=== PATIENT | female | born 1940 | race Caucasian/White ===

== ENCOUNTER 2018-04-29 12:51 | Inpatient (IN) | payer MEDICARE ==
[~2018-04-29] VITALS: Ht 162.6 cm; Wt 61.8 kg
[~2018-04-29 12:51] MED LIST: AMBIEN PAK10 MG PO; AMLODIPINE 5 MG; LEVEMIR 10100 UNIT/1; LEVOTHYROXINE PO; LIOTHYRONINE PO; OMEPRAZOLE20 MG PO; Z LAMISIL PO; Z.0.AMARYL4 MG PO; Z.0.GLUCOPHAGE1000 M PO; Z.0.NOVOLOG100 UNIT/; Z.0.TENORMIN25 MG PO; Z.0.ZESTRIL20 MG PO
--- OUTSIDE RECORDS SUMMARY | 2018-04-29 12:56 | XMS REPORT ---
Author Author [facility] Address Unknown Phone Unavailable Care Team Providers Care Tool Filer Name Role Phone NURIA COLE Unavailable Unavailable Problems This patient has no known problems. Allergies, Adverse Reactions, Alerts This patient has no known allergies or adverse reactions. Medications This patient has no known medications. Results Test Description Test Time Test Comments Text Results Atomic Results Result Comments POCT-GLUCOSE METER 2017-09-20 10:43:00 POC-GLUCOSE METER (LINDA) (test [id number]) 109 mg/dL 70-[address] [facility] [address] [facility] [address]
--- OUTSIDE RECORDS SUMMARY | 2018-04-29 12:56 | XMS REPORT | Clinical Summary ---
Author Author [facility] Address Unknown Phone Unavailable Care Team Providers Care Video Arcade Manager Name Role Phone Junior Pope MD PCP Allergies Comments Active Allergy Reactions Severity Noted Date nausea Codeine Other (See 11/15/2015 Comments) Severe nausea Levofloxacin Other (See 11/15/2015 Comments) Lisinopril Hives 11/15/2015 Vaginal itching Vaginal itching Penicillins Other (See 02/11/2016 Comments) Severe nausea Pentazocine Lactate Other (See 11/15/2015 Comments) Medications End Date Status Medication Sig Dispensed Refills Start Date Active atenolol (TENORMIN) 25 MG Take 25 mg by 0 tablet mouth daily. Active omeprazole (PriLOSEC) 20 Take 20 mg by 0 MG capsule mouth daily. Active metFORMIN (GLUCOPHAGE) Take 1,000 mg 0 1000 MG tablet by mouth 2 (two) times a day with meals. Active glimepiride (AMARYL) 4 MG Take 4 mg by 0 tablet mouth daily before breakfast. Active celecoxib (CeleBREX) 200 Take 200 mg 0 MG capsule by mouth 2 (two) times a day. Active terbinafine HCl (LamiSIL) Take 250 mg 0 250 mg tablet by mouth daily. Active zolpidem (AMBIEN) 10 mg Take 10 mg by 0 tablet mouth nightly as needed for sleep. Active cholecalciferol, vitamin Take 5,000 0 D3, (VITAMIN D3) 5,000 Units by unit capsule mouth daily. Active vitamin E 1000 UNIT Take 1,000 0 capsule Units by mouth daily. Active thyroid, pork, (ARMOUR Take 120 mg 0 THYROID) 120 mg tablet by mouth daily. Active amLODIPine (NORVASC) 10 Take 10 mg by 0 mg tablet mouth daily. Active ezetimibe (ZETIA) 10 mg Take 10 mg by 0 tablet mouth daily. Active insulin lispro (HumaLOG) Inject under 0 100 unit/mL injection the skin as needed for high blood sugar. Active methotrexate 2.5 MG Take 2.5 mg 0 tablet by mouth once a week. Last dose was Sunday 12.7.18 Active predniSONE (DELTASONE) 5 Take 5 mg by 0 mg tablet mouth daily. Every other day Active ascorbic acid, vitamin C, Take 2,000 mg 0 (VITAMIN C) 500 MG tablet by mouth daily. Active multivitamin (THERAGRAN) Take 1 tablet 0 tablet by mouth daily. Active calcium carbonate oyster Take 1 tablet 0 shell (OS-CARLY) 500 mg by mouth calcium (1,250 mg) tablet daily. Active promethazine (PHENERGAN) Take 25 mg by 0 25 MG tablet mouth every 6 (six) hours as needed for nausea or vomiting. 03/15/2018 traMADol (ULTRAM) 50 mg Take 1 tablet 30 tablet 0 tablet (50 mg total) 9 by mouth every 6 (six) hours as needed for moderate pain or severe pain for up to 14 days. 03/08/2018 doxycycline (VIBRAMYCIN) Take 2 28 capsule 0 50 MG capsule capsules (100 9 mg total) by mouth 2 (two) times a day for 7 days. 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 Office Visit Orthopedic Surgery Yvan Bryant MD 03/19/2018 Abstract Orthopedic Surgery Elsie Gresham MD Amputation of right ring finger (Primary Dx) 03/12/2018 Office Visit Orthopedic Surgery Lis Anaya Left hip pain (Primary Dx) 03/11/2018 Orders Only Orthopedic Surgery Leanne Salinas MD 03/01/2018 Anesthesia Orthopedic Surgery Event Elsie Gresham MD RIGHT RING FINGER I AND D COMPLETION AMPUTATION 03/01/2018 Surgery Orthopedic Surgery Elsie Gresham MD Complete traumatic metacarpophalangeal amputation of finger 03/01/2018 Hospital Orthopedic Surgery Encounter Elsie Gresham MD Amputation of right ring finger (Primary Dx) 02/28/2018 Office Visit Orthopedic Surgery Yvan Bryant MD L periprosthetic hip fx s/p ORIF, RevTHA 02/05/18 (Primary Dx) 02/20/2018 Office Visit Orthopedic Surgery Radha Galvez MA 02/12/2018 Documentation Orthopedic Surgery Yvan Bryant MD REVISION TOTAL HIP ARTHROPLASTY VS OPEN REDUCTION INTERNAL FIXATION AND ALL OTHER INDICATED PROCEDURES 02/05/2018 Surgery Orthopedic Surgery Paola Zafar, KINGA 02/05/2018 Anesthesia Orthopedic Surgery Event Mamadou Walters MD Closed fracture of left hip, initial encounter (HCC) (Primary Dx) 02/04/2018 Hospital Orthopedic Surgery - Encounter 02/08/2018 N/A 02/04/2018 Intake Access after 04/28/2017 Family History Medical History Relation Name Comments Heart disease Father Cancer Mother Relation Name Status Comments Father Mother Social History Date Tobacco Use Types Packs/Day Years Used Never Smoker Smokeless Tobacco: Never Used Alcohol Use Drinks/Week oz/Week Comments Yes 1 Glasses of 0.6 wine Sex Assigned at Date Recorded Not on file Industry Job Start Date Occupation Not on file Not on file Not on file Travel End Travel History Travel Start No recent travel history available. Last Filed Vital Signs Time Taken Vital Sign Reading 03/01/2018 1:59 PM [employer] Blood Pressure 123/59 03/01/2018 1:59 PM [employer] Pulse 89 03/01/2018 1:59 PM [employer] Temperature 36.8 C (98.2 F) 03/01/2018 1:59 PM [employer] Respiratory Rate 14 03/01/2018 1:59 PM [employer] Oxygen Saturation 100% - Inhaled Oxygen - Concentration 03/22/2018 9:11 AM [employer] Weight 65.8 kg (145 lb) 03/22/2018 9:11 AM [employer] Height 162.6 cm (5' 4") 03/22/2018 9:11 AM [employer] SU[employer]OR Body Mass Index 24.89 Plan of Treatment Care Team Description Date Type Specialty Yvan Bryant MD [address] [address] [phone] 05/22/2018 Office Visit Orthopedic Surgery Health Maintenance Due Date Last Done Comments SHINGLES VACCINES (#1) 09/26/1989 65+ PNEUMOCOCCAL VACCINE 09/26/2004 (1 of 2 - PCV13) PNEUMOCOCCAL 09/26/2004 POLYSACCHARIDE VACCINE AGE 65 AND OVER INFLUENZA VACCINE 09/26/2017 Implants Device Identifier Shelf Expiration Date Model / Serial / Lot Implanted Type Area Manufactur er 10/04/2027 [id number] / / [id number] 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 8 Cbl Sm 185mm Accord - Hip Joint Left: Hip GUTIERREZ AND [id number] Implants NEPHEW Implanted: Qty: 1 on 02/05/2018 by ORTHOPEDIC Yvan Bryant MD S 08/16/2027 [id number] / / [id number] Cable Co-Cr 2mm Accord - [id number] Hip Joint Left: Hip GUTIERREZ AND Implanted: Qty: 1 on 02/05/2018 by Implants Yvan Gallego MD ORTHOPEDIC S 08/16/2027 [id number] / / [id number] Cable Co-Cr 2mm Accord - [id number] Hip Joint Left: Hip GUTIERREZ AND Implanted: Qty: 1 on 02/05/2018 by Yvan Torres MD ORTHOPEDIC S 09/16/2027 [id number] / / [id number] Cable Co-Cr 2mm Accord - [id number] Hip Joint Left: Hip GUTIERREZ AND Implanted: Qty: 1 on 02/05/2018 by Yvan Torres MD ORTHOPEDIC S 09/16/2027 [id number] / / [id number] Cable Co-Cr 2mm Accord - [id number] Hip Joint Left: Hip GUTIERREZ AND Implanted: Qty: 1 on 02/05/2018 by Yvan Torres MD ORTHOPEDIC S 11/24/2027 [id number] / / [id number] Head Fml 02/08 Tprd 36mm -3mm Hip Joint Left: Hip GUTIERREZ AND Oxinium - [id number] Implants NEPHEW Implanted: 02/05/2018 (Quantity not ORTHOPEDIC on file) S 10/07/2026 [id number] / / [id number] Redapt Slvls Stem 240mm 17so - IPM Left: Hip GUTIERREZ & [id number] IMPLANT NEPHEW Implanted: Qty: 1 on 02/05/2018 by DEVICES ORTHOPAEDYvan Bryant MD 05/24/2027 [id number] / / [id number] Cable W/ Clmp Co-Cr 2mm Accord - Orthopedic Left: Hip GUTIERREZ AND [id number] Trauma NEPHEW Implanted: Qty: 1 on 02/05/2018 by Implants Yvan Riley MD S 07/06/2027 [id number] / / [id number] Cable W/ Clmp Co-Cr 2mm Accord - Orthopedic Left: Hip GUTIERREZ AND [id number] Trauma NEPHEW Implanted: Qty: 1 on 02/05/2018 by Implants Yvan Riley MD S 11/20/2027 [id number] / / [id number] Cable W/ Clmp Co-Cr 2mm Accord - Orthopedic Left: Hip GUTIERREZ AND [id number] Trauma NEPHEW Implanted: Qty: 1 on 02/05/2018 by Implants Yvan Riley MD S 09/26/2020 [id number] / / [id number] Tourni-Cot Large Tourniquet MAR-MED Implanted: Qty: 1 on 03/01/2018 by Elsie Oneal MD Procedures Comments Procedure Name Priority Date/Time Associated Diagnosis XR HIP 2-3 VIEWS LEFT Routine 03/22/2018 Left hip pain 9:36 AM [employer]PER[employer]OR SURGICAL PATHOLOGY Routine 03/01/2018 REQUEST 12:26 PM [employer] SUPERVISOR POC GLUCOSE Routine 03/01/2018 12:21 PM [employer] SUPERVISOR SC AN ELECTIVE Routine 03/01/2018 SUPRAGLOTTIC AIRWAY 11:47 AM [employer] SUPERVISOR Procedure Note - Jr Jacinto CRNA - 03/01/2018 11:47 AM [employer] SUPERVISOR ANESTHESIA INTUBATION Performed by: Jr Jacinto CRNA Authorized by: Leanne Salinas MD Location: OR Urgency: Elective Difficult Airway: No Preoxygena edgar with 100% O2: Yes C-spine Precaution s Maintained Throughout : No Mask Ventilatio n: Not attempted Final Airway Type: Supraglott ic airway Final LMA: I-Gel LMA Size: 3 Number of Attempts at Approach: 2 Smooth placement of iGel LMA sz 3, was not able to get good VT. More induction meds given and then achieved adequate VT. Dentition unchanged. XR CHEST 1 VW PORTABLE Routine 03/01/2018 10:57 AM [employer]ARD SUPERVISOR POC GLUCOSE Routine 03/01/2018 10:56 AM [employer]ARD SUPERVISOR AMPUTATION, DIGIT, HAND 03/01/2018 Complete traumatic 10:40 AM [employer] SUPERVISOR metacarpophalangeal amputation of finger Special Needs SUPINE MINI C-ARM XR FINGER 2+ VW RIGHT Routine 02/28/2018 Pain in finger of right 3:43 PM [employer] SUPERVISOR hand POC GLUCOSE Routine 02/08/2018 8:17 AM [employer]ARD SUPERVISOR POC GLUCOSE Routine 02/07/2018 9:18 PM [employer]ARD SUPERVISOR POC GLUCOSE Routine 02/07/2018 5:19 PM [employer] SUPERVISOR POC GLUCOSE Routine 02/07/2018 12:42 PM [employer] SUPERVISOR POC GLUCOSE Routine 02/07/2018 7:54 AM [employer] SUPER[employer]OR ESTIMATED GFR Routine 02/07/2018 4:00 AM [employer] SUPER[employer]OR BASIC METABOLIC PANEL Routine 02/07/2018 4:00 AM [employer] SUPERVISOR HEMOGLOBIN & HEMATOCRIT Routine 02/07/2018 3:32 AM [employer] SUPERVISOR POC GLUCOSE Routine 02/06/2018 9:35 PM [employer] SUPERVISOR POC GLUCOSE Routine 02/06/2018 4:42 PM [employer] SUPERVISOR POC GLUCOSE Routine 02/06/2018 12:38 PM [employer] SUPERVISOR POC GLUCOSE Routine 02/06/2018 8:13 AM [employer] SUPERVISOR HEMOGLOBIN & HEMATOCRIT Routine 02/06/2018 5:40 AM [employer] SUPERVISOR ESTIMATED GFR Routine 02/06/2018 4:00 AM [employer] SUPERVISOR BASIC METABOLIC PANEL Routine 02/06/2018 4:00 AM [employer] SUPERVISOR POC GLUCOSE Routine 02/05/2018 10:09 PM [employer] SUPERVISOR POC GLUCOSE Routine 02/05/2018 6:03 PM [employer] SUPERVISOR POC GLUCOSE Routine 02/05/2018 4:02 PM [employer] SUPERVISOR POC GLUCOSE Routine 02/05/2018 1:04 PM [employer] SUPER[employer]OR XR PELVIS 1 OR 2 VW Routine 02/05/2018 12:14 PM [employer] SUPER[employer]OR SURGICAL PATHOLOGY Routine 02/05/2018 REQUEST 12:10 PM [employer] SUPER[employer]OR TRANSFUSE RED BLOOD CELLS Routine 02/05/2018 12:03 PM [employer] SUPER[employer]OR XR PELVIS 1 OR 2 VW Routine 02/05/2018 11:20 AM [employer]ARD SUPERVISOR REVISION, ARTHROPLASTY, 02/05/2018 LEFT HIP PERIPROSTHEC HIP 11:00 AM [employer] SUPERVISOR FRACTURE Special Needs TERRI, BIOMET, GUTIERREZ AND NEPHEW SC AN ELECTIVE Routine 02/05/2018 ENDOTRACHEAL AIRWAY 10:37 AM [employer] SUPERVISOR Procedure Note - Tim Weems CRNA - 02/05/2018 10:37 AM [employer] SUPERVISOR ANESTHESIA INTUBATION Date/Time: 02/05/2018 10:07 AM Performed by: Tim Weems CRNA Authorized by: Yvan Mckinney MD Location: OR Urgency: Elective Difficult Airway: No Resident/C RNA/AA: Tim Weems CRNA Preoxygena edgar with 100% O2: Yes C-spine Precaution s Maintained Throughout : No Mask Ventilatio n: Easy mask Final Airway Type: Endotrache al airway Final Endotrache al Airway: ETT Cuffed: Yes Technique Used: Direct laryngosco py Devices/Me thods Used in Placement: Intubatin g stylet Insertion Site: Oral Blade Type: Iyer Laryngosco pe Blade/Vide olaryngosc ope Blade Size: 2 ETT Size (mm): 7.0 Cuff at minimum occlusion pressure: Yes Measured from: Lips ETT to Lips (cm): 21 Placement Verified by: CO2 detection, direct visualizat ion and equal breath sounds Laryngosco pic view: Grade IIa - partial view of glottis Rapid Sequence Induction (RSI): No Modified RSI: No Number of Attempts at Approach: 1 POC GLUCOSE Routine 02/05/2018 7:41 AM [employer]ARD SUPERVISOR POC GLUCOSE Routine 02/05/2018 6:53 AM [employer] SUPER[employer]OR POC GLUCOSE Routine 02/04/2018 10:31 [address] [address] [address] [address] HEAD EXTERNAL STUDY Routine 02/04/2018 6:03 PM [employer] SUPERVISOR POC GLUCOSE Routine 02/04/2018 4:26 PM [employer]OLD YARD SUPERVISOR ECG 12-LEAD STAT 02/04/2018 3:54 PM [employer] SUPERVISOR PREPARE RBC Timed 02/04/2018 3:15 PM [employer] SUPER[employer]OR PREPARE RBC Timed 02/04/2018 3:15 PM [employer] SUPERVISOR TYPE AND SCREEN Timed 02/04/2018 3:15 PM [employer] SUPER[employer]OR ESTIMATED GFR Routine 02/04/2018 1:30 PM [employer] SUPERVISOR HC COMPLETE BLD COUNT STAT 02/04/2018 W/AUTO DIFF 1:30 PM [employer] SUPERVISOR COMPREHENSIVE METABOLIC Routine 02/04/2018 PANEL 1:30 PM [employer] SUPERVISOR URINE CULTURE Routine 02/04/2018 1:20 PM [employer] SUPERVISOR URINALYSIS SCREEN AND Routine 02/04/2018 MICROSCOPY, WITH REFLEX 1:02 PM [employer]ARD SUPERVISOR TO CULTURE PROTHROMBIN TIME WITH INR Routine 02/04/2018 1:02 PM [employer] SUPERVISOR XR LOWER EXTREMITY Routine 02/04/2018 EXTERNAL STUDY 7:10 AM [employer] SUPERVISOR XR UPPER EXTREMITY Routine 02/04/2018 EXTERNAL STUDY 6:23 AM [employer] SUPERVISOR XR LOWER EXTREMITY Routine 02/04/2018 EXTERNAL STUDY 6:19 AM [employer] SUPERVISOR XR CHEST EXTERNAL STUDY Routine 02/04/2018 6:18 AM [employer] [address] SPINE EXTERNAL STUDY Routine 02/04/2018 6:01 AM [employer] [address] HEAD EXTERNAL STUDY Routine 02/04/2018 6:01 AM [employer]ARD SUPERVISOR after 04/28/2017 Results * XR Hip 2-3 View Left (03/22/2018 9:36 AM M[employer] YARD SUPERVISOR) Narrative Performed At [facility] X-rays demonstrate well-positioned revision arthroplasty with supplemental fixation for Gibsonia B periprosthetic fracture. Performing Organization Address City/[facility] Phone Number [facility] [address] [place] [address] * Surgical pathology request (03/01/2018 12:26 PM MOLD YARD SUPERVISOR) Only the most recent of 2 results within the time period is included. [facility] DEPARTMENT OF PATHOLOGY AND GENOMIC MEDICINE Surgical pathology report See link below for PDF Lab [facility] DEPARTMENT OF Report PATHOLOGY AND GENOMIC MEDICINE Result status This is Final Report for [facility] DEPARTMENT OF [id number] PATHOLOGY AND GENOMIC MEDICINE Performing Organization Address [facility] [place] [place] Phone Number [facility] DEPARTMENT OF [address] [place] [address] PATHOLOGY AND GENOMIC MEDICINE * POC glucose (03/01/2018 12:21 PM [employer]ARD SUPERVISOR) Only the most recent of 19 results within the time period is included. POC glucose 124 (H) 65 - 99 mg/dL [facility] Comment: [facility] Notified RN Meter ID: [id number] Hardscape Foreman: Meseret Do Performing Organization Address [facility] Phone Number [facility] DEPARTMENT OF [address] [place] [address] PATHOLOGY AND GENOMIC MEDICINE [facility] [address] [place] [address] HOSPITAL * XR Chest 1 Vw Portable (03/01/2018 10:57 AM [employer] SUPERVISOR) Narrative Performed At EXAMINATION:XR CHEST 1 VW PORTABLE [facility] CLINICAL HISTORY:cough COMPARISON:February 04, 2018 IMPRESSION: Heart and mediastinum are normal.Pulmonary vessels are in the normal range.The lung ricks are clear. Multiple small surgical clips are noted along the axillary portion of the right breast. [facility]-[id number] Procedure Note Interface, Radiology Results Incoming - 03/01/2018 11:01 AM [employer]ARD SUPERVISOR EXAMINATION: XR CHEST 1 VW PORTABLE CLINICAL HISTORY: cough COMPARISON: February 04, 2018 IMPRESSION: Heart and mediastinum are normal. Pulmonary vessels are in the normal range. The lung ricks are clear. Multiple small surgical clips are noted along the axillary portion of the right breast. [facility]-[id number] Performing Organization Address [facility] Phone Number [facility] [address] [place] [address] * XR Finger 2+ Vw Right (02/28/2018 3:43 PM M[employer]ARD SUPERVISOR) Narrative Performed At [facility] 3 view of right ring finger shows distal phalanx tuft is amputated with likely exposed bone and possible osteomyelitis at the tip of the amputation, severe arthritic changes of the PIPJ. Performing Organization Address [facility] Phone Number [facility] [address] [place] [address] * Estimated GFR (02/07/2018 4:00 AM [employer]ARD SUPERVISOR) Only the most recent of 3 results within the time period is included. Estimated GFR 66 mL/min/1.73 m2 [facility] Comment: HOSPITAL CatergoryUnitsInte rpretation G1 >=90 Normal or high G2 60-89Mildly decreased [id number] Mildly to moderately decreased [id number] Moderately to severely decreased G4 15-29Severely decreased G5 <15Kidney failure The eGFR was calculated using the Chronic Kidney Disease Epidemiology Collaboration (CKD-EPI) equation. Interpretation is based on recommendations of the National Kidney Foundation-Kidney Disease Outcomes Quality Initiative (NKF-KDOQI) published in 2014. Specimen Plasma specimen Performing Organization Address City/[facility]/Zipcode Phone Number [facility] DEPARTMENT OF [address] [place] [address] PATHOLOGY AND GENOMIC MEDICINE [address] * Basic metabolic panel (02/07/2018 4:00 AM [employer]ARD SUPERVISOR) Only the most recent of 2 results within the time period is included. Sodium 138 135 - 148 mEq/L [facility] Potassium 4.3 3.5 - 5.0 mEq/L [facility] Chloride 100 98 - 112 mEq/L [facility] CO2 23 (L) 24 - 31 mEq/L [facility] Anion gap 15@ANIO 7 - 15 mEq/L [facility] BUN 15 8 - 23 mg/dL [facility] Creatinine 0.84 0.50 - 0.90 mg/dL [facility] Glucose 203 (H) 65 - 99 mg/dL [facility] Calcium 9.3 8.8 - 10.2 mg/dL [facility] Specimen Plasma specimen Performing Organization Address City/State/Zipcode Phone Number [place] [address] PATHOLOGY AND GENOMIC MEDICINE [address] * Hemoglobin & hematocrit (02/07/2018 3:32 AM M[employer] YARD SUPERVISOR) Only the most recent of 2 results within the time period is included. HGB 9.3 (L) 12.0 - 16.0 g/dL [facility] HCT 27.7 (L) 37.0 - 47.0 % [facility] Specimen Blood Performing Organization Address City/[facility] Phone Number [facility] [address] PATHOLOGY AND GENOMIC MEDICINE [address] * XR Pelvis 1 Or 2 Vw (02/05/2018 12:14 PM [employer] YARD SUPERVISOR) Only the most recent of 2 results within the time period is included. Narrative Performed At EXAMINATION:XR PELVIS 1 OR 2 VW [facility] CLINICAL HISTORY:Pain COMPARISON:February 05 IMPRESSION: Patient has undergone left hip arthroplasty There is no evidence of fracture No focal lesions are present [id number] Procedure Note Hm Interface, Radiology Results Incoming - 02/05/2018 12:19 PM [employer]ARD SUPERVISOR EXAMINATION: XR PELVIS 1 OR 2 VW CLINICAL HISTORY: Pain COMPARISON: February 05 IMPRESSION: Patient has undergone left hip arthroplasty There is no evidence of fracture No focal lesions are present [id number] Performing Organization Address City/[facility] Phone Number [facility] [address] [place] [address] * Transfuse RBC (02/05/2018 12:03 PM MOLD YARD SUPERVISOR) * CT Head External Study (02/04/2018 6:03 PM M[employer] YARD SUPERVISOR) Only the most recent of 2 results within the time period is included. Narrative Performed At This exam was not acquired at a [facility] facility and has not been [facility] interpreted by a [facility] Provider.The exam was imported into our imaging system for comparisons purposes. Performing Organization Address City/State/Zipcode Phone Number [facility] [address] [place] [address] * ECG 12 lead (02/04/2018 3:54 PM M[employer] YARD SUPERVISOR) Ventricular rate 81 [facility] Atrial rate 81 [facility] SC interval 154 [facility] QRSD interval 74 [facility] QT interval 370 [facility] QTC interval 429 [facility] P axis 1 -29 [facility] QRS axis 1 64 [facility] T wave axis 57 [facility] EKG impression Normal sinus rhythm-Normal [facility] ECG-No previous ECGs available- Narrative Performed At Performing Organization Address [facility] Phone Number [facility] [address] [place] [address] * Prepare RBC, 2 Units (02/04/2018 3:15 PM [employer] SUPERVISOR) Product name Red Blood Cells -1, Leukored [facility] Unit number [id number] [facility] Product code [id number] [facility] Dispense status Returned to BB not transfused [facility] Blood expiration date [facility] Blood type code 6200 [facility] Blood type A POSITIVE [facility] Product name Red Blood Cells -1, Leukored [facility] Unit number [id number] [facility] Product code [id number] [facility] Dispense status Transfused [facility] Blood expiration date [facility] Blood type code 6200 [facility] Blood type A POSITIVE [facility] Performing Organization Address [facility] Phone Number [facility] DEPARTMENT OF [address] [place] [address] PATHOLOGY AND GENOMIC MEDICINE [address] [address] HOSPITAL * Type and screen (02/04/2018 3:15 PM [employer] YARD SUPERVISOR) ABO grouping A [facility] Rh type POS [facility] Antibody screen (gel) NEG [facility] Performing Organization Address City/[facility]/Zipcode Phone Number [facility] [address] [address] PATHOLOGY AND GENOMIC MEDICINE [address] [address] HOSPITAL * CBC with platelet and differential (02/04/2018 1:30 PM [employer] YARD SUPERVISOR) WBC 6.65 4.50 - 11.00 k/uL [facility] RBC 3.45 (L) 4.20 - 5.50 m/uL [facility] HGB 11.1 (L) 12.0 - 16.0 g/dL [facility] HCT 32.7 (L) 37.0 - 47.0 % [facility] MCV 94.8 82.0 - 100.0 fL [facility] MCH 32.2 27.0 - 34.0 pg [facility] MCHC 33.9 31.0 - 37.0 g/dL [facility] RDW - SD 49.5 37.0 - 55.0 fL [facility] MPV 10.3 8.8 - 13.2 fL [facility] Platelet count 182 150 - 400 k/uL [facility] Nucleated RBC 0.00 /100 WBC [facility] Neutrophils 78.6 (H) 39.0 - 69.0 % [facility] Lymphocytes 9.6 (L) 25.0 - 45.0 % [facility] Monocytes 9.9 0.0 - 10.0 % [facility] Eosinophils 0.5 0.0 - 5.0 % [facility] Basophils 0.5 0.0 - 1.0 % [facility] Immature granulocytes 0.9Comment: "Immature 0.0 - 1.0 % [facility] granulocytes" (promyelocytes, HOSPITAL myelocytes, metamyelocytes) Specimen Blood Performing Organization Address City/State/Zipcode Phone Number [facility] DEPARTMENT OF [address] [place] [address] PATHOLOGY AND GENOMIC MEDICINE [address] * Comprehensive metabolic panel (02/04/2018 1:30 PM MOLD YARD SUPERVISOR) Sodium 138 135 - 148 mEq/L [facility] Potassium 4.1 3.5 - 5.0 mEq/L [facility] Chloride 99 98 - 112 mEq/L [facility] CO2 26 24 - 31 mEq/L [facility] Anion gap 13@ANIO 7 - 15 mEq/L [facility] BUN 20 8 - 23 mg/dL [facility] Creatinine 0.93 (H) 0.50 - 0.90 mg/dL [facility] Glucose 151 (H) 65 - 99 mg/dL [facility] Calcium 9.3 8.8 - 10.2 mg/dL [facility] Protein 6.4 6.3 - 8.3 g/dL [facility] Comment: HOSPITAL 4.6-7.0 g/dL 1 week 4.4-7.6 g/dL 7 months-1year 5.1-7.3 g/dL 1-2 years5.6-7 .5 g/dL >3 years6.0-8 .0 g/dL 18-150 6.3-8.3 g/dL Albumin 3.4 (L) 3.5 - 5.0 g/dL [facility] A/G ratio 1.1 0.7 - 3.8 [facility] Alkaline phosphatase 62 35 - 104 U/L [facility] AST 26 10 - 35 U/L [facility] ALT 29 5 - 50 U/L [facility] Total bilirubin 0.6 0.0 - 1.2 mg/dL [facility] Specimen Plasma specimen Performing Organization Address City/[facility] Phone Number [facility] [place] [address] PATHOLOGY AND GENOMIC MEDICINE [address] * Urine culture (02/04/2018 1:20 PM MOLD YARD SUPERVISOR) Urine culture SEE COMMENTComment: [facility] Bacteriuria screen negative. HOSPITAL Performing Organization Address [facility] [place] [place] Phone Number [facility] [place] [address] PATHOLOGY AND GENOMIC MEDICINE [address] * Urinalysis screen and microscopy, with reflex to culture (02/04/2018 1:02 PM MOLD YARD SUPERVISOR) Specimen site Clean catch [facility] Color, UA Straw [facility] Appearance, UA Clear [facility] Specific gravity, UA 1.013 1.001 - 1.035 [facility] pH, UA 6.0 5.0 - 8.5 [facility] Protein, UA 1+ (A) Negative [facility] Glucose, UA 1+ (A) Negative [facility] Ketones, UA Negative Negative [facility] Bilirubin, UA Negative Negative [facility] Blood, UA Negative Negative [facility] Nitrite, UA Negative Negative [facility] Urobilinogen, UA <2.0 <2.0 [facility] Leukocyte esterase, UA Negative Negative [facility] WBC, UA 2 0 - 4 /HPF [facility] RBC, UA 1 0 - 5 /HPF [facility] Bacteria, UA Few None seen [facility] Yeast, UA None seen [facility] Yeast with pseudohyphae, None seen [facility] Specimen Urine Performing Organization Address City/State/Zipcode Phone Number [facility] DEPARTMENT OF [address] [place] [address] PATHOLOGY AND GENOMIC MEDICINE [address] * Prothrombin time with INR (02/04/2018 1:02 PM MOLD YARD SUPERVISOR) Prothrombin time 14.0 11.5 - 14.5 sec [facility] INR 1.1 [facility] Comment: HOSPITAL The International Normalized Ratio (INR) is a therapeutic monitoring tool for patients who are stable on oral anticoagulant therapy. An INR of 2.0-3.0 is suggested for deep vein thrombosis/pulmonary embolism. Specimen Blood Performing Organization Address City/[facility] Phone Number [facility] [place] [address] PATHOLOGY AND GENOMIC MEDICINE [address] * XR Lower Extremity External Study (02/04/2018 7:10 AM MOLD YARD SUPERVISOR) Only the most recent of 2 results within the time period is included. Narrative Performed At This exam was not acquired at a [facility] facility and has not been [facility] interpreted by a [facility] Provider.The exam was imported into our imaging system for comparisons purposes. Performing Organization Address City/State/Zipcode Phone Number [facility] [address] [place] [address] * XR Upper Extremity External Study (02/04/2018 6:23 AM MOLD YARD SUPERVISOR) Narrative Performed At This exam was not acquired at a [facility] facility and has not been [facility] interpreted by a [facility] Provider.The exam was imported into our imaging system for comparisons purposes. Performing Organization Address City/[facility]/Zipcode Phone Number [facility] [address] [place] [address] * XR Chest External Study (02/04/2018 6:18 AM MOLD YARD SUPERVISOR) Narrative Performed At This exam was not acquired at a Protestant facility and has not been [facility] interpreted by a Protestant Provider.The exam was imported into our imaging system for comparisons purposes. Performing Organization Address City/State/Zipcode Phone Number [facility] [address] [place] [address] * CT Spine External Study (02/04/2018 6:01 AM MOLD YARD SUPERVISOR) Narrative Performed At This exam was not acquired at a Protestant facility and has not been [facility] interpreted by a Protestant Provider.The exam was imported into our imaging system for comparisons purposes. Performing Organization Address City/State/Zipcode Phone Number [facility] [address] [place] [address] after 04/28/2017 Insurance Payer Benefit Subscriber ID Type Phone Address Plan / Group [facility] MEDICARE REBOLLEDO xxxxxxxxx HMO ADVANTAGE - [facility] AARP AARP xxxxxxxxx Commercial SUPPLEMENT Surgery Advance Directives Patient has advance care planning documents on file. For more information, dottie weaver contact: Leo Dee [address] [place] [address]
--- OUTSIDE RECORDS SUMMARY | 2018-04-29 12:56 | XMS REPORT | Clinical Summary ---
Author Author PORTIA Escap[employer] MediaCarib[facility] HospitalJob[facility] Organization [facility] Address Unknown Phone Unavailable Care Team Providers Care Photonics Technician Name Role Phone Junior oPpe PCP Allergies Comments Active Allergy Reactions Severity Noted Date nausea Upset stomach Codeine Other (See 11/15/2015 Comments) Severe nausea Upset stomach Levofloxacin Other (See 11/15/2015 Comments) Itching everywhere Lisinopril Itching, 11/15/2015 Hives Vaginal itching Penicillins Other (See 02/11/2016 Comments) Other reaction(s): Other (See Comments) Severe nausea Pentazocine Lactate 11/15/2015 Medications End Date Status Medication Sig Dispensed Refills Start Date Active atenolol (TENORMIN) 25 MG Take 25 mg by 0 tablet mouth 2 (two) times daily. Active omeprazole (PRILOSEC) 20 Take 20 mg by 0 MG capsule mouth as needed. Active ranitidine (ZANTAC) 75 MG Take 75 mg by 0 tablet mouth as needed for Heartburn. Active metFORMIN (GLUCOPHAGE) Take 1,000 mg 0 1000 MG tablet by mouth 2 (two) times daily with breakfast and dinner. Active glimepiride (AMARYL) 4 MG Take 4 mg by 0 tablet mouth 2 (two) times daily. Active amLODIPine (NORVASC) 5 MG Take 5 mg by 0 tablet mouth daily. Active terbinafine HCl (LAMISIL) Take 250 mg 0 250 mg tablet by mouth daily. Active zolpidem (AMBIEN) 5 MG Take 5 mg by 0 tablet mouth every night as needed for Insomnia. Active celecoxib (CELEBREX) 100 Take 100 mg 0 MG capsule by mouth every 12 (twelve) hours as needed for Pain. Active insulin detemir (LEVEMIR) Inject 14 0 100 unit/mL injection Units subcutaneousl y nightly. Active ascorbic acid (VITAMIN C) Take 1,000 mg 0 1000 MG tablet by mouth daily 2,000 - 3,000 daily . Active vitamin E 1000 UNIT Take 1,000 0 capsule Units by mouth daily. Active cholecalciferol, vitamin Take by 0 D3, 2,000 unit Cap mouth. Active multivitamin per tablet Take 1 tablet 0 by mouth daily. Active calcium carbonate Take 1,200 mg 0 (OS-CARLY) 600 mg (1,500 by mouth mg) Tab daily. Active HYDROcodone-acetaminophen Take 1 tablet 0 (VICODIN) 7.5-500 mg per by mouth tablet every 6 (six) hours as needed for Pain. Active acetaminophen (TYLENOL) Take 500 mg 0 500 MG tablet by mouth every 6 (six) hours as needed for Pain. Active naproxen Take 220 mg 0 (ALEVE,ANAPROX,MIDOL) 220 by mouth as MG tablet needed. Active loratadine (CLARITIN) 10 Take 10 mg by 0 mg tablet mouth as needed for Allergies. Active loperamide (IMODIUM A-D) Take 2 mg by 0 2 mg tablet mouth as needed for Diarrhea. Active thyroid, pork, (ARMOUR Take by mouth 0 THYROID) 120 mg Tab daily. Active terbutaline (BRETHINE) 5 Take 5 mg by 0 mg tablet mouth every 6 (six) hours. Active ezetimibe (ZETIA) 10 mg Take 10 mg by 0 tablet mouth daily. Active insulin lispro (HUMALOG) Inject 0 100 unit/mL injection subcutaneousl y 3 (three) times daily before meals. Active methotrexate 2.5 MG Take by mouth 0 tablet once a week. Active folic acid (FOLVITE) 1 MG Take 1 mg by 0 tablet mouth daily. Active predniSONE (DELTASONE) 5 Take 5 mg by 0 MG tablet mouth daily. Active tobramycin-dexamethasone 1 drop every 0 (TOBRADEX) 0.3-0.1 % 4 (four) ophthalmic solution hours while awake. 09/19/2017 Discontinued thyroid, pork, 60 mg Tab Take 30 mg by 0 mouth daily. 09/19/2017 Discontinued insulin aspart (NOVOLOG) Inject 0 100 unit/mL injection subcutaneousl y as needed for High Blood Sugar 5-10 units . 09/19/2017 Discontinued methocarbamol (ROBAXIN) Take 750 mg 0 750 MG tablet by mouth as needed. Active Problems Problem Noted Date Lumbar radiculopathy 02/22/2016 Lumbar stenosis 02/22/2016 Lumbar stenosis with neurogenic claudication 02/22/2016 Encounters Care Team Description Date Type Specialty Renita Calles 09/20/2017 Anesthesia Event Aaron Gary MD Left nasolacrimal duct obstruction (Primary Dx) 09/20/2017 Hospital Encounter Aaron Gary MD PROBING,NASOLACRIMAL DUCT BALLOON DILATION 09/20/2017 Surgery after 04/28/2017 Social History Date Tobacco Use Types Packs/Day Years Used Never Smoker Smokeless Tobacco: Never Used Alcohol Use Drinks/Week oz/Week Comments Yes rarely Sex Assigned at Date Recorded Not on file Industry Job Start Date Occupation Not on file Not on file Not on file Travel End Travel History Travel Start No recent travel history available. Last Filed Vital Signs Time Taken Vital Sign Reading 09/20/2017 11:40 AM CDT Blood Pressure 162/64 09/20/2017 11:40 AM CDT Pulse 68 09/20/2017 11:11 AM CDT Temperature 37.3 C (99.2 F) 09/20/2017 11:40 AM CDT Respiratory Rate 16 09/20/2017 11:40 AM CDT Oxygen Saturation 98% - Inhaled Oxygen - Concentration 09/20/2017 10:37 AM CDT Weight 68 kg (150 lb) 09/20/2017 10:37 AM CDT Height 162.6 cm (5' 4") 09/20/2017 10:37 AM CDT Body Mass Index 25.75 Plan of Treatment Not on file Procedures Comments Procedure Name Priority Date/Time Associated Diagnosis POCT-GLUCOSE METER Routine 09/20/2017 10:35 AM CDT PROBING,NASOLACRIMAL DUCT 09/20/2017 Acute dacryocystitis, BALLOON DILATION 9:17 AM CDT left Nasolacrimal obstruction, left after 04/28/2017 Results * POC-Glucose meter (09/20/2017 10:35 AM CDT) POC-Glucose Meter 109Comment: TESTED AT 70 - 110 mg/dL [facility] [address] [facility] [address] [facility] [address] Specimen Blood Performing Organization Address City/State/Zipcode Phone Number [facility] [address] [place] [address] MEDICAL CENTER after 04/28/2017 Insurance Payer Benefit Subscriber ID Type Phone Address Plan / Group [facility] xxxxxxxxx MEDICARE MGD CARE MEDICARE HMO Advance Directives For more information, please contact: [facility] [address] [place] [address] Date Inactivated Comments Code Status Date Activated 02/23/2016 12:21 PM Full Code 02/22/2016 4:11 PM This code status was determined by: Patient 02/22/2016 4:11 PM Full Code 02/22/2016 5:40 AM This code status was determined by: Patient
[2018-04-29] MEDS ORDERED: SODIUM CHLORIDE 0.9% 1000ML 1,000 ML IV SCH (13:15)
[2018-04-29] MEDS ORDERED: ACETAMINOPHEN INFANTS' 160 MG/5 ML BTL PO ONE (13:15)
[2018-04-29] MEDS ORDERED: ACETAMINOPHEN 325 MG/10 ML UDC ONE (13:17)
--- NOTE | 2018-04-29 13:17 | NUR ---
102.2 TEMP. PATIENT GIVEN TYLENOL 650MG LIQUID
[2018-04-29] MEDS ORDERED: ACETAMINOPHEN 325 MG/10 ML UDC PO ONE (13:30)
--- NOTE | 2018-04-29 13:49 | Diagnostic Imaging Report ---
Examination: Single AP view of the chest. COMPARISON: None. INDICATION: Dehydration DISCUSSION: Lungs are well-inflated. No focal airspace consolidation, pleural effusion, or pneumothorax. Tortuosity of the thoracic aorta. Normal heart size without pulmonary edema. No acute osseous abnormality. Surgical clips along the right chest wall. IMPRESSION: 1. No acute cardiopulmonary abnormalities. Signed by: Dr. Kt Sorto M.D. on 04/29/2018 1:46 PM
[2018-04-29 14:32] LABS: EOSINOPHILS % 2.9 % (0.0-6.0); HEMATOCRIT 25.6 % (34.2-44.1); HEMOGLOBIN 8.8 g/dL (12.0-16.0); LYMPHOCYTES # (AUTO) 0.2 (1.0-3.2); MEAN CORPUSCULAR HEMOGLOBIN 29.3 pg (28-32); MEAN CORPUSCULAR HGB CONC 34.4 g/dL (31-35); MEAN CORPUSCULAR VOLUME 85.3 fL (81-99); MONOCYTES % 2.9 % (4.4-11.3); NEUTROPHILS # (AUTO) 0.1 (2.1-6.9); NEUTROPHILS % 34.2 % (38.7-80.0); PLATELET COUNT 66 x10e3/uL (140-360); RED CELL DISTRIBUTION WIDTH 14.3 % (11.7-14.4)
[2018-04-29 14:36] LABS: INR 1.09; PROTHROMBIN TIME 14.6 seconds (11.9-14.5)
[2018-04-29 14:37] LABS: PARTIAL THROMBOPLASTIN TIME 35.8 seconds (23.8-35.5)
[2018-04-29 14:41] LABS: STREPTOCOCCUS GRP A ANTIGEN NEGATIVE (NEGATIVE)
[2018-04-29 14:46] LABS: ALBUMIN 3.2 g/dL (3.5-5.0); ALBUMIN/GLOBULIN RATIO 0.8 (0.8-2.0); ANION GAP 14.9 mmol/L (8-16); CALCIUM 9.3 mg/dL (8.4-10.2); CREATININE, SERUM 1.41 mg/dL (0.57-1.11); POTASSIUM 3.9 mmol/L (3.5-5.1)
[2018-04-29 14:50] LABS: INFLUENZAE A&B ANTIGEN (RAPID) NEGATIVE (NEGATIVE)
--- NOTE | 2018-04-29 15:05 | NUR ---
RECEIVED PT FROM [facility] VIA W/C. GOWNED AND PLACED ON THE MONITOR
[2018-04-29] MEDS ORDERED: VANCOMYCIN 1GM/NS 250 ML 250 ML IV SCH (15:30)
[2018-04-29] MEDS ORDERED: FILGRASTIM 300 MCG/ML VIAL SC STA (15:35)
--- NOTE | 2018-04-29 15:35 | NUR ---
TYPE AND SCREEN DRAWN AND SENT
[2018-04-29] MEDS: CEFEPIME 2 GM/NS 0.9% 100 ML 100 ML IV SCH (15:45)
[2018-04-29] MEDS: SODIUM CHLORIDE 0.9% 1000ML 1,000 ML IV SCH (15:55)
[2018-04-29] MEDS ORDERED: DEXTROSE 50% SYRINGE 50 ML IV PRN (16:00)
[2018-04-29] MEDS ORDERED: MORPHINE SULFATE INJ 4 MG/ML INJ 1ML IV PRN (16:00)
[2018-04-29] MEDS ORDERED: FILGRASTIM 480 MCG/0.8 ML SYRINGE SQ SCH (16:00)
[2018-04-29] MEDS ORDERED: ONDANSETRON HCL INJ 2MG/ML 2ML 2 MG/ML VIAL IV PRN (16:00)
[2018-04-29] MEDS ORDERED: MORPHINE SULFATE 2 MG/ML SYR 1ML IV PRN (16:00)
[2018-04-29] MEDS ORDERED: ACYCLOVIR SODIUM 750 MG in SODIUM CHLORIDE 0.9% 250ML 250 ML IV SCH (16:30)
--- OUTSIDE RECORDS SUMMARY | 2018-04-29 17:37 | XMS REPORT | Clinical Summary ---
Author Author PORTIA [facility] TherapeuticsBon[facility] HospitalTradeHar[facility] Organization [facility] Address Unknown Phone Unavailable Care Team Providers Care Spark Tester Name Role Phone Junior Pope PCP Allergies Comments Active Allergy Reactions Severity [...] 109Comment: TESTED AT 70 - 110 mg/dL [facility] [address] [facility] [address] [facility] [address] Specimen Blood Performing Organization Address City/State/Zipcode Phone Number [facility] [address] [place] [address] MEDICAL CENTER after 04/28/2017 Insurance Payer Benefit Subscriber ID Type Phone Address Plan / Group [facility] xxxxxxxxx MEDICARE MGD CARE MEDICARE HMO Advance Directives For more information, please contact: [facility] [address] [place] [address] Date Inactivated Comments Code Status Date Activated 02/23/2016 12:21 PM Full Code 02/22/2016 4:11 PM This code status was determined by: Patient 02/22/2016 4:11 PM Full Code 02/22/2016 5:40 AM This code status was determined by: Patient
--- OUTSIDE RECORDS SUMMARY | 2018-04-29 17:37 | XMS REPORT | Clinical Summary ---
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 Office Visit Orthopedic Surgery Yvna Bryant MD Status post revision of total [...] Taken Vital Sign Reading 03/01/2018 1:59 PM IT HELP DESK ASSOCIATE Blood Pressure 123/59 03/01/2018 1:59 PM IT HELP DESK ASSOCIATE Pulse 89 03/01/2018 1:59 PM IT HELP DESK ASSOCIATE Temperature 36.8 C (98.2 F) 03/01/2018 1:59 PM IT HELP DESK ASSOCIATE Respiratory Rate 14 03/01/2018 1:59 PM IT HELP DESK ASSOCIATE Oxygen Saturation 100% - Inhaled Oxygen - Concentration 03/22/2018 9:11 AM IT HELP DESK ASSOCIATE Weight 65.8 kg (145 lb) 03/22/2018 9:11 AM IT HELP DESK ASSOCIATE Height 162.6 cm (5' 4") 03/22/2018 9:11 AM IT HELP DESK ASSOCIATE Body Mass Index 24.89 Plan of Treatment Care Team Description Date Type Specialty Yvan Bryant MD [address] [address] [phone] 05/22/2018 Office Visit Orthopedic Surgery Health Maintenance Due Date Last Done Comments SHINGLES VACCINES (#1) 09/26/1989 65+ PNEUMOCOCCAL VACCINE 09/26/2004 (1 of 2 - PCV13) PNEUMOCOCCAL 09/26/2004 POLYSACCHARIDE VACCINE AGE 65 AND OVER INFLUENZA VACCINE 09/26/2017 Implants Device Identifier Shelf Expiration Date Model / Serial / Lot Implanted Type Area Manufactur er 10/04/2027 [id number] / / [id number] Cobol Mainframe Developer Troch 8 Cbl Sm 185mm Accord - Hip Joint Left: Hip GUTIERREZ AND [id number] Implants NEPHEW Implanted: Qty: 1 on 02/05/2018 by ORTHOPEDIC Yvan Bryant MD S 08/16/2027 [id number] / / [id number] Cable Co-Cr 2mm Accord - [id number] Hip Joint Left: Hip GUTIERREZ AND Implanted: Qty: 1 on 02/05/2018 by Implants Yvan Gallego MD ORTHOPEDIC S 08/16/2027 [id number] / / [id number] Cable Co-Cr 2mm Accord - [id number] Hip Joint Left: Hip GUTIERREZ AND Implanted: Qty: 1 on 02/05/2018 by Yvan Torres MD ORTHOPEDIC S 09/16/2027 [id number] / / [id number] Cable Co-Cr 2mm Accord - [id number] Hip Joint Left: Hip GUTIERREZ AND Implanted: Qty: 1 on 02/05/2018 by Yvan Torres MD ORTHOPEDIC S 09/16/2027 [id number] / / [id number] Cable Co-Cr 2mm Accord - [id number] Hip Joint Left: Hip GUTIERREZ AND Implanted: Qty: 1 on 02/05/2018 by Yvan Torres MD ORTHOPEDIC S 11/24/2027 [id number] / / [id number] Head Fml 02/08 Tprd 36mm -3mm Hip Joint Left: Hip GUTIERREZ AND Oxinium - [id number] Implants NEPHEW Implanted: 02/05/2018 (Quantity not ORTHOPEDIC on file) S 10/07/2026 [id number] / / [id number] Redapt Slvls Stem 240mm 17so - IPM Left: Hip GUTIERREZ & [id number] IMPLANT NEPHEW Implanted: Qty: 1 on 02/05/2018 by DEVICES ORTHOPAEDYvan Bryant MD 05/24/2027 [id number] / / [id number] Cable W/ Clmp Co-Cr 2mm Accord - Orthopedic Left: Hip GUTIERREZ AND [id number] Trauma NEPHEW Implanted: Qty: 1 on 02/05/2018 by Implants Yvan Riley MD S 07/06/2027 [id number] / / [id number] Cable W/ Clmp Co-Cr 2mm Accord - Orthopedic Left: Hip GUTIERREZ AND [id number] Trauma NEPHEW Implanted: Qty: 1 on 02/05/2018 by Implants Yvan Riley MD S 11/20/2027 [id number] / / [id number] Cable W/ Clmp Co-Cr 2mm Accord - Orthopedic Left: Hip GUTIERREZ AND [id number] Trauma NEPHEW Implanted: Qty: 1 on 02/05/2018 by Implants Yvan Riley MD S 09/26/2020 [id number] / / [id number] Tourni-Cot Large Tourniquet MAR-MED Implanted: Qty: 1 on 03/01/2018 by Elsie Oneal MD Procedures Comments Procedure Name Priority Date/Time Associated Diagnosis XR HIP 2-3 VIEWS LEFT Routine 03/22/2018 Left hip pain 9:36 AM IT HELP DESK ASSOCIATE SURGICAL PATHOLOGY Routine 03/01/2018 REQUEST 12:26 PM IT HELP DESK ASSOCIATE POC GLUCOSE Routine 03/01/2018 12:21 PM IT HELP DESK ASSOCIATE CO AN ELECTIVE Routine 03/01/2018 SUPRAGLOTTIC AIRWAY 11:47 AM IT HELP DESK ASSOCIATE Procedure Note - Jr Jacinto CRNA - 03/01/2018 11:47 AM IT HELP DESK ASSOCIATE ANESTHESIA INTUBATION Performed by: Jr Jacinto CRNA [...] 1 VW PORTABLE Routine 03/01/2018 10:57 AM IT HELP DESK ASSOCIATE POC GLUCOSE Routine 03/01/2018 10:56 AM IT HELP DESK ASSOCIATE AMPUTATION, DIGIT, HAND 03/01/2018 Complete traumatic 10:40 AM IT HELP DESK ASSOCIATE metacarpophalangeal amputation of finger Special Needs SUPINE MINI C-ARM XR FINGER 2+ VW RIGHT Routine 02/28/2018 Pain in finger of right 3:43 PM IT HELP DESK ASSOCIATE hand POC GLUCOSE Routine 02/08/2018 8:17 AM IT HELP DESK ASSOCIATE POC GLUCOSE Routine 02/07/2018 9:18 PM IT HELP DESK ASSOCIATE POC GLUCOSE Routine 02/07/2018 5:19 PM IT HELP DESK ASSOCIATE POC GLUCOSE Routine 02/07/2018 12:42 PM IT HELP DESK ASSOCIATE POC GLUCOSE Routine 02/07/2018 7:54 AM IT HELP DESK ASSOCIATE ESTIMATED GFR Routine 02/07/2018 4:00 AM IT HELP DESK ASSOCIATE BASIC METABOLIC PANEL Routine 02/07/2018 4:00 AM IT HELP DESK ASSOCIATE HEMOGLOBIN & HEMATOCRIT Routine 02/07/2018 3:32 AM IT HELP DESK ASSOCIATE POC GLUCOSE Routine 02/06/2018 9:35 PM IT HELP DESK ASSOCIATE POC GLUCOSE Routine 02/06/2018 4:42 PM IT HELP DESK ASSOCIATE POC GLUCOSE Routine 02/06/2018 12:38 PM IT HELP DESK ASSOCIATE POC GLUCOSE Routine 02/06/2018 8:13 AM IT HELP DESK ASSOCIATE HEMOGLOBIN & HEMATOCRIT Routine 02/06/2018 5:40 AM IT HELP DESK ASSOCIATE ESTIMATED GFR Routine 02/06/2018 4:00 AM IT HELP DESK ASSOCIATE BASIC METABOLIC PANEL Routine 02/06/2018 4:00 AM IT HELP DESK ASSOCIATE POC GLUCOSE Routine 02/05/2018 10:09 PM IT HELP DESK ASSOCIATE POC GLUCOSE Routine 02/05/2018 6:03 PM IT HELP DESK ASSOCIATE POC GLUCOSE Routine 02/05/2018 4:02 PM IT HELP DESK ASSOCIATE POC GLUCOSE Routine 02/05/2018 1:04 PM IT HELP DESK ASSOCIATE XR PELVIS 1 OR 2 VW Routine 02/05/2018 12:14 PM IT HELP DESK ASSOCIATE SURGICAL PATHOLOGY Routine 02/05/2018 REQUEST 12:10 PM IT HELP DESK ASSOCIATE TRANSFUSE RED BLOOD CELLS Routine 02/05/2018 12:03 PM IT HELP DESK ASSOCIATE XR PELVIS 1 OR 2 VW Routine 02/05/2018 11:20 AM IT HELP DESK ASSOCIATE REVISION, ARTHROPLASTY, 02/05/2018 LEFT HIP PERIPROSTHEC HIP 11:00 AM IT HELP DESK ASSOCIATE FRACTURE Special Needs TERRI, BIOMET, GUTIERREZ AND NEPHEW CO AN ELECTIVE Routine 02/05/2018 ENDOTRACHEAL AIRWAY 10:37 AM IT HELP DESK ASSOCIATE Procedure Note - Tim Weems CRNA - 02/05/2018 10:37 AM IT HELP DESK ASSOCIATE ANESTHESIA INTUBATION Date/Time: 02/05/2018 10:07 AM Performed [...] 1 POC GLUCOSE Routine 02/05/2018 7:41 AM IT HELP DESK ASSOCIATE POC GLUCOSE Routine 02/05/2018 6:53 AM IT HELP DESK ASSOCIATE POC GLUCOSE Routine 02/04/2018 10:31 PM IT HELP DESK ASSOCIATE CT HEAD EXTERNAL STUDY Routine 02/04/2018 6:03 PM IT HELP DESK ASSOCIATE POC GLUCOSE Routine 02/04/2018 4:26 PM IT HELP DESK ASSOCIATE ECG 12-LEAD STAT 02/04/2018 3:54 PM IT HELP DESK ASSOCIATE PREPARE RBC Timed 02/04/2018 3:15 PM IT HELP DESK ASSOCIATE PREPARE RBC Timed 02/04/2018 3:15 PM IT HELP DESK ASSOCIATE TYPE AND SCREEN Timed 02/04/2018 3:15 PM IT HELP DESK ASSOCIATE ESTIMATED GFR Routine 02/04/2018 1:30 PM IT HELP DESK ASSOCIATE HC COMPLETE BLD COUNT STAT 02/04/2018 W/AUTO DIFF 1:30 PM IT HELP DESK ASSOCIATE COMPREHENSIVE METABOLIC Routine 02/04/2018 PANEL 1:30 PM IT HELP DESK ASSOCIATE URINE CULTURE Routine 02/04/2018 1:20 PM IT HELP DESK ASSOCIATE URINALYSIS SCREEN AND Routine 02/04/2018 MICROSCOPY, WITH REFLEX 1:02 PM IT HELP DESK ASSOCIATE TO CULTURE PROTHROMBIN TIME WITH INR Routine 02/04/2018 1:02 PM IT HELP DESK ASSOCIATE XR LOWER EXTREMITY Routine 02/04/2018 EXTERNAL STUDY 7:10 AM IT HELP DESK ASSOCIATE XR UPPER EXTREMITY Routine 02/04/2018 EXTERNAL STUDY 6:23 AM IT HELP DESK ASSOCIATE XR LOWER EXTREMITY Routine 02/04/2018 EXTERNAL STUDY 6:19 AM IT HELP DESK ASSOCIATE XR CHEST EXTERNAL STUDY Routine 02/04/2018 6:18 AM IT HELP DESK ASSOCIATE CT SPINE EXTERNAL STUDY Routine 02/04/2018 6:01 AM IT HELP DESK ASSOCIATE CT HEAD EXTERNAL STUDY Routine 02/04/2018 6:01 AM IT HELP DESK ASSOCIATE after 04/28/2017 Results * XR Hip 2-3 View Left (03/22/2018 9:36 AM IT HELP DESK ASSOCIATE) Narrative Performed At [facility] X-rays demonstrate well-positioned revision arthroplasty with supplemental fixation for Montgomery B periprosthetic fracture. Performing Organization Address City/[facility] Phone Number [facility] [address] [place] [address] * Surgical pathology request (03/01/2018 12:26 PM IT HELP DESK ASSOCIATE) Only the most recent of 2 results within the time period is included. [facility] DEPARTMENT OF PATHOLOGY AND GENOMIC MEDICINE Surgical pathology report See link below for PDF Lab [facility] DEPARTMENT OF Report PATHOLOGY AND GENOMIC MEDICINE Result status This is Final Report for [facility] DEPARTMENT OF [id number] PATHOLOGY AND GENOMIC MEDICINE Performing Organization Address [facility] Phone Number [facility] DEPARTMENT OF [address] [place] [address] PATHOLOGY AND GENOMIC MEDICINE * POC glucose (03/01/2018 12:21 PM IT HELP DESK ASSOCIATE) Only the most recent of 19 results within the time period is included. POC glucose 124 (H) 65 - 99 mg/dL [facility] Comment: [facility] Notified RN Meter ID: [id number] Hop Sorter: Meseret Do Performing Organization Address [facility] Phone Number [facility] DEPARTMENT OF [address] [place] [address] PATHOLOGY AND GENOMIC MEDICINE [facility] [address] [place] [address] HOSPITAL * XR Chest 1 Vw Portable (03/01/2018 10:57 AM IT HELP DESK ASSOCIATE) Narrative Performed At EXAMINATION:XR CHEST 1 VW PORTABLE [facility] CLINICAL HISTORY:cough COMPARISON:February 04, 2018 IMPRESSION: Heart and mediastinum are normal.Pulmonary vessels are in the normal range.The lung ricks are clear. Multiple small surgical clips are noted along the axillary portion of the right breast. [facility]-[id number] Procedure Note Interface, Radiology Results Incoming - 03/01/2018 11:01 AM IT HELP DESK ASSOCIATE EXAMINATION: XR CHEST 1 VW PORTABLE CLINICAL HISTORY: cough COMPARISON: February 04, 2018 IMPRESSION: Heart and mediastinum are normal. Pulmonary vessels are in the normal range. The lung ricks are clear. Multiple small surgical clips are noted along the axillary portion of the right breast. [facility]-[id number] Performing Organization Address [facility] Phone Number [facility] [address] [place] [address] * XR Finger 2+ Vw Right (02/28/2018 3:43 PM IT HELP DESK ASSOCIATE) Narrative Performed At [facility] 3 view of right ring finger shows distal phalanx tuft is amputated with likely exposed bone and possible osteomyelitis at the tip of the amputation, severe arthritic changes of the PIPJ. Performing Organization Address [facility] Phone Number [facility] [address] [place] [address] * Estimated GFR (02/07/2018 4:00 AM IT HELP DESK ASSOCIATE) Only the most recent of 3 results within the time period is included. Estimated GFR 66 mL/min/1.73 m2 [facility] Comment: HOSPITAL CatergoryUnitsInte rpretation G1 >=90 Normal or high G2 60-89Mildly decreased [id number] Mildly to moderately decreased C4z01-27 Moderately to severely decreased G4 15-29Severely decreased G5 <15Kidney failure The eGFR was calculated using the Chronic Kidney Disease Epidemiology Collaboration (CKD-EPI) equation. Interpretation is based on recommendations of the National Kidney Foundation-Kidney Disease Outcomes Quality Initiative (NKF-KDOQI) published in 2014. Specimen Plasma specimen Performing Organization Address City/[facility]/Zipcode Phone Number [facility] DEPARTMENT OF [address] [place] [address] PATHOLOGY AND GENOMIC MEDICINE [address] * Basic metabolic panel (02/07/2018 4:00 AM IT HELP DESK ASSOCIATE) Only the most recent of 2 results within the time period is included. Sodium 138 135 - 148 mEq/L [facility] Potassium 4.3 3.5 - 5.0 mEq/L [facility] Chloride 100 98 - 112 mEq/L [facility] CO2 23 (L) 24 - 31 mEq/L [facility] Anion gap 15@ANIO 7 - 15 mEq/L [facility] BUN 15 8 - 23 mg/dL [facility] Creatinine 0.84 0.50 - 0.90 mg/dL [facility] Glucose 203 (H) 65 - 99 mg/dL [facility] Calcium 9.3 8.8 - 10.2 mg/dL [facility] Specimen Plasma specimen Performing Organization Address City/State/Zipcode Phone Number [facility] [place] [address] PATHOLOGY AND GENOMIC MEDICINE [address] * Hemoglobin & hematocrit (02/07/2018 3:32 AM IT HELP DESK ASSOCIATE) Only the most recent of 2 results within the time period is included. HGB 9.3 (L) 12.0 - 16.0 g/dL [facility] HCT 27.7 (L) 37.0 - 47.0 % [facility] Specimen Blood Performing Organization Address City/[facility] Phone Number [facility] [place] [address] PATHOLOGY AND GENOMIC MEDICINE [address] * XR Pelvis 1 Or 2 Vw (02/05/2018 12:14 PM IT HELP DESK ASSOCIATE) Only the most recent of 2 results within the time period is included. Narrative Performed At EXAMINATION:XR PELVIS 1 OR 2 VW [facility] CLINICAL HISTORY:Pain COMPARISON:February 05 IMPRESSION: Patient has undergone left hip arthroplasty There is no evidence of fracture No focal lesions are present [id number] Procedure Note Hm Interface, Radiology Results Incoming - 02/05/2018 12:19 PM IT HELP DESK ASSOCIATE EXAMINATION: XR PELVIS 1 OR 2 VW CLINICAL HISTORY: Pain COMPARISON: February 05 IMPRESSION: Patient has undergone left hip arthroplasty There is no evidence of fracture No focal lesions are present [id number] Performing Organization Address City/[facility] Phone Number [facility] [address] [place] [address] * Transfuse RBC (02/05/2018 12:03 PM IT HELP DESK ASSOCIATE) * CT Head External Study (02/04/2018 6:03 PM IT HELP DESK ASSOCIATE) Only the most recent of 2 results within the time period is included. Narrative Performed At This exam was not acquired at a [facility] facility and has not been [facility] interpreted by a [facility] Provider.The exam was imported into our imaging system for comparisons purposes. Performing Organization Address City/State/Zipcode Phone Number [facility] [address] [place] [address] * ECG 12 lead (02/04/2018 3:54 PM IT HELP DESK ASSOCIATE) Ventricular rate 81 [facility] MUSE Atrial rate 81 [facility] MUSE CO interval 154 [facility] MUSE QRSD interval 74 [facility] QT interval 370 [facility] MUSE QTC interval 429 [facility] MUSE P axis 1 -29 [facility] MUSE QRS axis 1 64 [facility] MUSE T wave axis 57 [facility] MUSE EKG impression Normal sinus rhythm-Normal [facility] MUSE ECG-No previous ECGs available- Narrative Performed At Performing Organization Address [facility] Phone Number [facility] [address] [place] [address] * Prepare RBC, 2 Units (02/04/2018 3:15 PM IT HELP DESK ASSOCIATE) Product name Red Blood Cells -1, Leukored [facility] Unit number [id number] [facility] Product code [id number] [facility] Dispense status Returned to BB not transfused [facility] Blood expiration date [facility] Blood type code 6200 [facility] Blood type A POSITIVE [facility] Product name Red Blood Cells -1, Leukored [facility] Unit number [id number] [facility] Product code [id number] [facility] Dispense status Transfused [facility] Blood expiration date [facility] Blood type code 6200 [facility] Blood type A POSITIVE [facility] Performing Organization Address [facility] Phone Number [facility] DEPARTMENT OF [address] [place] [address] PATHOLOGY AND GENOMIC MEDICINE [address] [address] HOSPITAL * Type and screen (02/04/2018 3:15 PM IT HELP DESK ASSOCIATE) ABO grouping A [facility] Rh type POS [facility] Antibody screen (gel) NEG [facility] Performing Organization Address City/[facility]/Zipcode Phone Number [facility] DEPARTMENT [address] [address] PATHOLOGY AND GENOMIC MEDICINE [address] [address] HOSPITAL * CBC with platelet and differential (02/04/2018 1:30 PM IT HELP DESK ASSOCIATE) WBC 6.65 4.50 - 11.00 k/uL [facility] RBC 3.45 (L) 4.20 - 5.50 m/uL [facility] HGB 11.1 (L) 12.0 - 16.0 g/dL [facility] HCT 32.7 (L) 37.0 - 47.0 % [facility] MCV 94.8 82.0 - 100.0 fL [facility] MCH 32.2 27.0 - 34.0 pg [facility] MCHC 33.9 31.0 - 37.0 g/dL [facility] RDW - SD 49.5 37.0 - 55.0 fL [facility] MPV 10.3 8.8 - 13.2 fL [facility] Platelet count 182 150 - 400 k/uL [facility] Nucleated RBC 0.00 /100 WBC [facility] Neutrophils 78.6 (H) 39.0 - 69.0 % [facility] Lymphocytes 9.6 (L) 25.0 - 45.0 % [facility] Monocytes 9.9 0.0 - 10.0 % [facility] Eosinophils 0.5 0.0 - 5.0 % [facility] Basophils 0.5 0.0 - 1.0 % [facility] Immature granulocytes 0.9Comment: "Immature 0.0 - 1.0 % [facility] granulocytes" (promyelocytes, HOSPITAL myelocytes, metamyelocytes) Specimen Blood Performing Organization Address City/State/Zipcode Phone Number [facility] DEPARTMENT OF [address] [place] [address] PATHOLOGY AND GENOMIC MEDICINE [address] * Comprehensive metabolic panel (02/04/2018 1:30 PM IT HELP DESK ASSOCIATE) Sodium 138 135 - 148 mEq/L [facility] Potassium 4.1 3.5 - 5.0 mEq/L [facility] Chloride 99 98 - 112 mEq/L [facility] CO2 26 24 - 31 mEq/L [facility] Anion gap 13@ANIO 7 - 15 mEq/L [facility] BUN 20 8 - 23 mg/dL [facility] Creatinine 0.93 (H) 0.50 - 0.90 mg/dL [facility] Glucose 151 (H) 65 - 99 mg/dL [facility] Calcium 9.3 8.8 - 10.2 mg/dL [facility] Protein 6.4 6.3 - 8.3 g/dL [facility] Comment: HOSPITAL 4.6-7.0 g/dL 1 week 4.4-7.6 g/dL 7 months-1year 5.1-7.3 g/dL 1-2 years5.6-7 .5 g/dL >3 years6.0-8 .0 g/dL 18-150 6.3-8.3 g/dL Albumin 3.4 (L) 3.5 - 5.0 g/dL [facility] A/G ratio 1.1 0.7 - 3.8 [facility] Alkaline phosphatase 62 35 - 104 U/L [facility] AST 26 10 - 35 U/L [facility] ALT 29 5 - 50 U/L [facility] Total bilirubin 0.6 0.0 - 1.2 mg/dL [facility] Specimen Plasma specimen Performing Organization Address City/[facility] Phone Number [facility] [place] [address] PATHOLOGY AND GENOMIC MEDICINE [address] * Urine culture (02/04/2018 1:20 PM IT HELP DESK ASSOCIATE) Urine culture SEE COMMENTComment: [facility] Bacteriuria screen negative. HOSPITAL Performing Organization Address [facility] Phone Number [facility] [place] [address] PATHOLOGY AND GENOMIC MEDICINE [address] * Urinalysis screen and microscopy, with reflex to culture (02/04/2018 1:02 PM IT HELP DESK ASSOCIATE) Specimen site Clean catch [facility] Color, UA Straw [facility] Appearance, UA Clear [facility] Specific gravity, UA 1.013 1.001 - 1.035 [facility] pH, UA 6.0 5.0 - 8.5 [facility] Protein, UA 1+ (A) Negative [facility] Glucose, UA 1+ (A) Negative [facility] Ketones, UA Negative Negative [facility] Bilirubin, UA Negative Negative [facility] Blood, UA Negative Negative [facility] Nitrite, UA Negative Negative [facility] Urobilinogen, UA <2.0 <2.0 [facility] Leukocyte esterase, UA Negative Negative [facility] WBC, UA 2 0 - 4 /HPF [facility] RBC, UA 1 0 - 5 /HPF [facility] Bacteria, UA Few None seen [facility] Yeast, UA None seen [facility] Yeast with pseudohyphae, None seen [facility] Specimen Urine Performing Organization Address City/State/Zipcode Phone Number [facility] DEPARTMENT OF [address] [place] [address] PATHOLOGY AND GENOMIC MEDICINE [address] * Prothrombin time with INR (02/04/2018 1:02 PM IT HELP DESK ASSOCIATE) Prothrombin time 14.0 11.5 - 14.5 sec [facility] INR 1.1 [facility] Comment: HOSPITAL The International Normalized Ratio (INR) is a therapeutic monitoring tool for patients who are stable on oral anticoagulant therapy. An INR of 2.0-3.0 is suggested for deep vein thrombosis/pulmonary embolism. Specimen Blood Performing Organization Address City/[facility] Phone Number [facility] [place] [address] PATHOLOGY AND GENOMIC MEDICINE [address] * XR Lower Extremity External Study (02/04/2018 7:10 AM IT HELP DESK ASSOCIATE) Only the most recent of 2 results within the time period is included. Narrative Performed At This exam was not acquired at a [facility] facility and has not been [facility] interpreted by a [facility] Provider.The exam was imported into our imaging system for comparisons purposes. Performing Organization Address City/State/Zipcode Phone Number [facility] [address] [place] [address] * XR Upper Extremity External Study (02/04/2018 6:23 AM IT HELP DESK ASSOCIATE) Narrative Performed At This exam was not acquired at a [facility] facility and has not been [facility] interpreted by a [facility] Provider.The exam was imported into our imaging system for comparisons purposes. Performing Organization Address City/[facility]/Zipcode Phone Number [facility] [address] [place] [address] * XR Chest External Study (02/04/2018 6:18 AM IT HELP DESK ASSOCIATE) Narrative Performed At This exam was not acquired at a [facility] facility and has not been [facility] interpreted by a [facility] Provider.The exam was imported into our imaging system for comparisons purposes. Performing Organization Address City/State/Zipcode Phone Number [facility] [address] [place] [address] * CT Spine External Study (02/04/2018 6:01 AM IT HELP DESK ASSOCIATE) Narrative Performed At This exam was not acquired at a [facility] facility and has not been [facility] interpreted by a [facility] Provider.The exam was imported into our imaging system for comparisons purposes. Performing Organization Address City/State/Zipcode Phone Number [facility] [address] [place] [address] after 04/28/2017 Insurance Payer Benefit Subscriber ID Type Phone Address Plan / Group [facility] MEDIC[facility] REBOLL[employer] xxxxxxxxx HMO ADVANTAGE - [facility] AARP AARP xxxxxxxxx Commercial SUPPLEMENT Surgery Advance Directives Patient has advance care planning documents on file. For more information, dottie weaver contact: Leo Dee [address] [place] [address]
[2018-04-29] MEDS ORDERED: FILGRASTIM 480 MCG/0.8 ML SYRINGE SQ ONE (18:00)
--- NOTE | 2018-04-29 18:20 | NUR ---
DR. RUIZ TOLD ME TO DISCONTINUE THE ACYCLOVIR. HE SAID PT DOES NOT NEED IT AND TO DISCONTINUE IT
--- NOTE | 2018-04-29 19:18 | NUR ---
pt placed on contact isolation per orders.
[2018-04-29] MEDS: INSULIN LISPRO 100 UNIT/1 ML 3ML VIAL SQ SCH ×3 (19:57→22:26)
[2018-04-29] MEDS ORDERED: AMLODIPINE BESY10 MG PO (20:04)
[2018-04-29] MEDS ORDERED: ARMOUR THYROID120 MG PO (20:04)
[2018-04-29] MEDS ORDERED: ZETIA10 MG PO (20:04)
[2018-04-29] MEDS ORDERED: CELEBREX100 MG PO (20:06)
[2018-04-29] MEDS ORDERED: LEVEMIR100 UNIT/1 SQ (20:06)
[2018-04-29] MEDS ORDERED: CALCIUM600 MG PO (20:13)
[2018-04-29] MEDS ORDERED: DAILY VITE1 EACH PO (20:13)
[2018-04-29] MEDS ORDERED: VITAMIN D31000 UNI1 PO (20:13)
[2018-04-29] MEDS ORDERED: PREDNISONE5 MG PO (20:13)
[2018-04-29] MEDS ORDERED: VITAMIN C1000 M2 PO (20:13)
[2018-04-29] MEDS ORDERED: PROMETHAZINE12.5 M1 PO (20:18)
[2018-04-29] MEDS ORDERED: ALEVE220 M1 PO (20:18)
[2018-04-29] MEDS ORDERED: IMODIUM2 MG PO (20:18)
[2018-04-29] MEDS ORDERED: CLARITIN10 MG PO (20:18)
[2018-04-29 20:53] LABS: LYMPHOCYTES % (MANUAL) 28 % (19-48); METAMYELOCYTES % (MANUAL) 4 % (0-0); MONOCYTES % (MANUAL) 12 % (3.4-9.0); NEUTROPHILS % (MANUAL) 46 % (40-74); PLATELET ESTIMATE MARKEDLY DECREASED; PLATELET MORPHOLOGY COMMENT NORMAL; RBC MORPHOLOGY COMMENT NORMAL
[2018-04-29 21:52] LABS: BILIRUBIN,URINE NEGATIVE (NEGATIVE); CLARITY,URINE HAZY (CLEAR); COLOR,URINE YELLOW (YELLOW); KETONES,URINE NEGATIVE (NEGATIVE); LEUKOCYTE ESTERASE ,URINE TRACE (NEGATIVE); NITRITE,URINE NEGATIVE (NEGATIVE); PROTEIN,URINE DIPSTICK 2+ (NEGATIVE); URINE UROBILINOGEN 0.2 mg/dL (0.2 - 1)
[2018-04-29 21:53] LABS: BACTERIA,URINE FEW /HPF; EPITHELIAL CELLS,URINE FEW /LPF; RBC,URINE 0-5 /HPF (0-5); WBC,URINE (MAN) 0-5 /HPF (0-5)
--- NOTE | 2018-04-29 23:36 | Consultation ---
DATE OF CONSULTATION: 04/29/2018 REASON FOR CONSULTATION: Fever, chills, oral lesion. HISTORY OF PRESENT ILLNESS: This patient who is a 77-year-old white female with history of rheumatoid arthritis, seeing Dr. Ambar Fritz, and diabetes mellitus. The patient for the last week has been getting progressively worse in terms of fever, chills, fatigue, no specific fever until today, but she also is thought to have oral lesions, difficulty for her to swallow, and the patient who has a history of rheumatoid arthritis, is on Cimzia by Dr. Fritz, last dose was a month ago, comes in with fatigue for one week. Not eating or drinking, difficulty swallowing, and now with skin rash in her mouth, oral ulcers. The patient is in the emergency room. I was contacted to see the patient urgently. PAST MEDICAL HISTORY: Rheumatoid arthritis, diabetes mellitus. PAST SURGICAL HISTORY: She denies. ALLERGIES: PENICILLIN AND LEVAQUIN. SOCIAL HISTORY: There is no smoking, drug abuse, or alcohol abuse. FAMILY HISTORY: Noncontributory. REVIEW OF SYSTEMS: CONSTITUTIONAL: Besides the oral lesions, difficulty swallowing, fever, chills today, fatigue she denies any. HEENT: Negative. PULMONARY: Negative. CARDIAC: Negative. : Negative. PHYSICAL EXAMINATION: GENERAL: She is currently alert, oriented, does not seem to be in acute distress. VITAL SIGNS: Temperature 100. HEENT: She is normocephalic, not icteric, but she does have ulcers in her mouth. NECK: Supple. No JVD. No lymphadenopathy. No thyromegaly. CHEST: Clear bilateral. HEART: S1, S2. No S3 or S4. ABDOMEN: Soft. Positive bowel sounds. EXTREMITIES: No edema. SKIN: rash. Laboratory data reviewed. Chart reviewed. Medications reviewed. Discussed with the patient. Discussed with family. Discussed with the ER. IMPRESSION AND PLAN: 1. Mucositis. The patient was immunocompromised. 2. Pancytopenia, probably secondary to medication Cimzia. We will put her on vancomycin and cefepime and vancomycin and acyclovir. We will adjust for kidney function and IV fluids. Admit to the hospital. Contact isolation. Recheck daily CBC with differential, daily chemistry panel. Discussed with the attending. We will follow. MD ANIL Wu/REINA /[id number]
[2018-04-30] VITALS (10 sets, daily range): BP systolic 119–141; BP diastolic 55–93
[2018-04-30] MEDS ORDERED: ACETAMINOPHEN 325 MG/10 ML UDC PO ONE (00:30)
[2018-04-30] MEDS: SODIUM CHLORIDE 0.9% 1000ML 1,000 ML IV SCH ×3 (03:03→15:45)
[2018-04-30] MEDS: CEFEPIME 2 GM/NS 0.9% 100 ML 100 ML IV SCH ×3 (03:45→22:00)
[2018-04-30] MEDS ORDERED: ACETAMINOPHEN 1000 MG/100 ML IV PRN (06:30)
[2018-04-30 06:46] LABS: HEMOGLOBIN 7.3 g/dL (12.0-16.0); LYMPHOCYTES # (AUTO) 0.3 (1.0-3.2); MEAN CORPUSCULAR HEMOGLOBIN 29.2 pg (28-32); MEAN CORPUSCULAR HGB CONC 33.5 g/dL (31-35); MEAN CORPUSCULAR VOLUME 87.2 fL (81-99); NEUTROPHILS # (AUTO) 0.1 (2.1-6.9); RED CELL DISTRIBUTION WIDTH 14.3 % (11.7-14.4)
[2018-04-30] MEDS: FILGRASTIM 480 MCG/0.8 ML SYRINGE SQ SCH (06:47)
[2018-04-30 07:13] LABS: ALBUMIN 2.6 g/dL (3.5-5.0); ALBUMIN/GLOBULIN RATIO 0.8 (0.8-2.0); ANION GAP 12.7 mmol/L (8-16); CALCIUM 8.2 mg/dL (8.4-10.2); CREATININE, SERUM 0.94 mg/dL (0.57-1.11); POTASSIUM 3.7 mmol/L (3.5-5.1)
[2018-04-30 07:23] LABS: HEMATOCRIT 21.8 % (34.2-44.1); PLATELET COUNT 33 x10e3/uL (140-360)
[2018-04-30] MEDS: INSULIN LISPRO 100 UNIT/1 ML 3ML VIAL SQ SCH ×4 (07:30→21:16)
--- NOTE | 2018-04-30 08:06 | NUR ---
pt resting in bed, no c/o pain or s/s distress. will continue to monitor. paged re labs
--- NOTE | 2018-04-30 08:20 | NUR ---
pt refusing to eat dt discomfort of mouth sores, insulin not admin
--- NOTE | 2018-04-30 08:42 | NUR ---
notified of labs, new orders recvd
[2018-04-30] MEDS ORDERED: MAGNESIUM SULFATE 2GM/50ML 50 ML IV ONE ×2 (08:45→09:15)
[2018-04-30] MEDS ORDERED: FILGRASTIM 300 MCG/ML VIAL SC SCH (09:00)
[2018-04-30] MEDS ORDERED: FUROSEMIDE INJ 10 MG/ML 2 ML VIAL IV ONE (09:15)
[2018-04-30] MEDS ORDERED: SODIUM CHLORIDE 0.9% 250ML 250 ML IV ONE (09:15)
[2018-04-30] MEDS: ATENOLOL 50 MG TAB PO SCH (09:45)
[2018-04-30] MEDS: AMLODIPINE BESYLATE 10 MG TAB PO SCH (09:45)
[2018-04-30] MEDS: ACYCLOVIR 200 MG/5 ML SUSP GT SCH ×2 (13:44→22:00)
--- NOTE | 2018-04-30 13:49 | NUR ---
dr coon wanting labs for antiglobular basement membrane antibody and cryoglobulin, per lab has to be hand written and sent out. Addendum: 04/30/18 at 1351 by Paris Funk RN wrong patient chart, disregard
--- NOTE | 2018-04-30 14:17 | NUR ---
Nutrition Intervention Note RD Recommendation(s) for Physician: -Rec ADA/ neutropenic/ pureed diet as medically appropriate -Rec Glucerna (Vanilla or strawberry) TID to promote PO intake -RD obtained food preferences from pt Plan of Care: RD following, monitoring for tolerance and adequacy, ONS Nutrition reason for involvement: Nutrition Risk Trigger MST RD Assessment 04/30 Pt was discussed during AM rounds. Per SANDY Lord, pt had mouth and throat sores from medication. Currently on neutropenic precautions. Mg was repleted. Visited pt in the room. Pt stated I hardly ate anything and had lost ~20lbs since January. Her mouth/throat sores started ~10 days ago. Pt was only able to tolerate some liquids and soft foods. Entered food preferences into [employer]. Pt was also drinking 2-3 bottles of supplements at home. No complains of nausea or vomiting. LBM 04/30. Communicated RD rec to SANDY Lord. Will continue to monitor and follow. Please consult as needed. Principal Problems/Diagnoses: 1. Mucositis. The patient was immunocompromised. 2. Pancytopenia, probably secondary to medication Cimzia. PMH: RA, DM GI: abdomen soft, non-tender, flatus present, LBM 04/30 Skin: no pressure ulcer noted Labs: (04/30) Na 133 L, Glucose 165 280 H, Ca 8.2 L, Mg 0.9 L, Meds: abx, insulin, neupogen, NaCl, Mg sulfate Ht: 65in Wt: 150lb BMI: 25kg/m2 IBW: 125lb Malnutrition Evaluation (04/30) The patient meets criteria for MODERATE protein-calorie malnutrition. Energy intake: <75% of estimated energy requirements for >3 months Weight loss: >7.5% in 3 months (Acute) Fat loss: Mild some clavicle protrusion Muscle loss: Mild slight temporal depression Supporting Evidence: Fluid accumulation: unable to evaluate Functional Status: measurably reduced Nutrition Prescription (Diet Order): ADA diet Estimated Nutritional Needs: Calories: 1625 2275kcal(25-35kcal/kg/d) Weight used: Actual BW Protein: 65 98g (1-1.5g/kg/d) Weight used: Actual BW Diet Adequacy: Not meeting calorie needs, Not meeting protein needs Diet Education Needs Assessment: Diet education indicated, but patient not appropriate for education at this time. Nutrition Care Level: mod Nutrition Diagnosis: Inadequate oral intake related to mouth sores as evidenced by pt only able to tolerate soft foods and liquid. Goal: Patient will meet 75-100% of estimated needs by follow up Progress: N/A Interventions: Texture/carbohydrate-modified diet, Commercial beverage, Recommended Modifications Monitoring/Evaluation: Total energy intake, Total protein intake, Modified diet, Liquid supplement, Weight change Signed: Elysia Nielsen MS, RD, LD
[2018-04-30] MEDS ORDERED: SODIUM CHLORIDE 0.9% 250ML 250 ML ONE ×2 (15:37→23:57)
[2018-04-30] MEDS ORDERED: FUROSEMIDE INJ 10 MG/ML 4 ML VIAL ONE (18:58)
--- NOTE | 2018-04-30 19:17 | NUR ---
pt recvd 1u PRBC, ed night nurse to give 2nd unit. pt stable, tolerated well. family at bedside.
[2018-04-30] MEDS: VANCOMYCIN 1GM/NS 250 ML 250 ML IV SCH (21:15)
[2018-05-01] VITALS (8 sets, daily range): BP systolic 108–136; BP diastolic 63–81
--- NOTE | 2018-05-01 00:10 | NUR ---
Transfusing PRBC's 2of 2 units at this time,no reaction noted patient tolerated well. Will continue to monitor.
--- NOTE | 2018-05-01 02:34 | NUR ---
Assisted patient to used bed side commode multiple times,had small liquid BM one time. Assisted to cleaned and changed diaper. Will continue to monitor.
[2018-05-01] MEDS: SODIUM CHLORIDE 0.9% 1000ML 1,000 ML IV SCH ×2 (04:24→13:50)
--- NOTE | 2018-05-01 05:00 | NUR ---
PT COMPLAINTS PAIN @ [facility] . ORDERED CT SCAN L .HIP. Addendum: 05/10/18 at 0202 by Arabella Castillo RN wrong date.
[2018-05-01 05:43] LABS: EOSINOPHILS % 5.5 % (0.0-6.0); HEMATOCRIT 26.2 % (34.2-44.1); LYMPHOCYTES # (AUTO) 0.4 (1.0-3.2); LYMPHOCYTES % 63.6 % (18.0-39.1); MEAN CORPUSCULAR HEMOGLOBIN 30.1 pg (28-32); MEAN CORPUSCULAR HGB CONC 34.4 g/dL (31-35); MEAN CORPUSCULAR VOLUME 87.6 fL (81-99); MONOCYTES % 5.5 % (4.4-11.3); NEUTROPHILS # (AUTO) 0.1 (2.1-6.9); NEUTROPHILS % 25.4 % (38.7-80.0); RED BLOOD COUNT 2.99 x10e6/uL (3.6-5.1); RED CELL DISTRIBUTION WIDTH 14.2 % (11.7-14.4)
[2018-05-01 05:57] LABS: PLATELET COUNT 21 x10e3/uL (140-360)
[2018-05-01 06:03] LABS: ALANINE AMINOTRANSFERASE 61 IU/L (0-55); ALBUMIN 2.3 g/dL (3.5-5.0); ALBUMIN/GLOBULIN RATIO 0.7 (0.8-2.0); ALKALINE PHOSPHATASE 53 IU/L (40-150); ANION GAP 12.3 mmol/L (8-16); BLOOD UREA NITROGEN 22 mg/dL (7-26); BUN/CREATININE RATIO 26 (6-25); CALCIUM 7.9 mg/dL (8.4-10.2); CARBON DIOXIDE 22 mmol/L (22-29); CHLORIDE 105 mmol/L (98-107); CREATININE, SERUM 0.86 mg/dL (0.57-1.11); EST GLOMERULAR FILTRATION RATE > 60 ML/MIN (60-); GLUCOSE 236 mg/dL (74-118); POTASSIUM 3.3 mmol/L (3.5-5.1); SODIUM 136 mmol/L (136-145)
[2018-05-01] MEDS: ACYCLOVIR 200 MG/5 ML SUSP GT SCH (06:05)
[2018-05-01] MEDS: CEFEPIME 2 GM/NS 0.9% 100 ML 100 ML IV SCH ×3 (06:05→22:40)
--- NOTE | 2018-05-01 06:25 | NUR ---
Notified to Dr. Gates about patient's critical labs.NNO
[2018-05-01] MEDS: FILGRASTIM 480 MCG/0.8 ML SYRINGE SQ SCH (06:31)
--- NOTE | 2018-05-01 06:57 | NUR ---
Report given to oncoming nurse,walking round done.No issued noted.
--- NOTE | 2018-05-01 07:05 | NUR ---
bedside rounding done. pt resting quietly, no sign of any distress.
[2018-05-01 08:01] LABS: EOSINOPHILS % (MANUAL) 3 % (0-7); LYMPHOCYTES % (MANUAL) 70 % (19-48); MONOCYTES % (MANUAL) 4 % (3.4-9.0); NEUTROPHILS % (MANUAL) 23 % (40-74)
[2018-05-01 08:02] LABS: PLATELET ESTIMATE MARKEDLY DECREASED; PLATELET MORPHOLOGY COMMENT NORMAL; RBC MORPHOLOGY COMMENT NORMAL
[2018-05-01] MEDS: INSULIN LISPRO 100 UNIT/1 ML 3ML VIAL SQ SCH ×4 (08:02→21:30)
[2018-05-01] MEDS: AMLODIPINE BESYLATE 10 MG TAB PO SCH (08:16)
[2018-05-01] MEDS: ACETAMINOPHEN 1000 MG/100 ML IV PRN ×2 (08:16→16:41)
[2018-05-01] MEDS: ATENOLOL 50 MG TAB PO SCH (08:17)
--- NOTE | 2018-05-01 08:40 | NUR ---
Dr. Mcneil to see pt. Addendum: 05/01/18 at 1026 by Migdalia Bernal RN wrong pt
--- NOTE | 2018-05-01 09:30 | NUR ---
Dr. Cory caban rounds. Temp 100.3 down. Pt reposition self off buttocks. Addendum: 05/01/18 at 1027 by Migdalia Bernal RN on wrong pt
--- NOTE | 2018-05-01 09:30 | NUR ---
pt encouraged to reposition herself to prevent breakdown temp down to 100.3; covers removed
--- NOTE | 2018-05-01 10:24 | NUR ---
Kayleigh here to see pt. Addendum: 05/01/18 at 1041 by Migdalia Bernal RN wrong mauro
--- NOTE | 2018-05-01 10:40 | NUR ---
Kayleigh to see pt.
--- NOTE | 2018-05-01 11:25 | NUR ---
Dr. Rico to see pt.
--- NOTE | 2018-05-01 12:00 | NUR ---
temp 98.8. pt eating lunch. pt states she doesn't have much of an appetite
--- NOTE | 2018-05-01 14:00 | NUR ---
Pt antibiotics started. Pt up to BSC with assist. Sm bm and urinated.
--- NOTE | 2018-05-01 14:00 | NUR ---
Adela care given. Calazime applied.
--- NOTE | 2018-05-01 14:20 | NUR ---
EDUCATED ABOUT IMM, SIGNED, FILED IN CHART, WITH COPY LEFT WITH FAMILY AT BEDSIDE.
--- NOTE | 2018-05-01 16:42 | NUR ---
Received patient from patrick Negron, pleasant and in bed, no resp distress, continues on neutropenic precautions and will monitor
--- NOTE | 2018-05-01 16:47 | NUR ---
Patient with low grade fever and has had low grade fevers yesterday and blood cultures were done and remain negative, APAP IV administered at this time.
--- NOTE | 2018-05-01 17:45 | NUR ---
Reported K+ level of 3.3 to attending and orders for 20 Meqs KCL, orders in place
[2018-05-01] MEDS: POTASSIUM CHLORIDE 20 MEQ TAB CR PO NR ×2 (18:12→19:06)
--- NOTE | 2018-05-01 18:39 | NUR ---
Patient ready to move and report given, patient's daughter in the room and they are having some time in the room and want to transfer later at this point, patient stable, VSS, denies any pains, will monitor.
--- NOTE | 2018-05-01 19:04 | NUR ---
Patient unable to swallow KCL pill, orders in place for IV replacement
--- NOTE | 2018-05-01 19:10 | NUR ---
PT ARRIVED TO THE UNIT FROM ROOM #199 IN A WHEEL CHAIR.IV #20 TO LAC.IV NS RUNNING @125ML/HR.ORIENTED TO THE UNIT.BED LOCKED AND IN LOWEST POSITION.PHONE AND CALL LIGHT WITHIN REACH.INSTRUCTED TO CALL FOR ASSISTANCE NEEDED.ON REVERSE ISOLATION.
[2018-05-01] MEDS ORDERED: POTASSIUM CHLORIDE 20MEQ/100ML 100 ML IV ONE (19:15)
--- NOTE | 2018-05-01 19:38 | NUR ---
Patient transferred by wheelchair with stable condition and patient's daughter went with the patient.
[2018-05-01] MEDS: VANCOMYCIN 1GM/NS 250 ML 250 ML IV SCH (21:00)
[2018-05-01] MEDS: ZOLPIDEM TARTRATE 10 MG TAB PO PRN (21:47)
--- NOTE | 2018-05-01 22:10 | NUR ---
ASSISTED PT TO USE BED SIDE COMMODE.NEW IV STARTED @ [facility].PATENT.
[2018-05-02] VITALS (7 sets, daily range): BP systolic 96–167; BP diastolic 55–81
[2018-05-02] MEDS: SODIUM CHLORIDE 0.9% 1000ML 1,000 ML IV SCH ×3 (00:24→20:47)
[2018-05-02] MEDS: ACETAMINOPHEN 1000 MG/100 ML IV PRN ×2 (03:05→23:00)
[2018-05-02] MEDS ORDERED: MAGNESIUM SULFATE 2GM/50ML 50 ML IV ONE (04:45)
--- NOTE | 2018-05-02 05:00 | NUR ---
PT COMPLAINTS PAIN @ [facility] . ORDERED CT SCAN L .HIP.
[2018-05-02] MEDS: CEFEPIME 2 GM/NS 0.9% 100 ML 100 ML IV SCH ×3 (05:28→22:45)
[2018-05-02 05:57] LABS: EOSINOPHILS # (AUTO) 0.1 (0.0-0.4); EOSINOPHILS % 8.9 % (0.0-6.0); HEMATOCRIT 28.2 % (34.2-44.1); HEMOGLOBIN 9.6 g/dL (12.0-16.0); LYMPHOCYTES # (AUTO) 0.3 (1.0-3.2); LYMPHOCYTES % 44.6 % (18.0-39.1); MEAN CORPUSCULAR HEMOGLOBIN 29.4 pg (28-32); MEAN CORPUSCULAR VOLUME 86.5 fL (81-99); MONOCYTES # (AUTO) 0.1 (0.2-0.8); MONOCYTES % 23.2 % (4.4-11.3); NEUTROPHILS # (AUTO) 0.1 (2.1-6.9); NEUTROPHILS % 23.3 % (38.7-80.0); RED BLOOD COUNT 3.26 x10e6/uL (3.6-5.1); RED CELL DISTRIBUTION WIDTH 14.3 % (11.7-14.4)
[2018-05-02 06:06] LABS: PLATELET COUNT 10 x10e3/uL (140-360)
--- NOTE | 2018-05-02 06:10 | NUR ---
LAB CRITICAL VALUE INFORMED TO THE OFFICE OF .
--- NOTE | 2018-05-02 06:13 | NUR ---
DR MIX ORDERED CT SCAN HIP.NEEDS TO INFORM RESULT TO .
[2018-05-02 06:14] LABS: BLOOD UREA NITROGEN 15 mg/dL (7-26); BUN/CREATININE RATIO 20 (6-25); CALCIUM 8.1 mg/dL (8.4-10.2); CARBON DIOXIDE 20 mmol/L (22-29); CHLORIDE 102 mmol/L (98-107); CREATININE, SERUM 0.75 mg/dL (0.57-1.11); EST GLOMERULAR FILTRATION RATE > 60 ML/MIN (60-); GLUCOSE 177 mg/dL (74-118); SODIUM 133 mmol/L (136-145)
--- NOTE | 2018-05-02 06:50 | NUR ---
Report given to the oncoming rn.walking rounds done.stable condition.
--- NOTE | 2018-05-02 07:11 | NUR ---
pt asleep resp even and unlabored at this time no distress noted, pt easily aroused, and able to make needs known, call light in reach.
[2018-05-02] MEDS: INSULIN LISPRO 100 UNIT/1 ML 3ML VIAL SQ SCH ×4 (07:30→22:30)
[2018-05-02] MEDS: FILGRASTIM 480 MCG/0.8 ML SYRINGE SQ SCH (07:38)
[2018-05-02 08:31] LABS: NEUTROPHILS % (MANUAL) 14 % (40-74)
[2018-05-02 08:33] LABS: EOSINOPHILS % (MANUAL) 4 % (0-7); LYMPHOCYTES % (MANUAL) 56 % (19-48); MONOCYTES % (MANUAL) 25 % (3.4-9.0); PROMYELOCYTES % (MANUAL) 1 % (0-0)
[2018-05-02 08:34] LABS: PLATELET ESTIMATE MARKEDLY DECREASED; PLATELET MORPHOLOGY COMMENT NORMAL
[2018-05-02] MEDS: ATENOLOL 50 MG TAB PO SCH (09:26)
[2018-05-02] MEDS: AMLODIPINE BESYLATE 10 MG TAB PO SCH (09:26)
[2018-05-02] MEDS: FOLIC ACID 1 MG TAB PO SCH (09:26)
--- NOTE | 2018-05-02 09:45 | NUR ---
here to see pt. jumbo platelets ordered stat and k+.
[2018-05-02] MEDS ORDERED: POTASSIUM CHLORIDE 20MEQ/100ML 100 ML IV ONE (10:00)
--- NOTE | 2018-05-02 10:00 | NUR ---
k+ started, iv pt tolerating well. no c/o pain. gini light in reach.
[2018-05-02] MEDS ORDERED: SODIUM CHLORIDE 0.9% 1000ML 2,000 ML ONE (10:24)
--- NOTE | 2018-05-02 10:30 | NUR ---
pt off unit for CT.
[2018-05-02] MEDS ORDERED: CHOLESTYRAMINE 4 GM PACKET PO PRN (11:00)
--- NOTE | 2018-05-02 11:30 | NUR ---
pt returned to unit resp even and unlabored, call light in reach
[2018-05-02] MEDS ORDERED: SODIUM CHLORIDE 0.9% 250ML 250 ML ONE (12:06)
--- NOTE | 2018-05-02 12:25 | NUR ---
platelets started, pt tolerated well. call light in reach.
--- NOTE | 2018-05-02 12:36 | NUR ---
CASE MANAGEMENT INITIAL ASSESSMENT International Trade Manager to bedside to discuss plan of care with patient/family. CM/SW role and care transitions discussed. Anticipated discharge plan discussed along with duration of care. CM discussed patients right to make decisions in care. CM work hours given. Patient lives: PATIENT LIVES IN [address] [facility] IN [place], [place] WITH KEVIN Admit/Transfer: ED Hospital/ER visits since last admit: >30 DAYS POA/Emergency contact: KEVIN CHO [phone] Current/Previous Home Health: NOT AT THIS TIME PCP/Follow-up Care: DR. JOHNNA MIX Current/Previous DME: DELICIA SALAS NOT A READMIT Medications (referring to index hospitalization or the first time you were in the hospital) a. Were changes made in your medications when you were in the hospital on [date of index hospitalization]? Yes No Note: If no or not sure, please skip to question d b. Did you understand the changes? Yes No Explain: c. Were you able to obtain your new medications right away? Yes Non/a SNF only Explain: d. Were you able to take your medications like the doctor wanted you to? Yes No Explain: e. Did the hospital give you an accurate, easy to understand list of medications when you left? Yes No n/a SNF only Explain: Scale of 1-10 how comfortable does patient feel with disease management in outpatient setting: Other Services: NONE AT THIS TIME Employment Status: EMPLOYED Areas of Concerns: WOUND CARE Referral Needs: HOME HEALTH WITH SN EVAL AND WOUND CARE OR OUTPATIENT WOUND CARE SERVICES Education Needs: WOUND CARE IMM/MONTES given and signed (if applicable): IMM Goal for discharge: DISCHARGE HOME WITH HOME HEALTH (WOUND CARE SERVICES) CM left business card at the bedside with contact information. Name and number was also written on the patients whiteboard. Patient verbalized understanding of discussion. CM will follow-up with ongoing discharge and transition of care needs.
[2018-05-02] MEDS ORDERED: ACETAMINOPHEN 1000 MG/100 ML IV STA (13:42)
[2018-05-02] MEDS ORDERED: IOPAMIDOL 370 MG/ML 200 ML INFUS..BTL INJ ONE (13:58)
[2018-05-02] MEDS ORDERED: SODIUM CHLORIDE 0.9% 50ML 50 ML ONE (13:58)
--- NOTE | 2018-05-02 14:06 | NUR ---
WOUND CARE CONSULTATION - INITIAL EVALUATION Patient admitted to ER from Home for oral lesions for approx 1 wk. DX: Mucositis, Fever, Pancytopenia. Wound Care Consulted to evaluate Sacral redness. LABS: WBC0.56 HGB9.6 HCT28.2 ALB2.3 PATIENT VISIT: Zack Score 17 Conservative PUP Active Alternating Pressure Air Mattress in place. Patient in bed a time of visit AAOX4 Bilateral Gluteal Areas present with blanchable redness. Bilateral Heels intact. No redness. No Swelling. Denies discomfort at sacral/ gluteal areas. IMPRESSION; No Pressure Ulcers Identified. RECOMMENDATION:( Preventive Care) 1. Continue Alternating Air Mattress 2. Turn and Reposition every 2 hours 3. Bilateral heel protectors while in bed/ Offload Heels with pillows while in bed 4. Earle But paste to Bilateral gluteal areas q12H and PRN Soiling 5. Shear Friction Precautions 6. Moderate PUP Thank you for consulting with Wound Care. Addendum: 05/02/18 at 1419 by Wilfredo Mayorga RN Amended: Links added. Addendum: 05/02/18 at 1420 by Wilfredo Mayorga RN EARLE BUTT PASTE NOT ON FORMULARY - USE VENELEX A SUBSTITUTE q12H and PRN Soiling for Sacral and Gluteal Areas.
--- NOTE | 2018-05-02 14:18 | NUR ---
CM SPOKE TO HARMEET MURO REGARDING PATIENT EQUIPMENT AND SERVICES PRIOR TO ADMISSION. PATIENT INFORMED HER THAT SHE WAS ON SERVICE WITH [facility] PRIOR TO ADMISSION. CM CALLED [facility]. LIAISON STATES PATIENT WAS ON SERVICE UP UNTIL 05/01 WHEN THE SERVICE TERM ENDED. SO IF PATIENT IS NEEDING HOME HEALTH SERVICES SHE WOULD NEED A NEW ORDER FOR PT EVAL AND TREAT AND SN EVAL FOR WOUND CARE. PATIENT ALSO HAS WHEELCHAIR AND 3 IN 1 COMMODE AT HOME.
--- NOTE | 2018-05-02 14:20 | NUR ---
family here to see pt, pt has no distress noted, call light in reach.
--- NOTE | 2018-05-02 15:39 | Diagnostic Imaging Report ---
CT scan of the LEFT HIP, WITH intravenous contrast. TECHNIQUE: Standard departmental protocols were used. Post-contrast images were obtained after the intravenous injection of 100 cc of Isovue-370. Sagittal and coronal reformatted images were obtained. Dose modulation, iterative reconstruction, and/or weight based adjustment of the mA/kV was utilized to reduce the radiation dose to as low as reasonably achievable. DLP = 287.47 mGy-cm HISTORY: Fever, pain, questionable mass on left hip bursa, hip replacement 6 weeks ago COMPARISON: None. FINDINGS: Beam hardening artifact markedly limits the regional evaluation. Bones: Incompletely healed oblique fracture including the lesser trochanter. Joints: Status post total left hip arthroplasty, a longstem femoral component with lateral side plate and cerclage wires. The distal portion of the femoral component is not included. The femoral head component is dislocated superiorly, laterally, and posteriorly from the acetabular component. Soft tissues: Regional soft tissue swelling. Diffuse scattered atherosclerotic vascular calcifications. IMPRESSION: 1. Dislocated left total hip arthroplasty. 2. Incompletely healed proximal femoral fracture. 3. Limited evaluation of the regional soft tissue secondary to the beam hardening metallic artifact. Discussed with the patient's nurse Lashae Schmidt via phone on May 02, 2018 at 1534. The provider verbalizes an understanding and states she will communicate the information to Dr. Pope. Signed by: Yuri Wright.Karol., M.M.M. on 05/02/2018 3:35 PM
--- NOTE | 2018-05-02 16:30 | NUR ---
Dr. Orta Return consult, call.
--- NOTE | 2018-05-02 17:10 | NUR ---
results of ct scan,called to Dr. Pope. Dr. Pope consulted Dr Orta.
--- NOTE | 2018-05-02 18:40 | NUR ---
Dr. Orta called for pt to NPO midnight, and consent for procedure 05/03/18
[2018-05-02] MEDS ORDERED: CHLORHEXIDINE GLUCONATE 4% 120 ML BTL TOP ONE (19:00)
--- NOTE | 2018-05-02 19:15 | NUR ---
Report given to oncoming nurse, for continued care.
[2018-05-02] MEDS: BALSAM PERU/CASTOR OIL 60 GM OINT...G. TP SCH ×2 (19:42→21:00)
[2018-05-02] MEDS: VANCOMYCIN 1GM/NS 250 ML 250 ML IV SCH (20:47)
--- NOTE | 2018-05-02 22:23 | NUR ---
The patient's daughter has been very concern due to the patient having mild fever. It was 100F earlier today when vitals where taken. I explained to the daughter that a mild fever is expected with the patient's diagnosis of pancytopenia, that there were no orders to treat it at this moment, to give me some time to take care of it. I went in the patient's room again, and took oral temperature and it was 100.4F at 2215. I asked the patient and daughter to give me 15 minutes to get an order from the doctor. I called Dr. Pope at 2219 and he returned the call at 2226 and he order Tylenol Iv q6hrs to treat the mild temperature.
[2018-05-02] MEDS: ZOLPIDEM TARTRATE 10 MG TAB PO PRN (23:15)
--- NOTE | 2018-05-02 23:20 | NUR ---
The patient requested for the Ambien. When brought up to the room, the medication was given to patient in front of her daughter. I told her it was 10mg Ambien/Zolpidem but she only took half of it "I don't want all of it" I told the patient the dosage ordered by the doctor was 10mg but she said "I only need half". I wasted the other 5mg of the medication with another RN (Shira).
[2018-05-03] VITALS (9 sets, daily range): BP systolic 137–184; BP diastolic 63–85
[2018-05-03] MEDS: SODIUM CHLORIDE 0.9% 1000ML 1,000 ML IV SCH ×4 (00:37→21:48)
[2018-05-03] MEDS ORDERED: LORAZEPAM INJ 2 MG/ML VIAL IV PRN (05:45)
[2018-05-03] MEDS: CEFEPIME 2 GM/NS 0.9% 100 ML 100 ML IV SCH ×3 (06:02→22:00)
[2018-05-03] MEDS: FILGRASTIM 480 MCG/0.8 ML SYRINGE SQ SCH (06:23)
[2018-05-03] MEDS: ACETAMINOPHEN 1000 MG/100 ML IV PRN (06:56)
--- NOTE | 2018-05-03 07:15 | NUR ---
Bedside rounds complete. Patient is confused and is trying to get out of bed, she is sitting on the side of the bed and complains of left hip pain. She is unaware of attempts to redirect. Place the PCT at her bedside to prevent fall.
[2018-05-03] MEDS: INSULIN LISPRO 100 UNIT/1 ML 3ML VIAL SQ SCH ×4 (07:30→21:59)
[2018-05-03] MEDS: BALSAM PERU/CASTOR OIL 60 GM OINT...G. TP SCH ×2 (09:00→20:00)
[2018-05-03] MEDS: ATENOLOL 50 MG TAB PO SCH (09:00)
[2018-05-03] MEDS: AMLODIPINE BESYLATE 10 MG TAB PO SCH (09:00)
[2018-05-03] MEDS: FOLIC ACID 1 MG TAB PO SCH (09:00)
[2018-05-03 09:05] LABS: BASOPHILS % 1.5 % (0.0-1.0); EOSINOPHILS % 1.1 % (0.0-6.0); HEMATOCRIT 30.8 % (34.2-44.1); HEMOGLOBIN 10.4 g/dL (12.0-16.0); LYMPHOCYTES # (AUTO) 0.4 (1.0-3.2); LYMPHOCYTES % 15.6 % (18.0-39.1); MEAN CORPUSCULAR HEMOGLOBIN 29.5 pg (28-32); MEAN CORPUSCULAR HGB CONC 33.8 g/dL (31-35); MEAN CORPUSCULAR VOLUME 87.3 fL (81-99); MONOCYTES % 36.1 % (4.4-11.3); NEUTROPHILS # (AUTO) 0.4 (2.1-6.9); NEUTROPHILS % 13.7 % (38.7-80.0); RED BLOOD COUNT 3.53 x10e6/uL (3.6-5.1); RED CELL DISTRIBUTION WIDTH 14.6 % (11.7-14.4)
[2018-05-03 09:10] LABS: PLATELET COUNT 41 x10e3/uL (140-360)
--- NOTE | 2018-05-03 09:28 | NUR ---
Informed Dr. Orta of oncology wanting surgery to be cancelled at this time d/t critical labwork
--- NOTE | 2018-05-03 10:00 | NUR ---
Dr. steward informed that he attempted to call Dr. Ornelas regarding him needing to take her to surgery. No call back.
--- NOTE | 2018-05-03 11:12 | NUR ---
Patient left for the OR to repair the left hip dislocation. The IVF was disconnected, the surgical dental assistant was given a report and the son and daughter were at the bedside. The patient still showed signs of confusion although not as dramatic as this AM. Dr. Orta is at the patients bedside as well, giving an update to the son. The son is a Repair Table Operator and has some knowledge of the anatomy, so is full of questions about the procedure and the labs.
[2018-05-03 11:15] LABS: BAND NEUTROPHILS % (MANUAL) 11 %; EOSINOPHILS % (MANUAL) 3 % (0-7); LYMPHOCYTES % (MANUAL) 40 % (19-48); METAMYELOCYTES % (MANUAL) 13 % (0-0); MONOCYTES % (MANUAL) 15 % (3.4-9.0); NEUTROPHILS % (MANUAL) 7 % (40-74)
[2018-05-03 11:16] LABS: PLATELET ESTIMATE MARKEDLY DECREASED; PLATELET MORPHOLOGY COMMENT FEW LARGE
[2018-05-03] MEDS ORDERED: ONDANSETRON HCL INJ 2MG/ML 2ML 2 MG/ML VIAL IV PRN (12:00)
[2018-05-03] MEDS ORDERED: ACETAMINOPHEN 650 MG SUPP PR PRN (12:00)
[2018-05-03] MEDS ORDERED: PROMETHAZINE HCL (IM) 25 MG/ML VIAL INJ PRN (12:00)
[2018-05-03] MEDS: VANCOMYCIN 1GM/NS 250 ML 250 ML IV SCH (12:27)
--- NOTE | 2018-05-03 12:30 | NUR ---
Patient has returned from the PACU with abductor pillow as a splint. Patient is asleep and is able to be awakened easily. The patient is not aware of surroundings while under the influence of anesthesia. The son and daughter are not at her bedside now but have been here for most of the morning. Patient copyist is at the bedside since 1000 am.
--- NOTE | 2018-05-03 14:00 | NUR ---
The patients family is at the bedside now and have relayed their disappointment in the staff because they have been sitting in the waiting area since the surgery began with no awareness of the patients whereabouts. The son and daughter have asked to speak to the public service administrator, will notify Cassy Ruth. The patient has a potassium of 3.[address] Dr. Fofana was notified. Replacement ordered.
[2018-05-03] MEDS ORDERED: PROPOFOL IV EMULSION 10 MG/ML 20 ML VIAL ONE (14:14)
[2018-05-03] MEDS ORDERED: LIDOCAINE HCL 2% LOCAL INJ 5 ML SDV VIAL INJ ONE (14:14)
--- NOTE | 2018-05-03 14:35 | NUR ---
EDUCATED ABOUT IMM, SIGNED, FILED IN CHART, WITH COPY LEFT WITH FAMILY AT BEDSIDE.
--- NOTE | 2018-05-03 15:30 | NUR ---
Patient complained of pain in the IV placed at noon. The IV was infiltrated. Removed PIV and restarted in the Left forearm, dorsal side #20G and IVF continues to infuse.
--- NOTE | 2018-05-03 15:53 | NUR ---
CM SPOKE TO PATIENT AT BEDSIDE REGARDING BRACE NEEDED AFTER SURGERY. PATIENT CHOSE [facility] TO PROVIDE BRACE. CHOICE LETTER SIGNED AND PLACED IN CHART. CLINICAL SENT TO [facility]. PENDING DELIVERY AT BEDSIDE. [facility] (P) [phone] (F) [phone] BEDSIDE NURSE TIA NOTIFIED.
--- NOTE | 2018-05-03 16:55 | NUR ---
Infusing Potassium via PIV at a rate of 50cc/hr. The family is at the bedside, Aguila Ruth spoke with family. Family and patient instructed what to watch for with potassium infusing. Both verbalized understanding.
--- NOTE | 2018-05-03 18:21 | NUR ---
Nutrition Intervention Note RD Recommendation(s) for Physician: - Rec advancing to ADA/ neutropenic/ pureed diet as medically appropriate - Continue Glucerna (Vanilla or strawberry) TID to promote PO intake - 3-days calorie count started from 05/04 05/06 - If pt unable to tolerate PO, rec EN for terminal computer operator nutrition - Please consult for TF rec Plan of Care: RD following, monitoring for tolerance and adequacy, ONS Nutrition reason for involvement: Follow up RD Assessment 05/03 Pt was discussed during AM rounds. Pt underwent L hip reduction today. WBC has increased. Visited pt in the room. Pt was sleepy after the surgery. Per sitter, pt complained of burning in her throat while drinking water and apple juice this AM. No complains of nausea or vomiting today. Pt drank ~50% of Glucerna ordered. Son requested for daily weight check. RD placed calorie count on the door to start from 05/04-05/06; notified SANDY Akers. Will re-assess calorie intake on 05/07. If pt continues to have poor intake due to mouth/throat sore, RD rec to start EN for half-way nutrition. Will continue to monitor and follow. Please consult as needed. 04/30 Pt was discussed during AM rounds. Per SANDY Lord, pt had mouth and throat sores from medication. Currently on neutropenic precautions. Mg was repleted. Visited pt in the room. Pt stated I hardly ate anything and had lost ~20lbs since January. Her mouth/throat sores started ~10 days ago. Pt was only able to tolerate some liquids and soft foods. Entered food preferences into [employer]. Pt was also drinking 2-3 bottles of supplements at home. No complains of nausea or vomiting. LBM 04/30. Communicated RD rec to SANDY Lord. Will continue to monitor and follow. Please consult as needed. Principal Problems/Diagnoses: 1. Mucositis. The patient was immunocompromised. 2. Pancytopenia, probably secondary to medication Cimzia. PMH: RA, DM GI: abdomen soft, non-tender, flatus present, LBM 05/02 Skin: no pressure ulcer noted Labs: (05/02) Na 133 L, K 3.0 L, Glucose 130 190 H, Ca 8.1 L (04/30) Na 133 L, Glucose 165 280 H, Ca 8.2 L, Mg 0.9 L, Meds: abx, insulin, neupogen, NaCl, folic acid Ht: 65in Wt: 136lb; 141lb BMI: 24.2kg/m2 IBW: 125lb Malnutrition Evaluation (04/30) The patient meets criteria for MODERATE protein-calorie malnutrition. Energy intake: <75% of estimated energy requirements for >3 months Weight loss: >7.5% in 3 months (Acute) Fat loss: Mild some clavicle protrusion Muscle loss: Mild slight temporal depression Supporting Evidence: Fluid accumulation: unable to evaluate Functional Status: measurably reduced Nutrition Prescription (Diet Order): NPO Estimated Nutritional Needs: Calories: 1625 2275kcal (25-35kcal/kg/d) Weight used: Actual BW Protein: 65 98g (1-1.5g/kg/d) Weight used: Actual BW Diet Adequacy: Not meeting calorie needs, Not meeting protein needs Diet Education Needs Assessment: Diet education indicated, but patient not appropriate for education at this time. Nutrition Care Level: mod Nutrition Diagnosis: Inadequate oral intake related to mouth sores as evidenced by pt only able to tolerate soft foods and liquid. Goal: Patient will meet 75-100% of estimated needs by follow up Progress: N/A Interventions: Texture/carbohydrate-modified diet, Commercial beverage, Recommended Modifications Monitoring/Evaluation: Total energy intake, Total protein intake, Modified diet, Liquid supplement, Weight change Signed: Elysia Nielsen, MS, RD, LD
--- NOTE | 2018-05-03 19:00 | NUR ---
Report given to oncoming nurse at the patients bedside.
--- NOTE | 2018-05-03 19:26 | Consultation ---
DATE OF CONSULTATION: 05/03/2018 CHIEF COMPLAINT: Left hip dislocation. HISTORY OF PRESENT ILLNESS: The patient is a medically frail 77-year-old lady, who was admitted to the hospital for number of medical concerns including pancytopenia and mucositis. The details are not entirely certain, but she noted a funny sensation in her left hip in the past 48 hours. Her past history is significant for a left hip open reduction and internal fixation for periprosthetic fracture back in January of 2018. This was performed down at [facility]. She had a left hip replacement placed about 2 to 3 years ago. She spent about 3 weeks in a rehab facility after the surgery in January. She was making progress and had gotten back to driving. She was seen by her patient resource specialist and noted to have quite severe leukocytosis and was admitted to the hospital. She was started on antibiotics. Apparently, she was being assisted to get up to go to the shower the other night. She noticed some strange sensation in her left hip. A CT scan done yesterday showed a dislocated left hip replacement. Orthopedic consultation was requested. PAST MEDICAL HISTORY: Please see admission H and P for all details. PHYSICAL EXAMINATION: The patient is somnolent. She is supine in bed. Her left hip is shortened and internally rotated. She has a well-healed incision over the lateral thigh. There is no erythema. There is no swelling. Any attempts at passive range of motion elicits signs of discomfort such as grimacing. IMAGING AND LABORATORY STUDIES: CT scan shows a dislocated left hip replacement with a cerclage plate over the lateral aspect. There is no sign of fracture fixation failure. The socket appears to be well fixed. IMPRESSION: Dislocated left total hip arthroplasty. The findings were discussed primarily with the patient's 2 grown children. We plan on attempt at closed reduction. Her white blood count is severely depressed. There is no intention or plan to perform any type of open procedure if a closed reduction is not successful. They state they understand and wishes to proceed with the closed reduction. Thank you for the consultation. Kt Orta MD DR/REINA /[id number]
--- NOTE | 2018-05-03 19:26 | Operative Report ---
DATE OF PROCEDURE: 05/03/2018 SURGEON: Kt Orta MD PREOPERATIVE DIAGNOSIS: Dislocated left total hip arthroplasty. POSTOPERATIVE DIAGNOSIS: Dislocated left total hip arthroplasty. PROCEDURE: Closed reduction of left total hip arthroplasty. INDICATIONS: The patient is a medically frail 77-year-old lady, who is approaching 3 months status post a left hip open reduction and internal fixation and revision of hip arthroplasty secondary to a periprosthetic fracture. She now has a dislocated hip replacement. The exact timing of the dislocation is unknown. We have discussed the findings and options with the patient and her family. We plan on a closed reduction. The risks and benefits were explained. They state they understand and wish to proceed. DESCRIPTION OF PROCEDURE: The patient was brought to the operating room and given a MAC anesthetic. A C-arm image intensifier was used to assist in performing a closed reduction. This was easily performed. The hip was then put through motion. At 60 degrees of flexion and 20 degrees of internal rotation, the hip re-dislocated. With any flexion and adduction, the hip would also dislocate. The hip was returned to the socket. Intraoperative C-arm images were used to confirm reduced positioning of the hip. She was placed into an abduction pillow. We will obtain a hip abduction brace when she gets back to the floor. There was no blood loss and all counts were correct. Kt Orta MD DR/REINA /[id number]
[2018-05-03] MEDS: ZOLPIDEM TARTRATE 10 MG TAB PO PRN (23:05)
--- NOTE | 2018-05-03 23:05 | NUR ---
PT RESTING IN BED WITH NO S/S OF DISTRESS.RESPIRATIONS EVEN/NON LABORED.PT ALERT,AWAKE AND ORIENTED X 3.PT REQUESTED HALF OF ORDERED DOSE(10 MG) OF AMBIEN.5 MG OF AMBIEN GIVEN.FAMILY MEMBER AT BEDSIDE.BED POSITIONED IN THE LOWEST/LOCKED.BED ALARM ON.CALL LIGHT WITHIN EASY REACH.
--- NOTE | 2018-05-03 23:07 | NUR ---
WASTED THE OTHER HALF OF AMBIEN WITH PRISCILLA DELGADO
[2018-05-04] VITALS (7 sets, daily range): BP systolic 136–157; BP diastolic 63–85
[2018-05-04] MEDS: VANCOMYCIN 1GM/NS 250 ML 250 ML IV SCH (00:26)
[2018-05-04] MEDS: SODIUM CHLORIDE 0.9% 1000ML 1,000 ML IV SCH ×4 (04:23→22:37)
--- NOTE | 2018-05-04 06:05 | NUR ---
DR WALDRON IN UNIT ROUNDING ON PT AT THIS TIME,N/O RECEIVED FOR LABS CBC,BMP.
[2018-05-04] MEDS: CEFEPIME 2 GM/NS 0.9% 100 ML 100 ML IV SCH (06:09)
--- NOTE | 2018-05-04 06:26 | NUR ---
MEDICATION NEUPOGEN UNAVAILABLE TO ADMINISTER AT THIS TIME.MEDICATION NOT IN PT'S BLUE BIN OR IN THE PYXIS.
[2018-05-04 07:03] LABS: BASOPHILS % 0.2 % (0.0-1.0); EOSINOPHILS # (AUTO) 0.1 (0.0-0.4); EOSINOPHILS % 0.6 % (0.0-6.0); HEMATOCRIT 30.2 % (34.2-44.1); HEMOGLOBIN 10.3 g/dL (12.0-16.0); LYMPHOCYTES # (AUTO) 0.7 (1.0-3.2); LYMPHOCYTES % 5.1 % (18.0-39.1); MEAN CORPUSCULAR HEMOGLOBIN 29.3 pg (28-32); MEAN CORPUSCULAR HGB CONC 34.1 g/dL (31-35); MONOCYTES # (AUTO) 2.5 (0.2-0.8); MONOCYTES % 17.6 % (4.4-11.3); NEUTROPHILS # (AUTO) 7.7 (2.1-6.9); NEUTROPHILS % 54.9 % (38.7-80.0); PLATELET COUNT 83 x10e3/uL (140-360); RED BLOOD COUNT 3.51 x10e6/uL (3.6-5.1); RED CELL DISTRIBUTION WIDTH 14.8 % (11.7-14.4)
--- NOTE | 2018-05-04 07:04 | NUR ---
REPORT GIVEN TO ONCOMING NURSE,WALKING ROUNDS MADE.PT RESTING IN BED WITH NO S/S OF DISTRESS.
[2018-05-04 07:29] LABS: ANION GAP 12.2 mmol/L (8-16); BLOOD UREA NITROGEN 13 mg/dL (7-26); BUN/CREATININE RATIO 17 (6-25); CALCIUM 7.7 mg/dL (8.4-10.2); CARBON DIOXIDE 21 mmol/L (22-29); CHLORIDE 108 mmol/L (98-107); CREATININE, SERUM 0.78 mg/dL (0.57-1.11); EST GLOMERULAR FILTRATION RATE > 60 ML/MIN (60-); GLUCOSE 121 mg/dL (74-118); POTASSIUM 3.2 mmol/L (3.5-5.1); SODIUM 138 mmol/L (136-145)
[2018-05-04] MEDS: FOLIC ACID 1 MG TAB PO SCH (08:20)
[2018-05-04] MEDS: ATENOLOL 50 MG TAB PO SCH (08:21)
[2018-05-04] MEDS: AMLODIPINE BESYLATE 10 MG TAB PO SCH (08:21)
[2018-05-04] MEDS: INSULIN LISPRO 100 UNIT/1 ML 3ML VIAL SQ SCH ×4 (08:25→20:56)
[2018-05-04] MEDS: FILGRASTIM 480 MCG/0.8 ML SYRINGE SQ SCH (09:44)
[2018-05-04] MEDS: BALSAM PERU/CASTOR OIL 60 GM OINT...G. TP SCH ×2 (09:44→20:34)
--- NOTE | 2018-05-04 10:44 | Progress Note ---
DATE: 05/04/2018 SUBJECTIVE: A 77-year-old female comes in with hip dislocation status post closed reduction by Dr. Orta. The patient also was found to be neutropenic. Currently, the patient is in neutropenic isolation. No complaints once we get out of bed. Otherwise, no chest pain or shortness of breath. No nausea, vomiting, or diarrhea. No fever. MEDICATIONS: The patient is on cefepime q.8 h. She is on 100 mL of sodium chloride, Ambien at nighttime, insulin protocol for diabetes mellitus, atenolol 25 mg daily, and amlodipine 10 mg daily. She is also on Neupogen, was given one dose. Lorazepam 1 mg q.6 h. for anxiety, docusate 100 mg, promethazine as needed, Questran, morphine sulfate 2 mg q.6 h. Vancomycin was discontinued. OBJECTIVE: VITAL SIGNS: Temperature is 99.7, it is T-max; pulse of 93; respirations 17; blood pressure 140/63; pulse oximetry 93%. HEENT: Normocephalic, atraumatic. CVS: S1, S2, regular rate and rhythm. ABDOMEN: Nontender, nondistended. EXTREMITIES: Lower extremity in soft cast. LABORATORY DATA: The patient's laboratory values today are pending. Yesterday's white count was 2.69, platelet count 41, hemoglobin of 10.4, and hematocrit of 30.8. Chemistries, glucose has been trending in the 150s to 170s. Toxicology, vancomycin trough done on 05/02/2018 was 9.7, which has been discontinued since then. Urine, negative. Microbiology, throat culture, usual respiratory catalina present. The patient's blood culture has no growth in the last 72 hours. ASSESSMENT AND PLAN: 1. Dislocated left hip arthroplasty. The patient had closed reduction done in the OR, currently asymptomatic. Continue with current orthopedic treatment. 2. Mucositis. The patient is immunocompromised. 3. Pancytopenia secondary to medication, Cimzia. The patient was on vancomycin, currently on cefepime. Plan is to keep her in contact isolation. Continue monitoring her platelets and white and red blood cells. The patient has a slight fever, we will continue watching her. 4. Diabetes mellitus. We will continue monitoring her blood sugars, glucose. Sliding scale. 5. Hypertension. Continue with atenolol and amlodipine. 6. Anxiety. Continue with lorazepam and zolpidem for sleep. Further recommendation and clinical course, CBC and CMP will be done today. We will continue monitoring the patient along with the consultants. MD MALLIKA Brizuela/REINA /[id number]
[2018-05-04 15:10] LABS: BAND NEUTROPHILS % (MANUAL) 31 %; BLAST CELLS % MANUAL 3; LYMPHOCYTES % (MANUAL) 10 % (19-48); METAMYELOCYTES % (MANUAL) 18 % (0-0); MONOCYTES % (MANUAL) 15 % (3.4-9.0); MYELOCYTES % (MANUAL) 1 % (0-0); NEUTROPHILS % (MANUAL) 18 % (40-74); PROMYELOCYTES % (MANUAL) 3 % (0-0)
[2018-05-04 15:11] LABS: PLATELET MORPHOLOGY COMMENT NORMAL
[2018-05-04 15:12] LABS: PLATELET ESTIMATE MODERATELY DECREASED; RBC MORPHOLOGY COMMENT ABNORMAL
[2018-05-04 15:13] LABS: POIKILOCYTOSIS MODERATE
[2018-05-04 15:14] LABS: ANISOCYTOSIS MODERATE; BURR CELLS SLIGHT
--- NOTE | 2018-05-04 17:22 | NUR ---
Patient c/o pain in her IV site to the left forearm. Stopped fluids and noted swelling. Will attempt to start a new IV
[2018-05-04] MEDS: ACETAMINOPHEN 325 MG TAB PO PRN (22:31)
[2018-05-05] VITALS (8 sets, daily range): BP systolic 132–157; BP diastolic 61–82
[2018-05-05] MEDS: SODIUM CHLORIDE 0.9% 1000ML 1,000 ML IV SCH ×3 (03:20→23:44)
[2018-05-05 06:52] LABS: BASOPHILS % 0.1 % (0.0-1.0); EOSINOPHILS # (AUTO) 0.1 (0.0-0.4); EOSINOPHILS % 0.2 % (0.0-6.0); HEMATOCRIT 29.3 % (34.2-44.1); LYMPHOCYTES # (AUTO) 1.5 (1.0-3.2); LYMPHOCYTES % 4.1 % (18.0-39.1); MEAN CORPUSCULAR HEMOGLOBIN 29.2 pg (28-32); MEAN CORPUSCULAR HGB CONC 34.1 g/dL (31-35); MEAN CORPUSCULAR VOLUME 85.4 fL (81-99); MONOCYTES # (AUTO) 4.4 (0.2-0.8); MONOCYTES % 11.9 % (4.4-11.3); NEUTROPHILS # (AUTO) 22.7 (2.1-6.9); NEUTROPHILS % 61.4 % (38.7-80.0); PLATELET COUNT 106 x10e3/uL (140-360); RED BLOOD COUNT 3.43 x10e6/uL (3.6-5.1); RED CELL DISTRIBUTION WIDTH 15.3 % (11.7-14.4)
--- NOTE | 2018-05-05 07:02 | NUR ---
REPORT GIVEN TO ONCOMING NURSE,WALKING ROUNDS MADE.PT RESTING IN BED WITH NO S/S OF DISTRESS.
--- NOTE | 2018-05-05 07:10 | NUR ---
PT RESTING IN BED AA0X3. PT IS IN NO S.S OF DISTRESS. PT CONTINUES ON IV FLUIDS WITH NS AT 100 TO THE LEFT FA 20. SITE IS CLEAN AND DRY. PT CONTINUES ON ADBUCTION PILLOW AND HEEL PROTECTORS. PT IS ON RA. WILL CONTINUE TO CARE FOR PT AT THIS TIME, SIDE RAILSX2, BED WHEELS LOCKED, CALL LIGHT IS WITHIN EASY REACH, INSTRUCTED TO CALL FOR ASSISTANCE IF NEEDED
--- NOTE | 2018-05-05 07:17 | NUR ---
SPOKE TO MD MIX REGARDING LAB WORK THIS MORNING. ORDERS TO REPLACE MAG GIVEN.
[2018-05-05] MEDS ORDERED: MAGNESIUM SULFATE 2GM/50ML 50 ML IV ONE (07:30)
[2018-05-05] MEDS: FOLIC ACID 1 MG TAB PO SCH (08:12)
[2018-05-05] MEDS: INSULIN LISPRO 100 UNIT/1 ML 3ML VIAL SQ SCH ×4 (08:12→20:42)
[2018-05-05] MEDS: AMLODIPINE BESYLATE 10 MG TAB PO SCH (08:12)
[2018-05-05] MEDS: LORATADINE 10 MG TAB PO SCH (08:12)
[2018-05-05] MEDS: ATENOLOL 50 MG TAB PO SCH (08:12)
[2018-05-05] MEDS: BALSAM PERU/CASTOR OIL 60 GM OINT...G. TP SCH ×2 (10:46→20:24)
--- NOTE | 2018-05-05 14:05 | NUR ---
Visit made by the Spiritual Care Department Pastoral Visitor, Kenny Snyder. PV provided pastoral presence, communion, prayer, hospitality, and supportive listening. Pastoral Visitor informed pt/family of the scope of [employer] and availability. NARENDRA LEOS Steel Die [employer]inter Spiritual Care Department O: [phone] Pager: [phone] ([phone] number calling from)
[2018-05-05] MEDS ORDERED: MAALOX/LIDOCAINE/BENADRYL/NYST 30 ML BTL PO PRN (15:00)
--- NOTE | 2018-05-05 15:18 | NUR ---
Attempted to call dr. martin for consult and no answer. Informed nurse to pass on that they need to call sunday
[2018-05-05] MEDS: ACETAMINOPHEN 325 MG TAB PO PRN (22:45)
[2018-05-06] VITALS (7 sets, daily range): BP systolic 132–162; BP diastolic 61–73
[2018-05-06] MEDS: DIPHENHYDRAMINE HCL 25 MG CAP PO PRN ×2 (05:33→23:32)
[2018-05-06] MEDS: DOCUSATE SODIUM 100 MG CAP PO PRN ×2 (06:10→21:00)
--- NOTE | 2018-05-06 06:15 | NUR ---
ATTEMPTED TO CALL DR HERNANDEZ TO NOTIFY ABOUT THE CONSULT.NO ANSWER AND NO OPTION TO LEAVE MESSAGE.
[2018-05-06 06:46] LABS: BASOPHILS # (AUTO) 0.1 (0.0-0.1); BASOPHILS % 0.1 % (0.0-1.0); EOSINOPHILS # (AUTO) 0.1 (0.0-0.4); EOSINOPHILS % 0.2 % (0.0-6.0); HEMATOCRIT 26.8 % (34.2-44.1); HEMOGLOBIN 9.3 g/dL (12.0-16.0); LYMPHOCYTES # (AUTO) 1.8 (1.0-3.2); LYMPHOCYTES % 4.7 % (18.0-39.1); MEAN CORPUSCULAR HEMOGLOBIN 29.5 pg (28-32); MEAN CORPUSCULAR HGB CONC 34.7 g/dL (31-35); MEAN CORPUSCULAR VOLUME 85.1 fL (81-99); MONOCYTES # (AUTO) 2.9 (0.2-0.8); MONOCYTES % 7.7 % (4.4-11.3); NEUTROPHILS # (AUTO) 21.1 (2.1-6.9); PLATELET COUNT 117 x10e3/uL (140-360); RED BLOOD COUNT 3.15 x10e6/uL (3.6-5.1); RED CELL DISTRIBUTION WIDTH 15.2 % (11.7-14.4)
--- NOTE | 2018-05-06 07:25 | NUR ---
REPORT GIVEN TO ONCOMING NURSE,WALKING ROUNDS DONE.PT RESTING IN BED WITH NO S/S OF DISTRESS.
[2018-05-06 07:36] LABS: ALANINE AMINOTRANSFERASE 41 IU/L (0-55); ALBUMIN 2.3 g/dL (3.5-5.0); ALBUMIN/GLOBULIN RATIO 0.8 (0.8-2.0); ALKALINE PHOSPHATASE 145 IU/L (40-150); ANION GAP 12.8 mmol/L (8-16); BLOOD UREA NITROGEN 12 mg/dL (7-26); BUN/CREATININE RATIO 17 (6-25); CALCIUM 7.8 mg/dL (8.4-10.2); CARBON DIOXIDE 25 mmol/L (22-29); CHLORIDE 105 mmol/L (98-107); CREATININE, SERUM 0.69 mg/dL (0.57-1.11); EST GLOMERULAR FILTRATION RATE > 60 ML/MIN (60-); GLUCOSE 168 mg/dL (74-118); SODIUM 140 mmol/L (136-145)
[2018-05-06 07:42] LABS: POTASSIUM 2.8 mmol/L (3.5-5.1)
[2018-05-06] MEDS: INSULIN LISPRO 100 UNIT/1 ML 3ML VIAL SQ SCH ×4 (08:30→20:58)
[2018-05-06] MEDS: BALSAM PERU/CASTOR OIL 60 GM OINT...G. TP SCH ×2 (09:00→20:55)
[2018-05-06] MEDS ORDERED: POTASSIUM CHLORIDE 10MEQ EA PO ONE (09:00)
--- NOTE | 2018-05-06 09:15 | NUR ---
EDUCATED ABOUT IMM, SIGNED, FILED IN CHART, WITH COPY LEFT WITH FAMILY AT BEDSIDE.
[2018-05-06] MEDS: LORATADINE 10 MG TAB PO SCH (09:30)
[2018-05-06] MEDS: FOLIC ACID 1 MG TAB PO SCH (09:30)
[2018-05-06] MEDS: ATENOLOL 50 MG TAB PO SCH (09:30)
[2018-05-06] MEDS: AMLODIPINE BESYLATE 10 MG TAB PO SCH (09:30)
[2018-05-06] MEDS ORDERED: POTASSIUM CHLORIDE 20 MEQ TAB CR PO ONE (09:45)
[2018-05-06] MEDS: SODIUM CHLORIDE 0.9% 1000ML 1,000 ML IV SCH (09:48)
--- NOTE | 2018-05-06 10:57 | NUR ---
CM SPOKE TO PATIENT AT BEDSIDE REGARDING INPATIENT REHAB TRANSFER ORDERS. PATIENT STATES SHE SPOKE TO DR. MIX PRIOR AND SHE IS WILLING TO GO. PATIENT GIVEN CHOICES OF REHAB HOSPITALS. PATIENT CHOSE [facility]. PATIENT SIGNED CHOICE LETTER. CHOICE LETTER PLACED IN FRONT OF CHART. CLINICAL SENT TO [facility]. DR. HERNANDEZ CONSULTED AND PENDING ASSESSMENT OF PATIENT. [facility] Address: [address] [place] [id number]
[2018-05-06] MEDS ORDERED: SODIUM CHLORIDE 0.9% IV SCH (11:00)
[2018-05-06] MEDS ORDERED: MAGNESIUM SULFATE IV SCH (11:00)
--- NOTE | 2018-05-06 13:07 | NUR ---
CM SPOKE TO ALESHA WITH [facility] REGARDING [facility]. THEY ARE CURRENTLY REVIEWING CLINICAL AND CREATING A PURCHASE FORM. ONCE THE PURCHASE FORM IS CODED AND COMPLETE, THEY WILL SEND TO MY [facility] EMAIL AND CM WILL FOLLOW THE DIRECTIONS ON FORM. CM TO FOLLOW UP WITH ALESHA IF FORM IS NOT SENT TO [facility].
--- NOTE | 2018-05-06 14:15 | NUR ---
FERCHO ROCHE WITH MD ALEMAN INTO SEE PT, DISCUSSED POC, DISCUSSED WITH PT IT'S OKAY TO GET OOB WITH POSTERIOR PRECAUTIONS FOLLOWED AND SAFETY, PT VERBALIZED UNDERSTANDING
--- NOTE | 2018-05-06 16:05 | NUR ---
HARMEET SPOKE TO MATERIALS MANAGEMENT REGARDING [facility] BRACE. CM SENT MATERIALS MANAGEMENT THE ORDER, FACE SHEET AND CODE SHEET FOR THE BRACE. PENDING MATERIAL MANAGEMENT TO COORDINATE WITH METAL CASTER AND HAVE BRACE SENT TO PATIENT AT THE BEDSIDE. MATERIALS MANAGEMENT (P) [phone] (F) [phone] PENDING BRACE FOR PT TO WORK WITH PATIENT. PATIENT CURRENTLY PENDING PLACEMENT INPATIENT AT [facility] Addendum: 05/06/18 at 1620 by Shandra Graham CM BEDSIDE MJ DELGADO TO FOLLOW UP WITH MATERIALS MANAGEMENT AND PT FOR [facility].
[2018-05-06] MEDS ORDERED: PROMETHAZINE 12.5MG/ NACL 0.9% 50 ML IV PRN (17:00)
--- NOTE | 2018-05-06 17:45 | NUR ---
AFTER MULTIPLE CALLS, EMAIL MARKETING ASSISTANT SPOKE WITH DR HERNANDEZ, MADE AWARE OF CONSULT
--- NOTE | 2018-05-06 17:59 | NUR ---
PER PCT, PT REFUSING TO BE TURNED, STATES "CAN TURN SELF", PT ALLOWS TO BE TURNED "WHEN CHANGING DIAPER", PT TOLERATING PO AT THIS TIME, OFFERED MAGIC MOUTHWASH, PT STILL EATING DINNER, CALL LIGHT WITHIN REACH
[2018-05-07] VITALS (7 sets, daily range): BP systolic 140–156; BP diastolic 61–71
[2018-05-07] MEDS ORDERED: BISACODYL 5 MG TAB EC PO SCH (05:15)
[2018-05-07 05:40] LABS: BASOPHILS # (AUTO) 0.1 (0.0-0.1); BASOPHILS % 0.2 % (0.0-1.0); EOSINOPHILS # (AUTO) 0.1 (0.0-0.4); EOSINOPHILS % 0.2 % (0.0-6.0); HEMATOCRIT 29.7 % (34.2-44.1); LYMPHOCYTES # (AUTO) 2.1 (1.0-3.2); LYMPHOCYTES % 6.8 % (18.0-39.1); MEAN CORPUSCULAR HEMOGLOBIN 28.7 pg (28-32); MEAN CORPUSCULAR HGB CONC 33.7 g/dL (31-35); MEAN CORPUSCULAR VOLUME 85.1 fL (81-99); MONOCYTES # (AUTO) 3.5 (0.2-0.8); MONOCYTES % 11.2 % (4.4-11.3); NEUTROPHILS # (AUTO) 14.3 (2.1-6.9); NEUTROPHILS % 46.2 % (38.7-80.0); PLATELET COUNT 123 x10e3/uL (140-360); RED BLOOD COUNT 3.49 x10e6/uL (3.6-5.1); RED CELL DISTRIBUTION WIDTH 15.6 % (11.7-14.4)
[2018-05-07 06:10] LABS: BLOOD UREA NITROGEN 11 mg/dL (7-26); BUN/CREATININE RATIO 15 (6-25); CALCIUM 7.5 mg/dL (8.4-10.2); CARBON DIOXIDE 27 mmol/L (22-29); CHLORIDE 102 mmol/L (98-107); CREATININE, SERUM 0.73 mg/dL (0.57-1.11); EST GLOMERULAR FILTRATION RATE > 60 ML/MIN (60-); GLUCOSE 201 mg/dL (74-118); MAGNESIUM 2.1 MG/DL (1.3-2.1); SODIUM 138 mmol/L (136-145)
--- NOTE | 2018-05-07 07:17 | NUR ---
PATIENT IN BED RESTING WITH NO RESPIRATORY DISTRESS. ABDUCTOR PILLOW BETWEEN HER LEGS WITH HEEL PROTECTORS IN PLACE. DIAPER CHECKED AND PATIENT REPOSITIONED. BED IN LOWER POSITION, CALL LIGHT AT REACH.
[2018-05-07] MEDS: INSULIN LISPRO 100 UNIT/1 ML 3ML VIAL SQ SCH ×4 (07:30→21:16)
[2018-05-07] MEDS: LORATADINE 10 MG TAB PO SCH (09:19)
[2018-05-07] MEDS: ATENOLOL 50 MG TAB PO SCH (09:19)
[2018-05-07] MEDS: BALSAM PERU/CASTOR OIL 60 GM OINT...G. TP SCH ×2 (09:19→21:16)
[2018-05-07] MEDS: FOLIC ACID 1 MG TAB PO SCH (09:19)
[2018-05-07] MEDS: AMLODIPINE BESYLATE 10 MG TAB PO SCH (09:19)
--- NOTE | 2018-05-07 10:26 | NUR ---
SPOKE WITH MD REGARDING ABNORMAL LAB RESULT. NEW ORDER RECEIVED.
[2018-05-07] MEDS ORDERED: POTASSIUM CHLORIDE 20 MEQ TAB CR PO ONE (11:00)
--- NOTE | 2018-05-07 11:58 | NUR ---
Patient provided with hip brace, ambulating in room with physical therapy, will continue to monitor.
[2018-05-07] MEDS ORDERED: BISACODYL 5 MG TAB EC PO PRN (12:45)
--- NOTE | 2018-05-07 15:52 | NUR ---
Nutrition Intervention Note RD Recommendation(s) for Physician: - Continue ADA diet as ordered; upgraded diet texture to mechanical soft - Continue Glucerna once a day to promote PO intake - 3-days calorie count started from 05/04 05/06: average of 800-1100kcal/day Plan of Care: RD following, monitoring for tolerance and adequacy, ONS Nutrition reason for involvement: Follow up RD Assessment 05/07- Pt was discussed during AM rounds. WBC has improved. Pt was no longer in neutropenic precaution. Visited pt in the room. Pt reported improvement in her PO intake (50-75% meal intake). Pt denied any burning sensation in her throat. Mouth sores have improved. Pt was able to chew and swallow more comfortably at this time. Pt would like to eat softer foods than pureed foods now. Diet order has been placed. Pt denied any nausea or vomiting. LBM 05/07. Will continue to monitor and follow. 05/03 Pt was discussed during AM rounds. Pt underwent L hip reduction today. WBC has increased. Visited pt in the room. Pt was sleepy after the surgery. Per sitter, pt complained of burning in her throat while drinking water and apple juice this AM. No complains of nausea or vomiting today. Pt drank ~50% of Glucerna ordered. Son requested for daily weight check. RD placed calorie count on the door to start from 05/04-05/06; notified SANDY Akers. Will re-assess calorie intake on 05/07. If pt continues to have poor intake due to mouth/throat sore, RD rec to start EN for senior living nutrition. Will continue to monitor and follow. Please consult as needed. 04/30 Pt was discussed during AM rounds. Per SANDY Lord, pt had mouth and throat sores from medication. Currently on neutropenic precautions. Mg was repleted. Visited pt in the room. Pt stated I hardly ate anything and had lost ~20lbs since January. Her mouth/throat sores started ~10 days ago. Pt was only able to tolerate some liquids and soft foods. Entered food preferences into [employer]. Pt was also drinking 2-3 bottles of supplements at home. No complains of nausea or vomiting. LBM 04/30. Communicated RD rec to SANDY Lord. Will continue to monitor and follow. Please consult as needed. Principal Problems/Diagnoses: 1. Mucositis. The patient was immunocompromised. 2. Pancytopenia, probably secondary to medication Cimzia. PMH: RA, DM GI: abdomen soft, LBM 05/07 Skin: no pressure ulcer noted Labs: (05/07) K 3.0 L, glucose 200 - 290 H, Ca 7.5 L (05/02) Na 133 L, K 3.0 L, Glucose 130 190 H, Ca 8.1 L (04/30) Na 133 L, Glucose 165 280 H, Ca 8.2 L, Mg 0.9 L, Meds: insulin, folic acid Ht: 65in Wt: 136lb; 141lb; 139.44lb BMI: 24.2kg/m2 IBW: 125lb Malnutrition Evaluation (04/30) The patient meets criteria for MODERATE protein-calorie malnutrition. Energy intake: <75% of estimated energy requirements for >3 months Weight loss: >7.5% in 3 months (Acute) Fat loss: Mild some clavicle protrusion Muscle loss: Mild slight temporal depression Supporting Evidence: Fluid accumulation: unable to evaluate Functional Status: measurably reduced Nutrition Prescription (Diet Order): ADA diet Estimated Nutritional Needs: Calories: 1625 2275kcal (25-35kcal/kg/d) Weight used: Actual BW Protein: 65 98g (1-1.5g/kg/d) Weight used: Actual BW Diet Adequacy: Not meeting calorie needs, Not meeting protein needs Diet Education Needs Assessment: Diet education indicated, but patient not appropriate for education at this time. Nutrition Care Level: low Nutrition Diagnosis: Inadequate oral intake related to mouth sores as evidenced by pt only able to tolerate soft foods and liquid. Goal: Patient will meet 75-100% of estimated needs by follow up Progress: Progressing Interventions: Texture/carbohydrate-modified diet, Commercial beverage, Recommended Modifications Monitoring/Evaluation: Total energy intake, Total protein intake, Modified diet, Liquid supplement, Weight change Signed: Elysia Nielsen, MS, RD, LD
--- NOTE | 2018-05-07 16:12 | NUR ---
PATIENT NOTIFIED THAT BEDS WERE FULL, PER LIAISON SOPHIA, AT [facility]. PATIENT STATES SHE WOULD LIKE TO TRY ANOTHER LOCATION IN THE [facility]. PATIENT GIVEN CHOICES. PATIENT CHOSE [facility]. CLINICAL SENT TO [facility] LIAISON NOTIFIED
--- NOTE | 2018-05-07 19:09 | NUR ---
BEDSIDE REPORT GIVEN TO ON COMING NURSE.
--- NOTE | 2018-05-07 20:00 | NUR ---
pt received. pt assessed. no ss of distress noted. no co pain at time. tele in place. left hip brace noted. will cont to follow poc. call lewis within reach.
--- NOTE | 2018-05-07 21:16 | NUR ---
assisted pt up to bedside commode and back to bed. pt urinated clear yellow urine. no distress noted. call lewis within reach.
[2018-05-07] MEDS: DIPHENHYDRAMINE HCL 25 MG CAP PO PRN (22:55)
[2018-05-08] VITALS (8 sets, daily range): BP systolic 125–156; BP diastolic 61–83
--- NOTE | 2018-05-08 | NUR ---
bed bath given. no distress noted. call lewis within reach.
--- NOTE | 2018-05-08 04:28 | NUR ---
dr tomlin rounding at time. no distress noted. call lewis within reach.
[2018-05-08 05:55] LABS: BASOPHILS # (AUTO) 0.1 (0.0-0.1); BASOPHILS % 0.2 % (0.0-1.0); EOSINOPHILS # (AUTO) 0.1 (0.0-0.4); EOSINOPHILS % 0.2 % (0.0-6.0); HEMOGLOBIN 10.4 g/dL (12.0-16.0); LYMPHOCYTES % 6.8 % (18.0-39.1); MEAN CORPUSCULAR HEMOGLOBIN 29.2 pg (28-32); MEAN CORPUSCULAR HGB CONC 33.5 g/dL (31-35); MEAN CORPUSCULAR VOLUME 87.1 fL (81-99); MONOCYTES # (AUTO) 2.9 (0.2-0.8); MONOCYTES % 10.3 % (4.4-11.3); NEUTROPHILS # (AUTO) 13.4 (2.1-6.9); NEUTROPHILS % 46.8 % (38.7-80.0); PLATELET COUNT 131 x10e3/uL (140-360); RED BLOOD COUNT 3.56 x10e6/uL (3.6-5.1); RED CELL DISTRIBUTION WIDTH 15.9 % (11.7-14.4)
[2018-05-08 06:14] LABS: ALBUMIN 2.6 g/dL (3.5-5.0); ALBUMIN/GLOBULIN RATIO 0.8 (0.8-2.0); CALCIUM 7.9 mg/dL (8.4-10.2); CREATININE, SERUM 0.93 mg/dL (0.57-1.11)
--- NOTE | 2018-05-08 07:14 | NUR ---
Received patient and walking rounds complete. Patient resting in bed at this time, no signs of distress. Bed in lowest position, wheels locked, call light in reach.
[2018-05-08] MEDS: FOLIC ACID 1 MG TAB PO SCH (08:34)
[2018-05-08] MEDS: LORATADINE 10 MG TAB PO SCH (08:34)
[2018-05-08] MEDS: AMLODIPINE BESYLATE 10 MG TAB PO SCH (08:34)
[2018-05-08] MEDS: ATENOLOL 50 MG TAB PO SCH (08:35)
--- NOTE | 2018-05-08 08:45 | NUR ---
Patient A/O X3, even respirations on RA. Tele #[id number] SR. Bowel sounds active, no edema. Small skin tear and redness to Right buttock. Left hand 20 gauge SL. Hip spica brace in place on right side. Patient is up with assist. Call light in reach, will continue to monitor.
[2018-05-08] MEDS: INSULIN LISPRO 100 UNIT/1 ML 3ML VIAL SQ SCH ×4 (09:22→21:12)
[2018-05-08 09:37] LABS: BAND NEUTROPHILS % (MANUAL) 5 %; EOSINOPHILS % (MANUAL) 1 % (0-7); LYMPHOCYTES % (MANUAL) 11 % (19-48); METAMYELOCYTES % (MANUAL) 7 % (0-0); MONOCYTES % (MANUAL) 11 % (3.4-9.0); MYELOCYTES % (MANUAL) 9 % (0-0); NEUTROPHILS % (MANUAL) 49 % (40-74)
[2018-05-08 09:38] LABS: PLATELET ESTIMATE SLIGHTLY DECREASED; PLATELET MORPHOLOGY COMMENT FEW LARGE; RBC MORPHOLOGY COMMENT ABNORMAL
[2018-05-08 09:39] LABS: ANISOCYTOSIS SLIGHT; HYPOCHROMASIA SLIGHT
[2018-05-08] MEDS: BALSAM PERU/CASTOR OIL 60 GM OINT...G. TP SCH ×2 (10:10→21:14)
--- NOTE | 2018-05-08 10:41 | NUR ---
IMM GIVEN SIGNED WITH COPY LEFT AT BEDSIDE AND ORIGINAL FILED IN CHART.
--- NOTE | 2018-05-08 11:00 | NUR ---
Applied Venelex ointment to bilateral gluteal folds.
[2018-05-09] VITALS (8 sets, daily range): BP systolic 117–158; BP diastolic 59–72
--- NOTE | 2018-05-09 01:58 | Consultation ---
DATE OF CONSULTATION: 05/08/2018 REASON FOR CONSULTATION: 1. Left hip dislocation with closed reduction. 2. Mucositis. 3. Pancytopenia. 4. Diabetes. 5. Hypertension. HISTORY: The patient is a pleasant, but unfortunate 77-year-old female, who was admitted to the hospital after having a session with therapy. She had a previous hip surgery on February 05, 2018. She was doing relatively well until she dislocated. She underwent closed reduction with Dr. Orta and now has a dislocation splint on the left leg. I am being asked to evaluate for rehab needs. PAST MEDICAL HISTORY: Diabetes as well as mucositis. She came in and was found to have pancytopenia felt to be secondary to Cimzia. She has rheumatoid arthritis and diabetes. PAST SURGICAL HISTORY: Left hip replacement. ALLERGIES: PENICILLIN AND LEVAQUIN. HABITS: Nonsmoker and nondrinker. SOCIAL HISTORY: Lives with her spouse in 1-story home, was ambulatory prior to this. She is just starting to use a walker or a cane. It pretty much sounds like she was ADLs. FAMILY HISTORY: Noncontributory. REVIEW OF SYSTEMS: 11-point review of systems was made, negative except for the above findings. LABORATORY DATA: White cell count 14.01, hemoglobin 10.3, hematocrit 30.2, and platelets of 83. Sodium 138, potassium 4.0, BUN 16, and creatinine 0.93. Chest x-ray, no acute cardiopulmonary abnormalities. PHYSICAL EXAMINATION: GENERAL: The patient is awake, alert, very pleasant, no apparent distress. NECK: No JVD. HEART: Regular. LUNGS: Fair entry. ABDOMEN: Nontender and nondistended. EXTREMITIES: Functional range of motion of arms as well as the right leg, left leg, and abduction in splint. No significant leg length discrepancy at this time. Manual muscle testing 4-/5 strength in the upper extremities bilaterally, in the lower extremities demonstrates 4+/5 strength in the right lower extremity and in the left lower extremity 3+ to 4-/5 strength with hip flexion and extension. Knee flexion and extension, ankle dorsiflexion and plantar flexion 4-/5 strength. IMPRESSION: 1. Status post left hip dislocation with closed reduction. . 2. Leukopenia and pancytopenia. She came in with white cell count, now it is up to 28. 3. Mucositis. 4. Diabetes. 5. Hypertension. 6. History of anxiety. PLAN: patient rehab candidate given her multiple medical problems. We will check with the insurance rehab. We will follow with you. Precautions, left hip dislocation precautions given to the patient. Thank you once again for allowing me to participate in the care of this pleasant, but unfortunate patient. Drew Isaac DO RPL/MODL /[id number]
--- NOTE | 2018-05-09 04:33 | NUR ---
DR MIX IN UNIT ROUNDED ON PT.N/O RECEIVED TO DC TELEMETRY.TELE BOX RETURNED TO RESPONSIBLE DEPARTMENT.
--- NOTE | 2018-05-09 06:56 | NUR ---
REPORT GIVEN TO ONCOMING NURSE.WALKING ROUNDS MADE.PT RESTING IN BED WITH NO S/S OF DISTRESS.
--- NOTE | 2018-05-09 07:07 | NUR ---
Received patient and walking rounds complete. Patient awake resting at this time, no signs of distress. Call light in reach, will continue to monitor.
[2018-05-09] MEDS: LORATADINE 10 MG TAB PO SCH (07:53)
[2018-05-09] MEDS: FOLIC ACID 1 MG TAB PO SCH (07:53)
[2018-05-09] MEDS: AMLODIPINE BESYLATE 10 MG TAB PO SCH (07:54)
[2018-05-09] MEDS: ATENOLOL 50 MG TAB PO SCH (07:54)
[2018-05-09] MEDS: BALSAM PERU/CASTOR OIL 60 GM OINT...G. TP SCH ×2 (07:54→22:18)
[2018-05-09] MEDS: INSULIN LISPRO 100 UNIT/1 ML 3ML VIAL SQ SCH ×4 (08:39→22:18)
--- NOTE | 2018-05-09 10:00 | NUR ---
Patient A/O X3, even respirations on RA. Bowel sounds active, no edema. Hip spica brace on left side. Left hand 20 gauge IV SL. Patient is ambulatory with assistance. Voids in bedside commode. Small skin tear on buttock, Venelex ointment applied, alternate pressure mattress. Call light in reach, will continue to monitor.
--- NOTE | 2018-05-09 10:00 | NUR ---
Pt working with PT at this time.
--- NOTE | 2018-05-09 12:20 | NUR ---
Patient working with PT at this time.
--- NOTE | 2018-05-09 16:43 | NUR ---
WOUND CARE CONSULTATION - FOLLOW UP Patient admitted to ER from Home for oral lesions for approx 1 wk. DX: Mucositis, Fever, Pancytopenia. Wound Care Consulted to evaluate Sacral redness. Today following up for evaluation of documented stage 1 VS stage 2 to Sacral Area. PATIENT VISIT: Zack Score 17 Moderate PUP Active Alternating Pressure Air Mattress in place. Patient in bed a time of visit AAOX4 Right Gluteal Area presents with blanchable redness. Bilateral Heels intact. No redness. No Swelling. Denies discomfort at sacral/ gluteal areas. States she has been turning from left to right and she is well aware she can develop a "bed sore" Verbalizes physical therapy working with her with walking. States to be awaiting transfer to a rehab facility/ next level of care. IMPRESSION: No Pressure Ulcers Identified. Right gluteal Blanchable erythema. ( Improving since last visit) RECOMMENDATION:( Preventive Care) 1. Continue Alternating Air Mattress 2. Turn and Reposition every 2 hours 3. Bilateral heel protectors while in bed/ Offload Heels with pillows while in bed 4. Venelex Ointment to Bilateral gluteal areas q12H and PRN Soiling 5. Shear Friction Precautions 6. Moderate PUP Thank you for consulting with Wound Care. Addendum: 05/09/18 at 1650 by Wilfredo Mayorga RN Amended: Links added.
[2018-05-09] MEDS: MAALOX/LIDOCAINE/BENADRYL/NYST 30 ML BTL PO PRN (16:50)
--- NOTE | 2018-05-09 16:50 | NUR ---
Ambulated with patient in [place]. Steady gait, no signs of distress. Assisted patient back to chair, call light in reach. Will continue to monitor.
--- NOTE | 2018-05-09 19:00 | NUR ---
RECEIVED AAOX3, IN BED WITH FAMILY MEMBER TO SIDE, NO DISTRESS OBSERVED. STABLE CONDITION. BED LOCKED AND IN LOWEST POSITION, CALL LIGHT WITHIN EASY REACH.
[2018-05-09] MEDS: DIPHENHYDRAMINE HCL 25 MG CAP PO PRN (22:18)
[2018-05-10] VITALS (8 sets, daily range): BP systolic 104–126; BP diastolic 55–70
--- NOTE | 2018-05-10 02:58 | Consultation ---
DATE OF CONSULTATION: 04/29/2018 HISTORY OF PRESENT ILLNESS: Deborah Mae is a 77-year-old white female, who was referred to me for evaluation of pancytopenia and history of breast cancer in the past, for which she had bilateral mastectomy close to in 1998 and later reconstruction. SOCIAL HISTORY: Noncontributory. FAMILY HISTORY: Noncontributory. ALLERGIES: REPORTED TO LEVAQUIN, PENTAZOCINE, CODEINE, PENICILLIN. The patient has a history of rheumatoid arthritis and has been treated with methotrexate. REVIEW OF SYSTEMS: HEENT: Normal except at this time, she has severe mucositis, grade 4. CARDIAC: Normal. RESPIRATORY: Normal. GI: Normal. : Normal. MUSCULOSKELETAL: The patient is noted to have rheumatoid arthritis, being treated with methotrexate. PHYSICAL EXAMINATION: GENERAL: A moderately built female, severely anemic, neutropenic, and thrombocytopenic. No palpable adenopathy. HEART: Within normal limits. LUNGS: Clear. ABDOMEN: Obese. RECTAL: Deferred. VAGINAL: deferred. CENTRAL NERVOUS SYSTEM: Essentially normal. EXTREMITIES: Austin neck deformity of both upper extremities. LABORATORY DATA: Sodium of 132, potassium 3.9, chloride 96, CO2 25, BUN 32, creatinine 1.4, glucose 224. WBC of 0.35, hemoglobin of 8.8, hematocrit of 25.6, platelets 68. INR 1.09, bilirubin 1.12, SGOT 28, SGPT 79, alkaline phosphatase 66. IMPRESSION: 1. Neutropenia. 2. Anemia. 3. Thrombocytopenia. 4. Fever. 5. History of breast cancer. 6. Prerenal azotemia. 7. Hypoalbuminemia of 3.2. 8. Hyperglobulinemia of 3.8. 9. Mucositis. 10. Diabetes mellitus. 11. Rheumatoid arthritis. 12. Methotrexate-induced pancytopenia. PLAN: Plan is to have cultures, Neupogen, strict hand washing technique, antibiotics. I will confine myself to Hematology. Dictated by Tello Rico MD Tello Rico MD MAQ/MODL /[id number] cc: Junior Pope MD
[2018-05-10] MEDS: INSULIN LISPRO 100 UNIT/1 ML 3ML VIAL SQ SCH ×4 (08:33→21:37)
[2018-05-10] MEDS: ATENOLOL 50 MG TAB PO SCH (08:56)
[2018-05-10] MEDS: LORATADINE 10 MG TAB PO SCH (08:56)
[2018-05-10] MEDS: AMLODIPINE BESYLATE 10 MG TAB PO SCH (08:56)
[2018-05-10] MEDS: FOLIC ACID 1 MG TAB PO SCH (08:56)
[2018-05-10] MEDS: BALSAM PERU/CASTOR OIL 60 GM OINT...G. TP SCH ×2 (08:56→21:02)
[2018-05-10] MEDS: MAALOX/LIDOCAINE/BENADRYL/NYST 30 ML BTL PO PRN (08:57)
--- NOTE | 2018-05-10 09:01 | NUR ---
SITTING IN BS CHAIR, TOLERATING PO, DENIES PAIN, STATES SORES IN MOUTH "BETTER", LEFT BRACE IN PLACE, PT STATES SHE IS GOING TO [facility] VS [place] OLSONRED ORDERED, WILL CLARIFY WITH
--- NOTE | 2018-05-10 12:42 | NUR ---
EDUCATED ABOUT IMM, SIGNED, FILED IN CHART, WITH COPY LEFT WITH FAMILY AT BEDSIDE.
--- NOTE | 2018-05-10 14:25 | NUR ---
AMBULATED WITHOUT DIFFICULT WITH PHYSICAL THERAPY, DENIES PAIN AT THIS TIME
--- NOTE | 2018-05-10 16:07 | NUR ---
PATIENT INSURANCE STILL PENDING TO APPROVE FOR TRANSFER TO INPATIENT REHAB AT [facility]. JOSE RANGEL ([employer] [employer] RN) NOTIFIED TO CONTACT FLOOR IF MOT IS RECEIVED AFTER 4:30 PM.
--- NOTE | 2018-05-10 19:00 | NUR ---
received patient aaox3, breathing even and unlabored, denies pain, denies any needs. bed locked and in lowest position, call light within easy reach.
[2018-05-10] MEDS: DIPHENHYDRAMINE HCL 25 MG CAP PO PRN (21:37)
[2018-05-11] VITALS (8 sets, daily range): BP systolic 112–148; BP diastolic 58–63
[2018-05-11] MEDS: LORATADINE 10 MG TAB PO SCH (08:47)
[2018-05-11] MEDS: FOLIC ACID 1 MG TAB PO SCH (08:47)
[2018-05-11] MEDS: AMLODIPINE BESYLATE 10 MG TAB PO SCH (08:47)
[2018-05-11] MEDS: INSULIN LISPRO 100 UNIT/1 ML 3ML VIAL SQ SCH ×4 (08:48→22:08)
[2018-05-11] MEDS: ATENOLOL 50 MG TAB PO SCH (08:48)
[2018-05-11] MEDS: BALSAM PERU/CASTOR OIL 60 GM OINT...G. TP SCH ×2 (08:48→22:08)
--- NOTE | 2018-05-11 08:59 | Progress Note ---
DATE: 05/11/2018 Progress Note SUBJECTIVE: This patient came in for pancytopenia and mucositis. Currently, the patient is afebrile, feeling well. Awaiting transfer to rehabilitation with Dr. Isaac. No chest pain. No shortness of breath. No nausea, vomiting, or diarrhea. Pancytopenia is resolving. Mucositis is resolving. OBJECTIVE: GENERAL: The patient is alert and oriented x3, in no complaints. VITAL SIGNS: Temperature is 98.2, pulse is 68, blood pressure is 129/61, and pulse oximetry 96% on room air. HEENT: Normocephalic and atraumatic. CVS: S1 and S2 normal. NECK: Supple. No JVD. ABDOMEN: Soft, nontender, and nondistended. EXTREMITIES: No clubbing, no cyanosis, and no edema. LABORATORY VALUES: From 13th, white count is 28,000, hemoglobin of 10.4, hematocrit of 31.1, and platelet count of 131. The patient's coags are essentially normal. Chemistries, blood sugars are running in the 205-264 range. ASSESSMENT: 1. Pancytopenia. 2. Mucositis. 3. History of closed left hip reduction. 4. Debility. PLAN: The patient has been approved for rehabilitation. As soon as the bed is available, the patient will be transferred. The patient is being monitored off antibiotics. Medicines as per medical reconciliation sheet. No antibiotics are on board at this time. Needs aggressive physical therapy. We will continue to monitor the patient along with Dr. Isaac in the rehabilitation unit. MD MALLIKA Brizuela/MODL /[id number]
--- NOTE | 2018-05-11 11:13 | NUR ---
PT AMBULATING IN HALLWAY WITH PT.
--- NOTE | 2018-05-11 14:02 | NUR ---
Spoke with Wolfgang BOYLE several times regarding transfer to rehab facility. Notified him the CM notes state that [facility] is full and the pt had to make another choice. Notified AOS that according to CM notes, the pt/family chose [facility]. Notified AOS, according to CM notes yesterday at 16:00, the insurance auth is still pending. Wolfgang BOYLE stated daughter told him Dr. Drew Isaac stated they do have room at [facility]. Notified Wolfgang BOYLE that insurance will not be giving auth over the weekend, and the CM on Sunday will need to follow up on this transfer with facilities and family/pt. [facility] intake is not open on weekends as well. Copy of choice letter signed 05/06/18 was given to Wolfgang BOYLE,
--- NOTE | 2018-05-11 15:13 | NUR ---
PT REQUESTING CONTINUATION OF HOME MEDICATIONS. PAGED DR. WALDRON AT THIS TIME FOR ORDERS. AWAITING CALL BACK.
--- NOTE | 2018-05-11 15:41 | NUR ---
RECEIVED CALL BACK FROM DR. WALDRON NEW ORDERS RECEIVED. Addendum: 05/11/18 at 1541 by Adriana Crowder RN NEW ORDERS FOR HOME MED CONTINUATION.
[2018-05-11] MEDS ORDERED: LOPERAMIDE HCL 2 MG CAP PO PRN (15:45)
[2018-05-11] MEDS ORDERED: CELECOXIB 100 MG CAP PO PRN (15:45)
--- NOTE | 2018-05-11 15:57 | NUR ---
NOTIFIED PT HOME MEDICATION LIST PROVIDED BY DAUGHTER WAS GONE THROUGH WITH DR. WALDRON AND HE CHOSE TO CONTINUE ALL MEDS BUT HOLD METFORMIN AND PREDNISONE. NOTIFIED PT MEDS WILL BE ADMINISTERED SCHEDULED PER PHARMACY. PT VERBALIZED UNDERSTANDING.
[2018-05-11] MEDS: CHOLECALCIFEROL 1,000 UNIT TAB PO SCH (16:54)
[2018-05-11] MEDS: CALCIUM CARBONATE 600 MG PO SCH (16:54)
[2018-05-11] MEDS: ASCORBIC ACID 500 MG TAB PO SCH (16:54)
[2018-05-11] MEDS ORDERED: THYROID 60 MG TAB PO ONE (17:30)
--- NOTE | 2018-05-11 19:00 | NUR ---
received patient aaox3 in bed, in stable condition. lep hip spice brace on. patient denies pain, denies needs. bed locked and in lowest position, call light within easy reach. will continue to monitor the patient closely.
[2018-05-11] MEDS: INSULIN GLARGINE 100 UNITS/ML VIAL SQ SCH (22:07)
[2018-05-11] MEDS: DIPHENHYDRAMINE HCL 25 MG CAP PO PRN (22:08)
[2018-05-12] VITALS (7 sets, daily range): BP systolic 111–131; BP diastolic 55–68
[2018-05-12 05:36] LABS: BASOPHILS # (AUTO) 0.2 (0.0-0.1); BASOPHILS % 1.2 % (0.0-1.0); EOSINOPHILS % 0.2 % (0.0-6.0); HEMATOCRIT 30.9 % (34.2-44.1); HEMOGLOBIN 9.9 g/dL (12.0-16.0); LYMPHOCYTES # (AUTO) 1.3 (1.0-3.2); LYMPHOCYTES % 10.8 % (18.0-39.1); MEAN CORPUSCULAR HEMOGLOBIN 28.4 pg (28-32); MEAN CORPUSCULAR VOLUME 88.8 fL (81-99); MONOCYTES # (AUTO) 1.8 (0.2-0.8); MONOCYTES % 14.6 % (4.4-11.3); NEUTROPHILS # (AUTO) 7.6 (2.1-6.9); NEUTROPHILS % 61.3 % (38.7-80.0); PLATELET COUNT 298 x10e3/uL (140-360); RED BLOOD COUNT 3.48 x10e6/uL (3.6-5.1); RED CELL DISTRIBUTION WIDTH 17.9 % (11.7-14.4)
[2018-05-12 05:51] LABS: ANION GAP 13.4 mmol/L (8-16); CALCIUM 8.6 mg/dL (8.4-10.2); CREATININE, SERUM 1.08 mg/dL (0.57-1.11); POTASSIUM 4.4 mmol/L (3.5-5.1)
[2018-05-12] MEDS: THYROID 60 MG TAB PO SCH (05:57)
[2018-05-12 07:15] LABS: BAND NEUTROPHILS % (MANUAL) 2 %; LYMPHOCYTES % (MANUAL) 18 % (19-48); METAMYELOCYTES % (MANUAL) 2 % (0-0); MONOCYTES % (MANUAL) 12 % (3.4-9.0); MYELOCYTES % (MANUAL) 1 % (0-0); NEUTROPHILS % (MANUAL) 65 % (40-74); NUCLEATED RED BLOOD CELLS 1; PLATELET ESTIMATE ADEQUATE; PLATELET MORPHOLOGY COMMENT NORMAL; RBC MORPHOLOGY COMMENT NORMAL
--- NOTE | 2018-05-12 07:59 | Progress Note ---
DATE: 05/12/2018 Progress Note SUBJECTIVE: The patient is in here for mucositis and also pancytopenia, which have resolved. The patient did get Neupogen. Her white count is elevated. Otherwise, the patient is doing good. No chest pain and no shortness of breath. Walked yesterday and is waiting for rehab facilities to open up. MEDICATIONS: Include acetaminophen, amlodipine, atenolol, Celebrex, docusate as needed, Zetia, folic acid, insulin glargine, loperamide, loratadine, pantoprazole, thyroid medication, and terbinafine, which has been discontinued. OBJECTIVE: VITAL SIGNS: Temperature is 96.5, pulse of 69, respirations of 18, and blood pressure is 115/55. HEENT: Normocephalic and atraumatic. Pupils are reactive to light and accommodation. CVS: S1 and S2 normal. Regular rate and rhythm. ABDOMEN: Nontender and nondistended. EXTREMITIES: No clubbing, no cyanosis, and no edema. LABORATORY VALUES: Today's white count is down, 12.41, reactive secondary to Epogen. Neutrophil count is normalized. Hemoglobin is 9.9 and hematocrit of 30.9. Chemistries are pending. Microbiology, all cultures were negative. ASSESSMENT: 1. Pancytopenia. 2. Mucositis. 3. History of closed left hip reduction. 4. Debility. PLAN AND DISPOSITION: Waiting for approval for rehabilitation. The patient can be transferred and is doing well and in no distress at this time. All medicines for diabetes, for hypertension, and for hyperlipidemia to be continued. Further recommendation and clinical course. MD MALLIKA Brizuela/JEANL /[id number]
[2018-05-12] MEDS: PANTOPRAZOLE SOD 40 MG TABEC PO SCH (08:24)
[2018-05-12] MEDS: ATENOLOL 50 MG TAB PO SCH (08:25)
[2018-05-12] MEDS: MULTIVITAMINS/MINERALS TAB PO SCH (08:25)
[2018-05-12] MEDS: EZETIMIBE 10 MG TAB PO SCH (08:25)
[2018-05-12] MEDS: CALCIUM CARBONATE 600 MG PO SCH ×2 (08:25→16:46)
[2018-05-12] MEDS: TERBINAFINE 250 MG TAB PO SCH (08:25)
[2018-05-12] MEDS: FOLIC ACID 1 MG TAB PO SCH (08:25)
[2018-05-12] MEDS: ASCORBIC ACID 500 MG TAB PO SCH ×2 (08:25→16:46)
[2018-05-12] MEDS: LORATADINE 10 MG TAB PO SCH (08:25)
[2018-05-12] MEDS: AMLODIPINE BESYLATE 10 MG TAB PO SCH (08:25)
[2018-05-12] MEDS: INSULIN LISPRO 100 UNIT/1 ML 3ML VIAL SQ SCH ×4 (08:25→21:00)
[2018-05-12] MEDS: CHOLECALCIFEROL 1,000 UNIT TAB PO SCH ×2 (08:25→16:46)
[2018-05-12] MEDS: INSULIN GLARGINE 100 UNITS/ML VIAL SQ SCH ×2 (08:25→21:00)
[2018-05-12] MEDS: BALSAM PERU/CASTOR OIL 60 GM OINT...G. TP SCH ×2 (08:26→21:00)
--- NOTE | 2018-05-12 14:00 | NUR ---
Visit made by the Spiritual Care Department Pastoral Visitor, Larissa Mcneill. PV provided pastoral presence, prayer, communion, hospitality, and supportive listening. Pastoral Visitor informed pt/family of the scope of Extrac[employer]oreal Technician Services and availability. NARENDRA LEOS Manager Investigations Spiritual Care Department O: [phone] Pager: [phone] ([phone] number calling from)
--- NOTE | 2018-05-12 19:40 | NUR ---
Received change of shift report from AM nurse. Rounds completed. Patient in bed in supine position with no c/o at this time.
[2018-05-12] MEDS: DIPHENHYDRAMINE HCL 25 MG CAP PO PRN (22:19)
--- NOTE | 2018-05-13 | NUR ---
Patient AAOx3. Denies any pain at this time. Up to bathroom with 1 person asst. Bace to left hip in proper place.Patient ambulated with use of walker. B.S 237 with insulin given as ordered by MD. Patient c/o lips itching, given benadryl as ordered. Patient received a bed bath with linen change. IV to left hand dry, intact and patent.
[2018-05-13 01:43] VITALS: BP 114/57
[2018-05-13 04:34] VITALS: BP 121/59
[2018-05-13] MEDS: THYROID 60 MG TAB PO SCH (05:02)
--- NOTE | 2018-05-13 05:06 | NUR ---
Patient up to bathroom with walker. No c/o at this time.Continue monitor.
[2018-05-13 07:58] VITALS: BP 133/63
[2018-05-13] MEDS: INSULIN LISPRO 100 UNIT/1 ML 3ML VIAL SQ SCH ×2 (08:10→14:35)
[2018-05-13] MEDS: CHOLECALCIFEROL 1,000 UNIT TAB PO SCH (08:19)
[2018-05-13] MEDS: PANTOPRAZOLE SOD 40 MG TABEC PO SCH (08:19)
[2018-05-13] MEDS: CALCIUM CARBONATE 600 MG PO SCH (08:19)
[2018-05-13] MEDS: EZETIMIBE 10 MG TAB PO SCH (08:20)
[2018-05-13] MEDS: ASCORBIC ACID 500 MG TAB PO SCH (08:20)
[2018-05-13] MEDS: TERBINAFINE 250 MG TAB PO SCH (08:20)
[2018-05-13] MEDS: FOLIC ACID 1 MG TAB PO SCH (08:20)
[2018-05-13] MEDS: MULTIVITAMINS/MINERALS TAB PO SCH (08:20)
[2018-05-13] MEDS: ATENOLOL 50 MG TAB PO SCH (08:21)
[2018-05-13] MEDS: LORATADINE 10 MG TAB PO SCH (08:36)
[2018-05-13] MEDS: AMLODIPINE BESYLATE 10 MG TAB PO SCH (08:37)
[2018-05-13] MEDS: INSULIN GLARGINE 100 UNITS/ML VIAL SQ SCH (08:55)
[2018-05-13] MEDS: BALSAM PERU/CASTOR OIL 60 GM OINT...G. TP SCH (08:56)
--- NOTE | 2018-05-13 09:18 | NUR ---
CM SPOKE TO [facility] FINESSE EUCEDA REGARDING PATIENT AUTH FOR TRANSFER. PATIENT DENIED TO INPATIENT REHAB AND INSURANCE RECOMMENDING ASSISTED FACILITY PLACEMENT. THERE IS A PEER TO PEER AVAILABLE. PEER TO PEER [phone] MIX NOTIFIED AND REQUESTS FOR CM TO SPEAK TO DR. HERNANDEZ REGARDING PEER TO PEER. CM SPOKE TO PATIENT AT BEDSIDE; PATIENT AWARE AND REQUESTS HOME HEALTH AND WALKER FOR DISCHARGE. DR. HERNANDEZ OFFICE CALLED. BOILER HOUSE INSPECTOR PAGED REGARDING NEW DISCHARGE PLAN. PENDING RETURN CALL FOR ORDERS.
--- NOTE | 2018-05-13 10:48 | NUR ---
EDUCATED ABOUT IMM, SIGNED, FILED IN CHART, WITH COPY LEFT WITH FAMILY AT BEDSIDE.
--- NOTE | 2018-05-13 12:36 | NUR ---
HARMEET SPOKE TO PATIENT AND PATIENT DAUGHTER FELICITY REGARDING PATIENT PLAN OF CARE AND DISCHARGE PLANNING. HARMEET NOTIFIED PATIENT THAT DR. HERNANDEZ HAS NOT GOTTEN BACK TO ME REGARDING PEER TO PEER. PATIENT AND PATIENT DAUGHTER REFUSES PEER TO PEER AND REQUESTS HOME HEALTH SEVICES AND ROLLING WALKER. PATIENT AND PATIENT DAUGHTER INFORMED OF THE HOME HEALTH OPTIONS BOTH IN AND OUT OF NETWORK. PATIENT STATES SHE WAS ON SERVICE WITH [facility] BUT WANTED TO TRY DAUGHTER'S HOME HEALTH AGENCY SINCE SHE WILL BE WITH DAUGHTER IN [place] [place]. DR. MIX CALLED FOR ORDERS. ORDERS RECEIVED FOR PATIENT TO GO HOME ([employer] WITH DAUGHTER) WITH HOME HEALTH SERVICES PT/OT AND SN EVAL WITH ROLLING WALKER. CHOICE SIGNED FOR [facility]. CLINICAL SENT TO [place]. [facility] CONFIRMED THEY RECEIVED CLINICAL. PENDING APPROVAL PRIOR TO DISCHARGE. [place] [facility] (P) [phone] (F) [phone] ROLLING WALKER DELIVERED TO BEDSIDE; PROVIDED BY [employer]. [facility] FILLED OUT AND STAPLED TO FACESHEET AND ORDER. PENDING MD TO SIGN AND PLACE BACK IN PACU AREA. Addendum: 05/13/18 at 1242 by Shandra Graham CM PATIENT DAUGHTER- FELICITY SUYAPA [phone]
--- NOTE | 2018-05-13 14:18 | NUR ---
CM SPOKE TO [facility] TO VERIFY APPROVAL. PATIENT IS OFFICIALLY APPROVED AND WILL BEGIN SERVICES ON MONDAY 05/15 PER PATIENT DAUGHTER (RUTH) REQUEST AND WILL BEGIN SERVICES AT [facility] IN [place], [place]: [address] [place] [address] H- [phone] C- [phone] INFORMATION VERIFIED BY LAURA WITH [facility].
--- NOTE | 2018-05-13 15:00 | NUR ---
Patient discharged home with home health verbalized understanding of d/c instructions, given walker, escorted patient in wheel chair accompanied by daughter to front of hospital.
--- NOTE | 2018-05-15 03:25 | Discharge Summary ---
DISCHARGE DIAGNOSES: 1. Pancytopenia. 2. Leukocytosis. 3. Sepsis. 4. Diabetes. HISTORY OF PRESENT ILLNESS AND HOSPITAL COURSE: The patient is a lady admitted with severe oral mucositis and dehydration where she was found to have severe pancytopenia secondary to most likely herRA medications which caused the neutropenic fever. Cultures were negative and she responded very well to the neupogen which resolved the pancytopenia and the mucositis resolved. While in the hospital, she did have left hip dislocation which was recently replace [address] steward was able to do a closed reduction and provide a splint for her to wear. She was having a lot of weakness so a rehab consult was obtained but due to her insurance she was denied. I had a long discussion with the patient about going to a SNF due to her weakness and did not want her to go home but she denied and wanted to go home. So, per her wishes since she is competent, she was discharged home with home health and will follow up with me in about 1-2 weeks as well as her orthopedist. MD LUPE Modi/REINA /[id number] MTDYuri
== END 2018-05-13 15:15 | disposition home health service (06) | DRG 871 ==
LOC: ER 12:51 → ERHOLD 17:34 → IMCU 04-30 02:03 → MED/SURG 05-01 19:11
PROVIDERS: ADMIT Internal Medicine; ATTEND Internal Medicine
PROC: 30233N1 Transfusion of Nonautologous Red Blood Cells into Peripheral Vein, Percutaneous Approach (ICD-10-PCS; 2018-04-30)
PROC: 30233L1 Transfusion of Nonautologous Fresh Plasma into Peripheral Vein, Percutaneous Approach (ICD-10-PCS; principal; 2018-05-02)
PROC: 0SWSXJZ Revision of Synthetic Substitute in Left Hip Joint, Femoral Surface, External Approach (ICD-10-PCS; 2018-05-03)
DX: A41.9 Sepsis, unspecified organism (principal); D61.810 Antineoplastic chemotherapy induced pancytopenia; T84.021A Dislocation of internal left hip prosthesis, initial encounter; N17.9 Acute kidney failure, unspecified; K12.31 Oral mucositis (ulcerative) due to antineoplastic therapy; T45.1X5A Adverse effect of antineoplastic and immunosuppressive drugs, initial encounter; R50.81 Fever presenting with conditions classified elsewhere; M06.9 Rheumatoid arthritis, unspecified; E78.5 Hyperlipidemia, unspecified; F41.9 Anxiety disorder, unspecified; R53.81 Other malaise; E03.9 Hypothyroidism, unspecified; E11.22 Type 2 diabetes mellitus with diabetic chronic kidney disease; N18.9 Chronic kidney disease, unspecified; I12.9 Hypertensive chronic kidney disease with stage 1 through stage 4 chronic kidney disease, or unspecified chronic kidney disease; K21.9 Gastro-esophageal reflux disease without esophagitis; E88.09 Other disorders of plasma-protein metabolism, not elsewhere classified; Y83.1 Surgical operation with implant of artificial internal device as the cause of abnormal reaction of the patient, or of later complication, without mention of misadventure at the time of the procedure; Z85.3 Personal history of malignant neoplasm of breast; Z79.4 Long term (current) use of insulin; Z88.1 Allergy status to other antibiotic agents; Z88.5 Allergy status to narcotic agent; Z88.0 Allergy status to penicillin; Z88.8 Allergy status to other drugs, medicaments and biological substances
CPT/HCPCS: 36415; 71045; 76000; 80048; 80053; 80202; 81001; 82150; 82948; 83518; 83605; 83690; 83735; 85025; 85610; 85730; 86850; 86900; 86920; 87040; 87070; 87400; 87493; 93005; 96361; 96365; 96372; 97139; 99285; J1442; J1815; J1940; J2001; J2060; J3370; J3475; J3480; J7030; J7040; J7050; J7799; P9016; P9034; Q9967

== ENCOUNTER 2019-07-20 10:12 | Emergency (ER) | payer MEDICARE ==
[~2019-07-20] VITALS: Ht 162.6 cm; Wt 61.7 kg
[~2019-07-20 10:12] MED LIST changes: +ALEVE220 M1 PO; +AMLODIPINE BESY10 MG PO; +ARMOUR THYROID120 MG PO; +CALCIUM600 MG PO; +CELEBREX100 MG PO; +CLARITIN10 MG PO; +DAILY VITE1 EACH PO; +IMODIUM2 MG PO; +LEVEMIR100 UNIT/1 SQ; +PREDNISONE5 MG PO; +PROMETHAZINE12.5 M1 PO; +VITAMIN C1000 M2 PO; +VITAMIN D31000 UNI1 PO; +ZETIA10 MG PO
--- OUTSIDE RECORDS SUMMARY | 2019-07-20 10:16 | XMS REPORT | Clinical Summary ---
Author Author [employer] [facility] Organization [facility] Address Unknown Phone Unavailable Care Team Providers Care Immigration Patrol Inspector Name Role Phone NikoJunior PCP Allergies Comments Active Allergy Reactions Severity [...] 4 (four) ophthalmic solution hours while awake. Active Problems Problem Noted Date Lumbar radiculopathy 02/22/2016 Lumbar stenosis 02/22/2016 Lumbar stenosis with neurogenic claudication 016 Social History Date Tobacco Use Types Packs/Day Years Used Never Smoker Smokeless Tobacco: Never Used Alcohol Use Drinks/Week oz/Week Comments Yes rarely Sex Assigned at Date Recorded Not on file Industry Job Start Date Occupation Not on file Not on file Not on file Travel End Travel History Travel Start No recent travel history available. Last Filed Vital Signs Not on file Plan of Treatment Not on file Results Not on fileafter 07/19/2018 Insurance Payer Benefit Subscriber ID Type Phone Address Plan / Group [facility] xxxxxxxxx MEDICARE MGD CARE MEDICARE HMO [id number] Advance Directives For more information, please contact: [facility] [address] [place] [address] Date Inactivated Comments Code Status Date Activated 02/23/2016 12:21 PM Full Code 02/22/2016 4:11 PM This code status was determined by: Patient 02/22/2016 4:11 PM Full Code 02/22/2016 5:40 AM This code status was determined by: Patient
--- OUTSIDE RECORDS SUMMARY | 2019-07-20 10:16 | XMS REPORT ---
Author Author [facility] t Organization [facility] t Address [address] [place] [address] Phone Unavailable Care Team Providers Care [employer] Clerk Name Role Phone JOHNNA MIX MD PCP Adonay Fritz Attphys HUNG CHAPA Attphys Unavailable Brodie Bryant MD Attphys Lis Anaya Attphys Unavailable Liza Reid DO Attphys [phone] JOHNNA MIX Attphys Unavailable Toni Acevedo Attphys NURIA COLE Attphys Unavailable JOHNNA MIX Admphys Unavailable NURIA COLE Admphyeva Unavailable Payers Payer Name Policy Type Policy Number Effective Date Expiration Date S ource [employer] MEDICARE[employer]HC [employer] MEDICARE [id number] xxxxxxxxx 2018 00:00:00 Leo Dee [facility] [id number] 2018 00:00:00 PORTIA C[facility]denas [facility] Problems Condition Name Condition Details Condition Category Status Onset Date Resolution Date Last Treatment Date Treating Clinician Comments Source XRAY XRAY Active 07/03/2019 [facility] Diagnosis Active 2019-07-03 10:21:00 2019-07-03 10:22:00 [facility] M25.562/M25.561 M25. 562/M25.561 Active 03/21/2019 [facility] Diagnosis Active 2019-03-21 00:00:00 2019-03-21 11:33:00 [facility] Carotid artery disease Carotid artery disease Disease Active 2018-12-31 00:00:00 Leo giordano Essential hypertension Essential hypertension Disease Active 2018-11-19 00:00:00 Leo giordano PAD (peripheral artery disease) PAD (peripheral artery disease) Dis ease Active 2018-11-19 00:00:00 Leo Dee Bilateral carotid bruits Bilateral carotid bruits Disease Acti ve 2018-11-19 00:00:00 Leo giordano Aortic valve disorder Aortic valve disorder Disease Active 201 11-05-23 00:00:00 Leo chacon 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 642 M79.641 M25.562 Active 02/26/2017 [facility] Diagnosis Active 2017-02-26 00:00:00 2017-03-26 13:28:00 [facility] Fever Fever Problem Active PORTIA Tilley [facility] Mucositis Mucositis Problem Active [facility] Pancytopenia Pancytopenia Problem Active [facility] Pain in right hand Pain in right hand 07/02/2017 [facility] Problem 2017-07-02 16:45:51 [facility] Pain in left knee Pain in left knee 07/02/2017 [facility] Problem 2017-07-02 16:45:51 [facility] Primary osteoarthritis, left hand Primary osteoarthritis, left hand 07/02/2017 [facility] Problem 2017-07-02 16:45:51 [facility] Crushing injury of right ring finger, initial encounte r Crushing injury of right ring finger, initial encounter 08/24/2018 [facility] Problem 2018-08-24 11:25:58 [facility] Unspecified open wound of right ring fin mich with damage to nail, initial encounter Unspecified open wound of right ring finger with damage to nail, initial encounter 08/24/2018 [facility] Problem 2018-08-24 11:25:58 [facility] 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 08/24/2018 [facility] Problem 2018-08-24 11:25:58 [facility] Fall on same level from slipping, trippi ng and stumbling without subsequent striking against object, initial encounter Fall on same level from slipping, tripping and stumbling without subsequent striking against object, initial encounter 08/24/2018 [facility] Problem 2018-08-24 11:25:58 [facility] Caught, crushed, jammed, or pinched between moving obj ects, initial encounter Caught, crushed, jammed, or pinched between moving objects, initial encounter 08/24/2018 [facility] Problem 2018-08-24 11:25:58 [facility] Essential (primary) hypertension Essential (primary) hypertension 08/24/2018 [facility] Problem 2018-08-24 11:25:58 [facility] Personal history of malignant neoplasm of breast Personal history of malignant neoplasm of breast 08/24/2018 [facility] Problem 2018-08-24 11:25:58 [facility] Periprosthetic fracture around internal prosthetic left hip joint, initial encounter Periprosthetic f racture around internal prosthetic left hip joint, initial encounter 02/12/2018 08/24/2018 [facility] Problem 2018-02-12 04:35:54 2018-08-24 11:25:58 2018-08-24 11:25:58 [facility] Pain in left hand Pain in left hand 03/29/2017 07/02/2017 [facility] Problem 2017-03-29 04:24:47 2017-07-02 16:45:51 2 16:45:51 [facility] Allergies, Adverse Reactions, Alerts Allergy Name Allergy Type Status Severity Reaction(s) Onset Date Inacti ve Date Treating Clinician Comments Source Methotrexate Propensity to adverse reactions to drug Active Anaphylaxis 2018-11-08 00:00:00 Bailey Chitra odist Lisinopril Allergy to Substance Active Mild 2018-04-30 00:00:00 [facility] Penicillins Propensity to adverse reactions to drug Active Other (See Comments) 2016-02-11 00:00:00 Vaginal itchingVagina l itching [place] [facility] Codeine Propensity to adverse reactions to drug Active Other (See Comments) 2015-11-15 00:00:00 nausea Bailey Chitra menendez Levofloxacin Propensity to adverse reactions to drug Active Other (See Comments) 2015-11-15 00:00:00 Severe nausea [place] [facility] Lisinopril Propensity to adverse reactions to drug Active Hives 2015-11-15 00:00:00 Leo Bernsteinis t Pentazocine Lactate Propensity to adverse reactions to drug Active Other (See Comments) 2015-11-15 00:00:00 Severe nausea [facility] Pentazocine Allergy to Substance Active Mild N/V 2010-01-12 00:00:00 [facility] Levofloxacin Allergy to Substance Active Mild N/V 2010-01-12 00:00:0 0 [facility] Penicillin Allergy to Substance Active Mild RASH 2009-03-11 00:00:00 [facility] codeine codeine Active [facility] penicillin penicillin Active Me [facility] Family History Family Member Diagnosis Comments Start Date Stop Date Source Natural father Heart attack Leo Dee Natural father Heart disease Leo Dee Natural mother Cancer [facility] Social History Social Habit Start Date Stop Date Quantity Comments Source Sex Assigned At Celestina dontae Dee Exposure to SARS-CoV-2 (event) Not sure Leo Dee Alcohol intake 2019-02-12 00:00:00 2019-02-12 00:00:00 Ex-drinker (fi nding) Leo Dee Smoking Status Start Date Stop Date Source Never smoker Leo Valverde t Medications Ordered Medication Name Filled Medication Name Start Date Stop Da te Current Medication? Ordering Clinician Indication Dosage Frequency Signature (SIG) Comments Components Source atenolol (TENORMIN) 25 MG tablet 2018-12-31 14:26:04 2018-12 00:00:00 No 25mg QD Take 25 mg by mouth daily. Leo Dee omeprazole (PriLOSEC) 20 MG capsule 2018-12-31 13:55:48 Yes 20mg QD Take 20 mg by mouth daily. Leo Dee metFORMIN (GLUCOPHAGE) 1000 MG tablet 2018-12-31 13:55:48 Yes 1000mg Q.5D Take 1,000 mg by mouth 2 (two) times a day with meals. Leo Dee celecoxib (CeleBREX) 200 MG capsule 2018-12-31 13:55:48 Yes 200mg Q.5D Take 200 mg by mouth 2 (two) times a day. Leo Dee terbinafine HCl (LamiSIL) 250 mg tablet 2018-12-31 13:55:48 Yes 250mg QD Take 250 mg by mouth daily. Robin Dee cholecalciferol, vitamin D3, (VITAMIN D3) 5,000 unit capsule 2018-12-31 13:55:48 Yes 5000U QD Take 5,000 Units by mouth reyes ly. Leo Dee vitamin E 1000 UNIT capsule 2018-12-31 13:55:48 Yes 1000U QD Take 1,000 Units by mouth daily. Leo Dee thyroid, pork, (ARMOUR THYROID) 120 mg tablet 2018-12-31 13:55:4 8 Yes 120mg QD Take 120 mg by mouth daily. Leo Dee ezetimibe (ZETIA) 10 mg tablet 2018-12-31 13:55:48 Yes 10mg QD Take 10 mg by mouth daily. Leo Dee insulin lispro (HumaLOG) 100 unit/mL injection 2018-12-31 13:55: 48 Yes Inject under the skin as needed for high blood sugar. Leo Dee predniSONE (DELTASONE) 5 mg tablet 2018-12-31 13:55:48 Yes 5mg QD Take 5 mg by mouth daily. Every other day Madonna Dee ascorbic acid, vitamin C, (VITAMIN C) 500 MG tablet 2018-02 13:55:48 Yes 2000mg QD Take 2,000 mg by mouth daily. Leo Dee multivitamin (THERAGRAN) tablet 2018-12-31 13:55:48 Yes 1{tbl} QD Take 1 tablet by mouth daily. Leo Dee calcium carbonate oyster shell (OS-CARLY) 500 mg calcium (1,25 0 mg) tablet 2018-12-31 13:55:48 Yes 1{tbl} QD Take 1 tablet by m outh daily. Leo Dee naproxen sodium (ALEVE) 220 MG tablet 2018-12-31 13:55:48 Y es 220mg Take 220 mg by mouth. Leo Dee loratadine (CLARITIN) 10 mg tablet 2018-12-31 13:55:48 Yes 10mg Take 10 mg by mouth. Leo Dee loperamide (IMODIUM A-D) 2 mg tablet 2018-12-31 13:55:48 Ye s 2mg Take 2 mg by mouth. Leo Dee rosuvastatin (CRESTOR) 10 MG tablet 2018-12-31 00:00:0 0 2019-12-31 23:59:00 No 10mg QD Take 1 tablet (10 mg total) by mouth reyes ly. Leo Dee atenolol (TENORMIN) 50 MG tablet 2018-12-31 00:00:00 2019-12 23:59:00 No 50mg QD Take 1 tablet (50 mg total) by mouth daily. Leo Dee atenolol (TENORMIN) 50 MG tablet 2018-12-31 00:00:00 2018-12 00:00:00 No 50mg QD Take 1 tablet (50 mg total) by mouth daily. Leo Dee rosuvastatin (CRESTOR) 10 MG tablet 2018-12-31 00:00:0 0 2018-12-31 00:00:00 No 10mg QD Take 1 tablet (10 mg total) by mouth reyes ly. Leo Dee ascorbic acid, vitamin C, (VITAMIN C) 1000 MG tablet 2018-11-19 15:10:05 2018-11-19 00:00:00 No 1000mg Take 1,000 mg by alida th. Leo Dee promethazine (PHENERGAN) 25 MG tablet 2018-11-19 15:08 :01 2018-11-19 00:00:00 No 25mg Q6H Take 25 mg by m outh every 6 (six) hours as needed for nausea or vomiting. Leo Dee glimepiride (AMARYL) 4 MG tablet 2018-11-19 15:07:40 2018-10 00:00:00 No 4mg QD Take 4 mg by mouth daily before breakfast. Leo Dee zolpidem (AMBIEN) 10 mg tablet 2018-11-19 15:07:14 2018-11-19 00 :00:00 No 10mg QD Take 10 mg by mouth nightly as needed for sleep. Leo Dee methotrexate 2.5 MG tablet 2018-11-19 15:07:14 2018-11-19 00:00: 00 No 2.5mg Q7D Take 2.5 mg by mouth once a week. Last dose was Sunday 12.7.18 Leo Dee amLODIPine (NORVASC) 10 mg tablet 2018-11-19 15:07:10 2018 00:00:00 No 10mg QD Take 10 mg by mouth daily. Leo Dee hydrALAZINE (APRESOLINE) 10 MG tablet 2018-11-08 00:00 :00 2018-12-08 23:59:00 No 10mg QD Take 1 tablet (10 mg total) by mouth nig htly for 30 days. Leo Dee clonIDINE HCl (CATAPRES) 0.2 MG tablet 2018-10-27 3 00:00:00 2018-11-19 00:00:00 No .1mg Q24H Take 0.5 table ts (0.1 mg total) by mouth daily as needed for high blood pressure for up to 20 days. H andre Dee cephalexin (KEFLEX) 500 MG capsule 2018-11-08 00:00:00 201 11-05-19 23:59:00 No 500mg Q.5D Take 1 capsule ( 500 mg total) by mouth 2 (two) times a day for 7 days. Leo Dee Clindamycin 2018-02-04 15:39:00 No 600 mg, 50 mL, Route: IVPB, Drug form: INJ, ONCE, Dosing Weight 77.273, kg, Priority: STAT, Start date: 02/04/18 9:39:00 [employer], Stop date: 02/04/18 9:39:00 [employer], ABX Indication: Surgical Prophylaxis [place] Morphine 2018-02-04 13:49:00 No 4 mg, Route: IVP, ONCE, Dosing Weight 77.273, kg, Priority: STAT, Start date: 02/04/18 7:49:00 [employer], Stop date: 02/04/18 7:49:00 [employer] Ivan Ondansetron 2018-02-04 11:14:00 No 4 mg, Route: IVP, Drug form: INJ, ONCE, Dosing Weight 77.273, kg, Priority: STAT, Start date: 02/04/18 5:14:00 [employer], Stop date: 02/04/18 5:14:00 [employer] Ivan Morphine 2018-02-04 11:14:00 No 2 mg, Route: IVP, ONCE, Dosing Weight 77.273, kg, Priority: STAT, Start date: 02/04/18 5:14:00 [employer], Stop date: 02/04/18 5:14:00 [employer] [facility] Amlodipine Besylate 10 Mg Tablet Amlodipine Besylate 10 Mg Tablet Yes 10 Daily [facility] Ascorbic Acid (Vitamin C) 1,000 Mg Tablet.er Ascorbic Acid (Vitamin C) 1,000 Mg Tablet.er Yes 2000 Twice A Day [facility] Atenolol (Tenormin) 25 Mg Tablet Atenolol (Tenormin) 25 Mg Tablet Yes 25 Daily [facility] Calcium Carbonate (Calcium) 600 Mg Tablet Calcium Carb carmen (Calcium) 600 Mg Tablet Yes 1200 Twice A Day [facility] Celecoxib (Celebrex*) 100 Mg Capsule Celecoxib (Celebrex*) 100 Mg C apsule Yes 100 Daily as needed for Pain [facility] Cholecalciferol (Vitamin D3) (Vitamin D3) [facility] Chole[facility]iferol (Vitamin D3) (Vitamin D3) 1,000 Unit Tablet Yes 5000 Twice A Day [facility] Ezetimibe (Zetia) 10 Mg Tablet Ezetimibe (Zetia) 10 Mg Tablet Yes 10 Daily [facility] Insulin Detemir (Levemir) 100 Unit/1 Ml Vial Insulin D etemir (Levemir) 100 Unit/1 Ml Vial Yes 9 Daily [facility] Loperamide Hcl (Imodium*) 2 Mg Cap Loperamide Hcl (Imodium*) 2 Mg Cap Yes 2 As Needed [facility] Loratadine (Claritin) 10 Mg Tablet Loratadine (Claritin) 10 Mg Tablet Yes 10 As Needed [facility] Metformin Hcl (Glucophage) 1,000 Mg Tablet Metformin H cl (Glucophage) 1,000 Mg Tablet Yes 1000 Twice A Day [facility] Multivitamin (Daily Francisca) 1 Each Tablet Multivitamin (Daily Francisca) 1 Each Tablet Yes 1 Daily [facility] Naproxen Sodium (Aleve) 220 Mg Capsule Naproxen Sodium (Aleve) 2 20 Mg Capsule Yes 1 As Needed [facility] Omeprazole 20 Mg Capsule. Omeprazole 20 Mg Capsule. Yes 20 Daily [facility] Prednisone 5 Mg Tablet Prednisone 5 Mg Tablet Yes 5 .every Other Day [facility] Promethazine Hcl 12.5 Mg Tablet Promethazine Hcl 12.5 Mg Tablet Yes 12.5 Twice A Day as needed for Nausea [facility] Terbinafine Hcl (Lamisil) 250 Mg Tablet Terbinafine Hcl ([place] isil) 250 Mg Tablet Yes 250 Daily [facility] Thyroid,Pork ([place] Thyroid) 120 Mg Tablet Thyroid,Po rk ([place] Thyroid) 120 Mg Tablet Yes 120 Daily [facility] Amlodipine 5 Mg , Amlodipine 5 Mg , 2018-04-29 00:00:00 No [facility] Glimepiride (Amaryl) 4 Mg Tablet, 4 Mg Oral Glimepirid e (Amaryl) 4 Mg Tablet, 4 Mg Oral 2018-04-29 00:00:00 No 4 [facility] Insulin Aspart (Novolog) 100 Unit/1 Ml Cartridge, Insu ai Aspart (Novolog) 100 Unit/1 Ml Cartridge, 2018-04-29 00:00:00 No [facility] Insulin Detemir (Levemir 10ML Vial) 100 Unit/1 Ml Vial , Insulin Detemir (Levemir 10ML Vial) 100 Unit/1 Ml Vial, 2018-04-29 00:00:00 No As Needed [facility] Levothyroxine Sodium (Unithroid) 200 Mcg Tablet, 200 M cg Oral Levothyroxine Sodium (Unithroid) 200 Mcg Tablet, 200 Mcg Oral 2018-04-29 00:00:00 N o 200 Daily [facility] Liothyronine Sodium (Cytomel) 25 Mcg Tablet, 25 Mcg Or al Liothyronine Sodium (Cytomel) 25 Mcg Tablet, 25 Mcg Oral 2018-04-29 00:00:00 No 25 [facility] Zolpidem Tartrate (Ambien Angel) 10 Mg Tablet, 10 Mg Ora l Zolpidem Tartrate (Ambien Angel) 10 Mg Tablet, 10 Mg Oral 2018-04-29 00:00:00 No 10 Qhs [facility] Vital Signs Vital Name Observation Time Observation Value Comments Source Body height 2019-02-12 14:16:00 162.6 cm Leo Dee Body weight 2019-02-12 14:16:00 62.596 kg Leo Dee BMI 2019-02-12 14:16:00 23.69 kg/m2 Leo Dee Systolic blood pressure 2018-12-31 13:53:00 180 mm[Hg] Leo Dee Diastolic blood pressure 2018-12-31 13:53:00 76 mm[Hg] Leo Dee Heart rate 2018-12-31 13:53:00 70 /min Leo Dee Respiratory rate 2018-11-08 13:30:00 16 /min Robin Dee Oxygen saturation in Arterial blood by Pulse oximetry 11-08 13:30:00 97 /min Leo Dee Body temperature 2018-11-08 10:06:46 36.67 Mayra Robin Bernsteinist Systolic (mm Hg) 2018-02-04 16:01:00 [facility] Diastolic (mm Hg) 2018-02-04 16:01:00 [facility] Respitory Rate 2018-02-04 16:01:00 MH Lauren theast Systolic (mm Hg) 2018-02-04 13:38:00 [facility] [place] Diastolic (mm Hg) 2018-02-04 13:38:00 [facility] Respitory Rate 2018-02-04 13:38:00 MH Lauren theast Respitory Rate 2018-02-04 12:43:00 Lauren theast Systolic (mm Hg) 2018-02-04 12:43:00 [place] Diastolic (mm Hg) 2018-02-04 12:43:00 [facility] Heart Rate 2018-02-04 10:33:00 [facility] Weight 2018-02-04 10:33:00 [facility] Temperature Oral (F) 2018-02-04 10:33:00 98.1 F [facility] Height 2018-02-04 10:33:00 162.56 cm [facility] BMI Calculated 2018-02-04 10:33:00 Lauren theast Procedures Procedure Date / Time Performed Performing Clinician Sourc e US CAROTID DUPLEX BILATERAL 2019-07-01 12:15:00 Hung Chapa XR HIP 2-3 VIEWS LEFT 2019-02-12 14:25:32 Yvan Bryant US CAROTID DUPLEX BILATERAL 2018-12-24 14:51:29 Hung Chapa CV STRESS TEST NUCLEAR CARDIO 2018-12-11 14:28:20 Hung Chapa NM MYOCARDIAL PERFUSION REST STRESS 1 DAY 2018-12-11 14:28:20 Sh Hung meza TTE COMPLETE, WO CONTRAST, W DOPPLER ([id number]) 2018-12-09 13:3 5:39 Hung Chapa ECG ED PRELIMINARY INTERPRETATION 2018-11-08 11:58:58 Adonay Reid HC COMPLETE BLD COUNT W/AUTO DIFF 2018-11-08 10:53:00 Adonay Reid COMPREHENSIVE METABOLIC PANEL 2018-11-08 10:53:00 Katie Reid CREATINE KINASE, TOTAL (CPK) 2018-11-08 10:53:00 Roberth Reid TROPONIN, I-STAT 2018-11-08 10:53:00 Gaetano Reid ESTIMATED GFR 2018-11-08 10:53:00 Gaetano Reid [place] [facility] URINALYSIS 2018-11-08 10:37:00 Gaetano Reidist Internal fixation of left hip 2018-05-03 00:00:00 RAFAEL ALEMAN [facility] CT extremity lower w contrast 2018-05-02 00:00:00 JOHNNA MIX [facility] Plan of Care Planned Activity Planned Date Details Comments Source Future Scheduled Test 2019 00:00:00 INFLUENZA VACCINE [code = INFLUENZA VACCINE] [facility] Future Scheduled Test 2004-09-26 00:00:00 65+ PNEUMOCOCCAL V ACCINE (1 of 2 - PCV13) [code = 65+ PNEUMOCOCCAL VACCINE (1 of 2 - PCV13)] [facility] Future Scheduled Test 1989-09-26 00:00:00 SHINGLES VACCINES (#1) [code = SHINGLES VACCINES (#1)] [facility] Encounters Start Date/Time End Date/Time [facility] ID Source 2019-07-03 15:21:00 2019-07-04 04:59:[address] [facility] [id number] [facility] 2019-07-03 10:21:00 2019-07-03 23:59:00 Outpatient Kenia Fritz [facility] [id number] 2019-07-03 10:21:00 2019-07-03 10:21:00 Outpatient [facility] SE [id number] [facility] 2019-07-01 00:00:00 2019-07-01 00:00:00 Outpatient HUNG CHAPA [facility] [id number] [facility] 2019-03-21 17:33:00 2019-03-22 05:59:[address] [facility] [id number] [facility] 2019-03-21 11:33:00 2019-03-21 23:59:00 Outpatient Kenia Fritz [facility] [id number] 2019-03-21 11:33:00 2019-03-21 11:33:00 Outpatient MHSE [facility]SE [id number] [facility] 2018-04-29 17:34:00 2018-05-13 15:15:00 Discharged Inpatient 1 JOHNNA MIX [facility] [id number] [facility] 2018-02-04 10:32:00 2018-02-04 16:07:[address] [facility] [id number] [facility] 2018-02-04 04:32:00 2018-02-04 10:07:00 Outpatient Eva Acevedo [facility] [id number] 2017-03-26 19:20:00 2017-03-27 05:59:[address] [facility] [id number] [facility] 2017-03-26 13:20:00 2017-03-26 23:59:00 Outpatient Kenia Fritz [facility] [id number] Results Test Description Test Time Test Comments Results Result Comments Source ECG ED Preliminary Interpretation - Not an Order 2018-11-08 11:5 8:58 Gaetano Reid DO 11/08/2018 1:29 PMECG ED Preliminary Interpretation - Not an OrderPerformed by: Gaetano Reid DOAuthorized by: Gaetano Reid DO ECG reviewed by ED Physician in the absence of a inspector advanced composite: yes Interpretation: Interpretation: normal Rate: ECG rate assessment: normal Rhythm: Rhythm: sinus rhythm Ectopy: Ectopy: none QRS: QRS axis: NormalConduction: Conduction: normal ST segments: ST segments: NormalT waves: T waves: normal Leo Dee CBC with platelet and differential 2018-11-08 11:11:01 Test Item WBC (test code = 12387-1) 11.50 4.50- 11.00 k/uL H RBC (test code = 08687-1) 3.94 m/uL 4.2-5.5 L HGB (test code = 718-7) 11.6 g/dL 12-16 L HCT (test code = 4544-3) 36.3 % 37-47 L MCV (test code = 787-2) 92.1 fL 82-100 MCH (test code = 785-6) 29.4 pg 27-34 MCHC (test code = 786-4) 32.0 g/dL 31-37 RDW - SD (test code = 92388-2) 46.4 fL 37-55 MPV (test code = 63553-0) 10.2 fL 8.8-13.2 Platelet count (test code = 97109-6) 247 150- 400 k/uL Neutrophils (test code = 57589-9) 89.8 % 39-69 H Lymphocytes (test code = 23992-2) 4.5 % 25-45 L Monocytes (test code = 19245-8) 4.6 % 0-10 Eosinophils (test code = 25066-3) 0.8 % 0-5 Basophils (test code = 99087-6) 0.3 % 0-1 Lab Interpretation (test code = 16967-7) Abnormal [id number] 11:10:12* Test Item Value Reference Range Interpretation Comments Sodium (test code = 2951-2) 138 128- 145 mEq/L Potassium (test code = 2823-3) 4.4 3.6- 5.1 mEq/L CO2 (test code = 2027-9) 27 18- 33 mEq/L Chloride (test code = 5-0) 100 98- 108 mEq/L Glucose (test code = 2345-7) 167 mg/dL 73-118 H Calcium (test code = 68563-2) 9.5 mg/dL 8-10.3 BUN (test code = 3094-0) 34 mg/dL 7-22 H Creatinine (test code = 2160-0) 1.6 mg/dL 0.5-0.9 H Alkaline phosphatase (test code = 6768-6) 97 U/L 42-141 ALT (test code = 1742-6) 44 U/L 10-47 AST (test code = 1920-8) 39 U/L 11-38 H Total bilirubin (test code = 1974-2) 0.8 mg/dL 0.2-1.6 Albumin (test code = 1751-7) 4.2 g/dL 3.3-5.5 Protein (test code = 2885-2) 7.7 g/dL 6.4-8.1 Anion gap (test code = 74513-2) 11@ANIO 7- 15 mEq/L A/G ratio (test code = 1759-0) 1.2 0.7-3.8 Lab Interpretation (test code = 64933-4) Abnormal [place] [facility], [facility] ([facility])2018-11-08 11:10:12* Test Item Value Reference Range Interpretation Comments Creatine kinase (test code = 2157-6) 126 U/L 30-190 Leo DeeTroponin, [id number] 11:10:12* Test Item Value Reference Range Interpretation Comments Troponin, I-Stat (test code = 2359) 0.01 ng/mL 0-0.08 0.09 - 1.49 ng/ml May indicate increased risk of acute coronary syndrome. >=1.5 ng/ml Consistent with acute myocardial infarction. The diagnostic value of a single normal or non-diagnostic result is questionable. Serial samples at 2-6 hour intervalsare required to rule out acute myocardial injury. [place] [id number] 11:10:12* Test Item Value Reference Range Interpretation Comments Glucose, UA (test code = 74029-8) Negative Negative Bilirubin, UA (test code = 5770-3) Negative Negative Ketones, UA (test code = 2514-8) Negative Negative Specific gravity, UA (test code = 5811-5) 1.010 1.001-1.035 Blood, UA (test code = 5794-3) Trace Negative A pH, UA (test code = 5803-2) 7.0 5.0-8.5 Protein, UA (test code = 34004-2) 2+ Negative A Urobilinogen, UA (test code = 05677-5) <2.0 <2.0 Nitrite, UA (test code = 5802-4) Negative Negative Leukocyte esterase, UA (test code = 5799-2) Small Negative A Color, UA (test code = 5778-6) Yellow Appearance, UA (test code = 5767-9) Clear Lab Interpretation (test code = 88018-0) Abnormal [place] MethodistEstimated ZLS8337-92-55 11:10:12* Test Item Value Reference Range Interpretation Comments Estimated GFR (test code = 5488) 30 mL/min/1.73 m2 A Catergory Units InterpretationG1 >=90 Normal or highG2 60-89 Mildly jjxebkxloY9v 45-59 Mildly to moderately cpgchnzxdM1s 30-44 Moderately to severely decreasedG4 15-29 Severely decreasedG5 <15 Kidney failureThe eGFR was calculated using the Chronic Kidney Disease Epidemiology Collaboration (CKD-EPI) equation. Interpretation is based on recommendations of the National Kidney Foundation-Kidney Disease Outcomes Quality Initiative (NKF-KDOQI) published in 2014. Lab Interpretation (test code = 21499-3) Abnormal [facility]BREAST [facility]TRASOUND PVAMJQHAM2454-07-16 12:41:34- BREAST ULTRASOUND BILATERALULTRASOUND OF BOTH BREASTS AND BOTH AXILLA: 9CLINICAL: Followup to previous exam. Comparison is made to exams dated 018 ultrasound, 07/10/2016 ultrasound, 06/29/2015 ultrasound, and 06/23/2014 ultraso und - [facility]. Real-time ultrasound of both breasts and both axilla and clinical chest exam was performed. No abnormalities were seen sonog raphically in either axilla. Both breasts have been surgically removed. The tay st wall shows no abnormalities. IMPRESSION: BENIGN - FOLLOW-UP RECOMMENDEDThere is no sonographic evidence of malignancy. A follow-up ultrasound in 12 months is recommended. Alpa Mcarthur M.D. dm/:09/02/2018 12:41:34 Entry: - 09/05 07:11:12Imaging Technologist: Shannan LEMUS, [facility] yanira sent: BIRADS 1-2 Normal Ultrasound BI-RADS: 2 BenignBedside Glucose 2018-05-13 14:31:00* Test Item Value Reference Range Interpretation Comments Bedside Glucose (test code = 10625-7) 264 70-120 Meter ID: [id number] University Medical CenterDifferential Total Cells Kdqblmv1439-42-71 07:15:00* Test Item Value Reference Range Interpretation Comments Differential Total Cells Counted (test code = Differen tial Total Cells Counted) 100 [facility] CenterNeutrophils % (Manual)2018-05-12 07:15:00 * Test Item Value Reference Range Interpretation Comments Neutrophils % (Manual) (test code = 59907-3) 65 40-74 [facility] CenterBand Neutrophils %2018-05-12 07:15:00* Test Item Value Reference Range Interpretation Comments Band Neutrophils % (test code = 764-1) 2 [facility] CenterLymphocytes % (Manual)2018-05-12 07:15:00 * Test Item Value Reference Range Interpretation Comments Lymphocytes % (Manual) (test code = 737-7) 18 19-48 [facility] CenterMonocytes % (Manual)2018-05-12 07:15:00* Test Item Value Reference Range Interpretation Comments Monocytes % (Manual) (test code = 744-3) 12 3.4-9.0 [facility] CenterMetamyelocytes %2018-05-12 07:15:00* Test Item Value Reference Range Interpretation Comments Metamyelocytes % (test code = 740-1) 2 0-0 [facility] CenterMyelocytes %2018-05-12 07:15:00* Test Item Value Reference Range Interpretation Comments Myelocytes % (test code = 749-2) 1 0-0 [facility] CenterNucleated Red Blood Igmxr6885-21-54 07:15:00* Test Item Value Reference Range Interpretation Comments Nucleated Red Blood Cells (test code = 59318-8) 1 [facility] CenterPlatelet Snbzkvng6967-88-04 07:15:00* Test Item Value Reference Range Interpretation Comments Platelet Estimate (test code = 81807-6) ADEQUATE [facility] CenterPlatelet Morphology Hkoaxbc1867-47-78 07:15:00* Test Item Value Reference Range Interpretation Comments Platelet Morphology Comment (test code = 98226-8) NORMAL [facility] CenterRed Cell Morphology Ixkwyki6151-15-05 07:15:00* Test Item Value Reference Range Interpretation Comments Red Cell Morphology Comment (test code = 6742-1) NORMAL [facility] Nyzaj1830-23-37 06:04:00* Test Item Value Reference Range Interpretation Comments Sodium Level (test code = 2951-2) 138 136-145 [facility] CenterPotassium Dynsj8707-28-66 06:04:00* Test Item Value Reference Range Interpretation Comments Potassium Level (test code = 2823-3) 4.4 3.5-5.1 [facility] CenterChloride Vgciw1143-92-10 06:04:00* Test Item Value Reference Range Interpretation Comments Chloride Level (test code = 2075-0) 101 98-107 [facility] CenterCarbon Dioxide Ncinx8084-07-97 06:04:00* Test Item Value Reference Range Interpretation Comments Carbon Dioxide Level (test code = 2028-9) 28 22-29 [facility] CenterAnion Tnd7645-95-04 06:04:00* Test Item Value Reference Range Interpretation Comments Anion Gap (test code = 41951-6) 13.4 8-16 [facility] CenterBlood Urea Vnkfgfak6041-75-47 06:04:00* Test Item Value Reference Range Interpretation Comments Blood Urea Nitrogen (test code = 3094-0) 21 7-26 [facility] CenterCreatinine2019-03-17 06:04:00* Test Item Value Reference Range Interpretation Comments Creatinine (test code = 2160-0) 1.08 0.57-1.11 [facility] CenterBUN/Creatinine Enxpk5513-06-06 06:04:00* Test Item Value Reference Range Interpretation Comments BUN/Creatinine Ratio (test code = 3097-3) 19 6-25 [facility] CenterEstimat Glomerular Filtration Rate 2018-05-12 06:04:00* Test Item Value Reference Range Interpretation Comments Estimat Glomerular Filtration Rate (test code = 327649862) 49 >60 Ranges were taken from the National Kidney Disease Education Program and the [facility] Kidney Foundation literature.Reference ranges:60 or greater: Pyxgae24-85 ( for 3 consecutive months): Chronic kidney disease 15 or less: Kidney failureBaylor University Medical CenterGlucose Bsqad2986-17-25 06:04:00* Test Item Value Reference Range Interpretation Comments Glucose Level (test code = EGQ0971) 173 74-118 [facility] CenterCalcium Vmmgs9165-23-28 06:04:00* Test Item Value Reference Range Interpretation Comments Calcium Level (test code = 98341-9) 8.6 8.4-10.2 [facility] CenterWhite Blood Usglt6253-43-86 05:44:00* Test Item Value Reference Range Interpretation Comments White Blood Count (test code = 6690-2) 12.41 4.8-10.8 [facility] CenterRed Blood Onkve7915-09-24 05:44:00* Test Item Value Reference Range Interpretation Comments Red Blood Count (test code = 789-8) 3.48 3.6-5.1 [facility] CenterHemoglobin2019-03-17 05:44:00* Test Item Value Reference Range Interpretation Comments Hemoglobin (test code = 61341-1) 9.9 12.0-16.0 [facility] CenterHematocrit2019-03-17 05:44:00* Test Item Value Reference Range Interpretation Comments Hematocrit (test code = 4544-3) 30.9 34.2-44.1 [facility] CenterMean Corpuscular Tnxigm9405-41-80 05:44:00* Test Item Value Reference Range Interpretation Comments Mean Corpuscular Volume (test code = 787-2) 88.8 81-99 [facility] CenterMean Corpuscular Hkvohzhfkk3602-11-70 05:44:00* Test Item Value Reference Range Interpretation Comments Mean Corpuscular Hemoglobin (test code = 785-6) 28.4 28-32 [facility] CenterMean Corpuscular Hemoglobin Concent 2018-05-12 05:44:00* Test Item Value Reference Range Interpretation Comments Mean Corpuscular Hemoglobin Concent (test code = 786-4) 32.0 31-35 [facility] CenterRed Cell Distribution Hjtyi2725-06-40 05:44:00* Test Item Value Reference Range Interpretation Comments Red Cell Distribution Width (test code = 38357-4) 17.9 11.7 -14.4 [facility] CenterPlatelet Awnoh2118-10-46 05:44:00* Test Item Value Reference Range Interpretation Comments Platelet Count (test code = 777-3) 298 140-360 [facility] CenterNeutrophils (%) (Auto)2018-05-12 05:44:00 * Test Item Value Reference Range Interpretation Comments Neutrophils (%) (Auto) (test code = 01961-9) 61.3 38.7-80.0 [facility] CenterLymphocytes (%) (Auto)2018-05-12 05:44:00 * Test Item Value Reference Range Interpretation Comments Lymphocytes (%) (Auto) (test code = 736-9) 10.8 18.0-39.1 [facility] CenterMonocytes (%) (Auto)2018-05-12 05:44:00* Test Item Value Reference Range Interpretation Comments Monocytes (%) (Auto) (test code = 5905-5) 14.6 4.4-11.3 [facility] CenterEosinophils (%) (Auto)2018-05-12 05:44:00 * Test Item Value Reference Range Interpretation Comments Eosinophils (%) (Auto) (test code = 713-8) 0.2 0.0-6.0 [facility] CenterBasophils (%) (Auto)2018-05-12 05:44:00* Test Item Value Reference Range Interpretation Comments Basophils (%) (Auto) (test code = 706-2) 1.2 0.0-1.0 [facility] CenterIM GRANULOCYTES %2018-05-12 05:44:00* Test Item Value Reference Range Interpretation Comments IM GRANULOCYTES % (test code = IM GRANULOCYTES %) 11.9 0.0- 1.0 [facility] CenterNeutrophils # (Auto)2018-05-12 05:44:00* Test Item Value Reference Range Interpretation Comments Neutrophils # (Auto) (test code = 751-8) 7.6 2.1-6.9 [facility] CenterLymphocytes # (Auto)2018-05-12 05:44:00* Test Item Value Reference Range Interpretation Comments Lymphocytes # (Auto) (test code = 66394-7) 1.3 1.0-3.2 [facility] CenterMonocytes # (Auto)2018-05-12 05:44:00* Test Item Value Reference Range Interpretation Comments Monocytes # (Auto) (test code = 742-7) 1.8 0.2-0.8 [facility] CenterEosinophils # (Auto)2018-05-12 05:44:00* Test Item Value Reference Range Interpretation Comments Eosinophils # (Auto) (test code = 711-2) 0.0 0.0-0.4 [facility] CenterBasophils # (Auto)2018-05-12 05:44:00* Test Item Value Reference Range Interpretation Comments Basophils # (Auto) (test code = 704-7) 0.2 0.0-0.1 [facility] CenterAbsolute Immature Granulocyte (auto 2018-05-12 05:44:00* Test Item Value Reference Range Interpretation Comments Absolute Immature Granulocyte (auto (domonique t code = Absolute Immature Granulocyte (auto) 1.48 0-0.1 [facility] CenterEosinophils % (Manual)2018-05-08 09:39:00 * Test Item Value Reference Range Interpretation Comments Eosinophils % (Manual) (test code = 714-6) 1 0-7 [facility] CenterReactive Bqdiymwyhqd8855-56-83 09:39:00* Test Item Value Reference Range Interpretation Comments Reactive Lymphocytes (test code = 28051-7) 7 [facility] CenterHypochromasia2019-03-13 09:39:00* Test Item Value Reference Range Interpretation Comments Hypochromasia (test code = 728-6) SLIGHT [facility] CenterAnisocytosis2019-03-13 09:39:00* Test Item Value Reference Range Interpretation Comments Anisocytosis (test code = 702-1) SLIGHT [facility] CenterMagnesium Wqibm2824-72-00 07:04:00* Test Item Value Reference Range Interpretation Comments Magnesium Level (test code = 25158-5) 1.6 1.3-2.1 [facility] CenterTotal Hexfsgwfj5588-32-01 06:18:00* Test Item Value Reference Range Interpretation Comments Total Bilirubin (test code = 1975-2) 0.5 0.2-1.2 [facility] CenterAspartate Amino Transf (AST/SGOT) 2018-05-08 06:18:00* Test Item Value Reference Range Interpretation Comments Aspartate Amino Transf (AST/SGOT) (test code = Aspartate Amino Transf (AST/SGOT)) 48 5-34 [facility] CenterAlanine Aminotransferase (ALT/SGPT) 2018-05-08 06:18:00* Test Item Value Reference Range Interpretation Comments Alanine Aminotransferase (ALT/SGPT) (test code = 1742-6) 52 0-55 [facility] CenterTotal Dxpsust5630-71-97 06:18:00* Test Item Value Reference Range Interpretation Comments Total Protein (test code = 2885-2) 5.9 6.5-8.1 [facility] CenterAlbumin2019-03-13 06:18:00* Test Item Value Reference Range Interpretation Comments Albumin (test code = 1751-7) 2.6 3.5-5.0 [facility] CenterGlobulin2019-03-13 06:18:00* Test Item Value Reference Range Interpretation Comments Globulin (test code = 31901-7) 3.3 2.3-3.5 [facility] CenterAlbumin/Globulin Yenma5515-96-71 06:18:00 * Test Item Value Reference Range Interpretation Comments Albumin/Globulin Ratio (test code = 1759-0) 0.8 0.8-2.0 [facility] CenterAlkaline Ftsduqlplmo9664-54-54 06:18:00* Test Item Value Reference Range Interpretation Comments Alkaline Phosphatase (test code = 6768-6) 102 40-150 [facility] CenterClostridium Difficile Toxin A & B 2018-05-07 10:40:00* Test Item Value Reference Range Interpretation Comments Clostridium Difficile Toxin A & B (test code = 364710144) NEGATIVE NEGATIVE Testing on stool aspirate specimens is outside welding instructor claims since specime n type not validated on this assay.[facility] Promyelocytes %2018-05-04 15:16:00* Test Item Value Reference Range Interpretation Comments Promyelocytes % (test code = 18995-6) 3 0-0 [facility] CenterBlast Cells %2018-05-04 15:16:00* Test Item Value Reference Range Interpretation Comments Blast Cells % (test code = 51809-9) 3 [facility] CenterPoikilocytosis2019-03-09 15:16:00* Test Item Value Reference Range Interpretation Comments Poikilocytosis (test code = 779-9) MODERATE [facility] CenterBurr Amfxb9823-51-01 15:16:00* Test Item Value Reference Range Interpretation Comments Sherita Cells (test code = 7790-9) SLIGHT [facility] CenterBlood Ccfsjwh3745-03-51 14:43:00* Test Item Value Reference Range Interpretation Comments Blood Culture (test code = 96199962) NO GROWTH AFTER 5 DAYS, FINAL REPORT [facility] CenterBasophils % (Manual)2018-05-03 11:16:00* Test Item Value Reference Range Interpretation Comments Basophils % (Manual) (test code = 75788-4) 1 0-1.5 [facility] CenterVancomycin Level Dqhpec9876-73-56 20:48:00* Test Item Value Reference Range Interpretation Comments Vancomycin Level Trough (test code = 4092-3) 9.7 5.0-10.0 [facility] CenterCT HIP LEFT K7165-97-90 15:23:00 [facility] [address] [place] [address] Patient Name: ANTONIO CHO MR #: [id number] : 1940 Age/Sex: 77/F Req #: [id number] Adm Physician: JOHNNA MIX MD Ordered by: JOHNNA MIX MD Report #: [id number] Location: MED/SURG Room/Bed: [facility] Procedure: [id number] CT/CT HIP LEFT W Exam Date: 05/02/18 Exam Time: 1100 REPORT STATUS: Signed CT scan of the LEFT HIP, WITH intravenous contrast. TECHNIQUE: Standard departmental p rotocols were used. Post-contrast images were obtained after the intravenous injection of 100 cc of Isovue-370. Sagittal and coronal reformatted images w ere obtained. Dose modulation, iterative reconstruction, and/or weight based adjustment of the mA/kV was utilized to reduce the radiation dose to as low as reasonably achievable. DLP = 287.47 mGy-cm HISTORY: Fever, pain, que stionable mass on left hip bursa, hip replacement 6 weeks ago COMPARISON: None. FINDINGS: Beam hardening artifact markedly limits the regional ev aluation. Bones: Incompletely healed oblique fracture including the les ser trochanter. Joints: Status post total left hip arthroplasty, a l ongstem femoral component with lateral side plate and cerclage wires. The di stal portion of the femoral component is not included. The femoral head compon ent is dislocated superiorly, laterally, and posteriorly from the acetabular c omponent. Soft tissues: Regional soft tissue swelling. Diffuse sca ttered atherosclerotic vascular calcifications. IMPRESSION: 1. Dislo cated left total hip arthroplasty. 2. Incompletely healed proximal femoral fr acture. 3. Limited evaluation of the regional soft tissue secondary to the be am hardening metallic artifact. Discussed with the patient's nurse Lashae de santiago via phone on May 02, 2018 at 1534. The provider verbalizes an understandi ng and states she will communicate the information to Dr. Mix. Signed by: Dr. Arcadio Duran D.O., M.M.M. on 05/02/2018 3:35 PM Dictated By: ARCADIO DURAN DO 9190 Transcribe d By: OWEN on 05/02/18 0870 COPY TO: JOHNNA MIX MD Urine Khkcp9892-80-13 21:53:00* Test Item Value Reference Range Interpretation Comments Urine Color (test code = 5778-6) YELLOW YELLOW [facility] CenterUrine Crqrcvb2381-58-96 21:53:00* Test Item Value Reference Range Interpretation Comments Urine Clarity (test code = 51222-6) HAZY CLEAR [facility] CenterUrine Specific Pcojsit3894-40-23 21:53:00 * Test Item Value Reference Range Interpretation Comments Urine Specific [place] (test code = 5811-5) 1.025 1.010-1.02 5 [facility] CenterUrine qC2890-97-29 21:53:00* Test Item Value Reference Range Interpretation Comments Urine pH (test code = 05972-6) 6 5-7 [facility] CenterUrine Leukocyte Koudbuqy2424-60-11 21:53:00* Test Item Value Reference Range Interpretation Comments Urine Leukocyte Esterase (test code = 5799-2) TRACE NEGATIVE [facility] CenterUrine Hqsbyyi1546-76-72 21:53:00* Test Item Value Reference Range Interpretation Comments Urine Nitrite (test code = 14138-1) NEGATIVE NEGATIVE [facility] Iixqkbh8211-18-91 21:53:00* Test Item Value Reference Range Interpretation Comments Urine Protein (test code = 5804-0) 2+ NEGATIVE [facility] Glucose (UA)2018-04-29 21:53:00* Test Item Value Reference Range Interpretation Comments Urine Glucose (UA) (test code = 2349-9) 1+ NEGATIVE [facility] Zbmrzmb7901-00-62 21:53:00* Test Item Value Reference Range Interpretation Comments Urine Ketones (test code = 88098-2) NEGATIVE NEGATIVE [facility] Iwjgzmhzxhov0190-45-01 21:53:00* Test Item Value Reference Range Interpretation Comments Urine Urobilinogen (test code = 83050-9) 0.2 0.2-1 [facility] CenterUrine Rpjcmkbya5025-34-80 21:53:00* Test Item Value Reference Range Interpretation Comments Urine Bilirubin (test code = 1978-6) NEGATIVE NEGATIVE [facility] CenterUrine Bcumn9692-13-12 21:53:00* Test Item Value Reference Range Interpretation Comments Urine Blood (test code = 94577-2) TRACE NEGATIVE [facility] CenterUrine NWV5242-44-91 21:53:00* Test Item Value Reference Range Interpretation Comments Urine WBC (test code = 5821-4) 0-5 0-5 [facility] CenterUrine VRN0565-00-72 21:53:00* Test Item Value Reference Range Interpretation Comments Urine RBC (test code = 43584-9) 0-5 0-5 [facility] CenterUrine Pqhpnytm5517-52-20 21:53:00* Test Item Value Reference Range Interpretation Comments Urine Bacteria (test code = 99500-2) FEW NONE [facility] CenterUrine Epithelial Kqahy3238-67-10 21:53:00 * Test Item Value Reference Range Interpretation Comments Urine Epithelial Cells (test code = 94106-9) FEW NONE [facility] CenterInfluenza Virus Types A,B Antigen 2018-04-29 14:50:00* Test Item Value Reference Range Interpretation Comments Influenza Virus Types A,B Antigen (test code = 15072-0) NEGATIVE NEGATIVE [facility] CenterAmylase Djutm6713-90-56 14:47:00* Test Item Value Reference Range Interpretation Comments Amylase Level (test code = 1798-8) 208 25-125 [facility] CenterLipase2019-03-04 14:47:00* Test Item Value Reference Range Interpretation Comments Lipase (test code = 3040-3) 5 8-78 [facility] CenterLactic Acid Nojcw7938-75-84 14:42:00* Test Item Value Reference Range Interpretation Comments Lactic Acid Level (test code = Lactic Acid Level) 13.8 4.5- 19.8 [facility] CenterGroup A Streptococcus Jakyzg7814-82-03 14:41:00* Test Item Value Reference Range Interpretation Comments Group A Streptococcus Screen (test code = 81623-6) NEGATIVE NEG ATIVE [facility] CenterProthrombin Kneu8335-52-41 14:37:00* Test Item Value Reference Range Interpretation Comments Prothrombin Time (test code = 5902-2) 14.6 11.9-14.5 [facility] CenterProthromb Time International Ratio 2018-04-29 14:37:00* Test Item Value Reference Range Interpretation Comments Prothromb Time International Ratio (test code = 6301-6) 1.09 Oral Anticoagulant Therapy INR Values:1. Low Intensity Therapy 1.5 - 2.02 . Moderate Intensity Therapy 2.0 - 3.03. High Intensity Therapy(1) 2.5 - 3. 54. High Intensity Therapy(2) 3.0 - 4.05. Panic Value INR > 5.0 [facility] CenterActivated Partial Thromboplast Time 2018-04-29 14:37:00* Test Item Value Reference Range Interpretation Comments Activated Partial Thromboplast Time (test code = 65546-3) 35.8 23.8-35.5 [facility] CenterCHEST SINGLE (PORTABLE)2018-04-29 13:44:00 [facility] [address] [address] Patient Name: ANTONIO CHO MR #: [id number] : 1940 Age/Sex: 77/F Req #: [id number] Adm Physician: Ordered by: ETHEL ABDALLA NP Report #: [id number] Location: ER Room/Bed: Procedure: [id number] DX/CHEST SINGLE (PORTABLE) Exam Date: 04/29/18 Exam Time: 1300 REPORT STATUS: Signed Examination: Single AP view of the chest. COMPARISON: None. INDICATIO N: Dehydration DISCUSSION: Lungs are well-inflated. No focal airs pace consolidation, pleural effusion, or pneumothorax. Tortuosity of the thora cic aorta. Normal heart size without pulmonary edema. No acute osseous ab normality. Surgical clips along the right chest wall. IMPRESSION: 1. No acute cardiopulmonary abnormalities. Signed by: Dr. Rafael Sorto M.D. on 04/29/2018 1:46 PM Dictated By: RAFAEL SORTO MD 1346 Transcribed By: OWEN on 04/29/18 1346 COPY TO: ETHEL ABDALLA NP [facility] HEALTHRWYDE8659-64-52 13:36:002.3[facility] SoutheastURINE AND CRNBZ4704-57-26 13:36:00* Test Item Value Reference Range Interpretation Comments UA pH (test code = UA pH) 7.0 1 5.0-8.0 [facility] SoutheastUR[facility] AND XKOLR1551-86-84 13:36:00Small *ABN*(02/04/18 7:36 AM)[facility] BJMRX9649-72-45 13:36:00Negative *NA*(02/04/18 7:36 AM)[facility] VASYP0957-35-46 13:36:00Negative *NA*(02/04/18 7:36 AM)[facility] NHGSX1340-33-96 13:36:003[facility]UR[facility] AND STOOL 2018-02-04 13:36:00Negative (02/04/18 7:36 AM)[facility] STOOL 2018-02-04 13:36:00Negative (02/04/18 7:36 AM)[facility] STOOL 2018-02-04 13:36:004[facility]UR[facility] AND DKCML3903-67-36 13:36:00Clear (02/04/18 7:36 AM)[facility]UR[facility] AND JNZPW3446-03-48 13:36:00* Test Item Value Reference Range Interpretation Comments UA Spec Grav (test code = UA Spec Grav) 1.011 1 SoutheastCARDIAC OUQQPRF5061-45-21 11:23:0037 [facility]CARDIAC ENZYMES 2018-02-04 11:23:00<0.02 [facility]CARDIAC RLKUDWM9860-75-59 11:23:12092CJ SoutheastCHEM DNRFD8205-62-41 11:23:003.1MH SoutheastCHEM UBMLI8172-63-05 11:23:002.1MH SoutheastCHEM IZJIQ2221-40-29 11:23:002.3MH SoutheastCHEM PANEL 2018-02-04 11:23:008.9 SoutheastCHEM TOJLN1886-61-23 11:23:003.8 [facility] CHEM HUDUJ0602-26-33 11:23:007.3MH SoutheastCHEM YECRT6269-80-49 11:23:0067 SoutheastCHEM EDDSO4667-85-30 11:23:0020 [facility]CHEM EOGLR5351-46-91 11:23:000.5[facility]CHE[facility] YWQJL9324-34-82 11:23:0042 SoutheastCHEM PANEL 2018-02-04 11:23:0026 SoutheastCHEM QIUUJ2034-12-53 11:23:45015AVFair[facility]wn Rehabilitation Hospital CHEM EPXFS9335-33-99 11:23:76497TFFairlawn Rehabilitation HospitalCHEM JOAMP2169-54-50 11:23:003.9 SoutheastCHEM UDCLS5369-35-19 11:23:000.95 SoutheastCHEM XXFXE4516-01-72 11:23:0021 SoutheastCHEM FITTZ1261-38-58 11:23:78979VF SoutheastCHEM PANEL 2018-02-04 11:23:0057 SoutheastCHEM PEJXX7697-10-29 11:23:003.5[facility] CHEM PFAEG0049-78-83 11:23:00* Test Item Value Reference Range Interpretation Comments B/C Ratio (test code = B/C Ratio) 22 1 6-25 [facility] HospitalCHEM VMXWM4924-19-84 11:23:00* Test Item Value Reference Range Interpretation Comments A/G Ratio (test code = A/G Ratio) 1.1 1 0.7-1.6 SoutheastCHEM XKUVO8222-99-02 11:23:0014.9 SospfpmypRKCWBSFSRB2036-82-12 11:23:000.7 JabqplwulYFKKKZZDZI7779-05-92 11:23:000.1MH SoutheastHEMATOLOGY 2018-02-04 11:23:000.5 DbrdlulzkFYPAGVOPWP2255-31-00 11:23:008.2MH [facility] EEYAZJVMOE1380-22-77 11:23:0087.0 MxwygrktcJFDKWBFSQA8519-72-09 11:23:000.6MH PmqzuovsdKJHZOXFXKL9956-74-29 11:23:000.3MH OdciiyqksUOXVXKXWTT8860-19-38 11:23:00Normal (02/04/18 5:23 AM) LssgaphcqZOVVGHZAFU1322-12-90 11:23:00Normal (02/04/18 5:23 AM) MgyjpudhvQFMQOFWQUN9392-31-89 11:23:007.2[facility] CCKLNFVTOT0644-78-52 11:23:004.9 ZqpnkjmstLUAXUKIYOK6901-50-31 11:23:00* Test Item Value Reference Range Interpretation Comments INR (test code = INR) 1.01 1 0.85-1.17 [facility]BsshknvdwBOOAMJREMQ0285-40-23 11:23:00* Test Item Value Reference Range Interpretation Comments PT (test code = PT) 13.1 s 12.0-14.7 [facility] HospitalThnkdwrknSLPGFIKIYH6124-46-05 11:23:009.4[facility] HospitalCclerelehTPCNBWQWYD3780-15-10 11:23:0015.8[facility] HospitalRqmjuryojKCZVTHZVJA1515-76-33 11:23:008.3MAusten Riggs CenterATOLOGY 2018-02-04 11:23:0034.4[facility] HospitalXuwdryorrMTMJKFBQAT7630-51-29 11:23:99740SXFair[facility]wn Rehabilitation Hospital FZAUEDQUIS8162-20-99 11:23:004.05[facility] HospitalZeyomroiwMEYSDHIGNP1961-22-88 11:23:0013.1M[facility] HospitalFwygyaqkdLPZUOSOPEA0717-57-32 11:23:0038.0[facility] HospitalBtyirakaxPXDUTYDZZT7185-28-21 11:23:0093.9[facility] HospitalHujduqwatXPIYTHVVMR8455-73-97 11:23:00* Test Item Value Reference Range Interpretation Comments MCH (test code = MCH) 32.3 pg 27.0-31.0 [facility]CT[facility] [id number] 10:43:00* Test Item Value Reference Range Interpretation Comments POC-GLUCOSE METER (LINDA) (test code = 1538) 109 mg/dL 70-110 TESTED AT [address] [address]
--- OUTSIDE RECORDS SUMMARY | 2019-07-20 10:16 | XMS REPORT | Summary of Care ---
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) - Fall on same level from slipping, tripping and stumbling without subsequent stri castillo against object, initial encounter (Final) - Caught, crushed, jammed, or pinched between moving objects, initial encounter (Final) - Essential (primary) hypertension (Final) - Personal history of malignant neoplasm of breast (Final) - Discharge Disposition: Acute Care Attending Physician: Toni Acevedo MD Vital Signs 1 2 3 Most recent to oldest [Reference Range]: 162.56 cm (02/04/18 4:33 AM) Height 98.1 DegF (02/04/18 4:33 AM) Temperature Oral [96.4-99.1 DegF] 145/74 mmHg *HI* (02/04/18 10:01 AM) 158/69 mmHg *HI* (02/04/18 7:38 AM) 173/62 mmHg *HI* (02/04/18 6:43 AM) Blood Pressure [90-140/60-90 mmHg] 16 BRMIN (02/04/18 10:01 AM) 19 BRMIN (02/04/18 7:38 AM) 16 BRMIN (02/04/18 6:43 AM) Respiratory Rate [14-20 BRMIN] 86 bpm (02/04/18 4:33 AM) Peripheral Pulse Rate [60-100 bpm] 77.273 kg (02/04/18 4:33 AM) Weight 29.24 m2 (02/04/18 4:33 AM) Body Mass Index Problem List No data available for this section Allergies, Adverse Reactions, Alerts Substance Reaction Severity Status codeine Active penicillin Active Medications clindamycin 600 mg, 50 mL, Route: IVPB, Drug form: INJ, ONCE, Dosing Weight 77.273, kg, Prio rity: STAT, Start date: 02/04/18 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, Stop date: 02/04/18 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, A BX Indication: Surgical Prophylaxis Start Date: 02/04/18 Stop Date: 02/04/18 Status: Completed morphine Sulfate 4 mg, Route: IVP, ONCE, Dosing Weight 77.273, kg, Priority: STAT, Start date: 7:49:00 GEAR MACHINE OPERATOR, Stop date: 02/04/18 7:49:00 GEAR MACHINE OPERATOR Start Date: 02/04/18 Stop Date: 02/04/18 Status: Completed morphine Sulfate 2 mg, Route: IVP, ONCE, Dosing Weight 77.273, kg, Priority: STAT, Start date: 5:14:00 GEAR MACHINE OPERATOR, Stop date: 02/04/18 5:14:00 GEAR MACHINE OPERATOR Start Date: 02/04/18 Stop Date: 02/04/18 Status: Completed ondansetron 4 mg, Route: IVP, Drug form: INJ, ONCE, Dosing Weight 77.273, kg, Priority: STAT , Start date: 02/04/18 5:14:00 GEAR MACHINE OPERATOR, Stop date: 02/04/18 5:14:00 GEAR MACHINE OPERATOR Start Date: 02/04/18 Stop Date: 02/04/18 Status: Completed Results Most recent to 1 2 oldest [Reference Range]: Neutrophils # 8.2 K/CMM [1.5-8.1 K/CMM] *HI* (02/04/18 5:23 AM) Lymphocytes # 0.5 K/CMM [1.0-5.5 K/CMM] *LOW* (02/04/18 5:23 AM) Monocytes # [0.0-0.8 0.7 K/CMM K/CMM] (02/04/18 5:23 AM) Basophils # [0.0-0.2 0.1 K/CMM K/CMM] (02/04/1823 AM) BNP [<=100 pg/mL] 37 pg/mL (02/04/18:23 AM) Plt Morph Normal (02/04/1823 AM) eGFR 57 mL/min/1.73m2 1 *NA* (02/04/1823 AM) A/G Ratio [0.7-1.6] 1.1 (02/04/18:23 AM) Albumin Lvl [3.5-5.0 3.8 g/dL g/dL] (02/04/1823 AM) Alk Phos [39-136 67 unit/L unit/L] (02/04/18:23 AM) ALT [0-65 unit/L] 42 unit/L (02/04/1823 AM) AGAP [10.0-20.0 14.9 mEq/L mEq/L] (02/04/18:23 AM) AST [0-37 unit/L] 20 unit/L (02/04/18:23 AM) B/C Ratio [6-25] 22 (02/04/1823 AM) Basophils [0.0-1.0 0.6 % %] (02/04/18:23 AM) BUN [7-22 mg/dL] 21 mg/dL (02/04/1823 AM) Calcium Lvl 8.9 mg/dL [8.5-10.5 mg/dL] (02/04/18:23 AM) Total CK [12-191 144 unit/L unit/L] (02/04/18:23 AM) Chloride Lvl [95-109 105 mEq/L mEq/L] (02/04/18:23 AM) CO2 [24-32 mEq/L] 26 mEq/L (02/04/18:23 AM) Creatinine Lvl 0.95 mg/dL [0.50-1.40 mg/dL] (02/04/18:23 AM) Eosinophils [0.0-4.0 0.3 % %] (02/04/18 5:23 AM) Globulin [2.7-4.2 3.5 g/dL g/dL] (02/04/18:23 AM) Glucose Lvl [70-99 103 mg/dL mg/dL] *HI* (02/04/18:23 AM) Hct [36.0-48.0 %] 38.0 % (02/04/18:23 AM) Hgb [12.0-16.0 g/dL] 13.1 g/dL (02/04/18:23 AM) INR [0.85-1.17] 1.01 (02/04/18:23 AM) Potassium Lvl 3.9 mEq/L [3.5-5.1 mEq/L] (02/04/18:23 AM) Lactic Acid Lvl 2.3 mMol/L 2.3 mMol/L [0.5-2.2 mMol/L] *HI* *HI* (02/04/18 7:36 AM) (02/04/18:23 AM) Lymphocytes 4.9 % [20.0-40.0 %] *LOW* (02/04/18:23 AM) MCH [27.0-31.0 pg] 32.3 pg *HI* (02/04/18:23 AM) MCHC [32.0-36.0 34.4 g/dL g/dL] (02/04/18:23 AM) MCV [80.0-98.0 fL] 93.9 fL (02/04/18:23 AM) Magnesium Lvl 2.1 mg/dL [1.8-2.4 mg/dL] (02/04/18:23 AM) Monocytes [2.0-12.0 7.2 % %] (02/04/18:23 AM) MPV [7.4-10.4 fL] 8.3 fL (02/04/18:23 AM) Sodium Lvl [135-145 142 mEq/L mEq/L] (02/04/18:23 AM) Phosphorus [2.5-4.5 3.1 mg/dL mg/dL] (12/10/18 5:23 AM) Platelet [133-450 188 K/CMM K/CMM] (02/04/18 5:23 AM) Segs [45.0-75.0 %] 87.0 % *HI* (02/04/18 5:23 AM) Total Protein 7.3 g/dL [6.4-8.4 g/dL] (02/04/18 5:23 AM) PT [12.0-14.7 13.1 seconds seconds] (02/04/18 5:23 AM) RBC [4.20-5.40 4.05 M/CMM M/CMM] *LOW* (02/04/18 5:23 AM) RBC Morph Normal (02/04/18 5:23 AM) RDW [11.5-14.5 %] 15.8 % *HI* (02/04/18 5:23 AM) Bili Total [0.2-1.3 0.5 mg/dL mg/dL] (02/04/18 5:23 AM) Troponin-I <0.02 ng/mL [0.00-0.40 ng/mL] (02/04/18 5:23 AM) UA Bacteria [None Occasional /HPF Seen /HPF] *NA* (02/04/18 7:36 AM) UA Bili [Negative] Negative *NA* (02/04/18 7:36 AM) UA Blood [Negative] Small *ABN* (02/04/18 7:36 AM) UA Color Ltyellow *NA* (02/04/18 7:36 AM) UA Glucose [Negative 50 mg/dL mg/dL] *ABN* (02/04/18 7:36 AM) UA Ketones Negative [Negative] *NA* (02/04/18 7:36 AM) UA Leuk Est Negative [Negative] (02/04/18 7:36 AM) UA Nitrite Negative [Negative] (02/04/18 7:36 AM) UA pH [5.0-8.0] 7.0 (02/04/18 7:36 AM) UA Protein [Negative 30 mg/dL mg/dL] *ABN* (02/04/18 7:36 AM) UA RBC [0-2 /HPF] 4 /HPF *HI* (02/04/18 7:36 AM) UA Spec Grav 1.011 [<=1.030] (02/04/18 7:36 AM) UA Sq Epi [Few /LPF] Occasional /LPF (02/04/18 7:36 AM) UA Turbidity [Clear] Clear (02/04/18 7:36 AM) UA Urobilinogen <=1.0 mg/dL [0.1-1.0 mg/dL] *NA* (02/04/18 7:36 AM) UA WBC [0-5 /HPF] 3 /HPF (02/04/18 7:36 AM) WBC [3.7-10.4 K/CMM] 9.4 K/CMM (02/04/18 5:23 AM) 1Result Comment: The eGFR is calculated using the CKD-EPI formula. In most young, healthy individuals the eGFR will be >90 mL/min/1.73m2. The eGFR declines with age. An eGFR of 60-89 may be normal in some populations, particularly the elderly, for whom the CKD-EPI formula has not been extensively validated. Use of the eGFR is not recommended in the following populations: Individuals with unstable creatinine concentrations, including patients and those with serious co-morbid conditions. Patients with extremes in muscle mass or diet. The data above are obtained from the National Kidney Disease Education Program ( NKDEP) which additionally recommends that when the eGFR is used in patients with extremes of body mass index for purposes of drug dosing, the eGFR should be mul tiplied by the estimated BMI. Immunizations No data available for this section Procedures No data available for this section Social History Social History Type Response Smoking Status Never smoker; Exposure to T obacco Smoke None; Cigarette Smoking Last 365 Days No; Reg Smoking Cessation Counseli ng No entered on: 02/04/18 Assessment and Plan No data available for this section
--- OUTSIDE RECORDS SUMMARY | 2019-07-20 10:16 | XMS REPORT | Summary of Care ---
Author Author [facility] Organization [facility] Address Unknown Phone Unavailable Encounter HQ Sarantr_dontae(FIN) [id number] Date(s): 07/03/19 - 07/03/19 [facility] [address] [place] [address]- Discharge Disposition: Home or Self Care Attending Physician: Ambar Fritz MD Vital Signs No data available for this section Problem List No data available for this section Allergies, Adverse Reactions, Alerts Substance Reaction Severity Status codeine Active penicillin Active Medications No data available for this section Results No data available for this section Immunizations No data available for this section Procedures No data available for this section Social History Social History Type Response Smoking Status Never smoker; Exposure to T obacco Smoke None; Cigarette Smoking Last 365 Days No; Reg Smoking Cessation Counseli ng No entered on: 02/04/18 Assessment and Plan No data available for this section
--- OUTSIDE RECORDS SUMMARY | 2019-07-20 10:16 | XMS REPORT | Clinical Summary ---
Author Author [facility] Organization [facility] Address Unknown Phone Unavailable Care Team Providers Care Costumer Assistant Name Role Phone Junior Pope MD PCP Allergies Comments Active Allergy Reactions Severity Noted Date nausea Codeine Other (See 11/15/2015 Comments) Severe nausea Levofloxacin Other (See 11/15/2015 Comments) Lisinopril Hives 11/15/2015 Methotrexate Anaphylaxis High 11/08/2018 Vaginal itching Vaginal itching Penicillins Other (See 02/11/2016 Comments) Severe nausea Pentazocine Lactate Other (See 11/15/2015 Comments) Medications End Date Status Medication Sig Dispensed Refills Start Date Active omeprazole (PriLOSEC) 20 Take 20 mg by 0 MG capsule mouth daily. Active metFORMIN (GLUCOPHAGE) Take 1,000 mg 0 1000 MG tablet by mouth 2 (two) times a day with meals. Active celecoxib (CeleBREX) 200 Take 200 mg 0 MG capsule by mouth 2 (two) times a day. Active terbinafine HCl (LamiSIL) Take 250 mg 0 250 mg tablet by mouth daily. Active cholecalciferol, vitamin Take 5,000 0 D3, (VITAMIN D3) 5,000 Units by unit capsule mouth daily. Active vitamin E 1000 UNIT Take 1,000 0 capsule Units by mouth daily. Active thyroid, pork, (ARMOUR Take 120 mg 0 THYROID) 120 mg tablet by mouth daily. Active ezetimibe (ZETIA) 10 mg Take 10 mg by 0 tablet mouth daily. Active insulin lispro (HumaLOG) Inject under 0 100 unit/mL injection the skin as needed for high blood sugar. Active predniSONE (DELTASONE) 5 Take 5 mg [...] mouth calcium (1,250 mg) tablet daily. Active naproxen sodium (ALEVE) Take 220 mg 0 220 MG tablet by mouth. Active loratadine (CLARITIN) 10 Take 10 mg by 0 mg tablet mouth. Active loperamide (IMODIUM A-D) Take 2 mg by 0 2 mg tablet mouth. 12/31/2019 Active rosuvastatin (CRESTOR) 10 Take 1 tablet 30 tablet 11 MG tablet (10 mg total) 9 by mouth daily. 12/31/2019 Active atenolol (TENORMIN) 50 MG Take 1 tablet 30 tablet 11 tablet (50 mg total) 9 by mouth daily. 12/31/2018 Discontinued (Formulary [facility]) atenolol (TENORMIN) 25 MG Take 25 mg by 0 tablet mouth daily. 11/19/2018 Discontinued glimepiride (AMARYL) 4 MG Take 4 mg by 0 tablet mouth daily before breakfast. 11/19/2018 Discontinued zolpidem (AMBIEN) 10 mg Take 10 mg by 0 tablet mouth nightly as needed for sleep. 11/19/2018 Discontinued amLODIPine (NORVASC) 10 Take 10 mg by 0 mg tablet mouth daily. 11/19/2018 Discontinued methotrexate 2.5 MG Take 2.5 mg 0 tablet by mouth once a week. Last dose was Sunday 12.7.18 11/19/2018 Discontinued promethazine (PHENERGAN) Take 25 mg by 0 25 MG tablet mouth every 6 (six) hours as needed for nausea or vomiting. 11/15/2018 cephalexin (KEFLEX) 500 Take 1 14 capsule 0 MG capsule capsule (500 9 mg total) by mouth 2 (two) times a day for 7 days. 11/19/2018 Discontinued clonIDINE HCl (CATAPRES) Take 0.5 10 tablet 0 0 0.2 MG tablet tablets (0.1 9 mg total) by mouth daily as needed for high blood pressure for up to 20 days. 12/08/2018 hydrALAZINE (APRESOLINE) Take 1 tablet 30 tablet 0 10 MG tablet (10 mg total) 9 by mouth nightly for 30 days. 11/19/2018 Discontinued ascorbic acid, vitamin C, Take 1,000 mg 0 (VITAMIN C) 1000 MG by mouth. tablet 12/31/2018 Discontinued (Reorder) atenolol (TENORMIN) 50 MG Take 1 tablet 90 tablet 3 tablet (50 mg total) 9 by mouth daily. 12/31/2018 Discontinued (Reorder) rosuvastatin (CRESTOR) 10 Take 1 tablet 90 tablet 3 MG tablet (10 mg total) 9 by mouth daily. 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 Hip fracture 02/04/2018 L periprosthetic hip fx s/p ORIF, RevTHA 02/05/18 Overview: Added automatically from request for jarred watson [id number] Encounters Care Team Description Date Type Specialty 07/01/2019 Travel Yvan Bryant MD Pain of left hip joint (Primary Dx); History of revision of total replacement of left hip joint 02/12/2019 Office Visit Orthopedic Surgery Lis Anaya Left hip pain (Primary Dx) 02/11/2019 Orders Only Orthopedic Surgery Hung Long MD Carotid artery disease, unspecified late rality, unspecified type (HCC) (Primary Dx); Carotid bruit, unspecified laterality; Essential hypertension; PAD (peripheral artery disease) ([facility]) 12/31/2018 Office Visit Cardiology Hung Long MD PAD (peripheral artery disease) ([facility]) (P rimary Dx); Essential hypertension; Bilateral carotid bruits; Aortic valve disorder 11/19/2018 Office Visit Cardiology Gaetano Reid DO LEONARDO (acute kidney injury) ([facility]) (Primary Dx); UTI (urinary tract infection), bacterial; Accelerated hypertension 11/08/2018 Emergency Emergency Medicine after 07/19/2018 Family History Medical History Relation Name Comments Heart attack Father Edgardo Johnson 1989 Heart disease Father Edgardo Johnson Cancer Mother Relation Name Status Comments Father Edgardo Johnson Mother Social History Date Tobacco Use Types Packs/Day Years Used Never Smoker 0 0 Smokeless Tobacco: Never Used Drinks/Week oz/Week Comments Alcohol Use 1 Glasses of wine 1.0 Not Currently Sex Assigned at Date Recorded Not on file Industry Job Start Date Occupation Not on file Not on file Not on file Travel End Travel History Travel Start No recent travel history available. Date Recorded COVID-19 Exposure Response 07/01/2019 10:45 AM CDT In the last month, have you been in contact with No / Unsure someone who was confirmed or suspected to have Coronavirus / COVID-19? Last Filed Vital Signs Reading Time Taken Comments Vital Sign 180/76 12/31/2018 1:53 PM REGISTRY RN Blood Pressure 70 12/31/2018 1:53 PM REGISTRY RN Pulse 36.7 C (98 F) 11/08/2018 10:06 AM CDT Temperature 16 11/08/2018 1:30 PM CDT Respiratory Rate 97% 11/08/2018 1:30 PM CDT Oxygen Saturation - - Inhaled Oxygen Concentration 62.6 kg (138 lb) 02/12/2019 2:16 PM REGISTRY RN Weight 162.6 cm (5' 4") 02/12/2019 2:16 PM REGISTRY RN Height 23.69 02/12/2019 2:16 PM REGISTRY RN Body Mass Index Plan of Treatment Care Team Description Date Type Specialty Hung Long MD [address] [address] 08/12/2019 Office Visit Cardiology Health Maintenance Due Date Last Done Comments SHINGLES VACCINES (#1) 09/26/1989 65+ PNEUMOCOCCAL VACCINE 09/26/2004 (1 of 2 - PCV13) INFLUENZA VACCINE 2019 Implants Device Identifier Shelf Expiration Date Model / Serial / L ot Implanted Type Area Manufactur er 10/04/2027 [id number] / / [id number] Filters Assembler Troch 8 Cbl Sm 185mm Accord - Hip Joint Left: Hip GUTIERREZ AND [id number] Implants NEPHEW Implanted: Qty: 1 on 02/05/2018 by ORTHOPEDIC Yvan Bryant MD at [facility] 08/16/2027 [id number] / / [id number] Cable Co-Cr 2mm Accord - [id number] Hip Joint Left: Hip GUTIERREZ AND Implanted: Qty: 1 on 02/05/2018 by Implants Yvan Resendiz MD at [facility] 08/16/2027 [id number] / / [id number] Cable Co-Cr 2mm Accord - [id number] Hip Joint Left: Hip GUTIERREZ AND Implanted: Qty: 1 on 02/05/2018 by Implants Yvan Resendiz MD at [facility] 09/16/2027 [id number] / / [id number] Cable Co-Cr 2mm Accord - [id number] Hip Joint Left: Hip GUTIERREZ AND Implanted: Qty: 1 on 02/05/2018 by Implants Yvan Resendiz MD at [facility] 09/16/2027 [id number] / / [id number] Cable Co-Cr 2mm Accord - [id number] Hip Joint Left: Hip GUTIERREZ AND Implanted: Qty: 1 on 02/05/2018 by Implants Yvan Resendiz MD at [facility] 11/24/2027 [id number] / / [id number] Head Fml 02/08 Tprd 36mm -3mm Hip Joint Left: Hip GUTIERREZ AND Oxinium - [id number] Implants NEPHEW Implanted: 02/05/2018 at [facility] (Quantity not on file) 10/07/2026 [id number] / / [id number] Redapt Slvls Stem 240mm 17so - IPM Left: Hip GUTIERREZ & [id number] IMPLANT NEPHEW Implanted: Qty: 1 on 02/05/2018 by DEVICES Yvan Murphy MD at [facility] 05/24/2027 [id number] / / [id number] Cable W/ Clmp Co-Cr 2mm Accord - Orthopedic Left: Hip GUTIERREZ AND [id number] Trauma NEPHEW Implanted: Qty: 1 on 02/05/2018 by Implants Yvan Og MD at [facility] 07/06/2027 [id number] / / [id number] Cable W/ Clmp Co-Cr 2mm Accord - Orthopedic Left: Hip GUTIERREZ AND [id number] Trauma NEPHEW Implanted: Qty: 1 on 02/05/2018 by Implants ORT Yvan Patricia MD at [facility] 11/20/2027 [id number] / / [id number] Cable W/ Clmp Co-Cr 2mm Accord - Orthopedic Left: Hip GUTIERREZ AND [id number] Trauma NEPHEW Implanted: Qty: 1 on 02/05/2018 by Implants ORT Yvan Patricia MD at [facility] 09/26/2020 [id number] / / [id number] Tourni-Cot Large Tourniquet MAR-MED Implanted: Qty: 1 on 03/01/2018 by Elsie Oneal MD at [facility] Procedures Comments Procedure Name Priority Date/Time Associated Diag nosis US CAROTID DUPLEX Routine 07/01/2019 Carotid esperanza ry disease, BILATERAL 12:15 PM CDT unspecified lateral ity, unspecified type (HCC) Carotid bruit, unspecified laterality XR HIP 2-3 VIEWS LEFT Routine 02/12/2019 Left hip pain 2:25 PM REGISTRY RN US CAROTID DUPLEX Routine 12/24/2018 PAD (periphe ral artery BILATERAL 2:51 PM CDT disease) ([facility]) Bilateral carotid bruits Aortic valve disorder NM MYOCARDIAL PERFUSION Routine 12/11/2018 PAD (p eripheral artery REST STRESS 1 DAY 2:28 PM CDT disease) ([facility]) Bilateral carotid bruits Aortic valve disorder CV STRESS TEST NUCLEAR Routine 12/11/2018 PAD (pe ripheral artery CARDIO 2:28 PM CDT disease) ([facility]) Bilateral carotid bruits Aortic valve disorder TTE COMPLETE, WO Routine 12/09/2018 PAD (peripher al artery CONTRAST, W DOPPLER 1:35 PM CDT disease) ([facility]) ([id number]) Bilateral carotid bruits Aortic valve disorder ECG ED PRELIMINARY Routine 11/08/2018 INTERPRETATION 11:58 AM CDT ESTIMATED GFR STAT 11/08/2018 10:53 AM CDT TROPONIN, I-STAT STAT 11/08/2018 10:53 AM CDT CREATINE KINASE, TOTAL STAT 11/08/2018 (CPK) 10:53 AM CDT COMPREHENSIVE METABOLIC STAT 11/08/2018 PANEL 10:53 AM CDT HC COMPLETE BLD COUNT STAT 11/08/2018 W/AUTO DIFF 10:53 AM CDT URINALYSIS STAT 11/08/2018 10:37 AM CDT after 07/19/2018 Results * Us carotid duplex (07/01/2019 12:15 PM CDT) Only the most recent of 2 results within the time period is included. Specimen Narrative Performed At [facility] Carotid [place] ry Ultrasound Report Pat.Name: DEBORAH MAE at.ID: [id number] .Date: 07/01/2019 Refer.MD: HUNG LONG MD Exam Time: 11:13:00 AM Study Type:Carotid Age: 8 1940,78Y Sex: FEMALE Sonogrphr: Naya Villarreal RVT Pat. Stat.:Outpatient Room: [facility] Vol: SD, CPT - 4: 27767 Echo Event ID:[id number] Order ID: [id number] Reason for Study:Follow up study, Hx of carotid artery disease, Aortic valve disorder, HTN SUMMARY: CAROTID ARTERY SCAN RIGHT: There is scattered plaque in t he common carotid artery. There is hard and calcified plaque noted in the bulb extending into the proximal internal and external carotid artery. Colorflow is minimally disturbed. There is antegrade flow i n the vertebral artery. LEFT: There is scattered plaque in the common carotid artery. There is hard and calcified plaque no edgar in the bulb extending into the proximal internal and external rob tid artery. Colorflow is disturbed with elevated velocities. T here is antegrade flow in the vertebral artery. PRELIMINARY FINDINGS 1. <50% stenosis in the right bulb/in ternal carotid artery 2. 50-69% stenosis in the left bulb/int ernal carotid artery. 3. >50% stenosis in the left external c arotid artery. 4. There is antegrade flow in the verte bral artery, bilaterally PHYSICIAN INTERPRETATION Bilateral carotid duplex examination de monstrated atherosclerotic plaques in the bulbs. Less than 50% stenosis in the bulb and the internal carotid artery, right. 50-69% stenosis in the left proximal in ternal carotid artery. >50% stenosis in the left external rob tid artery. Both vertebral arteries are antegrade. FINDINGS: Carotid Findings: Right Left Verteb.Flw Antegrade Antegrade Subclavian Triphasic Biphasic MEASUREMENTS: DOPPLER Right CCA Dist CCA Dist PSV 58.8 cm/s CCA Dist EDV 9.28 cm/s Right CCA Mid CCA Mid PSV 66.5 cm/s CCA Mid EDV 9.28 cm/s Right CCA Prox CCA Prox PSV 78.9 cm/s CCA Prox EDV 9.28 cm/s Right Bulb Bulb PSV 99 cm/s Bulb EDV 12.4 cm/s Right ECA ECA PSV 120 cm/s ECA EDV 7.39 cm/s Right ICA Dist ICA Dist PSV 71.9 cm/s ICA Dist EDV 17.1 cm/s Right ICA Mid ICA Mid PSV 99.8 cm/s ICA Mid EDV 18.5 cm/s ICA Prox ICA Prox PSV 120 cm/s ICA Prox EDV 17 cm/s Right Vertebral Vertebral PSV 70.2 cm/s Vertebral EDV 10.3 cm/s Left CCA Dist CCA Dist PSV 74.5 cm/s CCA Dist EDV 12.1 cm/s Left CCA Prox CCA Prox PSV 116 cm/s CCA Prox EDV 9.24 cm/s Left ECA ECA PSV 194 cm/s ECA EDV 9.23 cm/s Left ICA Dist ICA Dist PSV 118 cm/s ICA Dist EDV 18.5 cm/s Left ICA Mid ICA Mid PSV 115 cm/s ICA Mid EDV 18.5 cm/s Left ICA Prox ICA Prox PSV 161 cm/s ICA Prox EDV 20.8 cm/s Left Vertebral Vertebral PSV 61.2 cm/s Vertebral EDV 13.1 cm/s Left SCA Prox SCA Prox PSV 140 cm/s SCA Prox EDV 0 cm/s Left CCA Mid CCA Mid PSV 77 cm/s CCA Mid EDV 11 cm/s Left Bulb Bulb PSV 113 cm/s Bulb EDV 16 cm/s Right ECA Prox ECA Prox PSV 120 cm/s ECA Prox EDV 7 cm/s Left ECA Prox ECA Prox PSV 194 cm/s ECA Prox EDV 9 cm/s Right SCA Prox SCA Prox PSV 103 cm/s SCA Prox EDV 0 cm/s ICA/CCA Ratio ICA/CCA PSV 1.8 Left ICA/CCA Ratio ICA/CCA PSV 2.09 Signed 07/02/2019 10:21 PM Hung Long MD Procedure Note Interface, Radiology Results In - 07/02/2019 10:22 PM CDT [facility] Carotid Artery Ultrasound Report Pat.Name: DEBORAH MAE Pat.ID: [id number] .Date: 07/01/2019 Refer.MD: HUNG LONG MD Exam Time: 11:13:00 AM Study Type:Carotid Age: 8 1940,78Y Sex: FEMALE Sonogrphr: Naya Villarreal RVT Pat. Stat.:Outpatient Room: [facility] Vol: SD, CPT - 4: 83876 Echo Event ID:[id number] Order ID: [id number] Reason for Study:Follow up study, Hx of carotid artery disease, Aortic valve disorder, HTN SUMMARY: CAROTID ARTERY SCAN RIGHT: There is scattered plaque in the common carotid artery. There is hard and calcified plaque noted in the bulb extending into the proximal internal and external carotid artery. Colorflow is minimally disturbed. There is antegrade flow in the vertebral artery. LEFT: There is scattered plaque in the common carotid artery. There is hard and calcified plaque noted in the bulb extending into the proximal internal and external carotid artery. Colorflow is disturbed with elevated velocities. There is antegrade flow in the vertebral artery. PRELIMINARY FINDINGS 1. <50% stenosis in the right bulb/inte rnal carotid artery 2. 50-69% stenosis in the left bulb/inte rnal carotid artery. 3. >50% stenosis in the left external ca rotid artery. 4. There is antegrade flow in the verteb ral artery, bilaterally PHYSICIAN INTERPRETATION Bilateral carotid duplex examination demonstrated atherosclerotic plaques in the bulbs. Less than 50% stenosis in the bulb and the internal carotid artery, right. 50-69% stenosis in the left proximal int ernal carotid artery. >50% stenosis in the left external carotid artery. Both vertebral arteries are antegrade. FINDINGS: Carotid Findings: Right Left Verteb.Flw Antegrade Antegrade Subclavian Triphasic Biphasic MEASUREMENTS: DOPPLER Right CCA Dist CCA Dist PSV 58.8 cm/s CCA Dist EDV 9.28 cm/s Right CCA Mid CCA Mid PSV 66.5 cm/s CCA Mid EDV 9.28 cm/s Right CCA Prox CCA Prox PSV 78.9 cm/s CCA Prox EDV 9.28 cm/s Right Bulb Bulb PSV 99 cm/s Bulb EDV 12.4 cm/s Right ECA ECA PSV 120 cm/s ECA EDV 7.39 cm/s Right ICA Dist ICA Dist PSV 71.9 cm/s ICA Dist EDV 17.1 cm/s Right ICA Mid ICA Mid PSV 99.8 cm/s ICA Mid EDV 18.5 cm/s ICA Prox ICA Prox PSV 120 cm/s ICA Prox EDV 17 cm/s Right Vertebral Vertebral PSV 70.2 cm/s Vertebral EDV 10.3 cm/s Left CCA Dist CCA Dist PSV 74.5 cm/s CCA Dist EDV 12.1 cm/s Left CCA Prox CCA Prox PSV 116 cm/s CCA Prox EDV 9.24 cm/s Left ECA ECA PSV 194 cm/s ECA EDV 9.23 cm/s Left ICA Dist ICA Dist PSV 118 cm/s ICA Dist EDV 18.5 cm/s Left ICA Mid ICA Mid PSV 115 cm/s ICA Mid EDV 18.5 cm/s Left ICA Prox ICA Prox PSV 161 cm/s ICA Prox EDV 20.8 cm/s Left Vertebral Vertebral PSV 61.2 cm/s Vertebral EDV 13.1 cm/s Left SCA Prox SCA Prox PSV 140 cm/s SCA Prox EDV 0 cm/s Left CCA Mid CCA Mid PSV 77 cm/s CCA Mid EDV 11 cm/s Left Bulb Bulb PSV 113 cm/s Bulb EDV 16 cm/s Right ECA Prox ECA Prox PSV 120 cm/s ECA Prox EDV 7 cm/s Left ECA Prox ECA Prox PSV 194 cm/s ECA Prox EDV 9 cm/s Right SCA Prox SCA Prox PSV 103 cm/s SCA Prox EDV 0 cm/s ICA/CCA Ratio ICA/CCA PSV 1.8 Left ICA/CCA Ratio ICA/CCA PSV 2.09 Signed 07/02/2019 10:21 PM Hung Long MD Performing Organization Address City/State/Zipcode Ph one Number [facility] [address] [place] [address] * XR Hip 2-3 View Left (02/12/2019 2:25 PM REGISTRY RN) Specimen Narrative Performed At [facility] Hip radiographs demonstrate a complex r evision hip arthroplasty. There is broken cerclage wire proximally. All im plant components are stable. Performing Organization Address [facility] Ph one Number [facility] [address] [place] [address] * Cv stress test (12/11/2018 2:28 PM CDT) Resting HR 59 [facility] Resting BP 148 [facility] Peak MET 1.0 [facility] Achieved Protocol Name LexiScan H MUSE Time in 00:01:00 [facility]USE Exercise Phase Max Systolic BP 148 [facility] Max Diastolic 89 [facility] BP Max Heart Rate 96 [facility] Max Predicted 141 [facility] Heart Rate Target HR (220 - Age)*85% [facility] Formula Test Indication PAD [facility] Arrhy During Ex [facility] ECG Interp [facility] Before EX ECG Interp [facility] During Ex Ex Summary [facility] MUSE Comment Chest Pain none [facility] MUSE Statement Overall HR [facility] MUSE Response to Exercise Overall BP [facility] MUSE Response To Exercise Reason for As per Lexiscan protocol [facility] MUSE Termination Stress Test Waveform interpreted in report [facility] MU SE Impression associated with image study . No interpretation is provided as part of this Stress ECG report.-- Specimen Narrative Performed At This result has an attachment that is n ot available. Performing Organization Address [facility] one Number [facility] MUSE [address] [place] [address] * Nm myocardial perfusion (12/11/2018 2:28 PM CDT) Target HR 141.00 bpm [facility] Specimen Narrative Performed At [facility] Nuclear Cardi ology and Cardiac CT [address] [address] Myocardial Pe rfusion Imaging Report Stress ECG tracings are availab le in MUSE, EPIC and CV Web All ECG interpretations a re included in this report Pat.Name: TAMMIE DEBORAHJONNATHAN Lawson at.ID: [id number] .Date: 12/10/2018 Refer.MD: HUNG LONG MD Exam Time: 7:46:00 AM Study Type:Myocardial Perfusion Imaging Height: 64in Weight: 141.7lb BSA: 1.69 m2 Age: 8 1940,78Y Sex: FEMALE Nuclear Tech:Jarrett GuerreroMARIEL Nuclear Event ID:[id number] Order ID: [id number] Reason for Study:Aortic valve disorders Procedures: Single Day Rest / Stress Race: C Clinical Symptoms:Regadenoson SUMMARY: BASELINE ECG Normal Sinus Rhythm STRESS TEST RESULTS Maximal Predicted HR 141 beats/minute 85% Maximal Predicted HR 120 beats/minute Stress Test Duration 1 minutes 00 sec onds Resting Heart Rate 57 beats/minute Ma ximal Heart Rate 96 beats/minute Resting Blood Pressure 148/89 mmHg Ma ximal Blood Pressure 148/89 mmHg % Maximal Heart Rate Achieved 68% Symptoms During Test Headache, Dyspne a, Dizziness Reason for Stopping Test As per regad enoson protocol Maximal ST-segment shift None Stress-Induced Arrhythmias None Ischemic electrocardiographic changes ( ST-segment depression) did not occur at peak regadenoson stress. _. STRESS TEST INTERPRETATION Normal maxim al regadenoson stress test. _. SCINTIGRAPHIC RESULTS Perfusion Defect Size (% LV) 0 % Total 0 % Ischemia 0 % Scar Left Ventricular Perfusion Results There is normal tracer distribution dur ing stress and rest. Gated SPECT Results The post-stress left ventricular ejecti on fraction is 71 % with normal regional wall motion and left ventricul ar thickening. Left ventricular end-diastolic volume is 70 ml; end-systolic volume is 20 ml. The left ventricle is of normal siz e at stress and at rest. The right ventricle is of normal size with normal wall motion. Conclusion Normal regadenoson Tc-99m tetrofosmin m yocardial perfusion study. The left ventricular ejection fraction is n ormal. Comments Patients with a normal stress myocardia l perfusion study have a low (< 1%) annual risk of cardiac or non fatal myocardial infarction. Study Quality/Artifacts The study quality is good. Comparison to Previous Study None available. FINDINGS: Signed 12/11/2018 11:17 AM Junior Gleason MD Procedure Note Interface, Radiology Results In - 12/11/2018 11:17 AM CDT Nuclear Cardiology and Cardiac CT [address] [place] [address] Myocardial Perfusion Imaging Report Stress ECG tracings are available in [employer], [employer] and [employer] All ECG interpretations are included in this report Pat.Name: DEBORAH MAE Pat.ID: [id number] St.Date: 12/10/2018 Refer.MD: HUNG LONG MD Exam Time: 7:46:00 AM Study Type:Myocardial Perfusion Imaging Height: 64in Weight: 141.7lb BSA: 1.69 m2 Age: 8 1940,78Y Sex: FEMALE Nuclear Tech:Jarrett Yolanda NHBree Nuclear Event ID:[id number] Order ID: [id number] Reason for Study:Aortic valve disorders Procedures: Single Day Rest / Stress Race: C Clinical Symptoms:Regadenoson SUMMARY: BASELINE ECG Normal Sinus Rhythm STRESS TEST RESULTS Maximal Predicted HR 141 beats/minute 85% Maximal Predicted HR 120 beats/minute Stress Test Duration 1 minutes 00 seconds Resting Heart Rate 57 beats/minute Maximal Heart Rate 96 beats/minute Resting Blood Pressure 148/89 mmHg Maximal Blood Pressure 148/89 mmHg % Maximal Heart Rate Achieved 68% Symptoms During Test Headache, Dyspnea, Dizziness Reason for Stopping Test As per regadenoson protocol Maximal ST-segment shift None Stress-Induced Arrhythmias None Ischemic electrocardiographic changes (ST-segment depression) did not occur at peak regadenoson stress. _. STRESS TEST INTERPRETATION Normal maximal regadenoson stress test. _. SCINTIGRAPHIC RESULTS Perfusion Defect Size (% LV) 0 % Total 0 % Ischemia 0 % Scar Left Ventricular Perfusion Results There is normal tracer distribution during stress and rest. Gated SPECT Results The post-stress left ventricular ejection fraction is 71 % with normal regional wall motion and left ventricular thickening. Left ventricular end-diastolic volume is 70 ml; end-systolic volume is 20 ml. The left ventricle is of normal size at stress and at rest. The right ventricle is of normal size with normal wall motion. Conclusion Normal regadenoson Tc-99m tetrofosmin myocardial perfusion study. The left ventricular ejection fraction is normal. Comments Patients with a normal stress myocardial perfusion study have a low (< 1%) annual risk of cardiac or nonf atal myocardial infarction. Study Quality/Artifacts The study quality is good. Comparison to Previous Study None available. FINDINGS: Signed 12/11/2018 11:17 AM Junior Gleason MD Performing Organization Address City/State/Zipcode [facility] Number [facility] [address] [place] [address] * Echocardiogram complete w contrast and 3D if needed (12/09/2018 1:35 PM CDT) Specimen Narrative Performed At [facility] Echo cardiography Report Pat.Name: DEBORAH MAE at.ID: [id number] .Date: 12/09/2018 Refer.MD: HUNG LONG MD Exam Time: 11:11:00 AM Study Type:Routine Echo Height: 64in Weight: 142lb BSA: 1.69 m2 Age: 8 1940,78Y Sex: FEMALE BP: 172/72 HR: 73 bpm Sonogrphr: TIAN Lee FASE Pat. Stat.:Outpatient Room: [facility] Study Status:Final Echo Event ID:[id number] Order ID: [id number] Reason for Study:Aortic valve disorder Procedures: 2D Echo, Colorflow Doppler, Strain Race: C SUMMARY: Findings consistent with HFpEF. Clinica l correlation recommended. FINDINGS: LV: LV size is normal. Concent maggie left ventricular remodeling. LV EF is normal. Overal l wall motion is normal. LV GLS is mildly impaired at -15. 9%. Estimated EF is 65-69% RV: RV size is normal. RV syst olic function is normal. LA: LA volume is moderately en larged. RA: RA size is normal. AO: Aortic root diameter is no rmal. HITESH: No pericardial effusion. AV: Mild thickening and calcif ication of AV leaflets. MV: Focal calcification of harshad ral leaflets. Calcified papillary muscle. PV: No structural PV abnormali ties noted. TV: No structural TV abnormali ties noted. Mild tricuspid regurgitation [place]: Diastolic dysfunction Grade II (Moderate): Impaired relaxation with elevate d LV filling pressures. Other: Estimated PA systolic press ure is 48-53 mmHg, assuming a mean RAP of 5-10 mmHg. MEASUREMENTS: 2D Parasternal [place] Ao Rtd 3 cm Index 1.8 cm/m2 LVPWd 1.1 cm IVSd 1.1 cm LA Ds 3.9 cm LVIDd 3.7 cm Index 2.2 cm/m2 RWT 0.6 LVIDs 2.2 cm LV Mass 135.1 g (87-129) LV%fs 42.1 % LVM Index 80 g/m LA Sng Plane LA Area 23.8 cm (8.8-23 .4) LA Vol 78 ml Index 46.2 ml/m2 LA LngAx 5.8 cm Signed 12/09/2018 04:35 PM Neto Correia M.D. Procedure Note Interface, Radiology Results In - 12/09/2018 4:36 PM CDT [facility] Echocardiography Report Pat.Name: DEBORAH MAE Pat.ID: [id number] St.Date: 12/09/2018 Refer.MD: HUNG LONG MD Exam Time: 11:11:00 AM Study Type:Routine Echo Height: 64in Weight: 142lb BSA: 1.69 m2 Age: 8 1940,78Y Sex: FEMALE BP: 172/72 HR: 73 bpm Sonogrphr: TIAN Lee FASE Pat. Stat.:Outpatient Room: [place] Study Status:Final Echo Event ID:[id number] Order ID: [id number] Reason for Study:Aortic valve disorder Procedures: 2D Echo, Colorflow Doppler, Strain Race: C SUMMARY: Findings consistent with HFpEF. Clinical correlation recommended. FINDINGS: LV: LV size is normal. Concentric left ventricular remodeling. LV EF is normal. Overall wall motion is normal. LV GLS is mildly impaired at -15.9%. Estimated EF is 65-69% RV: RV size is normal. RV systolic function is normal. LA: LA volume is moderately enlarged. RA: RA size is normal. AO: Aortic root diameter is normal. HITESH: No pericardial effusion. AV: Mild thickening and calcification of AV leaflets. MV: Focal calcification of mitral leaflets. Calcified papillary muscle. PV: No structural PV abnormalities noted. TV: No structural TV abnormalities noted. Mild tricuspid regurgitation [place]: Diastolic dysfunction Grade II (Moderate): Impaired relaxation with elevated LV filling pressures. Other: Estimated PA systolic pressure is 48-53 mmHg, assuming a mean RAP of 5-10 mmHg. MEASUREMENTS: 2D Parasternal [place] Ao Rtd 3 cm Index 1.8 cm/m2 LVPWd 1.1 cm IVSd 1.1 cm LA Ds 3.9 cm LVIDd 3.7 cm Index 2.2 cm/m2 RWT 0.6 LVIDs 2.2 cm LV Mass 135.1 g (87-129) LV%fs 42.1 % LVM Index 80 g/m LA Sng Plane LA Area 23.8 cm (8.8-23.4) LA Vol 78 ml Index 46.2 ml/m2 LA LngAx 5.8 cm Signed 12/09/2018 04:35 PM Neto Correia M.D. 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: yes Interpretation: Interpretation: normal Rate: ECG rate assessment: normal Rhythm: Rhythm: sinus rhythm Ectopy: Ectopy: none QRS: QRS axis: Normal Conduction: Conduction: normal ST segments: ST segments: Normal T waves: T waves: normal * Estimated GFR (11/08/2018 10:53 AM CDT) [facility] Estimated GFR 30 (A) mL/min/1.73 m2 [place] Comment: [place] Catergory Units [place] Interpretation EMERGENCY CARE G1 >=90 CENTER Normal or high G2 60-89 Mildly decreased G3a 45-59 Mildly to moderately decreased G3b 30-44 Moderately to severely decreased G4 15-29 Severely decreased G5 <15 Kidney failure The eGFR was calculated using the Chronic Kidney Disease Epidemiology Collaboration (CKD-EPI) equation. Interpretation is based on recommendations of the National Kidney Foundation-Kidney Disease Outcomes Quality Initiative (NKF-KDOQI) published in 2014. Specimen Plasma specimen Performing Organization Address City/[facility] [place] [address] PATHOLOGY AND GENOMIC MEDICINE[address] * Troponin, I-Stat (11/08/2018 10:53 AM CDT) [facility] Troponin, 0.01 0.00 - 0.08 ng/mL [place] I-Stat Comment: [place] 0.09 - 1.49 ng/ml [place] May indicate increased risk EMERGENCY CARE of acute CENTER coronary syndrome. >=1.5 ng/ml Consistent with acute myocardial infarction. The diagnostic value of a single normal or non-diagnostic result is questionable. Serial samples at 2-6 hour intervals are required to rule out acute myocardial injury. Specimen Plasma specimen Performing Organization Address City/[facility] [place] [address] PATHOLOGY AND GENOMIC MEDICINE[address] * CBC with platelet and differential (11/08/2018 10:53 AM CDT) [facility] WBC 11.50 (H) 4.50 - 11.00 k/uL [facility] RBC 3.94 (L) 4.20 - 5.50 m/uL [facility] HGB 11.6 (L) 12.0 - 16.0 g/dL [facility] HCT 36.3 (L) 37.0 - 47.0 % [facility] MCV 92.1 82.0 - 100.0 fL [facility] MCH 29.4 27.0 - 34.0 pg [facility] MCHC 32.0 31.0 - 37.0 g/dL [facility] RDW - SD 46.4 37.0 - 55.0 fL [facility] MPV 10.2 8.8 - 13.2 fL [facility] Platelet count 247 150 - 400 k/uL [facility] Neutrophils 89.8 (H) 39.0 - 69.0 % [facility] Lymphocytes 4.5 (L) 25.0 - 45.0 % [facility] Monocytes 4.6 0.0 - 10.0 % [facility] Eosinophils 0.8 0.0 - 5.0 % [facility] Basophils 0.3 0.0 - 1.0 % [facility] Specimen Blood Performing Organization Address City/[facility] [place] [address] PATHOLOGY AND GENOMIC MEDICINE[address] * Creatine kinase, total (CPK) (11/08/2018 10:53 AM CDT) Pathologist [facility] Creatine kinase 126 30 - 190 U/L [facility] Specimen Plasma specimen Performing Organization Address City/[facility] [place] [address] PATHOLOGY AND GENOMIC MEDICINE, [address] * Comprehensive metabolic panel (11/08/2018 10:53 AM CDT) Sodium 138 128 - 145 mEq/L [facility] Potassium 4.4 3.6 - 5.1 mEq/L [facility] CO2 27 18 - 33 mEq/L [facility] Chloride 100 98 - 108 mEq/L [facility] Glucose 167 (H) 73 - 118 mg/dL [facility] Calcium 9.5 8.0 - 10.3 mg/dL [facility] BUN 34 (H) 7 - 22 mg/dL [facility] Creatinine 1.6 (H) 0.5 - 0.9 mg/dL [facility] Alkaline 97 42 - 141 U/L [place] phosphatase [facility] ALT 44 10 - 47 U/L [facility] AST 39 (H) 11 - 38 U/L [facility] Total bilirubin 0.8 0.2 - 1.6 mg/dL [facility] Albumin 4.2 3.3 - 5.5 g/dL [facility] Protein 7.7 6.4 - 8.1 g/dL [facility] Anion gap 11@ANIO 7 - 15 mEq/L [facility] A/G ratio 1.2 0.7 - 3.8 [facility] Specimen Plasma specimen Performing Organization Address City/State/[facility] Ph one Number DEPARTMENT OF [address] [place] [address] PATHOLOGY AND GENOMIC MEDICINE, [address] * Urinalysis (11/08/2018 10:37 AM CDT) Glucose, UA Negative Negative [facility] Bilirubin, UA Negative Negative [facility] Ketones, UA Negative Negative [facility] Specific 1.010 1.001 - 1.035 [place] gravity, UA [facility] Blood, UA Trace (A) Negative [facility] pH, UA 7.0 5.0 - 8.5 [facility] Protein, UA 2+ (A) Negative [facility] Urobilinogen, <2.0 <2.0 [facility] Nitrite, UA Negative Negative [facility] Leukocyte Small (A) Negative [place] esterase, UA [facility] Color, UA Yellow [facility] Appearance, UA Clear [facility] Specimen Urine Performing Organization Address City/State/Zipcode [place] [address] PATHOLOGY AND GENOMIC MEDICINE, [address] after 07/19/2018 Insurance Type Payer Benefit Subscriber ID Effective Phone Address Plan / Dates Group PPO [facility] xxxxxxxxx [id number] MEDICARE resent PPO Surgery Advance Directives For more information, please contact: [phone] Patient Medical Authorization Specialist Explanation Type Date Recorded Advance Directives, 11/15/2015 10:25 AM Living Will and Medical Power of Executive Coordinator
--- OUTSIDE RECORDS SUMMARY | 2019-07-20 10:16 | XMS REPORT | Summary of Care ---
Author Author [facility] Organization [facility] Address Unknown Phone Unavailable Encounter HQ Geeta_dontae(FIN) [id number] Date(s): 03/26/17 - 03/26/17 [facility] [address] [place] [address]- [phone] Encounter Diagnosis Pain in left hand (Final) - 03/28/17 Pain in right hand (Final) - Pain in left knee (Final) - Primary osteoarthritis, left hand (Final) - Discharge Disposition: Home or Self Care Attending [...] data available for this section Social History No data available for this section Assessment and Plan No data available for this section
--- OUTSIDE RECORDS SUMMARY | 2019-07-20 10:16 | XMS REPORT | Summary of Care ---
Author Author [facility] Organization [facility] Address Unknown Phone Unavailable Encounter HQ Sarantr_dontae(FIN) [id number] Date(s): 03/21/19 - 03/21/19 [facility] [address] [place] [address]- [phone] Discharge Disposition: Home or Self Care Attending [...]
--- OUTSIDE RECORDS SUMMARY | 2019-07-20 10:16 | XMS REPORT | Continuity of Care Document ---
Author Author Danelle Luis Moozey ANTONIO Alston [employer] Address Unknown Phone Unavailable Care Team Providers Care Meeting/Event Planner Name Role Phone [employer] Unavailable Un available Problems Problem Status Onset Date Classification Date Reported Comments Source XRAY Active 07/03/2019 [facility] M25.562/M25.561 Active 03/21/2019 [facility] Periprosthetic fracture around internal prosthetic left hip joint, initial encounter 02/12/2018 08/24/2018 [facility] FALL Active 02/04/2018 [facility] Pain in left hand 03/29/2017 07/02/2017 [facility] M79.642 M79.641 M25.562 Acti ve 02/26/2017 [facility] Pain in right hand 07/02/2017 [facility] Pain in left knee 07/02/2017 [facility] Primary osteoarthritis, left hand 07/02/2017 [facility] Crushing injury of right ring finger, initial encounte r 08/24/2018 [facility] Unspecified open wound of right ring fin [place] with damage to nail, initial encounter 08/24/2018 [facility] Presence of left artificial hip joint 08/24/2018 [facility] Fall on same level from slipping, trippi ng and stumbling without subsequent striking against object, initial encounter 08/24/2018 [facility] Caught, crushed, jammed, or pinched betw een moving objects, initial encounter 08/24/2018 [facility] Essential (primary) hypertension 08/24/2018 [facility] Personal history of malignant neoplasm of breast 08/24/2018 [facility] Medications Medication Details Route Status Patient Instructions Ordering Provider Order Date Source Clindamycin 600 mg, 50 mL, Rou te: IVPB, Drug form: INJ, ONCE, Dosing Weight 77.273, kg, Priority: STAT, Start date: 02/04/18 9:39:00 COMPLIANCE VICE PRESIDENT, Stop date: 02/04/18 9:39:00 COMPLIANCE VICE PRESIDENT, ABX Indication: Surgical Prophylaxis Inactive 02/04/2018 [facility] Morphine 4 mg, Route: IVP, ONC E, Dosing Weight 77.273, kg, Priority: STAT, Start date: 02/04/18 7:49:00 COMPLIANCE VICE PRESIDENT, Stop date: 02/04/18 7:49:00 COMPLIANCE VICE PRESIDENT Inactive 02/04/2018 [facility] Ondansetron 4 mg, Route: IVP, Drug form: INJ, ONCE, Dosing Weight 77.273, kg, Priority: STAT, Start date: 02/04/18 5:14:00 COMPLIANCE VICE PRESIDENT, Stop date: 02/04/18 5:14:00 COMPLIANCE VICE PRESIDENT Inactive 02/04/2018 [facility] Morphine 2 mg, Route: IVP, ONC E, Dosing Weight 77.273, kg, Priority: STAT, Start date: 02/04/18 5:14:00 COMPLIANCE VICE PRESIDENT, Stop date: 02/04/18 5:14:00 COMPLIANCE VICE PRESIDENT Inactive 02/04/2018 [facility] Allergies, Adverse Reactions, Alerts Substance Category Reaction Severity Reaction type Status Date Reported Comments Source codeine Assertion Drug allergy Active [facility] penicillin Assertion Drug allergy Active [facility] Immunizations No Data Provided for This Section Results Order Name Results Value Reference Range Date Interpretation Comments Source CHEM PANEL Lactic Acid Lvl 2.3 0.5 - 2.2 02/04/2018 [facility] URINE AND STOOL UA pH 7.0 5.0 - 8.0 02/04/2018 [facility] URINE AND STOOL UA Urobilinogen <=1.0 mg/dL 0.1 - 1.0 02/04/2018 [facility] URINE AND STOOL UA Blood Small *ABN* (02/04/18 7:36 AM) Negative 02/04/2018 [facility] URINE AND STOOL UA Bili Negative *NA* (02/04/18 7:36 AM) Negative 02/04/2018 [facility] URINE AND STOOL UA Ketones Negative *NA* (02/04/18 7:36 AM) Negative 02/04/2018 [facility] URINE AND STOOL UA Protein 30 mg/dL Negative mg/dL 02/04/2018 [facility] URINE AND STOOL UA Glucose 50 mg/dL Negative mg/dL 02/04/2018 [facility] URINE AND STOOL UA WBC 3 0 - 5 02/04/2018 [facility] URINE AND STOOL UA Sq Epi Occasional /LPF Few /LPF 02/04/2018 [facility] URINE AND STOOL UA Nitrite Negative (02/04/18 7:36 AM) Negative 02/04/2018 [facility] URINE AND STOOL UA Leuk Est Negative (02/04/18 7:36 AM) Negative 02/04/2018 [facility] URINE AND STOOL UA Bacteria Occasional /HPF None Seen /HPF 02/04/2018 [facility] URINE AND STOOL UA RBC 4 0 - 2 02/04/2018 [facility] URINE AND STOOL UA Turbidity Clear (02/04/18 7:36 AM) Clear 02/04/2018 [facility] URINE AND STOOL UA Spec Grav 1.011 <=1.030 02/04/2018 [facility] URINE AND STOOL UA Color Ltyellow 02/04/2018 [facility] CARDIAC ENZYMES BNP 37 <=100 pg/mL 02/04/2018 [facility] CARDIAC ENZYMES Troponin-I <0.02 0.00 - 0.40 02/04/2018 [facility] CARDIAC ENZYMES Total CK 144 12 - 191 02/04/2018 [facility] CHEM PANEL Phosphorus 3.1 2.5 - 4.5 02/04/2018 [facility] CHEM PANEL Magnesium Lvl 2.1 1.8 - 2.4 02/04/2018 [facility] CHEM PANEL Lactic Acid Lvl 2.3 0.5 - 2.2 02/04/2018 [facility] CHEM PANEL Calcium Lvl 8.9 8.5 - 10.5 02/04/2018 [facility] CHEM PANEL Albumin Lvl 3.8 3.5 - 5.0 02/04/2018 [facility] CHEM PANEL Total Protein 7.3 6.4 - 8.4 02/04/2018 [facility] CHEM PANEL Alk Phos 67 39 - 136 02/04/2018 [facility] CHEM PANEL AST 20 0 - 37 02/04/2018 [facility] CHEM PANEL Bili Total 0.5 0.2 - 1.3 02/04/2018 [facility] CHEM PANEL ALT 42 0 - 65 02/04/2018 [facility] CHEM PANEL CO2 26 24 - 32 02/04/2018 [facility] CHEM PANEL Chloride Lvl 105 95 - 109 02/04/2018 [facility] CHEM PANEL Glucose Lvl 103 70 - 99 02/04/2018 [facility] CHEM PANEL Potassium Lvl 3.9 3.5 - 5.1 02/04/2018 [facility] CHEM PANEL Creatinine Lvl 0.95 0.50 - 1.40 02/04/2018 [facility] CHEM PANEL BUN 21 7 - 22 02/04/2018 [facility] CHEM PANEL Sodium Lvl 142 135 - 145 02/04/2018 [facility] CHEM PANEL eGFR 57 02/04/2018 Result Comment: The eGFR is calculated using the [...] from the National Kidney Disease Education Program (NKDEP) which additionally recommends that when the eGFR is used in patients with extremes of body mass index for purposes of drug dosing, the eGFR should be multiplied by the estimated BMI. [facility] CHEM PANEL Globulin 3.5 2.7 - 4.2 02/04/2018 [facility] CHEM PANEL B/C Ratio 22 6 - 25 02/04/2018 [facility] CHEM PANEL A/G Ratio 1.1 0.7 - 1.6 02/04/2018 [facility] CHEM PANEL AGAP 14.9 10.0 - 20.0 02/04/[address] [facility] Monocytes # 0.7 0.0 - 0.8 02/04/2018 [facility] HEMATOLOGY Basophils # 0.1 0.0 - 0.2 02/04/[address] [facility] Lymphocytes # 0.5 1.0 - 5.5 02/04/[address] [facility] Neutrophils # 8.2 1.5 - 8.1 02/04/[address] [facility] Segs 87.0 45.0 - 75.0 02/04/2018 [facility] HEMATOLOGY Basophils 0.6 0.0 - 1.0 02/04/[address] [facility] Eosinophils 0.3 0.0 - 4.0 02/04/[address] [facility] Plt Morph Karla l (02/04/18 5:23 AM) 02/04/[address] [facility] RBC Morph Karla l (02/04/18 5:23 AM) 02/04/[address] [facility] Monocytes 7.2 2.0 - 12.0 02/04/[address] [facility] Lymphocytes 4.9 20.0 - 40.0 02/04/[address] [facility] INR 1.01 0.85 - 1.17 02/04/[address] [facility] PT 13.1 12.0 - 14.7 02/04/[address] [facility] WBC 9.4 3.7 - 10.4 02/04/[address] [facility] RDW 15.8 11.5 - 14.5 02/04/[address] [facility] MPV 8.3 7.4 - 10.4 02/04/[address] [facility] MCHC 34.4 32.0 - 36.0 02/04/[address] [facility] Platelet 188 133 - 450 02/04/[address] [facility] RBC 4.05 4.20 - 5.40 02/04/[address] [facility] Hgb 13.1 12.0 - 16.0 02/04/[address] [facility] Hct 38.0 36.0 - 48.0 02/04/[address] [facility] MCV 93.9 80.0 - 98.0 02/04/[address] [facility] MCH 32.3 27.0 - 31.0 02/04/2018 [facility] Pathology Reports No Data Provided for This Section Diagnostic Reports Report Value Date Source Hand 2 views Bilateral DX PROC EDURE INFORMATION: Exam: XR Right Hand Exam date and time: 07/03/2019 12:19 PM Age: 78 years old Clinical indication: Pain in right hand; Pain in left hand; Additional info: /m79.642 / m79.641 TECHNIQUE: Imaging protocol: XR Right hand. Views: 1 or 2 views. Frontal Lateral COMPARISON: HAND 3 VIEWS BILATERAL DX 03/26/2017 2:10 PM FINDINGS: Bones/joints: There is normal alignment without fractures or dislocations. Amputation of the distal phalanx of the ring finger noted. Mild subluxations noted in the interphalangeal joint of the thumb, DIP joint of the middle finger and PIP joint of the ring finger. Advanced degenerative changes noted in the interphalangeal joint of the thumb, DIP joint of the middle finger, PIP joint of the ring finger and DIP joint of the pinky finger. Superimposed central erosive changes questioned in the PIP joint of the ring finger. Ixnx-km-sgszsvjz degenerative changes noted in the PIP joints of the index, middle and pinky fingers. Moderate degenerative changes noted in the 1st CMC joint. Soft tissues: No radiopaque foreign bodies. Notes: If there is further concern, recommend follow-up radiographs or MRI for complete assessment. PROCEDURE INFORMATION: Exam: XR Left Hand Exam date and time: 07/03/2019 12:19 PM Age: 78 years old Clinical indication: Pain in right hand; Pain in left hand; Additional info: /m79.642 / m79.641 TECHNIQUE: Imaging protocol: XR Left hand. Views: 1 or 2 views. Frontal Lateral COMPARISON: HAND 3 VIEWS BILATERAL DX 03/26/2017 2:10 PM FINDINGS: Bones/joints: There is normal alignment without acute fractures or dislocations. Remote, mildly displaced ulnar styloid process fracture noted. Leyt-jr-kbosgzad degenerative changes noted in the DIP joints of the index, middle and ring fingers. Advanced degenerative changes noted in the DIP joint of the pinky finger, with central erosive change present. Moderate to severe degenerative changes noted in the 1st CMC joint. Soft tissues: No radiopaque foreign bodies. Notes: If there is further concern, recommend follow-up radiographs or MRI for complete assessment. IMPRESSION: XR Right Hand 1. No fracture or dislocation. Mild subl uxations in the interphalangeal joint of the thumb, DIP joint of the middle finger and PIP joint of the ring finger. 2. Prior amputation of distal phalanx of the ring finger. 3. Mild to severe multifocal degenerativ e changes throughout the right hand, as detailed above. Superimposed erosive changes questioned in the PIP joint of the ring finger, raising the possibility of erosive osteoarthritis. XR Left Hand 1. No acute fracture or dislocation. Rem ote, mildly displaced ulnar styloid process fracture. 2. Mild to severe multifocal degenerativ e changes throughout the left hand, as detailed above. Superimposed erosive changes in the DIP joint of the pinky finger, raising the concern for erosive osteoarthritis. Tom Kong DO On 07/03/2019 13:31:01; [id number] 07/03/2019 [facility] Knee 3 Views Bilateral DX PROC EDURE INFORMATION: Exam: XR Right Knee Exam date and time: 03/21/2019 11:45 AM Age: 78 years old Clinical indication: Pain in right knee; Pain in left knee; Additional info: /m25.562, m25.561 TECHNIQUE: Imaging protocol: XR Right knee. Views: 3 views. AP Obilque Lateral COMPARISON: KNEE 3 VIEWS DX, LEFT 03/26/2017 2:10 PM FINDINGS: Bones/joints: Postsurgical changes from right total knee arthroplasty are noted. No perihardware lucency or hardware fracture identified. No acute osseous fracture identified either. Soft tissues: There are no radiopaque foreign bodies. Notes: If there is further concern, recommend follow-up radiographs or MRI for complete assessment. PROCEDURE INFORMATION: Exam: XR Left Knee Exam date and time: 03/21/2019 11:45 AM Age: 78 years old Clinical indication: Pain in right knee; Pain in left knee; Additional info: /m25.562, m25.561 TECHNIQUE: Imaging protocol: XR Left knee. Views: 3 views. AP Obilque Lateral COMPARISON: KNEE 3 VIEWS DX, LEFT 03/26/2017 2:10 PM FINDINGS: Bones/joints: Nyeq-wh-joitfkms medial tibiofemoral joint space narrowing and osteophytosis is present. There is moderate patellofemoral joint space narrowing and osteophytosis. No fracture identified. Soft tissues: There are no radiopaque foreign bodies. Notes: If there is further concern, recommend follow-up radiographs or MRI for complete assessment. IMPRESSION: XR Right Knee Expected postsurgical findings status post right total knee arthroplasty. XR Left Knee Mild to moderate medial tibiofemoral and moderate patellofemoral osteoarthritis. Seamus Landaverde MD On 03/22/2019 22:15:01; [id number] 03/21/2019 [facility] Femur series DX Exam: Left Fe mur series DX Clinical Indication: - fx. Fall. Periprosthetic femoral fracture. Comparison: None FINDINGS: Frontal and lateral views of the left femur were obtained. There is a periprosthetic fracture at the proximal diaphysis of the femur associated with arthroplasty femoral stem. There is 1.5 cm lateral displacement. Lucency at the superior pole of the patella is chronic appearing. Degenerative changes are present at the knee. There are vascular calcifications. If there is further concern, recommend follow-up radiographs or bone scan for complete assessment. IMPRESSION: Proximal femoral periprosthetic fracture SL: [id number] 02/04/2018 [facility] Hip 2/3 views uni w pelvis DX Exam: Left Hip 2/3 views uni w pelvis DX Clinical Indication: - fx?. Left hip pain after a fall Comparison: None FINDINGS: AP view of the pelvis and 2 views of the left hip were obtained. There are postsurgical changes of left hip arthroplasty. Acetabular component is well seated. Femoral head is concentrically located within the acetabular cup. There is a proximal diaphyseal periprosthetic fracture at the level of the femoral stem with 1.7 cm displacement. Degenerative changes are present within the lower lumbar spine and sacroiliac joints. There are vascular calcifications. If there is further concern, recommend follow-up radiographs or MRI for complete assessment. IMPRESSION: Postsurgical changes of left hip arthroplasty with periprosthetic fracture SL: [id number] 02/04/2018 [facility] Spine cervical wo contrast CT Patient Name: ANTONIO CHO. : 1940; Age: 77 years y/o; Female. MR: [id number]. Ordering Physician: Toni Acevedo MD. CT CERVICAL SPINE WITHOUT CONTRAST. HISTORY: Fall with neck pain. COMPARISON: None. FINDINGS: Computed tomography of the cervical spine was performed utilizing contiguous thin transaxial sections without the administration of intravenous or myelographic contrast. Coronal and sagittal reformatted images were obtained. CT imaging was performed with exposure control parameters to reduce radiation dose. Total DLP: 741.48 mGy-cm The cervicovertebral bodies are normal in height and alignment without evidence of fractures or spondylolisthesis. Degenerative changes of cervical spine noted causing varying degrees of mild to moderate central canal stenosis, worst at C2- 3, C5-6 through C7-T1. Varying degrees of enad-id-hfdkokfq neural foraminal stenosis also noted throughout cervical spine. The prevertebral soft tissue is unremarkable. The C1-C2 articulation is within normal limits. IMPRESSION: 1. No evidence of cervical spine fractur e. 2. Diffuse degenerative changes noted. SL: [id number] 02/04/2018 [facility] Chest 1view DX Clinical Indica tion: - fall fax hip. Comparison: None Findings: Frontal view of the chest was obtained. Electrocardiogram leads overlie the chest. The cardiac silhouette is at the upper limits of normal in size. Atheromatous changes are present in the aorta. There is no lobar consolidation, effusion or edema. No pneumothorax. Prominent costochondral calcifications are present at the 1st rib bilaterally. IMPRESSION: Borderline enlargement of the cardiac silhouette without edema. SL: [id number] 02/04/2018 [facility] Hand 2 views DX Exam: Right H and 2 views DX Clinical Indication: - fall. Pain to right 4th digit Comparison: Right hand radiographs 03/26/2017 FINDINGS: Frontal and lateral views of the right hand were obtained. There is a soft tissue and distal phalanx bony defect at the tip of the 4th digit. There are severe arthritic changes with involvement of the base of the thumb, 1st digit metacarpal phalangeal joint, and interphalangeal joints of all digits. At the 4th digit specifically there is severe joint space narrowing, central erosive change and bony fragmentation with ulnar subluxation at the proximal interphalangeal joint. There is soft tissue swelling. If there is further concern, recommend follow-up radiographs or bone scan for complete assessment. IMPRESSION: Soft tissue and bony defect at the distal tip of the 4th digit. Chronic changes of inflammatory arthropathy SL: [id number] 02/04/2018 [facility] Brain wo contrast CT Clinical Indication: Fall. Concern for head injury. Comparison: None TECHNIQUE: CT images were obtained from the foramen magnum to the vertex without the use of intravenous contrast on a multidetector CT. Coronal and sagittal reconstructions were obtained. CT imaging performed at this location utilizes radiation dose optimization techniques which include one or more of the following: -Automated exposure control -Adjustment of the mA and/or kV accordin g to patient size -Use of iterative reconstruction globa.ly ue CT Radiation Dose DLP 982.82 mGy-cm FINDINGS: BRAIN PARENCHYMA: There is generalized brain parenchymal atrophy related to the patient's age. Mild nonspecific periventricular white matter disease changes are noted. Atherosclerotic calcifications are present within the carotid siphons and distal vertebral arteries. There is no mass effect, midline shift or edema. There are no intra-axial or extra-axial fluid collections, intraventricular or intraparenchymal hemorrhage. The chisholm-white differentiation is preserved without CT evidence of acute territorial infarction. VENTRICLES: There is ventriculomegaly, which is most likely due to age-related parenchymal volume loss. There is no evidence of hydrocephalus. The basilar cisterns are within normal limits. ORBITS, MASTOIDS AND PARANASAL SINUSES: Mild bilateral ethmoid sinus mucosal thickening is identified. There is evidence of prior lens surgery within both globes. The mastoid air cells are clear. SKULL: There are no calvarial abnormalities seen. If there is further concern for intracranial pathology or acute stroke, MRI of the brain may be performed for complete assessment. IMPRESSION: No acute intracranial hemorrhage or mass effect. No CT evidence of acute territorial infarction. Mild chronic microvascular ischemic changes. SL: [id number] 02/04/2018 [facility] Hand 3 views Bilateral DX EXAM : XR HAND bilateral HISTORY: 76 years year-old Female with - M79.642 Pain in left hand COMPARISON: Bilateral hand radiographs 05/01/2008 FINDINGS: AP, oblique and lateral radiographs of the bilateral hands were obtained. Right hand: No acute fracture or dislocation is identified. Joint space narrowing, osteophytosis, and subchondral cysts noted involving the interphalangeal joints. Prominent marginal erosion noted involving the 4th proximal interphalangeal joint with ulnar subluxation of the middle phalanx. Additional degenerative changes noted at the 1st carpometacarpal joint. Flexion deformity of the distal 5th interphalangeal joint. Degenerative changes at the radiocarpal joint. Mild negative ulnar variance. Left hand: No acute fracture or dislocation is identified. Joint space narrowing, osteophytosis, and subchondral cysts are noted involving the interphalangeal joints and 1st carpometacarpal joint, lesser in severity than on the right hand. Mild central erosion noted in the 5th distal interphalangeal joint. Old healed distal radial metaphyseal and ulnar styloid fractures. Degenerative changes of the radiocarpal joint and distal radioulnar joint. IMPRESSION: 1. Severe osteoarthritic changes of the right greater than left hands. 2. Presence of erosions suggests possibl e component of erosive osteoarthritis versus superimposed inflammatory arthropathy. SL: [id number] 03/26/2017 [facility] Knee 3 views DX EXAM: XR KNEE LEFT CLINICAL INDICATION: 76 years year-old Female with - M25.562 Pain in left knee COMPARISON: Bilateral knee radiographs 10/03/2012 FINDINGS: AP, oblique, and lateral radiographs of the left knee were obtained. No fracture or dislocation is identified. Mild to moderate tricompartmental degenerative changes are noted including joint space narrowing and mild osteophytosis, slightly worsened from prior exam. No significant joint effusion is evident. Vascular calcifications noted. IMPRESSION: 1. Slight interval progression of osteoa rthritic changes of the left knee. SL: [id number] 03/26/2017 [facility] Consultation Notes No Data Provided for This Section Discharge Summaries No Data Provided for This Section History and Physicals No Data Provided for This Section Vital Signs Vital Sign Value Date Comments Source Systolic (mm Hg) 145 02/04/2018 [facility] Diastolic (mm Hg) 74 02/04/2018 [facility] Respitory Rate 16 02/04/2018 [facility] Systolic (mm Hg) 158 02/04/2018 [facility] Diastolic (mm Hg) 69 02/04/2018 [facility] Respitory Rate 19 02/04/2018 [facility] Respitory Rate 16 02/04/2018 [facility] Systolic (mm Hg) 173 02/04/2018 [facility] Diastolic (mm Hg) 62 02/04/2018 [facility] Heart Rate 86 02/04/2018 [facility] Weight 77.273 02/04/2018 [facility] Temperature Oral (F) 98.1 F 02/04/2018 [facility] Height 162.56 cm 02/04/2018 [facility] BMI Calculated 29.24 02/04/2018 [facility] Encounters Location Location Details Encounter Type Encounter Number Reason For Visit Attending Provider ADM Date DC Date Status Source [facility] Outpatient [id number] Ambar Lam 03/26/2017 03/27/2017 [facility] Emergency [id number] Toni Acevedo 02/04/2018 02/04/2018 [facility] Outpatient [id number] Ambar Fritz 03/21/2019 03/22/2019 [facility] [id number] [facility] Procedures No Data Provided for This Section Assessment and Plan No Data Provided for This Section Plan of Care No Data Provided for This Section Social History Social History Date Source Social History TypeResponse Smoking Status Never smoker; Exposure to Tobacco Smoke None; Cigarette Smoking Last 365 Days No; Reg Smoking Cessation Counseling No entered on: 02/04/18 02/04/2018 [facility] Family History No Data Provided for This Section Advance Directives No Data Provided for This Section Functional Status No Data Provided for This Section
[2019-07-20] MEDS ORDERED: SODIUM CHLORIDE FLUSH 10 ML SYR INJ PRN (10:45)
[2019-07-20] MEDS ORDERED: VANCOMYCIN 1GM/NS 250 ML 250 ML IV ONE (10:45)
[2019-07-20] MEDS ORDERED: CEFEPIME 1GM/NS 0.9% 50 ML 50 ML IV STA (10:45)
[2019-07-20] MEDS ORDERED: KETOROLAC TROMETHAMINE 30 MG/ML VIAL IV STA (10:45)
[2019-07-20] MEDS ORDERED: CEFEPIME 1GM/NS 0.9% 50 ML 50 ML IV ONE (11:11)
[2019-07-20] MEDS ORDERED: KETOROLAC TROMETHAMINE 30 MG/ML VIAL ONE (11:11)
[2019-07-20] MEDS ORDERED: VANCOMYCIN 1GM/NS 250 ML 250 ML ONE (11:11)
--- NOTE | 2019-07-20 11:51 | Diagnostic Imaging Report ---
Exam: Right foot series, 2 views. Clinical History: Right fifth toe infection, suspect possible myelitis Comparison: None. Findings: 3 views of the right foot. There is decreased bone mineralization. Negative for acute, displaced fracture or dislocation. No definite cortical erosion or destruction is noted in these 2 views. Degenerative changes in the midfoot/hindfoot joints and the first toe metatarsophalangeal joint. No lytic or blastic lesions. Vascular calcifications. Large anterior and posterior calcaneal enthesophytes. Impression: 1. No definite cortical erosion or destruction is noted in 2 views submitted. Additional oblique view would be helpful for further evaluation. Signed by: Dr. Christopher Castillo M.D. on 07/20/2019 11:48 AM
--- NOTE | 2019-07-20 12:29 | Emergency Department Note ---
History of Present Illnes History of Present Illness Chief Complaint: distal rgt foot redness/swelling/rash History of Present Illness This is a 78 year old female. was doing well until 6 days ago thenpainful rgt foot rash and mildly swelling. then saw pcp twice and place on cephalexin at first then bactrim. got better then got worse. Historian: Patient Arrival Mode: Car History limited by: condition of the patient Helper Maintenance Cleaning Required: No Onset (how long ago): day(s) (6) Location: rgt foot Quality: pain Radiation: non-radiation Severity: moderate Onset quality: gradual Duration (how long): day(s) (6) Timing of current episode: constant Progression: worsening Chronicity: new Context: recent illness, recent surgery, recent immobilization, recent travel, trauma/injury, new medications, hx of DVT/PE, non-compliance w/ medications Relieving factors: none Exacerbating factors: other (walking) Associated symptoms: denies other symptoms Treatments prior to arrival: none Risk factors: n/a Past Medical/Family History Physician Review I have reviewed the patient's past medical and family history. Any updates have been documented here. Past Medical History Recent Fever: No Clinical Suspicion of Infectio: No New/Unexplained Change in Ment: No Past Medical History: Hypertension, Diabetes, Hypothyroidism, GERD Other Medical History: RA Past Surgical History: Lumpectomy Other Surgery: BLADDER SUSPENSION LEFT HIP REPLACEMENT CARPAL TUNNEL DOUBLE MASTECTOMY/RECONSTRUCTION RIGHT BREAST LUMPECTOMY BUNION Social History Smoking Cessation: Never Smoker Counseling Performed: No Alcohol Use: None Any Illegal Drug Use: No TB Exposure/Symptoms: No Physically hurt or threatened: No Other Last Tetanus: UNKNOWN Any Pre-Existing Lines (PICC,: No Is patient up to date on immun: Yes Last Flu: 2019 Last Pneumovax: unk Review of Systems Review of Systems Constitutional: no symptoms EENTM: no symptoms Cardiovascular: no symptoms Respiratory: no symptoms Gastrointestinal: no symptoms Genitourinary: no symptoms Musculoskeletal: no symptoms Neurological: no symptoms Psychological: no symptoms Endocrine: no symptoms Hematological/Lymphatic: no symptoms Review of other systems All other systems reviewed and negative. Physical Exam Related Data Allergies: Coded Allergies: Penicillins (Verified Allergy, Mild, RASH, 03/11/09) codeine (Verified Allergy, Mild, NAUSEA, 03/11/09) levofloxacin (Verified Allergy, Mild, N/V, 01/12/10) lisinopril (Verified Allergy, Mild, 04/30/18) ITCHING, HIVES pentazocine (Verified Allergy, Mild, N/V, 01/12/10) Physical Exam CONSTITUTIONAL Constitutional: well-developed, well-nourished HENT HENT: normocephalic, atraumatic, oropharynx clear/moist, nose normal HENT L/R: left ext ear normal, right ext ear normal EYES Eyes: PERRL, conjunctivae normal NECK Neck: ROM normal PULMONARY Pulmonary: effort normal, breath sounds normal CARDIOVASCULAR Cardiovascular: regular rhythm, heart sounds normal, capillary refill normal, normal rate GASTROINTESTINAL Abdominal: soft, nontender, bowel sounds normal GENITOURINARY Genitourinary: exam deferred SKIN Skin: warm, dry, erythema (distal rgt foot 4th,5th digits) MUSCULOSKELETAL Musculoskeletal: ROM normal NEUROLOGICAL Neurological: alert, oriented x 3, no gross motor or sensory deficits PSYCHOLOGICAL Psychological: mood/affect normal, judgement normal Results Laboratory Lab results reviewed: Yes (cbc normal except hgb 11.1, cmp normal) Imaging Imaging results reviewed: Yes (rgt foot negative) Critical Care Time Subsequent provider I assumed direction of critical care for this patient from another provider of my specialty. Assessment & Plan Assessment & Plan Final Impression: (1) Cellulitis (2) Abrasion (3) Anemia Assessment & Plan continue bactrim, rx cipro and doxycyline. follow up with family doctor Depart Disposition: HOME, SELF-senior care Meds Active Scripts Doxycycline Hyclate (DOXYCYCLINE HYCLATE) 100 Mg Capsule, 100 MG PO Q12H for 10 Days, #20 CAP Prov:CASSANDRA BEAR 07/20/19 Ciprofloxacin Hcl (CIPRO) 500 Mg Tablet, 500 MG PO Q12H for 10 Days, #20 TAB Prov:CASSANDRA BEAR 07/20/19 Reported Medications Promethazine Hcl (PROMETHAZINE HCL) 12.5 Mg Tablet, 12.5 MG PO BID PRN for NAUSEA 04/29/18 Loperamide Hcl* (IMODIUM*) 2 Mg Cap, 2 MG PO PRN, CAP may repeat if diarrhea persist 04/29/18 Loratadine (CLARITIN) 10 Mg Tablet, 10 MG PO PRN 04/29/18 Naproxen Sodium (ALEVE) 220 Mg Capsule, 1 TAB PO PRN 04/29/18 Calcium Carbonate (CALCIUM) 600 Mg Tablet, 1200 MG PO BID 04/29/18 Multivitamin (DAILY KRISTIAN) 1 Each Tablet, 1 TAB PO DAILY 04/29/18 Cholecalciferol (Vitamin D3) (VITAMIN D3) 1,000 Unit Tablet, 5000 MG PO BID 04/29/18 Ascorbic Acid (VITAMIN C) 1,000 Mg Tablet.er, 2000 MG PO BID 04/29/18 Prednisone (PREDNISONE) 5 Mg Tablet, 5 MG PO .every other day 04/29/18 Insulin Detemir (LEVEMIR) 100 Unit/1 Ml Vial, 9 UNITS SQ DAILY 04/29/18 Celecoxib* (CELEBREX*) 100 Mg Capsule, 100 MG PO DAILY PRN for PAIN, #30 CAP 04/29/18 Ezetimibe (ZETIA) 10 Mg Tablet, 10 MG PO DAILY, #30 TAB 04/29/18 Amlodipine Besylate (AMLODIPINE BESYLATE) 10 Mg Tablet, 10 MG PO DAILY, #30 TAB 04/29/18 Thyroid,Pork (ARMOUR THYROID) 120 Mg Tablet, 120 MG PO DAILY 04/29/18 Omeprazole (OMEPRAZOLE) 20 Mg Capsule.dr, 20 MG PO DAILY 12/16/12 Terbinafine Hcl (Lamisil) 250 Mg Tablet, 250 MG PO DAILY 09/05/11 Metformin Hcl (Glucophage) 1,000 Mg Tablet, 1000 MG PO BID 09/05/11 Atenolol (Tenormin) 25 Mg Tablet, 25 MG PO DAILY 09/05/11 Medications in the ED Sodium Chloride 10 ml PRN PRN INJ IV SITE FLUSH Last administered on 07/20/19at 11:28; Admin Dose 10 ML; Start 07/20/19 at 10:45; Stop 08/19/19 at 10:44 Vancomycin HCl 250 ml @ 167 mls/hr ONCE ONCE IV Last administered on 07/20/19at 11:45; Admin Dose 167 MLS/HR; Start 07/20/19 at 10:45; Stop 07/20/19 at 12:14 Ketorolac Tromethamine 30 mg ONCE STAT IV Last administered on 07/20/19at 11:12; Admin Dose 30 MG; Start 07/20/19 at 10:45; Stop 07/20/19 at 10:51; Status DC Cefepime HCl 50 ml @ 100 mls/hr ONCE STAT IV Last administered on 07/20/19at 11:15; Admin Dose 100 MLS/HR; Start 07/20/19 at 10:45; Stop 07/20/19 at 11:14; Status DC Ketorolac Tromethamine 30 mg STK-MED ONCE .ROUTE ; Start 07/20/19 at 11:11; Stop 07/20/19 at 11:07; Status DC Vancomycin HCl 250 ml @ ud STK-MED ONCE .ROUTE ; Start 07/20/19 at 11:11; Stop 07/20/19 at 11:07; Status DC Cefepime HCl 50 ml @ ud STK-MED ONCE IV ; Start 07/20/19 at 11:11; Stop 07/20/19 at 11:07; Status DC CASSANDRA BEAR July 20, 2019 12:29
[2019-07-20] MEDS ORDERED: CIPRO500 MG PO (12:31)
[2019-07-20] MEDS ORDERED: DOXYCYCLINE HY100 MG PO (12:31)
[2019-07-20 12:50] VITALS: BP 137/60
== END 2019-07-20 13:25 | disposition home or self-care (01) ==
LOC: FSED 10:12
DX: L03.115 Cellulitis of right lower limb (principal); D64.9 Anemia, unspecified; Z85.3 Personal history of malignant neoplasm of breast; Z96.642 Presence of left artificial hip joint
CPT/HCPCS: 73620; 80053; 85025; 96365; 96374; 99283; J0692; J1885; J3370

== ENCOUNTER → 2019-08-29 | Day surgery (SDC) | payer MEDICARE, OTHER ==
[2019-08-25 14:06] LABS: BASOPHILS # (AUTO) 0.1 (0.0-0.1); BASOPHILS % 0.6 % (0.0-1.0); EOSINOPHILS % 0.4 % (0.0-6.0); HEMATOCRIT 32.4 % (34.2-44.1); HEMOGLOBIN 10.3 g/dL (12.0-16.0); LYMPHOCYTES # (AUTO) 0.7 (1.0-3.2); LYMPHOCYTES % 7.5 % (18.0-39.1); MEAN CORPUSCULAR HEMOGLOBIN 29.7 pg (28-32); MEAN CORPUSCULAR HGB CONC 31.8 g/dL (31-35); MEAN CORPUSCULAR VOLUME 93.4 fL (81-99); MONOCYTES # (AUTO) 0.7 (0.2-0.8); MONOCYTES % 8.2 % (4.4-11.3); NEUTROPHILS # (AUTO) 7.5 (2.1-6.9); NEUTROPHILS % 82.9 % (38.7-80.0); PLATELET COUNT 261 x10e3/uL (140-360); RED BLOOD COUNT 3.47 x10e6/uL (3.6-5.1); RED CELL DISTRIBUTION WIDTH 13.9 % (11.7-14.4)
[2019-08-25 14:24] LABS: ALBUMIN 3.4 g/dL (3.5-5.0); CALCIUM 9.1 mg/dL (8.4-10.2); CHOL/HDL RATIO 5.4 (3.0-3.6); CREATININE, SERUM 1.92 mg/dL (0.57-1.11)
[~2019-08-29] VITALS: Ht 162.6 cm; Wt 63.0 kg
[~2019-08-29] MED LIST changes: +ALPRAZOLAM 0.5 MG TAB ONE; +ARMOUR THYROID180 MG PO; +ASPIRIN 325 MG TAB ONE; +CIPRO500 MG PO; +DIPHENHYDRAMINE HCL 25 MG CAP ONE; +DOXYCYCLINE HY100 MG PO; +FENTANYL CITRATE/PF 100MCG/2 ML INJ ONE; +HEPARIN SOD (PORCINE) 1000 UNIT/ML 30ML ONE; +HEPARIN SOD/SOD CHLORIDE 2,000 ML ONE; +IOPAMIDOL 300MG/ML 100 ML INFUS..BTL IV ONE; +LIDOCAINE HCL 2% LOCAL 20 ML VIAL ONE; +MIDAZOLAM HCL 2 MG/2 ML VIAL ONE; +NIFEDIPINE10 MG PO; +NITROGLYCERIN/D5W 200 MCG/ML 250 ML ONE; +PRASUGREL 10 MG TAB ONE; +PROTAMINE SULFATE 10 MG/ML 5 ML VIAL ONE; +SODIUM CHLORIDE 0.9% 1000ML 1,000 ML ONE; +SODIUM CHLORIDE 0.9% 50ML 50 ML ONE
[2019-08-29 08:45] VITALS: BP 156/99
--- NOTE | 2019-08-29 08:45 | NUR ---
0845 am/RECEIVING NOTE [employer]............................................................... Bedside report received from SANDY Delacruz. Identifierx2. Alert oriented and appropriate, PERRLA, respirations even and unlabored to room air. Pulses x4 extremities equal and strong. Pedal pulses PT/DP X4 and marked. Cap fill brisk < 3 sec. Left groin perclose No gross issues pain,pallor,Dysrhythmia. Skin warm and dry integrity appears D/I. IV 20g to left hand presents healthy w/o s/s of infiltration or complaint. Abdomen soft and supple. pt offered toileting, denies need to urinate or defecate. No personal affects with patient. Family daughter at bedside. Pt and family verbalizes understanding of POC. down time completed at 10am and june dc. Currently w/o complaint of pain or need. ds/rn
[2019-08-29 09:00] VITALS: BP 173/63
[2019-08-29 09:15] VITALS: BP 173/75
[2019-08-29 09:30] VITALS: BP 160/70
[2019-08-29 10:00] VITALS: BP 178/68
--- NOTE | 2019-08-29 10:00 | NUR ---
1000 am [employer] DISCHARGE NURSING NOTE Pt meets DC criteria. left groin assessed for s/s of complication and presence of hematoma. Skin warm, dry, no discolor, and pulses present. IV removed from left hand. Distal tip appears intact. VS WNL. Pt denies pain, sob, or need at this time. Family at bedside. Review of discharge paperwork and follow up instructions. verbalized understanding. Pt to wheelchair and transported to front of hospital. Transferred to private vehicle under own strength w/o incident with DC paperwork in hand. - obdulia/beau
--- NOTE | 2019-08-29 11:08 | Operative Report ---
DATE OF PROCEDURE: 08/29/2019 SURGEON: Yeison Kate MD INDICATIONS: Peripheral arterial disease, critical limb ischemia with deep ulceration of the right lower extremity and claudication. PROCEDURES PERFORMED: 1. Conscious sedation administration. Hemodynamic and neurological monitoring and recovery by label printing machinist RN and supervision by , 65 minutes. 2. Abdominal aortogram with abdominal aorta catheter placement. 3. Third order catheter placement in the left femoral artery and right superficial femoral artery. 4. Bilateral lower extremity angiograms. 5. Atherectomy and drug-coated balloon angioplasty of the right femoral and popliteal arteries. 6. Secondary thrombectomy of the right femoral artery. 7. Deployment of left groin Perclose closure device. COMPLICATIONS: None. BLOOD LOSS: 5 mL. RECOMMENDATIONS: Dual antiplatelet therapy for life. DESCRIPTION OF PROCEDURE: Access obtained in the left femoral artery. A 6-Faroese sheath was placed. Abdominal aortogram was performed. Abdominal aorta and iliacs were widely patent bilaterally. Proximal femoral arteries bilaterally had mild disease. Distal vessels could not be seen. The catheter then advanced in the left femoral artery and right superficial femoral artery demonstrating complete occlusion of the right popliteal artery. Two-vessel runoff via the anterior tibial and peroneal arteries. Posterior tibial artery in the right was occluded. Distally, the right anterior tibial artery at the level of the dorsalis pedis artery was occluded. Left leg had mild 50% stenosis in the femoral popliteal artery with single-vessel runoff. A decision was made to intervene on the right femoral artery. The patient received 8000 units of intravenous heparin, oral prasugrel and aspirin for anticoagulation. The sheath was exchanged to a 6-Faroese 45 cm sheath advanced from the left femoral artery to the right superficial femoral artery. Using a combination of support catheter, and Roadrunner wire. The lesion was crossed. The wire was exchanged to a [place] wire. Directional atherectomy was performed in the right femoral artery with large amounts of visible thrombus for which manual aspiration thrombectomy was needed. Balloon angioplasty with a 4 and then 5 mm drug-coated balloons was performed, excellent result of two-vessel runoff, less than 10% residual stenosis. No complications. Left groin repaired using Perclose closure device. The patient discharged home same day. Yeison Kate MD KSB/REINA /[id number]
== END | disposition home or self-care (01) ==
LOC: CATH LAB 06:45
PROVIDERS: ATTEND Internal Medicine Interventional Cardiology
DX: I70.239 Atherosclerosis of native arteries of right leg with ulceration of unspecified site (principal); I25.10 Atherosclerotic heart disease of native coronary artery without angina pectoris; I10 Essential (primary) hypertension; R01.1 Cardiac murmur, unspecified; E11.9 Type 2 diabetes mellitus without complications; E07.9 Disorder of thyroid, unspecified; E78.00 Pure hypercholesterolemia, unspecified; Z01.812 Encounter for preprocedural laboratory examination; Z11.59 Encounter for screening for other viral diseases; Z79.82 Long term (current) use of aspirin; Z79.84 Long term (current) use of oral hypoglycemic drugs
CPT/HCPCS: 36415; 37186; 37225; 75625; 80053; 80061; 85025; 87635; C1714; C1760; C1769; C2623; J1644; J2001; J2250; J2720; J3010; J7030; Q9967; 75716; 99152; 99153; C1725

== ENCOUNTER 2019-12-05 00:22 | Inpatient (IN) | payer MEDICARE, OTHER ==
[~2019-12-05] VITALS: Ht 162.6 cm; Wt 62.1 kg
[2019-12-05] VITALS (9 sets, daily range): BP systolic 114–170; BP diastolic 57–90
[~2019-12-05 00:22] MED LIST changes: -ALPRAZOLAM 0.5 MG TAB ONE; -ASPIRIN 325 MG TAB ONE; -DIPHENHYDRAMINE HCL 25 MG CAP ONE; -FENTANYL CITRATE/PF 100MCG/2 ML INJ ONE; -HEPARIN SOD (PORCINE) 1000 UNIT/ML 30ML ONE; -HEPARIN SOD/SOD CHLORIDE 2,000 ML ONE; -IOPAMIDOL 300MG/ML 100 ML INFUS..BTL IV ONE; -LIDOCAINE HCL 2% LOCAL 20 ML VIAL ONE; -MIDAZOLAM HCL 2 MG/2 ML VIAL ONE; -NITROGLYCERIN/D5W 200 MCG/ML 250 ML ONE; -PRASUGREL 10 MG TAB ONE; -PROTAMINE SULFATE 10 MG/ML 5 ML VIAL ONE; -SODIUM CHLORIDE 0.9% 1000ML 1,000 ML ONE; -SODIUM CHLORIDE 0.9% 50ML 50 ML ONE
[2019-12-05] MEDS ORDERED: DILTIAZEM HCL 5 MG/ML 5 ML VIAL IV STA (00:44)
--- OUTSIDE RECORDS SUMMARY | 2019-12-05 00:51 | XMS REPORT | Clinical Summary ---
Author Author [facility] Organization [facility] Address Unknown Phone Unavailable Care Team Providers Care Roof Mechanic Name Role Phone NikoJunior PCP Allergies Comments [...] Not on file Results Not on fileafter 12/04/2018 Insurance Payer Benefit Subscriber ID Type Phone Address Plan / Group [facility] xxxxxxxxx MEDICARE MGD CARE MEDICARE HMO [id number] Advance Directives For more information, please contact: [facility] [address] [place] [address] Date Inactivated Comments Code Status Date Activated 02/23/2016 12:21 PM Full Code 02/22/2016 4:11 PM This code status was determined by: Patient 02/22/2016 4:11 PM Full Code 02/22/2016 5:40 AM This code status was determined by: Patient
--- OUTSIDE RECORDS SUMMARY | 2019-12-05 00:51 | XMS REPORT | Clinical Summary ---
Author Author [facility] Address Unknown Phone Unavailable Care Team Providers Care Insurance Salesperson Name Role Phone Junior Pope MD PCP [...] 9 by mouth daily. 12/31/2018 Discontinued (Formulary [facility]) atenolol (TENORMIN) 25 MG Take 25 mg by 0 tablet mouth daily. 12/08/2018 hydrALAZINE (APRESOLINE) Take 1 tablet 30 tablet 0 10 MG tablet (10 mg total) 9 by mouth nightly for 30 days. 12/31/2018 Discontinued (Reorder) atenolol (TENORMIN) 50 MG [...] 02/05/18 Overview: Added automatically from request for stern walter [id number] Encounters Care Team Description Date Type Specialty 08/08/2019 Travel 07/01/2019 Travel Yvan Bryant MD Pain of left hip joint (Primary Dx); History of revision of total replacement of left hip joint 02/12/2019 Office Visit Orthopedic Surgery Lis Anaya Left hip pain (Primary Dx) 02/11/2019 Orders Only Orthopedic Surgery Hung Long MD Carotid artery disease, unspecified late rality, unspecified type (HCC) (Primary Dx); Carotid bruit, unspecified laterality; Essential hypertension; PAD (peripheral artery disease) ([facility]) 12/31/2018 Office Visit Cardiology after 12/04/2018 Surgical History Surgery Date Site/Laterality Comments BLADDER SUSPENSION 03/15/2009 BACK SURGERY 01/23/2006 pinched nerve betwe en L 05/31 BREAST SURGERY 11/18/2001 double mastectomy CARPAL TUNNEL RELEASE 02/26/2005 - Left 03/28/2005 ORTHOPEDIC SURGERY 08/25/2014 Right RT TKA JOINT REPLACEMENT 07/28/2011 - Left LT Hip repla cement 08/26/2011 REVISION, ARTHROPLASTY, 02/05/2018 Hip/Left Proced ure: REVISION TOTAL HIP ARTHROPLASTY VS OPEN HIP REDUCTION INTERNAL FIXATION AND ALL OTHER INDICATED PROCEDURES; Surgeon: Yvan Bryant MD; Location: [facility] OR; Serv ice: Orthopedics; Laterality: Left; Medical devices from this surgery are i n the Implants section. AMPUTATION, DIGIT, HAND 03/01/2018 Fingers/Right Proced ure: RIGHT RING FINGER I AND D COMPLETION AMPUTATION; Surgeon: Elsie Gresham MD; Location: [facility] OR; Service: Orth opedics; Laterality: Right; Medical devices from this surgery are i n the Implants section. [place] CARDIOVASCULAR 02/26/2017 - PROCEDURE UNLISTED 02/25/2018 APPENDECTOMY 02/26/1959 - 02/26/1960 HYSTERECTOMY 02/26/1969 - 02/25/1970 TONSILLECTOMY 02/26/1967 - 02/26/1968 Medical History Medical History Date Comments Diabetes mellitus (HCC) Cancer (HCC) 12/28/1997 right breast Visual impairment Stroke ([facility]) 01/2001 stroke left eye Type 2 diabetes mellitus (HCC) Hypertension Disease of thyroid gland Hypothyroidism GERD (gastroesophageal reflux disease) PAD (peripheral artery disease) ([facility]) 11/19/2018 Aortic valve disorder 11/19/2018 Carotid artery disease ([facility]) 12/31/2018 Family History Medical History Relation Name Comments [...] Assigned at Date Recorded Not on file Last Filed Vital Signs Reading Time Taken Comments Vital Sign 180/76 12/31/2018 1:53 PM PROCUREMENT ENGINEER Blood Pressure 70 12/31/2018 1:53 PM PROCUREMENT ENGINEER Pulse - - Temperature - - Respiratory Rate - - Oxygen Saturation - - Inhaled Oxygen Concentration 62.6 kg (138 lb) 02/12/2019 2:16 PM PROCUREMENT ENGINEER Weight 162.6 cm (5' 4") 02/12/2019 2:16 PM PROCUREMENT ENGINEER Height 23.69 02/12/2019 2:16 PM PROCUREMENT ENGINEER Body Mass Index Plan of Treatment Health Maintenance Due Date Last Done Comments SHINGLES VACCINES (#1) 09/26/1989 65+ PNEUMOCOCCAL VACCINE 09/26/2004 (1 of 1 - PPSV23) INFLUENZA VACCINE 2019 Implants Device Identifier Shelf Expiration Date Model / Serial / L ot Implanted Type Area Manufactur er 10/04/2027 [id number] / / [id number] Insole Filler Troch 8 Cbl Sm 185mm Accord - Hip Joint Left: Hip GUTIERREZ AND [id number] Implants NEPHEW Implanted: Qty: 1 on 02/05/2018 by ORTHOPEDIC Yvan Bryant MD at [facility] 08/16/2027 [id number] / / [id number] Cable Co-Cr 2mm Accord - [id number] Hip Joint Left: Hip GUTIERREZ AND Implanted: Qty: 1 on 02/05/2018 by Implants Yvan Resendiz MD at [facility]IC [facility] 08/16/2027 [id number] / / [id number] Cable Co-Cr 2mm Accord - [id number] Hip Joint Left: Hip GUTIERREZ AND Implanted: Qty: 1 on 02/05/2018 by Yvan Galarza MD at [facility]IC [facility] 09/16/2027 [id number] / / [id number] Cable Co-Cr 2mm Accord - [id number] Hip Joint Left: Hip GUTIERREZ AND Implanted: Qty: 1 on 02/05/2018 by Implants Yvan Resendiz MD at [facility] 09/16/2027 [id number] / / [id number] Cable Co-Cr 2mm Accord - [id number] Hip Joint Left: Hip GUTIERREZ AND Implanted: Qty: 1 on 02/05/2018 by Implants Yvan Resendiz MD at [facility] 11/24/2027 [id number] / / [id number] Head Fml 02/08 Tprd 36mm -3mm Hip Joint Left: Hip GUTIERREZ AND Oxinium - [id number] Implants NEPHEW Implanted: 02/05/2018 at [facility] (Quantity not on file) 10/07/2026 [id number] / / [id number] Redapt Slvls Stem 240mm 17so - IPM Left: Hip GUTIERREZ & [id number] IMPLANT NEPHEW Implanted: Qty: 1 on 02/05/2018 by DEVICES Yvan Murphy MD at [facility] 05/24/2027 [id number] / / [id number] Cable W/ Clmp Co-Cr 2mm Accord - Orthopedic Left: Hip GUTIERREZ AND [id number] Trauma NEPHEW Implanted: Qty: 1 on 02/05/2018 by Implants Yvan Og MD at [facility] 07/06/2027 [id number] / / [id number] Cable W/ Clmp Co-Cr 2mm Accord - Orthopedic Left: Hip GUTIERREZ AND [id number] Trauma NEPHEW Implanted: Qty: 1 on 02/05/2018 by Implants Yvan Og MD at [facility] 11/20/2027 [id number] / / [id number] Cable W/ Clmp Co-Cr 2mm Accord - Orthopedic Left: Hip GUTIERREZ AND [id number] Trauma NEPHEW Implanted: Qty: 1 on 02/05/2018 by Implants Yvan Og MD at [facility] 09/26/2020 [id number] / / [id number] Tourni-Cot Large Tourniquet MAR-MED Implanted: Qty: 1 on 03/01/2018 by Elsie Oneal MD at [facility] Procedures Comments Procedure Name Priority Date/Time Associated Diag nosis US CAROTID DUPLEX Routine 07/01/2019 Carotid esperanza ry disease, BILATERAL 12:15 PM CDT unspecified lateral ity, unspecified type (HCC) Carotid bruit, unspecified laterality XR HIP 2-3 VIEWS LEFT Routine 02/12/2019 Left hip pain 2:25 PM PROCUREMENT ENGINEER US CAROTID DUPLEX Routine 12/24/2018 PAD (periphe ral artery BILATERAL 2:51 PM CDT disease) ([facility]) Bilateral carotid bruits Aortic valve disorder NM MYOCARDIAL PERFUSION Routine 12/11/2018 PAD (p eripheral artery REST STRESS 1 DAY 2:28 PM CDT disease) ([facility]) Bilateral carotid bruits Aortic valve disorder CV STRESS TEST NUCLEAR Routine 12/11/2018 PAD (pe ripheral artery CARDIO 2:28 PM CDT disease) ([facility]) Bilateral carotid bruits Aortic valve disorder TTE COMPLETE, WO Routine 12/09/2018 PAD (peripher al artery CONTRAST, W DOPPLER 1:35 PM CDT disease) ([facility]) ([id number]) Bilateral carotid bruits Aortic valve disorder after 12/04/2018 Results * Us carotid duplex (07/01/2019 12:15 PM CDT) Only the most recent of 2 results within the time period is included. Specimen Narrative Performed At [facility] Carotid Esperanza ry Ultrasound Report Pat.Name: DEBORAH MAE Renny at.ID: [id number] St.Date: 07/01/2019 Refer.MD: HUNG LONG MD Exam Time: 11:13:00 AM Study Type:Carotid Age: 8 1940,78Y Sex: FEMALE Sonogrphr: Naya Villarreal RVT Pat. Stat.:Outpatient Room: [facility] Vol: SD, CPT - 4: 56837 Echo Event ID:[id number] Order ID: [id number] Reason for Study:Follow up study, Hx of [...] Results In - 07/02/2019 10:22 PM CDT [facility] Carotid Artery Ultrasound Report Pat.Name: DEBORAH MAE Pat.ID: [id number] .Date: 07/01/2019 Refer.MD: HUNG LONG MD Exam Time: 11:13:00 AM Study Type:Carotid Age: 8 1940,78Y Sex: FEMALE Sonogrphr: Naya Villarreal RVT Pat. Stat.:Outpatient Room: [facility] Vol: SD, CPT - 4: 15448 Echo Event ID:[id number] Order ID: [id number] Reason for Study:Follow up study, Hx of [...] PM Hung Long MD Performing Organization Address [facility] Code P phyllis Number [facility] [id number] [place] [address] * XR Hip 2-3 View Left (02/12/2019 2:25 PM PROCUREMENT ENGINEER) Specimen Narrative Performed At [facility] Hip radiographs demonstrate a complex r evision hip arthroplasty. There is broken cerclage wire proximally. All im plant components are stable. Performing Organization Address [facility] P phyllis Number [facility] [address] [place] [address] * Cv stress test (12/11/2018 2:28 PM CDT) Resting HR 59 [facility] Resting BP 148 [facility] Peak MET 1.0 [facility] Achieved Protocol Name LexiScan [facility] M[facility] Time in 00:01:00 [facility] MUSE Exercise Phase Max Systolic BP 148 [facility] Max Diastolic 89 [facility] BP Max Heart Rate 96 [facility] Max Predicted 141 [facility] Heart Rate Target HR (220 - Age)*85% [facility] Formula Test Indication PAD [facility] Arrhy During Ex [facility] ECG Interp [facility] Before EX ECG Interp [facility] During Ex Ex Summary [facility] M[facility] Comment Chest Pain none [facility] M[facility] Statement Overall HR [facility] Response to Exercise Overall BP [facility] M[facility] Response To Exercise Reason for As per Lexiscan protocol [facility] M[facility] Termination Stress Test Waveform interpreted in report [facility] MU SE Impression associated with image study . No interpretation is provided as part of this Stress ECG report.--Electronically Signed By Rosibel AWAD, Junior ([id number]), editor dictionary Solo Duong ([id number]) on 12/12/2018 3:23:30 PM Specimen Narrative Performed At This result has an attachment that is n ot available. Performing Organization Address [facility] Code P phyllis Number [facility] MUSE [address] [place] [address] * Nm myocardial perfusion (12/11/2018 2:28 PM CDT) Target HR 141.00 bpm [facility] Specimen Narrative Performed At H [facility] Nuclear Cardi ology and Cardiac CT [address] [address] Myocardial Pe rfusion Imaging Report Stress ECG tracings are availab le in MUSE, EP[employer] and [employer] All ECG interpretations a re included in this report Pat.Name: DEBORAH MAE at.ID: [id number] .Date: 12/10/2018 Refer.MD: HUNG LONG MD Exam Time: 7:46:00 AM Study Type:Myocardial Perfusion Imaging Height: 64in Weight: 141.7lb BSA: 1.69 m2 Age: 8 1940,78Y Sex: FEMALE Nuclear Tech:MARIEL Glass Nuclear Event ID:[id number] Order ID: [id number] Reason for Study:Aortic valve disorders Procedures: Single [...] AM CDT Nuclear Cardiology and Cardiac CT [address] [place] [address] Myocardial Perfusion Imaging Report Stress ECG tracings are available in MUSE, [employer] and [employer] All ECG interpretations are included in this report Pat.Name: DEBORAH MAE Pat.ID: [id number] .Date: 12/10/2018 Refer.MD: HUNG LONG MD Exam Time: 7:46:00 AM Study Type:Myocardial Perfusion Imaging Height: 64in Weight: 141.7lb BSA: 1.69 m2 Age: 8 1940,78Y Sex: FEMALE Nuclear Tech:MARIEL Glass Nuclear Event ID:[id number] Order ID: [id number] Reason for Study:Aortic valve disorders Procedures: Single [...] AM Junior Gleason MD Performing Organization Address City/State/ZIP Code P phyllis Number [facility] [address] [place] [address] * Echocardiogram complete w contrast and 3D if needed (12/09/2018 1:35 PM CDT) Specimen Narrative Performed At [facility] Echo cardiography Report Pat.Name: DEBORAH MAE at.ID: [id number] .Date: 12/09/2018 Refer.MD: HUNG LONG MD Exam Time: 11:11:00 AM Study Type:Routine Echo Height: 64in Weight: 142lb BSA: 1.69 m2 Age: 8 1940,78Y Sex: FEMALE BP: 172/72 HR: 73 bpm Sonogrphr: TIAN Lee FASE Pat. Stat.:Outpatient Room: [place] Study Status:Final Echo Event ID:[id number] Order ID: [id number] Reason for Study:Aortic valve disorder Procedures: 2D [...] of 5-10 mmHg. MEASUREMENTS: 2D Parasternal Long [place] Ao Rtd 3 cm Index 1.8 cm/m2 [...] Results In - 12/09/2018 4:36 PM CDT [facility] Echocardiography Report Pat.Name: DEBORAH MAE Pat.ID: [id number] St.Date: 12/09/2018 Refer.MD: HUNG LONG MD Exam Time: 11:11:00 AM Study Type:Routine Echo Height: 64in Weight: 142lb BSA: 1.69 m2 Age: 8 1940,78Y Sex: FEMALE BP: 172/72 HR: 73 bpm Sonogrphr: TIAN Lee FASE Pat. Stat.:Outpatient Room: [place] Study Status:Final Echo Event ID:[id number] Order ID: [id number] Reason for Study:Aortic valve disorder Procedures: 2D [...] of 5-10 mmHg. MEASUREMENTS: 2D Parasternal Long [place] Ao Rtd 3 cm Index 1.8 cm/m2 [...] PM Neto Correia M.D. Performing Organization Address City/State/ZIP Code [facility] Number HM [facility] [address] [place] [address] after 12/04/2018 Insurance Type Payer Benefit Subscriber ID Effective Phone Address Plan / Dates Group PPO [facility] MEDICARE [facility] [id number] 2018-P MEDICARE resent PPO Surgery Advance Directives For more information, please contact: [phone] Patient Gut Carrier Explanation Type Date Recorded Advance Directives, 11/15/2015 10:25 AM Living Will and Medical Power of Allergist/Pediatric Pulmonologist
--- OUTSIDE RECORDS SUMMARY | 2019-12-05 00:51 | XMS REPORT | Continuity of Care Document ---
Author Author Danelle Luis Paktor ANTONIO Alston [employer] Address Unknown Phone Unavailable Care Team Providers Care Brand Communications Manager Name Role Phone [employer] Unavailable Un available Problems Problem Status Onset Date Classification Date Reported Comments Source XRAY Active 07/03/2019 [facility] M25.562/M25.561 Active 03/21/2019 [facility] Periprosthetic fracture around internal prosthetic left hip joint, initial encounter 02/12/2018 08/24/2018 [facility] FALL Active 02/04/2018 [facility] Pain in left hand 03/29/2017 07/02/2017 [facility] M79.642 M79.641 M25.562 Acti ve 02/26/2017 [facility] Pain in right hand 07/02/2017 [facility] Pain in left knee 07/02/2017 [facility] Primary osteoarthritis, left hand 07/02/2017 [facility] Crushing injury of right ring finger, initial encounte r 08/24/2018 [facility] Unspecified open wound of right ring fin [place] with damage to nail, initial encounter 08/24/2018 [facility] Presence of left artificial hip joint 08/24/2018 [facility] Fall on same level from slipping, trippi ng and stumbling without subsequent striking against object, initial encounter 08/24/2018 [facility] Caught, crushed, jammed, or pinched betw een moving objects, initial encounter 08/24/2018 [facility] Essential (primary) hypertension 08/24/2018 [facility] Personal history of malignant neoplasm of breast 08/24/2018 [facility] Medications Medication Details Route Status Patient Instructions Ordering Provider Order Date Source Clindamycin 600 mg, 50 mL, Rou te: IVPB, Drug form: INJ, ONCE, Dosing Weight 77.273, kg, Priority: STAT, Start date: 02/04/18 9:39:00 [employer], Stop date: 02/04/18 9:39:00 [employer], ABX Indication: Surgical Prophylaxis Inactive 02/04/2018 [facility] Morphine 4 mg, Route: IVP, ONC E, Dosing Weight 77.273, kg, Priority: STAT, Start date: 02/04/18 7:49:00 [employer], Stop date: 02/04/18 7:49:00 [employer] Inactive 02/04/2018 [facility] Ondansetron 4 mg, Route: IVP, Drug form: INJ, ONCE, Dosing Weight 77.273, kg, Priority: STAT, Start date: 02/04/18 5:14:00 [employer], Stop date: 02/04/18 5:14:00 [employer] Inactive 02/04/2018 [facility] Morphine 2 mg, Route: IVP, ONC E, Dosing Weight 77.273, kg, Priority: STAT, Start date: 02/04/18 5:14:00 [employer], Stop date: 02/04/18 5:14:00 [employer] Inactive 02/04/2018 [facility] Allergies, Adverse Reactions, Alerts Substance Category Reaction Severity Reaction type Status Date Reported Comments Source codeine Assertion Drug allergy Active [facility] penicillin Assertion Drug allergy Active [facility] Immunizations No Data Provided for This Section Results Order Name Results Value Reference Range Date Interpretation Comments Source CHEM PANEL Lactic Acid Lvl 2.3 0.5 - 2.2 02/04/2018 [facility] URINE AND STOOL UA pH 7.0 5.0 - 8.0 02/04/2018 [facility] URINE AND STOOL UA Urobilinogen <=1.0 mg/dL 0.1 - 1.0 02/04/2018 [facility] URINE AND STOOL UA Blood Small *ABN* (02/04/18 7:36 AM) Negative 02/04/2018 [facility] URINE AND STOOL UA Bili Negative *NA* (02/04/18 7:36 AM) Negative 02/04/2018 [facility] URINE AND STOOL UA Ketones Negative *NA* (02/04/18 7:36 AM) Negative 02/04/2018 [facility] URINE AND STOOL UA Protein 30 mg/dL Negative mg/dL 02/04/2018 [facility] URINE AND STOOL UA Glucose 50 mg/dL Negative mg/dL 02/04/2018 [facility] URINE AND STOOL UA WBC 3 0 - 5 02/04/2018 [facility] URINE AND STOOL UA Sq Epi Occasional /LPF Few /LPF 02/04/2018 [facility] URINE AND STOOL UA Nitrite Negative (02/04/18 7:36 AM) Negative 02/04/2018 [facility] URINE AND STOOL UA Leuk Est Negative (02/04/18 7:36 AM) Negative 02/04/2018 [facility] URINE AND STOOL UA Bacteria Occasional /HPF None Seen /HPF 02/04/2018 [facility] URINE AND STOOL UA RBC 4 0 - 2 02/04/2018 [facility] URINE AND STOOL UA Turbidity Clear (02/04/18 7:36 AM) Clear 02/04/2018 [facility] URINE AND STOOL UA Spec Grav 1.011 <=1.030 02/04/2018 [facility] URINE AND STOOL UA Color Ltyellow 02/04/2018 [facility] CARDIAC ENZYMES BNP 37 <=100 pg/mL 02/04/2018 [facility] CARDIAC ENZYMES Troponin-I <0.02 0.00 - 0.40 02/04/2018 [facility] CARDIAC ENZYMES Total CK 144 12 - 191 02/04/2018 [facility] CHEM PANEL Phosphorus 3.1 2.5 - 4.5 02/04/2018 [facility] CHEM PANEL Magnesium Lvl 2.1 1.8 - 2.4 02/04/2018 [facility] CHEM PANEL Lactic Acid Lvl 2.3 0.5 - 2.2 02/04/2018 [facility] CHEM PANEL Calcium Lvl 8.9 8.5 - 10.5 02/04/2018 [facility] CHEM PANEL Albumin Lvl 3.8 3.5 - 5.0 02/04/2018 [facility] CHEM PANEL Total Protein 7.3 6.4 - 8.4 02/04/2018 [facility] CHEM PANEL Alk Phos 67 39 - 136 02/04/2018 [facility] CHEM PANEL AST 20 0 - 37 02/04/2018 [facility] CHEM PANEL Bili Total 0.5 0.2 - 1.3 02/04/2018 [facility] CHEM PANEL ALT 42 0 - 65 02/04/2018 [facility] CHEM PANEL CO2 26 24 - 32 02/04/2018 [facility] CHEM PANEL Chloride Lvl 105 95 - 109 02/04/2018 [facility] CHEM PANEL Glucose Lvl 103 70 - 99 02/04/2018 [facility] CHEM PANEL Potassium Lvl 3.9 3.5 - 5.1 02/04/2018 [facility] CHEM PANEL Creatinine Lvl 0.95 0.50 - 1.40 02/04/2018 [facility] CHEM PANEL BUN 21 7 - 22 02/04/2018 [facility] CHEM PANEL Sodium Lvl 142 135 - 145 02/04/2018 [facility] CHEM PANEL eGFR 57 02/04/2018 Result Comment: [...] should be multiplied by the estimated BMI. [facility] CHEM PANEL Globulin 3.5 2.7 - 4.2 02/04/2018 [facility] CHEM PANEL B/C Ratio 22 6 - 25 02/04/2018 [facility] CHEM PANEL A/G Ratio 1.1 0.7 - 1.6 02/04/2018 [facility] CHEM PANEL AGAP 14.9 10.0 - 20.0 02/04/2018 [facility] Monocytes # 0.7 0.0 - 0.8 02/04/2018 [facility] HEMATOLOGY Basophils # 0.1 0.0 - 0.2 02/04/2018 [facility] Lymphocytes # 0.5 1.0 - 5.5 02/04/2018 [facility] Neutrophils # 8.2 1.5 - 8.1 02/04/2018 [facility] Segs 87.0 45.0 - 75.0 02/04/2018 [facility] HEMATOLOGY Basophils 0.6 0.0 - 1.0 02/04/2018 [facility] Eosinophils 0.3 0.0 - 4.0 02/04/2018 [facility] Plt Morph Karla l (02/04/18 5:23 AM) 02/04/2018 [facility] RBC Morph Karla l (02/04/18 5:23 AM) 02/04/2018 [facility] Monocytes 7.2 2.0 - 12.0 02/04/2018 [facility] Lymphocytes 4.9 20.0 - 40.0 02/04/2018 [facility] INR 1.01 0.85 - 1.17 02/04/2018 [facility] PT 13.1 12.0 - 14.7 02/04/2018 [facility] WBC 9.4 3.7 - 10.4 02/04/2018 [facility] RDW 15.8 11.5 - 14.5 02/04/2018 [facility] MPV 8.3 7.4 - 10.4 02/04/2018 [facility] MCHC 34.4 32.0 - 36.0 02/04/2018 [facility] Platelet 188 133 - 450 02/04/2018 [facility] RBC 4.05 4.20 - 5.40 02/04/2018 [facility] Hgb 13.1 12.0 - 16.0 02/04/2018 [facility] Hct 38.0 36.0 - 48.0 02/04/2018 [facility] MCV 93.9 80.0 - 98.0 02/04/2018 [facility] MCH 32.3 27.0 - 31.0 02/04/2018 [facility] Pathology Reports No Data Provided for This [...] the PIP joint of the ring finger. [id number] degenerative changes noted in the PIP joints [...] mildly displaced ulnar styloid process fracture noted. Vzzq-me-dfzcngyp degenerative changes noted in the DIP joints [...] DX, LEFT 03/26/2017 2:10 PM FINDINGS: Bones/joints: Epua-yh-fgrdwrwu medial tibiofemoral joint space narrowing and osteophytosis [...] osteoarthritis. Seamus Landaverde MD On 03/22/2019 22:15:01; [id number] 03/21/2019 [facility] Femur series DX Exam: Left [...] assessment. IMPRESSION: Proximal femoral periprosthetic fracture SL: [id number] 02/04/2018 [facility] Hip 2/3 views uni w pelvis DX [...] left hip arthroplasty with periprosthetic fracture SL: [id number] 02/04/2018 [facility] Spine cervical wo contrast CT Patient Name: ANTONIO CHO. : 1940; Age: 77 years y/o; Female. MR: [id number]. Ordering Physician: Toni Acevedo MD. CT CERVICAL [...] 3, C5-6 through C7-T1. Varying degrees of kmsw-yu-sypezoyf neural foraminal stenosis also noted throughout cervical spine. The prevertebral soft tissue is unremarkable. The C1-C2 articulation is within normal limits. IMPRESSION: 1. No evidence of cervical spine fractur e. 2. Diffuse degenerative changes noted. SL: [id number] 02/04/2018 [facility] Chest 1view DX Clinical Indica tion: - [...] of the cardiac silhouette without edema. SL: [id number] 02/04/2018 [facility] Hand 2 views DX Exam: Right H [...] digit. Chronic changes of inflammatory arthropathy SL: [id number] 02/04/2018 [facility] Brain wo contrast CT Clinical Indication: Fall. [...] to patient size -Use of iterative reconstruction ideasoft ue CT Radiation Dose DLP 982.82 mGy-cm [...] erosive osteoarthritis versus superimposed inflammatory arthropathy. SL: [id number] 03/26/2017 [facility] Knee 3 views DX EXAM: [...] rthritic changes of the left knee. SL: [id number] 03/26/2017 [facility] Consultation Notes No Data Provided for This Section Discharge Summaries No Data Provided for This Section History and Physicals No Data Provided for This Section Vital Signs Vital Sign Value Date Comments Source Systolic (mm Hg) 145 02/04/2018 [facility] Diastolic (mm Hg) 74 02/04/2018 [facility] Respitory Rate 16 02/04/2018 [facility] Systolic (mm Hg) 158 02/04/2018 [facility] Diastolic (mm Hg) 69 02/04/2018 [facility] Respitory Rate 19 02/04/2018 [facility] Respitory Rate 16 02/04/2018 [facility] Systolic (mm Hg) 173 02/04/2018 [facility] Diastolic (mm Hg) 62 02/04/2018 [facility] Heart Rate 86 02/04/2018 [facility] Weight 77.273 02/04/2018 [facility] Temperature Oral (F) 98.1 F 02/04/2018 [facility] Height 162.56 cm 02/04/2018 [facility] BMI Calculated 29.24 02/04/2018 [facility] Encounters Location Location Details Encounter Type Encounter Number Reason For Visit Attending Provider ADM Date DC Date Status Source [facility] [id number] Ambar Lam 03/26/2017 03/27/2017 [facility] Emergency [id number] Toni Acevedo 02/04/2018 02/04/2018 [facility] Outpatient [id number] Ambar Fritz 03/21/2019 03/22/2019 [id number]2019 [facility] Procedures No Data Provided for This Section Assessment and Plan No Data Provided for This Section Plan of Care No Data Provided for This Section Social History Social History Date Source Social History TypeResponse Smoking Status Never smoker; Exposure to Tobacco Smoke None; Cigarette Smoking Last 365 Days No; Reg Smoking Cessation Counseling No entered on: 02/04/18 02/04/2018 [facility] Family History No Data Provided for This Section Advance Directives No Data Provided for This Section Functional Status No Data Provided for This Section
--- OUTSIDE RECORDS SUMMARY | 2019-12-05 00:52 | XMS REPORT | Continuity of Care Document ---
Author Author [facility] t Organization [facility] Address [address] [place] [address] Phone Unavailable Care Team Providers Care Vice President Quality Improvement Name Role Phone MARIA DEL ROSARIO AWAD, MD OROPEZA PCP Brittani BEAR Attphys Unavailable Adonay Fritz Attphys HUNG CHAPA Attphys Unavailable Brodie Bryant MD Attphys Lis Anaya Attphys Unavailable JOHNNA MIX Attphys Unavailable Toni Acevedo Attphys NURIA COLE Attphys Unavailable JOHNNA MIX Admphys Unavailable NURIA COLE Admphys Unavailable Payers Payer Name Policy Type Policy Number Effective Date Expiration Date S darvin [employer] MEDICARE [id number] 2018-PresentPPO [id number] 2018 00:00:00 [facility] NA 2019 00:00:00 [facility] Problems Condition Name Condition Details Condition Category Status Onset Date Resolution Date Last Treatment Date Treating Clinician Comments Source XRAY XRAY Active 07/03/2019 [facility] Active 2019-07-03 10:21:00 2019-07-03 10:22:00 Danelle Smith M25.562/M25.561 M25. 562/M25.561 Active 03/21/2019 [facility] Diagnosis Active 2019-03-21 00:00:00 2019-03-21 11:33:00 Danelle Smith Carotid artery disease Carotid artery disease Disease [...] Dis ease Active 2018-03-05 00:00:00 Leo Dee Hip fracture Hip fracture Disease Active 2018-02-04 00:00:00 Leo Dee L periprosthetic hip fx s/p ORIF, RevTHA 02/05/18 L pe riprosthetic hip fx s/p ORIF, RevTHA 02/05/18 Disease Active 2018-02-04 00:00:00 Overview: Added automatically from request for surgery [id number] Leo Dee FALL FALL Active 02/04/2018 [facility] Diagnosis Active 2018-02-04 00:00:00 2018-02-04 05:32:00 Danelle Smith M79.642 M79.641 M25.562 M79. 642 M79.641 M25.562 Active 02/26/2017 [facility] Diagnosis Active 2017-02-26 00:00:00 2017-03-26 13:28:00 Danelle Smith Lumbar radiculopathy Lumbar radiculopathy Disease Active 00:00:00 [facility] Lumbar stenosis with neurogenic claudication Lumbar st enosis with neurogenic claudication Disease Active 2016-02-22 00:00:00 [facility] Fever Fever Problem Active [facility] Mucositis Mucositis Problem Active [facility] Pancytopenia Pancytopenia Problem Active [facility] Cellulitis Problem Active [facility] S t. [facility] Abrasion Problem Active [facility] Anemia Problem Active [facility] Pain in right hand Pain in right hand 07/02/2017 [facility] Problem 2017-07-02 16:45:51 Me blake Mauricioann Pain in left knee Pain in left knee 07/02/2017 [facility] Problem 2017-07-02 16:45:51 Me blake Luis Primary osteoarthritis, left hand Primary osteoarthritis, left hand 07/02/2017 [facility] Problem 2017-07-02 16:45:51 Danelle Luis Crushing injury of right ring finger, initial encounte r Crushing injury of right ring finger, initial encounter 08/24/2018 [facility] Problem 2018-08-24 11:25:58 Danelle Smith Unspecified open wound of right ring fin mich with damage to nail, initial encounter Unspecified open wound of right ring finger with damage to nail, initial encounter 08/24/2018 [facility] Problem 2018-08-24 11:25:58 Danelle Smith 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 08/24/2018 [facility] Problem 2018-08-24 11:25:58 Danelle [place] Fall on same level from slipping, trippi ng and stumbling without subsequent striking against object, initial encounter Fall on same level from slipping, tripping and stumbling without subsequent striking against object, initial encounter 08/24/2018 [facility] Problem 2018-08-24 11:25:58 Danelle Smith Caught, crushed, jammed, or pinched between moving obj ects, initial encounter Caught, crushed, jammed, or pinched between moving objects, initial encounter 08/24/2018 [facility] Problem 08-24 11:25:58 Danelle Smith Essential (primary) hypertension Essential (primary) hypertension 08/24/2018 [facility] Problem 2018-08-24 11:25:58 Danelle Smith Personal history of malignant neoplasm of breast Personal history of malignant neoplasm of breast 08/24/2018 [facility] Problem 2018-08-24 11:25:58 Danelle Smith Periprosthetic fracture around internal prosthetic left hip joint, initial encounter Periprosthetic f racture around internal prosthetic left hip joint, initial encounter 02/12/2018 08/24/2018 [facility] Problem 2018-02-12 04:35:54 2018-08-24 11:25:58 2018-08-24 11:25:58 Danelle Smith Pain in left hand Pain in left hand 03/29/2017 07/02/2017 [facility] Problem 2017-03-29 04:24:47 2017-07-02 16:45:51 2 16:45:51 Danelle Smith Allergies, Adverse Reactions, Alerts Allergy Name Allergy Type Status Severity Reaction(s) Onset Date Inacti ve Date Treating Clinician Comments Source Methotrexate Propensity to adverse reactions to drug Active Anaphylaxis 2018-11-08 00:00:00 [facility] Lisinopril Allergy to substance Active Mild 2018-04-30 00:00:00 [facility] Penicillins Propensity to adverse reactions to drug Active Other (See Comments) 2016-02-11 00:00:00 Vaginal itchingVagina l [facility] Allergy Active Other (See Comments) 2016-02-11 00:00:00 Vaginal itching [facility] Codeine Propensity to adverse reactions to drug Active Other (See Comments) 2015-11-15 00:00:00 nausea [place] [facility] Levofloxacin Propensity to adverse reactions to drug Active Other (See Comments) 2015-11-15 00:00:00 Severe nausea [place] [facility] Lisinopril Propensity to adverse reactions to drug Active Hives 2015-11-15 00:00:00 [facility] Lactate Propensity to adverse reactions to drug Active Other (See Comments) 2015-11-15 00:00:00 Severe nausea [place] [facility] Codeine Drug Intolerance Active Other (See Comments) 2015-11-15 00:00:00 nauseaUpset stomach [facility] Levofloxacin Drug Intolerance Active Other (See Comments) 2015-11-15 00:00:00 Severe nauseaUpset stomach [facility] Lisinopril Drug Allergy Active Itching, Hives 2015-11-15 00:00: 00 Itching everywhere [facility] Pentazocine Lactate Propensity to adverse reactions Active 2015-11-15 00:00:00 Other reaction(s): Other (See Co mments)Severe nausea [facility] Pentazocine Allergy to substance Active Mild N/V 2010-01-12 00:00:00 [facility] Levofloxacin Allergy to substance Active Mild N/V 2010-01-12 00:00:0 0 [facility] codeine codeine Active [facility] penicillin penicillin Active [facility] [place] Family History Family Member Diagnosis Comments Start Date Stop Date Source Natural father Heart attack Leo Dee Natural father Heart disease Leo Dee Natural mother Cancer [facility] thodist Social History Social Habit Start Date Stop Date Quantity Comments Source Sex Assigned At [facility] Tobacco use and exposure 2019-02-12 00:00:00 2019-02-12 00:00:00 Neve r used Leo Dee Alcohol intake 2019-02-12 00:00:00 2019-02-12 00:00:00 Ex-drinker (fi nding) Leo Dee Alcohol Comment 2016-02-11 00:00:00 2016-02-11 00:00:00 rarely [facility] Smoking Status Start Date Stop Date Source Never smoker [facility] Medications Ordered Medication Name Filled Medication Name Start Date Stop Da te Current Medication? Ordering Clinician Indication Dosage Frequency Signature (SIG) Comments Components Source Ciprofloxacin Hcl (Cipro) 500 Mg TABLET Ciprofloxacin Hcl (C ipro) 500 Mg TABLET 2019-07-20 12:31:00 Yes 500 Every 12 Hours [facility] Doxycycline Hyclate Doxycycline Hyclate 2019-07-20 12:31:00 Yes 100 Every 12 Hours [facility] atenolol (TENORMIN) 25 MG tablet 2018-12-31 14:26:04 [...] (10 mg total) by mouth reyes ly. [facility] atenolol (TENORMIN) 50 MG tablet 2018-12-31 00:00:00 2019-12 23:59:00 No 50mg QD Take 1 tablet (50 mg total) by mouth daily. Leo Bernsteinist atenolol (TENORMIN) 50 MG tablet 2018-12-31 00:00:00 2018-12 00:00:00 No 50mg QD Take 1 tablet (50 mg total) by mouth daily. [facility] Bernsteinist rosuvastatin (CRESTOR) 10 MG tablet 2018-12-31 00:00:0 0 2018-12-31 00:00:00 No 10mg QD Take 1 tablet (10 mg total) by mouth reyes ly. Leo Bernsteinist hydrALAZINE (APRESOLINE) 10 MG tablet 2018-11-08 00:00 :00 2018-12-08 23:59:00 No 10mg QD Take 1 tablet (10 mg total) by mouth nig htly for 30 days. Leo Dee Clindamycin 2018-02-04 15:39:00 No 600 mg, 50 mL, Route: IVPB, Drug form: INJ, ONCE, Dosing Weight 77.273, kg, Priority: STAT, Start date: 02/04/18 9:39:00 STRATEGIC ADVISOR, Stop date: 02/04/18 9:39:00 STRATEGIC ADVISOR, ABX Indication: Surgical Prophylaxis [facility] Morphine 2018-02-04 13:49:00 No 4 mg, Route: IVP, ONCE, Dosing Weight 77.273, kg, Priority: STAT, Start date: 02/04/18 7:49:00 STRATEGIC ADVISOR, Stop date: 02/04/18 7:49:[address] [facility] Ondansetron 2018-02-04 11:14:00 No 4 mg, Route: IVP, Drug form: INJ, ONCE, Dosing Weight 77.273, kg, Priority: STAT, Start date: 02/04/18 5:14:00 STRATEGIC ADVISOR, Stop date: 02/04/18 5:14:00 [facility] [place] [facility] 2018-02-04 11:14:00 No 2 mg, Route: IVP, ONCE, Dosing Weight 77.273, kg, Priority: STAT, Start date: 02/04/18 5:14:00 STRATEGIC ADVISOR, Stop date: 02/04/18 5:14:[address] [facility] tobramycin-dexamethasone (TOBRADEX) 0.3-0.1 % ophthalmic renae ution 2017-09-19 13:38:12 Yes 1[drp] 1 drop every 4 (four) hours w hile awake. [facility] ezetimibe (ZETIA) 10 mg tablet 2017-09-19 12:30:46 Yes 10mg QD Take 10 mg by mouth daily. [facility] insulin lispro (HUMALOG) 100 unit/mL injection 2017-09-19 12:30: 46 Yes Inject subcutaneously 3 (three) times daily before gemma ls. [facility] methotrexate 2.5 MG tablet 2017-09-19 12:30:46 Yes Q7D Take by mouth once a week. [facility] folic acid (FOLVITE) 1 MG tablet 2017-09-19 12:30:46 Yes 1mg QD Take 1 mg by mouth daily. [facility] predniSONE (DELTASONE) 5 MG tablet 2017-09-19 12:30:46 Yes 5mg QD Take 5 mg by mouth daily. [facility] thyroid, pork, (ARMOUR THYROID) 120 mg Tab 2017-09-19 12:30:45 Yes QD Take by mouth daily. [place] [facility] terbutaline (BRETHINE) 5 mg tablet 2017-09-19 12:30:45 Yes 5mg Take 5 mg by mouth every 6 (six) hours. [facility] glimepiride (AMARYL) 4 MG tablet 2016-02-11 10:21:47 Yes 4mg Q.5D Take 4 mg by mouth 2 (two) times daily. [facility] amLODIPine (NORVASC) 5 MG tablet 2016-02-11 10:21:47 Yes 5mg QD Take 5 mg by mouth daily. [facility] terbinafine HCl (LAMISIL) 250 mg tablet 2016-02-11 10:21:47 Yes 250mg QD Take 250 mg by mouth daily. [facility] zolpidem (AMBIEN) 5 MG tablet 2016-02-11 10:21:47 Yes 5mg Take 5 mg by mouth every night as needed for Insomnia. [facility] celecoxib (CELEBREX) 100 MG capsule 2016-02-11 10:21:47 Yes 100mg Take 100 mg by mouth every 12 (twelve) hours as needed for Pain. [facility] insulin detemir (LEVEMIR) 100 unit/mL injection 2016-02-11 10:21 :47 Yes 14U QD Inject 14 Units subcutaneously nightly. [facility] ascorbic acid (VITAMIN C) 1000 MG tablet 2016-02-11 10:21:47 Yes 1000mg QD Take 1,000 mg by mouth daily 2,000 - 3,000 daily . [facility] vitamin E 1000 UNIT capsule 2016-02-11 10:21:47 Yes 1000U QD Take 1,000 Units by mouth daily. [facility] cholecalciferol, vitamin D3, 2,000 unit Cap 2016-02-11 10:21:47 Yes Take by mouth. [facility] multivitamin per tablet 2016-02-11 10:21:47 Yes 1{tbl} QD Take 1 tablet by mouth daily. [facility] calcium carbonate (OS-CARLY) 600 mg (1,500 mg) Tab 2016-02-11 10:21:47 Yes 1200mg QD Take 1,200 mg by mouth daily. [facility] HYDROcodone-acetaminophen (VICODIN) 7.5-500 mg per tablet 2016-02-11 10:21:47 Yes 1{tbl} Take 1 tablet by mouth every 6 (six) hours as needed for Pain. [facility] acetaminophen (TYLENOL) 500 MG tablet 2016-02-11 10:21:47 Y es 500mg Take 500 mg by mouth every 6 (six) hours as needed for Pain. [facility] naproxen (ALEVE,ANAPROX,MIDOL) 220 MG tablet 2016-02-11 10:21:47 Yes 220mg Take 220 mg by mouth as needed. [facility] loratadine (CLARITIN) 10 mg tablet 2016-02-11 10:21:47 Yes 10mg Take 10 mg by mouth as needed for Allergies. [facility] loperamide (IMODIUM A-D) 2 mg tablet 2016-02-11 10:21:47 Ye s 2mg Take 2 mg by mouth as needed for Diarrhea. I [facility] atenolol (TENORMIN) 25 MG tablet 2016-02-11 10:21:46 Yes 25mg Q.5D Take 25 mg by mouth 2 (two) times daily. [facility] omeprazole (PRILOSEC) 20 MG capsule 2016-02-11 10:21:46 Yes 20mg Take 20 mg by mouth as needed. [facility] ranitidine (ZANTAC) 75 MG tablet 2016-02-11 10:21:46 Yes 75mg Take 75 mg by mouth as needed for Heartburn. [facility] metFORMIN (GLUCOPHAGE) 1000 MG tablet 2016-02-11 10:21:46 Y es 1000mg Take 1,000 mg by mouth 2 (two) times daily with breakfast and dinner. [facility] Amlodipine Besylate Amlodipine Besylate Yes 10 Daily [facility] Ascorbic Acid (Vitamin C) 1,000 Mg TABLET.ER Ascorbic Acid (Vitamin C) 1,000 Mg TABLET.ER Yes 2000 Twice A Day [facility] Atenolol (Tenormin) 25 Mg TABLET Atenolol (Tenormin) 25 Mg TABLET Yes 25 Daily [facility] Calcium Carbonate (Calcium) 600 Mg TABLET Calcium Carb carmen (Calcium) 600 Mg TABLET Yes 1200 Twice A Day [facility] Celecoxib (Celebrex*) 100 Mg CAPSULE Celecoxib (Celebrex*) 100 Mg C APSULE Yes 100 Daily as needed for Pain [facility] Cholecalciferol (Vitamin D3) (Vitamin D3) 1,000 Unit T ABLET Cholecalciferol (Vitamin D3) (Vitamin D3) 1,000 Unit TABLET Yes 5000 Twice A Day [facility] Ezetimibe (Zetia) 10 Mg TABLET Ezetimibe (Zetia) 10 Mg TABLET Yes 10 Daily [facility] Insulin Detemir (Levemir) 100 Unit/1 Ml VIAL Insulin D etemir (Levemir) 100 Unit/1 Ml VIAL Yes 9 Daily [facility] Loperamide Hcl (Imodium*) 2 Mg CAP Loperamide Hcl (Imodium*) 2 Mg CAP Yes 2 As Needed [facility] Loratadine (Claritin) 10 Mg TABLET Loratadine (Claritin) 10 Mg TABLET Yes 10 As Needed [facility] Metformin Hcl (Glucophage) 1,000 Mg TABLET Metformin H cl (Glucophage) 1,000 Mg TABLET Yes 1000 Twice A Day [facility] Multivitamin (Daily Franc[place]a) 1 Each TABLET Multivitamin (Daily [place]) 1 Each TABLET Yes 1 Daily [facility] Naproxen Sodium (Aleve) 220 Mg CAPSULE Naproxen Sodium (Aleve) 2 20 Mg CAPSULE Yes [address] [facility] Omeprazole Omeprazole Yes 20 Daily [facility] Prednisone Prednisone Yes 5 .every Other Day [facility] Promethazine Hcl Promethazine Hcl Yes 12.5 Twice A Day as needed for Nausea [facility] Terbinafine Hcl (Lamisil) 250 Mg TABLET Terbinafine Hcl ([place] isil) 250 Mg TABLET Yes 250 Daily [facility] Thyroid,Pork ([place] Thyroid) 120 Mg TABLET Thyroid,Po rk ([place] Thyroid) 120 Mg TABLET Yes 120 Daily [facility] Amlodipine 5 Mg Amlodipine 5 Mg 2018-04-29 00:00:00 No [facility] Glimepiride (Amaryl) 4 Mg TABLET Glimepiride (Amaryl) 4 Mg TABLE T 2018-04-29 00:00:00 No 4 [facility] Insulin Aspart (Novolog) 100 Unit/1 Ml CARTRIDGE Insul in Aspart (Novolog) 100 Unit/1 Ml CARTRIDGE 2018-04-29 00:00:00 No [facility] Insulin Detemir (Levemir 10ML Vial) 100 Unit/1 Ml VIAL Insulin Detemir (Levemir 10ML Vial) 100 Unit/1 Ml VIAL 2018-04-29 00:00:00 No As Needed [facility] Levothyroxine Sodium (Unithroid) 200 Mcg TABLET Levoth yroxine Sodium (Unithroid) 200 Mcg TABLET 2018-04-29 00:00:00 No 200 Daily [facility] Liothyronine Sodium (Cytomel) 25 Mcg TABLET Liothyroni ne Sodium (Cytomel) 25 Mcg TABLET 2018-04-29 00:00:00 No 25 [facility] Zolpidem Tartrate (Ambien Angel) 10 Mg TABLET Zolpidem T artrate (Ambien Angel) 10 Mg TABLET 2018-04-29 00:00:00 No 10 Qhs [facility] Vital Signs Vital Name Observation Time Observation Value Comments Source Body Temperature 2019-07-20 12:50:00 98.3 [degF] [facility] Weight 2019-07-20 10:29:00 136 [lb_av] [facility] BMI (Body Mass Index) 2019-07-20 10:29:00 23.3 kg/m2 [facility] Body height 2019-02-12 14:16:00 162.6 cm [facility] Body weight 2019-02-12 14:16:00 62.596 kg [facility] BMI 2019-02-12 14:16:00 23.69 kg/m2 [facility] Systolic blood pressure 2018-12-31 13:53:00 180 mm[Hg] [facility] Diastolic blood pressure 2018-12-31 13:53:00 76 mm[Hg] [facility] Heart rate 2018-12-31 13:53:00 70 /min [facility] Systolic (mm Hg) 2018-02-04 16:01:00 Ulices riabrittani Luis Diastolic (mm Hg) 2018-02-04 16:01:00 Mem orial [place] Respitory Rate 2018-02-04 16:01:00 Georgette Zimmerman Systolic (mm Hg) 2018-02-04 13:38:00 Ulices rial Luis Diastolic (mm Hg) 2018-02-04 13:38:00 Mem orial [place] Respitory Rate 2018-02-04 13:38:00 Memori al Luis Respitory Rate 2018-02-04 12:43:00 Rasheedori al Luis Systolic (mm Hg) 2018-02-04 12:43:00 Ulices phillips [place] Diastolic (mm Hg) 2018-02-04 12:43:00 Mem orial [place] Heart Rate 2018-02-04 10:33:00 [facility] Weight 2018-02-04 10:33:00 [facility] Temperature Oral (F) 2018-02-04 10:33:00 98.1 F [facility] Height 2018-02-04 10:33:00 162.56 cm [facility] BMI Calculated 2018-02-04 10:33:00 Rasheedori al Luis Procedures Procedure Date / Time Performed Performing Clinician [facility] e US CAROTID DUPLEX BILATERAL 2019-07-01 12:15:00 Hung Chapa XR HIP 2-3 VIEWS LEFT 2019-02-12 14:25:32 Yvan Bryant US CAROTID DUPLEX BILATERAL 2018-12-24 14:51:29 Hung Chapa CV STRESS TEST NUCLEAR CARDIO 2018-12-11 14:28:20 Hung Chapa NM MYOCARDIAL PERFUSION REST STRESS 1 DAY 2018-12-11 14:28:20 Sh Hung meza TTE COMPLETE, WO CONTRAST, W DOPPLER ([id number]) 2018-12-09 13:3 5:39 Hung Chapa Plan of Care Planned Activity Planned Date Details Comments Source Future Scheduled Test 2019 00:00:00 INFLUENZA VACCINE [code = INFLUENZA VACCINE] Leo Dee Future Scheduled Test 2004-09-26 00:00:00 65+ PNEUMOCOCCAL V ACCINE (1 of 1 - PPSV23) [code = 65+ PNEUMOCOCCAL VACCINE (1 of 1 - PPSV23)] Leo Dee Future Scheduled Test 1989-09-26 00:00:00 SHINGLES VACCINES (#1) [code = SHINGLES VACCINES (#1)] Leo Dee Instructions Abrasion [facility] Instructions Anemia [facility] Instructions Cellulitis [facility] Encounters Start Date/Time End Date/Time Encounter Type Admission Type Attendi [facility] Care Department Encounter ID Source 2019-07-20 10:12:00 2019-07-20 13:25:00 Departed Emergency Room [address] [facility] [id number] [facility] 2019-07-03 10:21:00 2019-07-03 23:59:00 Outpatient Ambar Fritz [place] [id number] 2019-07-03 10:21:00 2019-07-03 10:21:00 Outpatient [facility] 2019-07-01 00:00:00 2019-07-01 00:00:00 Outpatient ETHAN HUNG [facility] [id number] Leo Uatsdin 2019-03-21 11:33:00 2019-03-21 23:59:00 Outpatient Ambar Fritz [place] [id number] 2019-03-21 11:33:00 2019-03-21 11:33:00 Outpatient [facility] 2018-04-29 17:34:00 2018-05-13 15:15:00 Discharged Inpatient 1 JOHNNA MIX [facility] [id number] [facility] 2018-02-04 04:32:00 2018-02-04 10:07:00 Outpatient Akanksha Acevedo [facility] [place] [id number] 2017-03-26 13:20:00 2017-03-26 23:59:00 Outpatient Ambar Fritz [place] [id number] Results Test Description Test Time Test Comments Results Result Comments Source BREAST ULTRASOUND BILATERAL 2019-11-25 14:36:23 - BREAST ULTRASOUND BILATERALULTRASOUND OF BOTH BREASTS AND BOTH AXILLA: 11/25/2019CLINICAL: Followup to previous exam. Comparison is made to exams dated 09/02/2018 ultrasound, 07/17/2017 ultrasound, and 07/10/2016 ultrasound - [facility]-. Real-time ultrasound and clinical exam were performed bilaterally. Both breasts have been surgically removed. No cystic or solid mass, architectural distortion, or abnormal acoustic shadowing detected. No abnormalities were seen sonographically in either axilla. Clinical exam was unremarkable. IMPRESSION: NEGATIVE - FOLLOW-UP RECOMMENDEDThere is no sonographic evidence of malignancy. A follow-up ultrasound in 12 months is recommended. Alpa Mcarthur M.D. dm/:11/25/2019 14:36:23 Entry: - 11/25/2019 15:49:22Imaging Technologist: Kenia LEMUS, [facility]-FWletter sent: BIRADS 1-2 Normal Ultrasound BI-RADS: 1 Negative FOOT 2VIEW RT - HOPD 2019-07-20 11:45:00 [place] [address] Patient Name: ANTONIO MAE MR #: [id number] : 1940 Age/Sex: 78/F Req #: [id number] Adm Physician: Ordered by: CASSANDRA BEAR Report #: [id number] Location: [facility] Room/Bed: Procedure: [id number] HOPD/FOOT 2VIEW RT - [facility] Exam Date: 07/20/19 Exam Time: 1110 REPORT STATUS: Signed Exam: Right foot series, 2 views. Clinical History: Right fifth toe infection, suspect possible myelitis Comparison: None. Findings: 3 views of the right foot. There is decreased bone mineralization. Negative for acute, displaced fracture or di slocation. No definite cortical erosion or destruction is noted in these 2 views. Degenerative changes in the midfoot/hindfoot joints and the first toe metatarsophalangeal joint. No lytic or blastic lesions. Vascular calcifications. Large anterior and posterior calcaneal enthesophytes. Impression: 1. No definite cortical erosion or destruction is noted in 2 views submitted. Additional oblique view would be helpful for further evaluation. Signed by: Dr. Christopher Andre M.D. on 07/20/2019 11:48 AM Dictated By: CHRISTOPHER ANDRE MD [id number] Transcribed By: OWEN on 07/20/19 1148 COPY TO: CASSANDRA BEAR MARY BREAST ULTRASOUND BILATERAL 2018-09-02 12:41:34 - BREAST ULTRASOUND BILATERALULTRASOUND OF BOTH BREASTS AND BOTH AXILLA: 09/02/2018CLINICAL: Followup to previous exam. Comparison is made to exams dated 07/17/2017 ultrasound, 07/10/2016 ultrasound, 06/29/2015 ultrasound, and 06/23/2014 ultrasound - [facility] Real-time ultrasound of both breasts and both axilla and clinical chest exam was performed. No abnormalities were seen sonographically in either axilla. Both breasts have been surgically removed. The chest wall shows no abnormalities. IMPRESSION: BENIGN - FOLLOW-UP RECOMMENDEDThere is no sonographic evidence of malignancy. A follow-up ultrasound in 12 months is recommended. Alpa Mcarthur M.D. dm/:09/02/2018 12:41:34 Entry: - 09/05/2018 07:11:12Imaging Technologist: Shannan Alfaro , [facility]-letter sent: BIRADS 1-2 Normal Ultrasound BI-RADS: 2 Benign Bedside Glucose 2018-05-13 14:31:00 Test Item Bedside Glucose (test code = 16839-6) 264 70-120 H Meter ID: [id number] [facility] Total Cells [id number] 07:15:00* Test Item Value Reference Range Interpretation Comments Differential Total Cells Counted (test code = Differen tial Total Cells Counted) 100 [facility]Neutrophils % (Manual)2018-05-12 07:15:00 * Test Item Value Reference Range Interpretation Comments Neutrophils % (Manual) (test code = 33979-8) 65 40-74 [facility] HospitalBand Neutrophils %2018-05-12 07:15:00* Test Item Value Reference Range Interpretation Comments Band Neutrophils % (test code = 764-1) 2 [facility] HospitalLymphocytes % (Manual)2018-05-12 07:15:00 * Test Item Value Reference Range Interpretation Comments Lymphocytes % (Manual) (test code = 737-7) 18 19-48 L [facility] HospitalMonocytes % (Manual)2018-05-12 07:15:00* Test Item Value Reference Range Interpretation Comments Monocytes % (Manual) (test code = 744-3) 12 3.4-9.0 H [facility] HospitalMetamyelocytes %2018-05-12 07:15:00* Test Item Value Reference Range Interpretation Comments Metamyelocytes % (test code = 740-1) 2 0-0 H [facility] HospitalMyelocytes %2018-05-12 07:15:00* Test Item Value Reference Range Interpretation Comments Myelocytes % (test code = 749-2) 1 0-0 H [facility] HospitalNucleated Red Blood Dmdve0370-38-00 07:15:00* Test Item Value Reference Range Interpretation Comments Nucleated Red Blood Cells (test code = 99836-6) 1 [facility] HospitalPlatelet Tbqfohzp0254-03-09 07:15:00* Test Item Value Reference Range Interpretation Comments Platelet Estimate (test code = 21160-5) ADEQUATE [facility] HospitalPlatelet Morphology Hxigftl9974-77-41 07:15:00* Test Item Value Reference Range Interpretation Comments Platelet Morphology Comment (test code = 43040-2) NORMAL [facility] HospitalRed Cell Morphology Qymlhmi7507-09-52 07:15:00* Test Item Value Reference Range Interpretation Comments Red Cell Morphology Comment (test code = 6742-1) NORMAL [facility] Nmstf0990-39-40 06:04:00* Test Item Value Reference Range Interpretation Comments Sodium Level (test code = 2951-2) 138 136-145 [facility] HospitalPotassium Pqgjd6969-92-65 06:04:00* Test Item Value Reference Range Interpretation Comments Potassium Level (test code = 2823-3) 4.4 3.5-5.1 [facility] HospitalChloride Wfqas9868-40-46 06:04:00* Test Item Value Reference Range Interpretation Comments Chloride Level (test code = 2075-0) 101 98-107 [facility] HospitalCarbon Dioxide Sjnyd9317-36-23 06:04:00* Test Item Value Reference Range Interpretation Comments Carbon Dioxide Level (test code = 2028-9) 28 22-29 [facility] HospitalAnion Eiq3150-41-87 06:04:00* Test Item Value Reference Range Interpretation Comments Anion Gap (test code = 39872-5) 13.4 8-16 [facility] HospitalBlood Urea Aviihjst8697-67-98 06:04:00* Test Item Value Reference Range Interpretation Comments Blood Urea Nitrogen (test code = 3094-0) 21 7-26 [facility] HospitalCreatinine2019-03-17 06:04:00* Test Item Value Reference Range Interpretation Comments Creatinine (test code = 2160-0) 1.08 0.57-1.11 [facility] HospitalBUN/Creatinine Mxbwn7778-10-84 06:04:00* Test Item Value Reference Range Interpretation Comments BUN/Creatinine Ratio (test code = 3097-3) 19 6-25 [facility] HospitalEstimat Glomerular Filtration Rate 2018-05-12 06:04:00* Test Item Value Reference Range Interpretation Comments Estimat Glomerular Filtration Rate (test code = 342328978) 49 >60 L Ranges were taken from the National Kidney Disease Education Program and the [facility] literature.Reference ranges:60 or greater: Qgswiw67-66 ( for 3 consecutive months): Chronic kidney disease 15 or less: Kidney failureTexas Children's HospitalGlucose Sjjav5652-21-70 06:04:00* Test Item Value Reference Range Interpretation Comments Glucose Level (test code = VRV1032) 173 74-118 H [facility] HospitalCalcium Djezf0538-63-31 06:04:00* Test Item Value Reference Range Interpretation Comments Calcium Level (test code = 36865-7) 8.6 8.4-10.2 [facility] HospitalWhite Blood Bakzx2559-21-15 05:44:00* Test Item Value Reference Range Interpretation Comments White Blood Count (test code = 6690-2) 12.41 4.8-10.8 H [facility] HospitalRed Blood Xctzi5589-79-24 05:44:00* Test Item Value Reference Range Interpretation Comments Red Blood Count (test code = 789-8) 3.48 3.6-5.1 L [facility] HospitalHemoglobin2019-03-17 05:44:00* Test Item Value Reference Range Interpretation Comments Hemoglobin (test code = 88499-7) 9.9 12.0-16.0 L [facility] HospitalHematocrit2019-03-17 05:44:00* Test Item Value Reference Range Interpretation Comments Hematocrit (test code = 4544-3) 30.9 34.2-44.1 L [facility] HospitalMean Corpuscular Gkhchh8729-93-73 05:44:00* Test Item Value Reference Range Interpretation Comments Mean Corpuscular Volume (test code = 787-2) 88.8 81-99 [facility] HospitalMean Corpuscular Rjrkbpmjhe9763-36-83 05:44:00* Test Item Value Reference Range Interpretation Comments Mean Corpuscular Hemoglobin (test code = 785-6) 28.4 28-32 [facility] HospitalMean Corpuscular Hemoglobin Concent 2018-05-12 05:44:00* Test Item Value Reference Range Interpretation Comments Mean Corpuscular Hemoglobin Concent (test code = 786-4) 32.0 31-35 [facility] HospitalRed Cell Distribution Kkbiw1636-24-46 05:44:00* Test Item Value Reference Range Interpretation Comments Red Cell Distribution Width (test code = 34233-3) 17.9 11.7 -14.4 H [facility] HospitalPlatelet Elrxx6742-86-32 05:44:00* Test Item Value Reference Range Interpretation Comments Platelet Count (test code = 777-3) 298 140-360 [facility] HospitalNeutrophils (%) (Auto)2018-05-12 05:44:00 * Test Item Value Reference Range Interpretation Comments Neutrophils (%) (Auto) (test code = 60786-2) 61.3 38.7-80.0 [facility] HospitalLymphocytes (%) (Auto)2018-05-12 05:44:00 * Test Item Value Reference Range Interpretation Comments Lymphocytes (%) (Auto) (test code = 736-9) 10.8 18.0-39.1 L [facility] HospitalMonocytes (%) (Auto)2018-05-12 05:44:00* Test Item Value Reference Range Interpretation Comments Monocytes (%) (Auto) (test code = 5905-5) 14.6 4.4-11.3 H [facility] HospitalEosinophils (%) (Auto)2018-05-12 05:44:00 * Test Item Value Reference Range Interpretation Comments Eosinophils (%) (Auto) (test code = 713-8) 0.2 0.0-6.0 [facility] HospitalBasophils (%) (Auto)2018-05-12 05:44:00* Test Item Value Reference Range Interpretation Comments Basophils (%) (Auto) (test code = 706-2) 1.2 0.0-1.0 H [facility] HospitalIM GRANULOCYTES %2018-05-12 05:44:00* Test Item Value Reference Range Interpretation Comments IM GRANULOCYTES % (test code = IM GRANULOCYTES %) 11.9 0.0- 1.0 H [facility] HospitalNeutrophils # (Auto)2018-05-12 05:44:00* Test Item Value Reference Range Interpretation Comments Neutrophils # (Auto) (test code = 751-8) 7.6 2.1-6.9 H [facility] HospitalLymphocytes # (Auto)2018-05-12 05:44:00* Test Item Value Reference Range Interpretation Comments Lymphocytes # (Auto) (test code = 66806-4) 1.3 1.0-3.2 [facility] HospitalMonocytes # (Auto)2018-05-12 05:44:00* Test Item Value Reference Range Interpretation Comments Monocytes # (Auto) (test code = 742-7) 1.8 0.2-0.8 H [facility] HospitalEosinophils # (Auto)2018-05-12 05:44:00* Test Item Value Reference Range Interpretation Comments Eosinophils # (Auto) (test code = 711-2) 0.0 0.0-0.4 [facility] HospitalBasophils # (Auto)2018-05-12 05:44:00* Test Item Value Reference Range Interpretation Comments Basophils # (Auto) (test code = 704-7) 0.2 0.0-0.1 H [facility] HospitalAbsolute Immature Granulocyte (auto 2018-05-12 05:44:00* Test Item Value Reference Range Interpretation Comments Absolute Immature Granulocyte (auto (domonique t code = Absolute Immature Granulocyte (auto) 1.48 0-0.1 H [facility] HospitalEosinophils % (Manual)2018-05-08 09:39:00 * Test Item Value Reference Range Interpretation Comments Eosinophils % (Manual) (test code = 714-6) 1 0-7 [facility] HospitalReactive Leemlikunwj2662-06-49 09:39:00* Test Item Value Reference Range Interpretation Comments Reactive Lymphocytes (test code = 35043-7) 7 [facility] HospitalHypochromasia2019-03-13 09:39:00* Test Item Value Reference Range Interpretation Comments Hypochromasia (test code = 728-6) SLIGHT [facility] HospitalAnisocytosis2019-03-13 09:39:00* Test Item Value Reference Range Interpretation Comments Anisocytosis (test code = 702-1) SLIGHT [facility] HospitalMagnesium Qqyrd4051-61-08 07:04:00* Test Item Value Reference Range Interpretation Comments Magnesium Level (test code = 16618-2) 1.6 1.3-2.1 [facility] HospitalTotal Wahkvehmb3043-18-67 06:18:00* Test Item Value Reference Range Interpretation Comments Total Bilirubin (test code = 1975-2) 0.5 0.2-1.2 [facility] HospitalAspartate Amino Transf (AST/SGOT) 2018-05-08 06:18:00* Test Item Value Reference Range Interpretation Comments Aspartate Amino Transf (AST/SGOT) (test code = Aspartate Amino Transf (AST/SGOT)) 48 5-34 H [facility] HospitalAlanine Aminotransferase (ALT/SGPT) 2018-05-08 06:18:00* Test Item Value Reference Range Interpretation Comments Alanine Aminotransferase (ALT/SGPT) (test code = 1742-6) 52 0-55 [facility] HospitalTotal Zlsqdvb9052-23-95 06:18:00* Test Item Value Reference Range Interpretation Comments Total Protein (test code = 2885-2) 5.9 6.5-8.1 L [facility] HospitalAlbumin2019-03-13 06:18:00* Test Item Value Reference Range Interpretation Comments Albumin (test code = 1751-7) 2.6 3.5-5.0 L [facility] HospitalGlobulin2019-03-13 06:18:00* Test Item Value Reference Range Interpretation Comments Globulin (test code = 89666-2) 3.3 2.3-3.5 [facility] HospitalAlbumin/Globulin Jgshb7152-01-54 06:18:00 * Test Item Value Reference Range Interpretation Comments Albumin/Globulin Ratio (test code = 1759-0) 0.8 0.8-2.0 [facility] HospitalAlkaline Pdyrrmrkjka7498-80-62 06:18:00* Test Item Value Reference Range Interpretation Comments Alkaline Phosphatase (test code = 6768-6) 102 40-150 [facility] HospitalClostridium Difficile Toxin A & B 2018-05-07 10:40:00* Test Item Value Reference Range Interpretation Comments Clostridium Difficile Toxin A & B (test code = 482376473) NEGATIVE NEGATIVE Testing on stool aspirate specimens is outside tobacco wetter claims since specime n type not validated on this assay.[facility] Promyelocytes %2018-05-04 15:16:00* Test Item Value Reference Range Interpretation Comments Promyelocytes % (test code = 91074-3) 3 0-0 H [facility] HospitalBlast Cells %2018-05-04 15:16:00* Test Item Value Reference Range Interpretation Comments Blast Cells % (test code = 12540-3) 3 [facility] HospitalPoikilocytosis2019-03-09 15:16:00* Test Item Value Reference Range Interpretation Comments Poikilocytosis (test code = 779-9) MODERATE [facility] HospitalBurr Edvfo3893-41-43 15:16:00* Test Item Value Reference Range Interpretation Comments [place] Cells (test code = 7790-9) SLIGHT [facility] HospitalBlood Ctuobwr8293-65-15 14:43:00* Test Item Value Reference Range Interpretation Comments Blood Culture (test code = 17213983) NO GROWTH AFTER 5 DAYS, FINAL REPORT [facility] HospitalBasophils % (Manual)2018-05-03 11:16:00* Test Item Value Reference Range Interpretation Comments Basophils % (Manual) (test code = 36388-0) 1 0-1.5 [facility] HospitalVancomycin Level Bpsymo0514-23-12 20:48:00* Test Item Value Reference Range Interpretation Comments Vancomycin Level Trough (test code = 4092-3) 9.7 5.0-10.0 [facility] HospitalCT HIP LEFT S3766-34-22 15:23:00 [facility] [address] [place] [address] Patient Name: ANTONIO MAE MR #: [id number] : 1940 Age/Sex: 77/F Req #: [id number] Adm Physician: JOHNNA MIX MD Ordered by: JOHNNA MIX MD Report #: [id number] Location: MED/SURG Room/Bed: [facility] Procedure: [id number] CT/CT HIP LEFT W Exam Date: 05/02/18 [...] 3:35 PM Dictated By: ARCADIO DURAN DO 2287 Transcribe d By: OWEN on 05/02/18 4839 COPY TO: JOHNNA MIX MD Urine Ixjjn9153-75-26 21:53:00* Test Item Value Reference Range Interpretation Comments Urine Color (test code = 5778-6) YELLOW YELLOW [facility] HospitalUrine Bjmxdyp1353-74-06 21:53:00* Test Item Value Reference Range Interpretation Comments Urine Clarity (test code = 17912-1) HAZY CLEAR [facility] HospitalUrine Specific Bfrlrhr0316-55-06 21:53:00 * Test Item Value Reference Range Interpretation Comments Urine Specific [place] (test code = 5811-5) 1.025 1.010-1.02 5 [facility] HospitalUrine bA3050-98-02 21:53:00* Test Item Value Reference Range Interpretation Comments Urine pH (test code = 72480-5) 6 5-7 [facility] HospitalUrine Leukocyte Thmkhhmo0359-64-07 21:53:00* Test Item Value Reference Range Interpretation Comments Urine Leukocyte Esterase (test code = 5799-2) TRACE NEGATIVE H [facility] Zhhncxx2645-07-46 21:53:00* Test Item Value Reference Range Interpretation Comments Urine Nitrite (test code = 49840-9) NEGATIVE NEGATIVE [facility] Pykwykh3276-13-44 21:53:00* Test Item Value Reference Range Interpretation Comments Urine Protein (test code = 5804-0) 2+ NEGATIVE H [facility] Glucose (UA)2018-04-29 21:53:00* Test Item Value Reference Range Interpretation Comments Urine Glucose (UA) (test code = 2349-9) 1+ NEGATIVE H [facility] Fissekj3982-26-44 21:53:00* Test Item Value Reference Range Interpretation Comments Urine Ketones (test code = 07187-3) NEGATIVE NEGATIVE [facility] Dycdintwracb3543-05-98 21:53:00* Test Item Value Reference Range Interpretation Comments Urine Urobilinogen (test code = 67450-8) 0.2 0.2-1 [facility] HospitalUrine Zjiexqhjq6156-15-96 21:53:00* Test Item Value Reference Range Interpretation Comments Urine Bilirubin (test code = 1978-6) NEGATIVE NEGATIVE [facility] Zhckz8243-39-51 21:53:00* Test Item Value Reference Range Interpretation Comments Urine Blood (test code = 90751-2) TRACE NEGATIVE H [facility] HospitalUrine LTZ5965-10-31 21:53:00* Test Item Value Reference Range Interpretation Comments Urine WBC (test code = 5821-4) 0-5 0-5 [facility] HospitalUrine MZY5381-70-92 21:53:00* Test Item Value Reference Range Interpretation Comments Urine RBC (test code = 55218-4) 0-5 0-5 [facility] HospitalUrine Pqwxvmrk0564-26-64 21:53:00* Test Item Value Reference Range Interpretation Comments Urine Bacteria (test code = 86164-2) FEW NONE [facility] HospitalUrine Epithelial Zjzsv6415-91-32 21:53:00 * Test Item Value Reference Range Interpretation Comments Urine Epithelial Cells (test code = 18472-1) FEW NONE [facility] HospitalInfluenza Virus Types A,B Antigen 2018-04-29 14:50:00* Test Item Value Reference Range Interpretation Comments Influenza Virus Types A,B Antigen (test code = 73617-0) NEGATIVE NEGATIVE [facility] HospitalAmylase Jkugb2987-08-98 14:47:00* Test Item Value Reference Range Interpretation Comments Amylase Level (test code = 1798-8) 208 25-125 H [facility] HospitalLipase2019-03-04 14:47:00* Test Item Value Reference Range Interpretation Comments Lipase (test code = 3040-3) 5 8-78 L [facility] HospitalLactic Acid Qiiyp8570-84-43 14:42:00* Test Item Value Reference Range Interpretation Comments Lactic Acid Level (test code = Lactic Acid Level) 13.8 4.5- 19.8 [facility] HospitalGroup A Streptococcus Mgolld3039-22-81 14:41:00* Test Item Value Reference Range Interpretation Comments Group A Streptococcus Screen (test code = 68664-2) NEGATIVE NEG ATIVE [facility] HospitalProthrombin Pzmg6910-69-95 14:37:00* Test Item Value Reference Range Interpretation Comments Prothrombin Time (test code = 5902-2) 14.6 11.9-14.5 H [facility] HospitalProthromb Time International Ratio 2018-04-29 14:37:00* Test Item Value Reference Range Interpretation Comments Prothromb Time International Ratio (test code = 6301-6) 1.09 Oral Anticoagulant Therapy INR Values:1. Low Intensity Therapy 1.5 - 2.02 . Moderate Intensity Therapy 2.0 - 3.03. High Intensity Therapy(1) 2.5 - 3. 54. High Intensity Therapy(2) 3.0 - 4.05. Panic Value INR > 5.0 [facility] HospitalActivated Partial Thromboplast Time 2018-04-29 14:37:00* Test Item Value Reference Range Interpretation Comments Activated Partial Thromboplast Time (test code = 82832-4) 35.8 23.8-35.5 H [facility] HospitalCHEST SINGLE (PORTABLE)2018-04-29 13:44:00 [facility] [address] [address] Patient Name: ANTONIO MAE MR #: [id number] : 1940 Age/Sex: 77/F Req #: [id number] Adm Physician: Ordered by: ETHEL ABDALLA SLOT MACHINE REPAIRER Report #: [id number] Location: ER Room/Bed: Procedure: [id number] DX/CHEST SINGLE (PORTABLE) Exam Date: 04/29/18 Exam [...] 1:46 PM Dictated By: RAFAEL SORTO MD [id number] Transcribed By: OWEN on 04/29/18 0283 COPY TO: ETHEL ABDALLA SLOT MACHINE REPAIRER CHEM ZHCHB4402-14-58 13:36:002.3 [facility] ABPRR2486-82-64 13:36:00* Test Item Value Reference Range Interpretation Comments UA pH (test code = UA pH) 7.0 1 5.0-8.0 [facility] HWZZY4949-13-05 13:36:00Small *ABN*(02/04/18 7:36 AM) [facility] YPHKE5023-45-97 13:36:00Negative *NA*(02/04/18 7:36 AM)[facility] OELTG2720-35-39 13:36:00Negative *NA*(02/04/18 7:36 AM)[facility] ZCFKO4833-42-41 13:36:003[facility] EHRYD3737-60-21 13:36:00Negative (02/04/18 7:36 AM)[facility] DNKSU9051-94-78 13:36:00Negative (02/04/18 7:36 AM)[facility] ZDBNJ5643-56-64 13:36:004[facility] YFVWA2283-33-98 13:36:00Clear (02/04/18 7:36 AM)[facility] GVMMW2324-54-80 13:36:00* Test Item Value Reference Range Interpretation Comments UA Spec Grav (test code = UA Spec Grav) 1.011 1 [facility]annCARDIAC HXLNBYM6587-83-76 11:23:0037[facility]annCARDIAC FUUBUHK4234-35-52 11:23:00<0.02[facility]annCARDIAC YRWYLHP1409-78-68 11:23:45389Vsnidnzi HermannCHEM AWECO9482-22-23 11:23:003.1[facility]annCHEM SJSPY4280-43-00 11:23:002.1[facility]annCHEM ZLEKW9870-19-15 11:23:002.3 [facility]annCHEM YSIST2584-44-26 11:23:008.9[facility]annCHEM PANEL 2018-02-04 11:23:003.8[facility]annCHEM DPIWE4689-55-53 11:23:007.3[facility]annCHEM AIMZK1237-70-73 11:23:0067[facility]annCHEM DPASG1853-64-06 11:23:0020[facility]annCHEM ZBCPD7810-82-06 11:23:000.5[facility]annCHEM PXBGL2643-70-02 11:23:0042[facility]annCHEM AMFOP1142-27-66 11:23:0026 [facility]annCHEM VOCCY2156-87-77 11:23:49982Ykdnhpru HermannCHEM PANEL 2018-02-04 11:23:19143Ullwrtgr HermannCHEM GYOMS1378-61-31 11:23:003.9[facility]annCHEM MTRVX2965-94-68 11:23:000.95[facility]annCHEM GZKFY0337-79-30 11:23:0021[facility]annCHEM RBJEA0466-06-11 11:23:57641Gxlqodqm HermannCHEM CKMIR3051-73-59 11:23:0057[facility]annCHEM GMFMK6524-70-28 11:23:003.5 [facility]annCHEM PQLMT3679-89-79 11:23:00* Test Item Value Reference Range Interpretation Comments B/C Ratio (test code = B/C Ratio) 22 1 6-25 [facility] HermannCHEM XNVLP4690-19-84 11:23:00* Test Item Value Reference Range Interpretation Comments A/G Ratio (test code = A/G Ratio) 1.1 1 0.7-1.6 [facility]annCHEM AQLRO6956-73-59 11:23:0014.9[facility]annHEMATOLOGY 2018-02-04 11:23:000.7[facility] CekexayDRJVMLTZMN1596-33-21 11:23:000.1[facility] KawblreHYAZTJCGEI9204-79-49 11:23:000.5[facility] MrpzguvRWXCDORICX2517-31-98 11:23:008.2[facility] EmhvctuUCQGCSFWZY3461-01-37 11:23:0087.0[facility] EKOUYRWHRZ7020-91-12 11:23:000.6[facility] LgfudiuMJHQEBMBDN8611-14-83 11:23:000.3 [facility] UrjybeoGWQLBEQDKT3375-88-95 11:23:00Normal (02/04/18 5:23 AM)[facility] DghdvyzKGJCLKINVY7799-58-45 11:23:00Normal (02/04/18 5:23 AM)[facility] [place] HIEITSCHEO4416-43-96 11:23:007.2[facility] LvldkvsZWDMAFQSAZ8818-96-22 11:23:004.9 Memorial ZdifrgsEXXJJWADAK5120-62-79 11:23:00* Test Item Value Reference Range Interpretation Comments INR (test code = INR) 1.01 1 0.85-1.17 [facility] QpidugaPKATGCPDAJ7464-07-36 11:23:00* Test Item Value Reference Range Interpretation Comments PT (test code = PT) 13.1 s 12.0-14.7 Memorial ZrotphrWZZLDLCDWU0060-27-37 11:23:009.4[facility] HermannHEMATOLOGY 2018-02-04 11:23:0015.8[facility] VhiotssUIWBXHZEJX4914-23-10 11:23:008.3[facility] TlmeaxaLLYKPYJVYA5588-87-63 11:23:0034.4[facility] FcliydiOIUHBFBHGN5362-27-95 11:23:39065Ifyemhdx TefxxbgHFGPVZHUIU4964-03-55 11:23:004.05[facility] HZBBOEXWUE3383-05-39 11:23:0013.1[facility] LlxquhgBOPDALLANZ4433-29-71 11:23:00 38.0[facility]orial YvqumkpKECLJWETPT3431-25-66 11:23:0093.9[facility] HermannHEMATOLOGY 2018-02-04 11:23:00* Test Item Value Reference Range Interpretation Comments MCH (test code = MCH) 32.3 pg 27.0-31.0 [facility]PO[facility]UCOSE EPABE5402-25-57 10:43:00* Test Item Value Reference Range Interpretation Comments POC-GLUCOSE METER (BEAKER) (test code = 1538) 109 mg/dL 70-110 [address] [facility] [address]
[2019-12-05] MEDS ORDERED: DILTIAZEM HCL VIAL 5 ML ONE ×2 (00:56→01:09)
[2019-12-05] MEDS: DILTIAZEM HCL 125 ML IV SCH ×2 (01:00→09:03)
[2019-12-05] MEDS ORDERED: SODIUM CHLORIDE FLUSH 10 ML SYR INJ PRN (01:00)
--- NOTE | 2019-12-05 01:00 | NUR ---
[facility] NOTIFIED OF TRANSFER TO [facility]
--- NOTE | 2019-12-05 01:02 | Emergency Department Note ---
History of Present Illnes History of Present Illness Chief Complaint: Chest Pain History of Present Illness This is a 79 year old female palpitation . 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 Any updates have been documented here. Past Medical History Past Medical History: Hypertension, Diabetes, Hypothyroidism, GERD Other Medical History: RA Past Surgical History: Lumpectomy Other Surgery: BLADDER SUSPENSION LEFT HIP REPLACEMENT CARPAL TUNNEL DOUBLE MASTECTOMY/RECONSTRUCTION RIGHT BREAST LUMPECTOMY BUNION Social History Smoking Cessation: Never Smoker Alcohol Use: None Physically hurt or threatened: No Other Last Tetanus: UNKNOWN Review of Systems Review of Systems Constitutional: Reports no symptoms EENTM: Reports no symptoms Cardiovascular: Reports as per HPI Respiratory: Reports no symptoms Gastrointestinal: Reports no symptoms Genitourinary: Reports no symptoms Musculoskeletal: Reports no symptoms Integumentary: Reports no symptoms Neurological: Reports no symptoms Psychological: Reports no symptoms Endocrine: Reports no symptoms Hematological/Lymphatic: Reports no symptoms Physical Exam Related Data Allergies: Coded Allergies: Penicillins (Verified Allergy, Mild, RASH, 03/11/09) codeine (Verified Allergy, Mild, NAUSEA, 03/11/09) levofloxacin (Verified Allergy, Mild, N/V, 01/12/10) lisinopril (Verified Allergy, Mild, ITCHING/HIVES, 08/27/19) ITCHING, HIVES Triage Vital Signs Vital Signs Date Time Temp Pulse Resp B/P (MAP) Pulse Ox O2 Delivery O2 Flow Rate FiO2 12/05/19 00:52 148 149/87 Vital signs reviewed: Yes Physical Exam CONSTITUTIONAL Constitutional: Present well-developed, Present well-nourished HENT HENT: Present normocephalic, Present atraumatic, Present oropharynx clear/moist, Present nose normal HENT L/R: Present left ext ear normal, Present right ext ear normal; Absent left TM normal, Absent right TM normal, Absent left canal normal, Absent right canal normal, Absent left impacted cerumen, Absent right impacted cerumen, Absent left bulging TM, Absent right bulging TM, Absent other EYES Eyes: Reports PERRL, Reports conjunctivae normal; Denies EOM normal, Denies lids normal, Denies left eye discharge, Denies right eye discharge, Denies scleral icterus, Denies other NECK Neck: Present ROM normal; Absent supple, Absent thyromegaly, Absent tracheal deviation, Absent stridor, Absent JVD, Absent cervical adenopathy, Absent carotid bruit, Absent other PULMONARY Pulmonary: Present effort normal, Present breath sounds normal; Absent respiratory distress, Absent rales, Absent rhonchi, Absent chest tenderness, Absent other CARDIOVASCULAR Cardiovascular: Present irregular rhythm, Present heart sounds normal, Present capillary refill normal, Present normal rate GASTROINTESTINAL Abdominal: Present soft, Present nontender, Present bowel sounds normal GENITOURINARY Genitourinary: Present exam deferred SKIN Skin: Present warm, Present dry; Absent erythema, Absent pale, Absent rash, Absent jaundiced, Absent bruising, Absent lesion, Absent other MUSCULOSKELETAL Musculoskeletal: Present ROM normal; Absent edema, Absent deformity, Absent tenderness, Absent swelling, Absent other NEUROLOGICAL Neurological: Present alert, Present oriented x 3, Present no gross motor or sensory deficits; Absent DTRs normal, Absent cranial nerve deficit, Absent sensory deficit, Absent abnormal DTRs, Absent abnormal coordination, Absent abnormal gait, Absent weakness, Absent other PSYCHOLOGICAL Psychological: Present mood/affect normal, Present judgement normal Results Laboratory Lab results reviewed: Yes Imaging Imaging results reviewed: Yes Critical Care Time Total Critical Care Time (min): 35 Critical care time exclusive o: separately billable procedures Critcal care necessary due to: cardiac failure Critcal care time spent by me: examination of patient, obtaining hx from patien t/surrogate, order/perform tx or interventions, order/review laboratory studies, order/review radiographic studies Assessment & Plan Medical Decision Making MDM a fib svt cad Reassessment Reassessment time: 01:01 Reassessment better Assessment & Plan Final Impression: (1) Atrial fibrillation, new onset Depart Disposition: ADMITTED Last Vital Signs Date Time Temp Pulse Resp B/P (MAP) Pulse Ox O2 Delivery O2 Flow Rate FiO2 12/05/19 00:52 148 149/87 Home Meds Reported Medications Vit D3 & K/Berberine Hcl/Hops (OSTERA TABLET) 1 Each Tablet 12/05/19 Ascorbic Acid/Ascorbate Sodium (Vit C-Yuki Hips 500 mg Chew Tb) 500 Mg Tab.chew, 199912/05/19 Calcium Carbonate (CALCIUM) 600 Mg Tablet, 1200 12/05/19 Naproxen Sodium (ALEVE) 220 Mg Capsule 12/05/19 Loratadine/Pseudoephedrine (CLARITIN-D 24 HOUR TABLET) 1 Each Tab.er.24h, 1 EACH PO DAILY, #30 TAB 12/05/19 Loperamide Hcl* (IMODIUM*) 2 Mg Cap, 2 MG PO, CAP 12/05/19 Promethazine Hcl (PHENERGAN) 25 Mg/1 Ml Ampul 12/05/19 Celecoxib* (CELEBREX*) 100 Mg Capsule, 100 MG PO DAILY, #30 CAP 12/05/19 Insulin Lispro (HUMALOG) 100 Unit/1 Ml Cartridge 12/05/19 Thyroid,Pork (ARMOUR THYROID) 180 Mg Tablet, 180 MG PO DAILY 08/27/19 Calcium Carbonate (CALCIUM) 600 Mg Tablet, 1200 MG PO BID 04/29/18 Multivitamin (DAILY KRISTIAN) 1 Each Tablet, 1 TAB PO DAILY 04/29/18 Cholecalciferol (Vitamin D3) (VITAMIN D3) 1,000 Unit Tablet, 2000 MG PO BID 04/29/18 Ascorbic Acid (VITAMIN C) 1,000 Mg Tablet.er, 2000 MG PO BID 04/29/18 Insulin Detemir (LEVEMIR) 100 Unit/1 Ml Vial, 12 UNITS SQ BID 04/29/18 Omeprazole (OMEPRAZOLE) 20 Mg Capsule.dr, 20 MG PO DAILY 12/16/12 Metformin Hcl (Glucophage) 1,000 Mg Tablet, 1000 MG PO BID 09/05/11 Atenolol (Tenormin) 25 Mg Tablet, 25 MG PO DAILY 09/05/11 Medications in the ED Diltiazem HCl 10 mg NOW STAT IV Last administered on 12/05/19at 00:52; Admin Dose 10 MG; Start 12/05/19 at 00:44; Stop 12/05/19 at 00:48; Status DC Diltiazem HCl 5 ml @ [facility] ONCE .ROUTE ; Start 12/05/19 at 00:56; Stop 12/05/19 at 00:52; Status DC Sodium Chloride 10 ml PRN PRN INJ IV SITE FLUSH Last administered on 12/05/19at 00:52; Admin Dose 10 ML; Start 12/05/19 at 01:00; Stop 01/04/20 at 00:59 MITA RUSSELL MD Dec 05, 2019 01:02
--- OUTSIDE RECORDS SUMMARY | 2019-12-05 01:08 | XMS REPORT | Clinical Summary ---
Author Author PORTIA Quorum SystemsMinid[facility] HospitalNextInput [facility] Organization [facility] Address Unknown Phone Unavailable Care Team Providers Care Production Bow Maker Name Role Phone NikoJunior PCP Allergies Comments [...] ID Type Phone Address Plan / Group [facility] xxxxxxxxx MEDICARE MGD CARE MEDICARE HMO [phone] Advance Directives For more information, please contact: [facility] [address] [place] [address] Date Inactivated Comments Code Status Date Activated 02/23/2016 12:21 PM Full Code 02/22/2016 4:11 PM This code status was determined by: Patient 02/22/2016 4:11 PM Full Code 02/22/2016 5:40 AM This code status was determined by: Patient
--- OUTSIDE RECORDS SUMMARY | 2019-12-05 01:09 | XMS REPORT | Continuity of Care Document ---
Author Author Danelle Luis [employer] ANTONIO Alston [employer] Address Unknown Phone Unavailable Care Team Providers Care Bead Trimmer Name Role Phone [employer] Unavailable Un available Problems Problem Status Onset Date Classification Date Reported Comments Source XRAY Active 07/03/2019 [facility] M25.562/M25.561 Active 03/21/2019 [facility] Periprosthetic fracture around internal prosthetic left hip joint, initial encounter 02/12/2018 08/24/2018 [facility] FALL Active 02/04/2018 [facility] Pain in left hand 03/29/2017 07/02/2017 [facility] M79.642 M79.641 M25.562 Acti ve 02/26/2017 [facility] Pain in right hand 07/02/2017 [facility] Pain in left knee 07/02/2017 [facility] Primary osteoarthritis, left hand 07/02/2017 [facility] Crushing injury of right ring finger, initial encounte r 08/24/2018 [facility] Unspecified open wound of right ring fin [place] with damage to nail, initial encounter 08/24/2018 [facility] Presence of left artificial hip joint 08/24/2018 [facility] Fall on same level from slipping, trippi ng and stumbling without subsequent striking against object, initial encounter 08/24/2018 [facility] Caught, crushed, jammed, or pinched betw een moving objects, initial encounter 08/24/2018 [facility] Essential (primary) hypertension 08/24/2018 [facility] Personal history of malignant neoplasm of breast 08/24/2018 [facility] Medications Medication Details Route Status Patient Instructions Ordering Provider Order Date Source Clindamycin 600 mg, 50 mL, Rou te: IVPB, Drug form: INJ, ONCE, Dosing Weight 77.273, kg, Priority: STAT, Start date: 02/04/18 9:39:00 MANNEQUIN MOLDER, Stop date: 02/04/18 9:39:00 MANNEQUIN MOLDER, ABX Indication: Surgical Prophylaxis Inactive 02/04/2018 [facility] Morphine 4 mg, Route: IVP, ONC E, Dosing Weight 77.273, kg, Priority: STAT, Start date: 02/04/18 7:49:00 MANNEQUIN MOLDER, Stop date: 02/04/18 7:49:00 MANNEQUIN MOLDER Inactive 02/04/2018 [facility] Ondansetron 4 mg, Route: IVP, Drug form: INJ, ONCE, Dosing Weight 77.273, kg, Priority: STAT, Start date: 02/04/18 5:14:00 MANNEQUIN MOLDER, Stop date: 02/04/18 5:14:00 MANNEQUIN MOLDER Inactive 02/04/2018 [facility] Morphine 2 mg, Route: IVP, ONC E, Dosing Weight 77.273, kg, Priority: STAT, Start date: 02/04/18 5:14:00 MANNEQUIN MOLDER, Stop date: 02/04/18 5:14:00 MANNEQUIN MOLDER Inactive 02/04/2018 [facility] Allergies, Adverse Reactions, Alerts Substance Category Reaction Severity Reaction type Status Date Reported Comments Source codeine Assertion Drug allergy Active [facility] penicillin Assertion Drug allergy Active [facility] Immunizations No Data Provided for This Section Results Order Name Results Value Reference Range Date Interpretation Comments Source CHEM PANEL Lactic Acid Lvl 2.3 0.5 - 2.2 02/04/2018 [facility] URINE AND STOOL UA pH 7.0 5.0 - 8.0 02/04/2018 [facility] URINE AND STOOL UA Urobilinogen <=1.0 mg/dL 0.1 - 1.0 02/04/2018 [facility] URINE AND STOOL UA Blood Small *ABN* (02/04/18 7:36 AM) Negative 02/04/2018 [facility] URINE AND STOOL UA Bili Negative *NA* (02/04/18 7:36 AM) Negative 02/04/2018 [facility] URINE AND STOOL UA Ketones Negative *NA* (02/04/18 7:36 AM) Negative 02/04/2018 [facility] URINE AND STOOL UA Protein 30 mg/dL Negative mg/dL 02/04/2018 [facility] URINE AND STOOL UA Glucose 50 mg/dL Negative mg/dL 02/04/2018 [facility] URINE AND STOOL UA WBC 3 0 - 5 02/04/2018 [facility] URINE AND STOOL UA Sq Epi Occasional /LPF Few /LPF 02/04/2018 [facility] URINE AND STOOL UA Nitrite Negative (02/04/18 7:36 AM) Negative 02/04/2018 [facility] URINE AND STOOL UA Leuk Est Negative (02/04/18 7:36 AM) Negative 02/04/2018 [facility] URINE AND STOOL UA Bacteria Occasional /HPF None Seen /HPF 02/04/2018 [facility] URINE AND STOOL UA RBC 4 0 - 2 02/04/2018 [facility] URINE AND STOOL UA Turbidity Clear (02/04/18 7:36 AM) Clear 02/04/2018 [facility] URINE AND STOOL UA Spec Grav 1.011 <=1.030 02/04/2018 [facility] URINE AND STOOL UA Color Ltyellow 02/04/2018 [facility] CARDIAC ENZYMES BNP 37 <=100 pg/mL 02/04/2018 [facility] CARDIAC ENZYMES Troponin-I <0.02 0.00 - 0.40 02/04/2018 [facility] CARDIAC ENZYMES Total CK 144 12 - 191 02/04/2018 [facility] CHEM PANEL Phosphorus 3.1 2.5 - 4.5 02/04/2018 [facility] CHEM PANEL Magnesium Lvl 2.1 1.8 - 2.4 02/04/2018 [facility] CHEM PANEL Lactic Acid Lvl 2.3 0.5 - 2.2 02/04/2018 [facility] CHEM PANEL Calcium Lvl 8.9 8.5 - 10.5 02/04/2018 [facility] CHEM PANEL Albumin Lvl 3.8 3.5 - 5.0 02/04/2018 [facility] CHEM PANEL Total Protein 7.3 6.4 - 8.4 02/04/2018 [facility] CHEM PANEL Alk Phos 67 39 - 136 02/04/2018 [facility] CHEM PANEL AST 20 0 - 37 02/04/2018 [facility] CHEM PANEL Bili Total 0.5 0.2 - 1.3 02/04/2018 [facility] CHEM PANEL ALT 42 0 - 65 02/04/2018 [facility] CHEM PANEL CO2 26 24 - 32 02/04/2018 [facility] CHEM PANEL Chloride Lvl 105 95 - 109 02/04/2018 [facility] CHEM PANEL Glucose Lvl 103 70 - 99 02/04/2018 [facility] CHEM PANEL Potassium Lvl 3.9 3.5 - 5.1 02/04/2018 [facility] CHEM PANEL Creatinine Lvl 0.95 0.50 - 1.40 02/04/2018 [facility] CHEM PANEL BUN 21 7 - 22 02/04/2018 [facility] CHEM PANEL Sodium Lvl 142 135 - 145 02/04/2018 [facility] CHEM PANEL eGFR 57 02/04/2018 Result Comment: [...] should be multiplied by the estimated BMI. [facility] CHEM PANEL Globulin 3.5 2.7 - 4.2 02/04/2018 [facility] CHEM PANEL B/C Ratio 22 6 - 25 02/04/2018 [facility] CHEM PANEL A/G Ratio 1.1 0.7 - 1.6 02/04/2018 [facility] CHEM PANEL AGAP 14.9 10.0 - 20.0 02/04/2018 [facility] Monocytes # 0.7 0.0 - 0.8 02/04/2018 [facility] HEMATOLOGY Basophils # 0.1 0.0 - 0.2 02/04/2018 [facility] Lymphocytes # 0.5 1.0 - 5.5 02/04/2018 [facility] Neutrophils # 8.2 1.5 - 8.1 02/04/2018 [facility] Segs 87.0 45.0 - 75.0 02/04/2018 [facility] HEMATOLOGY Basophils 0.6 0.0 - 1.0 02/04/2018 [facility] Eosinophils 0.3 0.0 - 4.0 02/04/2018 [facility] Plt Morph Karla l (02/04/18 5:23 AM) 02/04/2018 [facility] RBC Morph Karla l (02/04/18 5:23 AM) 02/04/2018 [facility] Monocytes 7.2 2.0 - 12.0 02/04/2018 [facility] Lymphocytes 4.9 20.0 - 40.0 02/04/2018 [facility] INR 1.01 0.85 - 1.17 02/04/2018 [facility] PT 13.1 12.0 - 14.7 02/04/2018 [facility] WBC 9.4 3.7 - 10.4 02/04/2018 [facility] RDW 15.8 11.5 - 14.5 02/04/2018 [facility] MPV 8.3 7.4 - 10.4 02/04/2018 [facility] MCHC 34.4 32.0 - 36.0 02/04/2018 [facility] Platelet 188 133 - 450 02/04/2018 [facility] RBC 4.05 4.20 - 5.40 02/04/2018 [facility] Hgb 13.1 12.0 - 16.0 02/04/2018 [facility] Hct 38.0 36.0 - 48.0 02/04/2018 [facility] MCV 93.9 80.0 - 98.0 02/04/2018 [facility] MCH 32.3 27.0 - 31.0 02/04/2018 [facility] Pathology Reports No Data Provided for This [...] the PIP joint of the ring finger. Wkag-lo-egsbvyir degenerative changes noted in the PIP joints [...] mildly displaced ulnar styloid process fracture noted. Cace-kz-pzxcapkr degenerative changes noted in the DIP joints [...] DX, LEFT 03/26/2017 2:10 PM FINDINGS: Bones/joints: Vnhs-ao-kowgxvgb medial tibiofemoral joint space narrowing and osteophytosis [...] osteoarthritis. Seamus Landaverde MD On 03/22/2019 22:15:01; [id number] 03/21/2019 [facility] Femur series DX Exam: Left [...] assessment. IMPRESSION: Proximal femoral periprosthetic fracture SL: [id number] 02/04/2018 [facility] Hip 2/3 views uni w pelvis DX [...] left hip arthroplasty with periprosthetic fracture SL: [id number] 02/04/2018 [facility] Spine cervical wo contrast CT Patient Name: ANTONIO CHO. : 1940; Age: 77 years y/o; Female. MR: [id number]. Ordering Physician: Toni Acevedo MD. CT CERVICAL [...] 3, C5-6 through C7-T1. Varying degrees of netl-ou-ggqspevv neural foraminal stenosis also noted throughout cervical spine. The prevertebral soft tissue is unremarkable. The C1-C2 articulation is within normal limits. IMPRESSION: 1. No evidence of cervical spine fractur e. 2. Diffuse degenerative changes noted. SL: [id number] 02/04/2018 [facility] Chest 1view DX Clinical Indica tion: - [...] of the cardiac silhouette without edema. SL: [id number] 02/04/2018 [facility] Hand 2 views DX Exam: Right H [...] digit. Chronic changes of inflammatory arthropathy SL: [id number] 02/04/2018 [facility] Brain wo contrast CT Clinical Indication: Fall. [...] to patient size -Use of iterative reconstruction [employer] ue CT Radiation Dose DLP 982.82 mGy-cm [...] erosive osteoarthritis versus superimposed inflammatory arthropathy. SL: [id number] 03/26/2017 [facility] Knee 3 views DX EXAM: [...] rthritic changes of the left knee. SL: [id number] 03/26/2017 [facility] Consultation Notes No Data Provided for This Section Discharge Summaries No Data Provided for This Section History and Physicals No Data Provided for This Section Vital Signs Vital Sign Value Date Comments Source Systolic (mm Hg) 145 02/04/2018 [facility] Diastolic (mm Hg) 74 02/04/2018 [facility] Respitory Rate 16 02/04/2018 [facility] Systolic (mm Hg) 158 02/04/2018 [facility] Diastolic (mm Hg) 69 02/04/2018 [facility] Respitory Rate 19 02/04/2018 [facility] Respitory Rate 16 02/04/2018 [facility] Systolic (mm Hg) 173 02/04/2018 [facility] Diastolic (mm Hg) 62 02/04/2018 [facility] Heart Rate 86 02/04/2018 [facility] Weight 77.273 02/04/2018 [facility] Temperature Oral (F) 98.1 F 02/04/2018 [facility] Height 162.56 cm 02/04/2018 [facility] BMI Calculated 29.24 02/04/2018 [facility] Encounters Location Location Details Encounter Type Encounter Number Reason For Visit Attending Provider ADM Date DC Date Status Source [facility] Outpatient [id number] Ambar Lam 03/26/2017 03/27/2017 [facility] Emergency [id number] Toni Acevedo 02/04/2018 02/04/2018 [facility] Outpatient [id number] Ambar Fritz 03/21/2019 03/22/2019 [id number] Procedures No Data Provided for This Section Assessment and Plan No Data Provided for This Section Plan of Care No Data Provided for This Section Social History Social History Date Source Social History TypeResponse Smoking Status Never smoker; Exposure to Tobacco Smoke None; Cigarette Smoking Last 365 Days No; Reg Smoking Cessation Counseling No entered on: 02/04/18 02/04/2018 [facility] Family History No Data Provided for This Section Advance Directives No Data Provided for This Section Functional Status No Data Provided for This Section
--- OUTSIDE RECORDS SUMMARY | 2019-12-05 01:09 | XMS REPORT | Continuity of Care Document ---
Author Author [facility] t Organization [facility] [place], [place] Address [address] [place] [address] Phone Unavailable Care Team Providers Care Mechanical Engineering Specialist Name Role Phone MARIA DEL ROSARIO AWAD, [...] Date S darvin UHC MEDICAREUHC GROUP MEDICARE [id number] 2018-PresentPPO [id number] 2018 00:00:00 [facility] NA 2019 00:00:00 [facility] Problems Condition Name Condition Details Condition Category Status Onset Date Resolution Date Last Treatment Date Treating Clinician Comments Source XRAY XRAY Active 07/03/2019 [facility] Active 2019-07-03 10:21:00 2019-07-03 10:22:00 Danelle Smith M25.562/M25.561 M25. 562/M25.561 Active 03/21/2019 [facility] Diagnosis Active 2019-03-21 00:00:00 2019-03-21 11:33:00 Danelle [...] Overview: Added automatically from request for surgery [id number] Leo Dee FALL FALL Active 02/04/2018 [facility] Diagnosis Active 2018-02-04 00:00:00 2018-02-04 05:32:00 Danelle Smith M79.642 M79.641 M25.562 M79. 642 M79.641 M25.562 Active 02/26/2017 [facility] Diagnosis Active 2017-02-26 00:00:00 2017-03-26 13:28:00 Danelle Smith Lumbar radiculopathy Lumbar radiculopathy Disease Active 00:00:00 [facility] Lumbar stenosis with neurogenic claudication Lumbar st enosis with neurogenic claudication Disease Active 2016-02-22 00:00:00 [facility] Fever Fever Problem Active [facility] Mucositis Problem Active [facility] Pancytopenia Pancytopenia Problem Active [facility] Cellulitis Problem Active [facility] S t. [facility] Abrasion Problem Active [facility] Anemia Problem Active [facility] Pain in right hand Pain in right hand 07/02/2017 [facility] Problem 2017-07-02 16:45:51 Me blake Mauricioann Pain in left knee Pain in left knee 07/02/2017 [facility] Problem 2017-07-02 16:45:51 Me blake Luis Primary osteoarthritis, left hand Primary osteoarthritis, left hand 07/02/2017 [facility] Problem 2017-07-02 16:45:51 Danelle Luis Crushing injury of right ring finger, initial encounte r Crushing injury of right ring finger, initial encounter 08/24/2018 [facility] Problem 2018-08-24 11:25:58 Danelle Smith Unspecified open wound of right ring fin mich with damage to nail, initial encounter Unspecified open wound of right ring finger with damage to nail, initial encounter 08/24/2018 [facility] Problem 2018-08-24 11:25:58 Danelle Smith 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 08/24/2018 [facility] Problem 2018-08-24 11:25:58 Danelle Franklin Fall on same level from slipping, trippi ng and stumbling without subsequent striking against object, initial encounter Fall on same level from slipping, tripping and stumbling without subsequent striking against object, initial encounter 08/24/2018 [facility] Problem 2018-08-24 11:25:58 Danelle Smith Caught, crushed, jammed, or pinched between moving obj ects, initial encounter Caught, crushed, jammed, or pinched between moving objects, initial encounter 08/24/2018 [facility] Problem 08-24 11:25:58 Danelle Smith Essential (primary) hypertension Essential (primary) hypertension 08/24/2018 [facility] Problem 2018-08-24 11:25:58 Danelle Smith Personal history of malignant neoplasm of breast Personal history of malignant neoplasm of breast 08/24/2018 [facility] Problem 2018-08-24 11:25:58 Danelle Smith Periprosthetic fracture around internal prosthetic left hip joint, initial encounter Periprosthetic f racture around internal prosthetic left hip joint, initial encounter 02/12/2018 08/24/2018 [facility] Problem 2018-02-12 04:35:54 2018-08-24 11:25:58 2018-08-24 11:25:58 Danelle Smith Pain in left hand Pain in left hand 03/29/2017 07/02/2017 [facility] Problem 2017-03-29 04:24:47 2017-07-02 16:45:51 2 16:45:51 Danelle Smith Allergies, Adverse Reactions, Alerts Allergy Name Allergy Type Status Severity Reaction(s) Onset Date Inacti ve Date Treating Clinician Comments Source Methotrexate Propensity to adverse reactions to drug Active Anaphylaxis 2018-11-08 00:00:00 [facility] Lisinopril Allergy to substance Active Mild 2018-04-30 00:00:00 [facility] Penicillins Propensity to adverse reactions to drug Active Other (See Comments) 2016-02-11 00:00:00 Vaginal itchingVagina l itching [facility] Drug Allergy Active Other (See Comments) 2016-02-11 00:00:00 Vaginal itching [facility] Codeine Propensity to adverse reactions to drug Active Other (See Comments) 2015-11-15 00:00:00 nausea L[facility] odist Levofloxacin Propensity to adverse reactions to drug Active Other (See Comments) 2015-11-15 00:00:00 Severe nausea [facility] Lisinopril Propensity to adverse reactions to drug Active Hives 2015-11-15 00:00:00 [facility] Pentazoc[facility] Lactate Propensity to adverse reactions to drug Active Other (See Comments) 2015-11-15 00:00:00 Severe nausea Lolo [facility] Codeine Drug Intolerance Active Other (See Comments) 2015-11-15 00:00:00 nauseaUpset stomach [facility] Levofloxacin Drug Intolerance Active Other (See Comments) 2015-11-15 00:00:00 Severe nauseaUpset stomach [facility] Lisinopril Drug Allergy Active Itching, Hives 2015-11-15 00:00: 00 Itching everywhere [facility] Pentazocine Lactate Propensity to adverse reactions Active 2015-11-15 00:00:00 Other reaction(s): Other (See Co mments)Severe nausea [facility] Pentazocine Allergy to substance Active Mild N/V 2010-01-12 00:00:00 [facility] Levofloxacin Allergy to substance Active Mild N/V 2010-01-12 00:00:0 0 [facility] codeine codeine Active [facility] penicillin penicillin Active [facility] [place] Family History Family Member Diagnosis Comments Start Date Stop Date Source Natural father Heart attack Leo Dee Natural father Heart disease Leo Dee Natural mother Cancer [facility] thodist Social History Social Habit Start Date Stop Date Quantity Comments Source Sex Assigned At [facility] Tobacco use and exposure 2019-02-12 00:00:00 2019-02-12 00:00:00 Neve r used Leo Dee Alcohol intake 2019-02-12 00:00:00 2019-02-12 00:00:00 Ex-drinker (fi nding) Leo Dee Alcohol Comment 2016-02-11 00:00:00 2016-02-11 00:00:00 rarely [facility] Smoking Status Start Date Stop Date Source Never smoker [facility] Medications Ordered Medication Name Filled Medication Name Start Date Stop Da te Current Medication? Ordering Clinician Indication Dosage Frequency Signature (SIG) Comments Components Source Ciprofloxacin Hcl (Cipro) 500 Mg TABLET Ciprofloxacin Hcl (C ipro) 500 Mg TABLET 2019-07-20 12:31:00 Yes 500 Every 12 Hours [facility] Doxycycline Hyclate Doxycycline Hyclate 2019-07-20 12:31:00 Yes 100 Every 12 Hours [facility] atenolol (TENORMIN) 25 MG tablet 2018-12-31 14:26:04 [...] Take 120 mg by mouth daily. Leo eDe ezetimibe (ZETIA) 10 mg tablet 2018-12-31 13:55:48 [...] QD Take 1 tablet by mouth daily. eLo Dee calcium carbonate oyster shell (OS-CARLY) 500 [...] mg total) by mouth reyes ly. Bailey [facility] atenolol (TENORMIN) 50 MG tablet 2018-12-31 00:00:00 [...] kg, Priority: STAT, Start date: 02/04/18 9:39:00 BOX FINISHER, Stop date: 02/04/18 9:39:00 BOX FINISHER, ABX Indication: Surgical Prophylaxis [facility] Morphine 2018-02-04 13:49:00 No 4 mg, Route: IVP, ONCE, Dosing Weight 77.273, kg, Priority: STAT, Start date: 02/04/18 7:49:00 BOX FINISHER, Stop date: 02/04/18 7:49:00 BOX FINISHER [facility] Ondansetron 2018-02-04 11:14:00 No 4 mg, Route: IVP, Drug form: INJ, ONCE, Dosing Weight 77.273, kg, Priority: STAT, Start date: 02/04/18 5:14:00 BOX FINISHER, Stop date: 02/04/18 5:14:00 [facility] Morphine 2018-02-04 11:14:00 No 2 mg, Route: IVP, ONCE, Dosing Weight 77.273, kg, Priority: STAT, Start date: 02/04/18 5:14:00 BOX FINISHER, Stop date: 02/04/18 5:14:00 BOX FINISHER [facility] tobramycin-dexamethasone (TOBRADEX) 0.3-0.1 % ophthalmic renae ution 2017-09-19 13:38:12 Yes 1[drp] 1 drop every 4 (four) hours w hile awake. [facility] ezetimibe (ZETIA) 10 mg tablet 2017-09-19 12:30:46 Yes 10mg QD Take 10 mg by mouth daily. [facility] insulin lispro (HUMALOG) 100 unit/mL injection 2017-09-19 12:30: 46 Yes Inject subcutaneously 3 (three) times daily before gemma ls. [facility] methotrexate 2.5 MG tablet 2017-09-19 12:30:46 Yes Q7D Take by mouth once a week. [facility] folic acid (FOLVITE) 1 MG tablet 2017-09-19 12:30:46 Yes 1mg QD Take 1 mg by mouth daily. [facility] predniSONE (DELTASONE) 5 MG tablet 2017-09-19 12:30:46 Yes 5mg QD Take 5 mg by mouth daily. [facility] thyroid, pork, (ARMOUR THYROID) 120 mg Tab 2017-09-19 12:30:45 Yes QD Take by mouth daily. [facility] terbutaline (BRETHINE) 5 mg tablet 2017-09-19 12:30:45 Yes 5mg Take 5 mg by mouth every 6 (six) hours. [facility] glimepiride (AMARYL) 4 MG tablet 2016-02-11 10:21:47 Yes 4mg Q.5D Take 4 mg by mouth 2 (two) times daily. [facility] amLODIPine (NORVASC) 5 MG tablet 2016-02-11 10:21:47 Yes 5mg QD Take 5 mg by mouth daily. [facility] terbinafine HCl (LAMISIL) 250 mg tablet 2016-02-11 10:21:47 Yes 250mg QD Take 250 mg by mouth daily. [facility] zolpidem (AMBIEN) 5 MG tablet 2016-02-11 10:21:47 Yes 5mg Take 5 mg by mouth every night as needed for Insomnia. [facility] celecoxib (CELEBREX) 100 MG capsule 2016-02-11 10:21:47 Yes 100mg Take 100 mg by mouth every 12 (twelve) hours as needed for Pain. [facility] insulin detemir (LEVEMIR) 100 unit/mL injection 2016-02-11 10:21 :47 Yes 14U QD Inject 14 Units subcutaneously nightly. [facility] ascorbic acid (VITAMIN C) 1000 MG tablet 2016-02-11 10:21:47 Yes 1000mg QD Take 1,000 mg by mouth daily 2,000 - 3,000 daily . [facility] vitamin E 1000 UNIT capsule 2016-02-11 10:21:47 Yes 1000U QD Take 1,000 Units by mouth daily. [facility] cholecalciferol, vitamin D3, 2,000 unit Cap 2016-02-11 10:21:47 Yes Take by mouth. [facility] multivitamin per tablet 2016-02-11 10:21:47 Yes 1{tbl} QD Take 1 tablet by mouth daily. [facility] calcium carbonate (OS-CARLY) 600 mg (1,500 mg) Tab 2016-02-11 10:21:47 Yes 1200mg QD Take 1,200 mg by mouth daily. [facility] HYDROcodone-acetaminophen (VICODIN) 7.5-500 mg per tablet 2016-02-11 10:21:47 Yes 1{tbl} Take 1 tablet by mouth every 6 (six) hours as needed for Pain. [facility] acetaminophen (TYLENOL) 500 MG tablet 2016-02-11 10:21:47 Y es 500mg Take 500 mg by mouth every 6 (six) hours as needed for Pain. [facility] naproxen (ALEVE,ANAPROX,MIDOL) 220 MG tablet 2016-02-11 10:21:47 Yes 220mg Take 220 mg by mouth as needed. [facility] loratadine (CLARITIN) 10 mg tablet 2016-02-11 10:21:47 Yes 10mg Take 10 mg by mouth as needed for Allergies. [facility] loperamide (IMODIUM A-D) 2 mg tablet 2016-02-11 10:21:47 Ye s 2mg Take 2 mg by mouth as needed for Diarrhea. I [facility] atenolol (TENORMIN) 25 MG tablet 2016-02-11 10:21:46 Yes 25mg Q.5D Take 25 mg by mouth 2 (two) times daily. [facility] omeprazole (PRILOSEC) 20 MG capsule 2016-02-11 10:21:46 Yes 20mg Take 20 mg by mouth as needed. [facility] ranitidine (ZANTAC) 75 MG tablet 2016-02-11 10:21:46 Yes 75mg Take 75 mg by mouth as needed for Heartburn. [facility] metFORMIN (GLUCOPHAGE) 1000 MG tablet 2016-02-11 10:21:46 Y es 1000mg Take 1,000 mg by mouth 2 (two) times daily with breakfast and dinner. [facility] Amlodipine Besylate Amlodipine Besylate Yes 10 Daily [facility] Ascorbic Acid (Vitamin C) 1,000 Mg TABLET.ER Ascorbic Acid (Vitamin C) 1,000 Mg TABLET.ER Yes 2000 Twice A Day [facility] Atenolol (Tenormin) 25 Mg TABLET Atenolol (Tenormin) 25 Mg TABLET Yes 25 Daily [facility] Calcium Carbonate (Calcium) 600 Mg TABLET Calcium Carb carmen (Calcium) 600 Mg TABLET Yes 1200 Twice A Day [facility] Celecoxib (Celebrex*) 100 Mg CAPSULE Celecoxib (Celebrex*) 100 Mg C APSULE Yes 100 Daily as needed for Pain [facility] Cholecalciferol (Vitamin D3) (Vitamin D3) 1,000 Unit T ABLET Cholecalciferol (Vitamin D3) (Vitamin D3) 1,000 Unit TABLET Yes 5000 Twice A Day [facility] Ezetimibe (Zetia) 10 Mg TABLET Ezetimibe (Zetia) 10 Mg TABLET Yes 10 Daily [facility] Insulin Detemir (Levemir) 100 Unit/1 Ml VIAL Insulin D etemir (Levemir) 100 Unit/1 Ml VIAL Yes 9 Daily [facility] Loperamide Hcl (Imodium*) 2 Mg CAP Loperamide Hcl (Imodium*) 2 Mg CAP Yes 2 As Needed [facility] Loratadine (Claritin) 10 Mg TABLET Loratadine (Claritin) 10 Mg TABLET Yes 10 As Needed [facility] Metformin Hcl (Glucophage) 1,000 Mg TABLET Metformin H cl (Glucophage) 1,000 Mg TABLET Yes 1000 Twice A Day [facility] Multivitamin (Daily Francisca) 1 Each TABLET Multivitamin (Daily Francisca) 1 Each TABLET Yes 1 Daily [facility] Naproxen Sodium (Aleve) 220 Mg CAPSULE Naproxen Sodium (Aleve) 2 20 Mg CAPSULE Yes 1 As Needed [facility] Omeprazole Omeprazole Yes 20 Daily [facility] Prednisone Prednisone Yes 5 .every Other Day [facility] Promethazine Hcl Promethazine Hcl Yes 12.5 Twice A Day as needed for Nausea [facility] Terbinafine Hcl (Lamisil) 250 Mg TABLET Terbinafine Hcl ([place] isil) 250 Mg TABLET Yes 250 Daily [facility] Thyroid,Pork ([place] Thyroid) 120 Mg TABLET Thyroid,Po rk ([place] Thyroid) 120 Mg TABLET Yes 120 Daily [facility] Amlodipine 5 Mg Amlodipine 5 Mg 2018-04-29 00:00:00 No [facility] Glimepiride (Amaryl) 4 Mg TABLET Glimepiride (Amaryl) 4 Mg TABLE T 2018-04-29 00:00:00 No 4 [facility] Insulin Aspart (Novolog) 100 Unit/1 Ml CARTRIDGE Insul in Aspart (Novolog) 100 Unit/1 Ml CARTRIDGE 2018-04-29 00:00:00 No [facility] Insulin Detemir (Levemir 10ML Vial) 100 Unit/1 Ml VIAL Insulin Detemir (Levemir 10ML Vial) 100 Unit/1 Ml VIAL 2018-04-29 00:00:00 No As Needed [facility] Levothyroxine Sodium (Unithroid) 200 Mcg TABLET Levoth yroxine Sodium (Unithroid) 200 Mcg TABLET 2018-04-29 00:00:00 No 200 Daily [facility] Liothyronine Sodium (Cytomel) 25 Mcg TABLET Liothyroni ne Sodium (Cytomel) 25 Mcg TABLET 2018-04-29 00:00:00 No 25 [facility] Zolpidem Tartrate (Ambien Angel) 10 Mg TABLET Zolpidem T artrate (Ambien Angel) 10 Mg TABLET 2018-04-29 00:00:00 No 10 Qhs [facility] Vital Signs Vital Name Observation Time Observation Value Comments Source Body Temperature 2019-07-20 12:50:00 98.3 [degF] [facility] Weight 2019-07-20 10:29:00 136 [lb_av] [facility] BMI (Body Mass Index) 2019-07-20 10:29:00 23.3 kg/m2 [facility] Body height 2019-02-12 14:16:00 162.6 cm [facility] Body weight 2019-02-12 14:16:00 62.596 kg [facility] BMI 2019-02-12 14:16:00 23.69 kg/m2 [facility] Systolic blood pressure 2018-12-31 13:53:00 180 mm[Hg] [facility] Diastolic blood pressure 2018-12-31 13:53:00 76 mm[Hg] [facility] Heart rate 2018-12-31 13:53:00 70 /min [facility] Systolic (mm Hg) 2018-02-04 16:01:00 Ulices riabrittani Luis Diastolic (mm Hg) 2018-02-04 16:01:00 Mem orial [place] Respitory Rate 2018-02-04 16:01:00 Georgette Zimmerman Systolic (mm Hg) 2018-02-04 13:38:00 Ulices rial Luis Diastolic (mm Hg) 2018-02-04 13:38:00 Mem orial [place] Respitory Rate 2018-02-04 13:38:00 Memori al Luis Respitory Rate 2018-02-04 12:43:00 Rasheedori al Luis Systolic (mm Hg) 2018-02-04 12:43:00 Ulices phillips [place] Diastolic (mm Hg) 2018-02-04 12:43:00 Mem orial [place] Heart Rate 2018-02-04 10:33:00 [facility] Weight 2018-02-04 10:33:00 [facility] Temperature Oral (F) 2018-02-04 10:33:00 98.1 F [facility] Height 2018-02-04 10:33:00 162.56 cm [facility] BMI Calculated 2018-02-04 10:33:00 Rasheedori al Luis Procedures Procedure Date / Time Performed Performing Clinician [facility] e US CAROTID DUPLEX BILATERAL 2019-07-01 12:15:00 Hung Chapa XR HIP 2-3 VIEWS LEFT 2019-02-12 14:25:32 Yvan Bryant US CAROTID DUPLEX BILATERAL 2018-12-24 14:51:29 Hung Chapa CV STRESS TEST NUCLEAR CARDIO 2018-12-11 14:28:20 Hung Chapa NM MYOCARDIAL PERFUSION REST STRESS 1 DAY 2018-12-11 14:28:20 Sh Hung meza TTE COMPLETE, WO CONTRAST, W DOPPLER (34973) 2018-12-09 13:3 5:39 Hung Chapa Plan of [...] VACCINES (#1)] Leo Dee Instructions Abrasion [facility] Instructions Anemia [facility] Instructions Cellulitis [facility] Encounters Start Date/Time End Date/Time Encounter Type Admission Type Attendi RUST Care Department Encounter ID Source 2019-07-20 10:12:00 2019-07-20 13:25:00 Departed Emergency Room 1 CASSANDRA BEAR [facility] [id number] [facility] 2019-07-03 10:21:00 2019-07-03 23:59:00 Outpatient Ambar Fritz [place] [id number] 2019-07-03 10:21:00 2019-07-03 10:21:00 Outpatient [id number] 2019-07-01 00:00:00 2019-07-01 00:00:00 Outpatient ETHAN [facility] [id number] Leo Anglican 2019-03-21 11:33:00 2019-03-21 23:59:00 Outpatient Ambar Fritz [place] [id number] 2019-03-21 11:33:00 2019-03-21 11:33:00 Outpatient [facility] [id number] 2018-04-29 17:34:00 2018-05-13 15:15:00 Discharged Inpatient 1 JOHNNA MIX [facility] [id number] [facility] 2018-02-04 04:32:00 2018-02-04 10:07:00 Outpatient Akanksha Acevedo [facility] [place] [id number] 2017-03-26 13:20:00 2017-03-26 23:59:00 Outpatient Ambar Fritz [place] [id number] Results Test Description Test Time Test Comments Results Result Comments Source BREAST ULTRASOUND BILATERAL 2019-11-25 14:36:23 - BREAST ULTRASOUND BILATERALULTRASOUND OF BOTH BREASTS AND BOTH AXILLA: 11/25/2019CLINICAL: Followup to previous exam. Comparison is made to exams dated 09/02/2018 ultrasound, 07/17/2017 ultrasound, and 07/10/2016 ultrasound - [facility]-. Real-time ultrasound and clinical exam [...] - 11/25/2019 15:49:22Imaging Technologist: Kenia LEMUS, [facility]-FWletter sent: BIRADS 1-2 Normal Ultrasound BI-RADS: 1 Negative FOOT 2VIEW RT - HOPD 2019-07-20 11:45:00 [place] [address] Patient Name: ANTONIO MAE MR #: [id number] : 1940 Age/Sex: 78/F Req #: [id number] Adm Physician: Ordered by: CASSANDRA BEAR Report #: [id number] [facility] Room/Bed: Procedure: [id number] HOPD/FOOT 2VIEW RT - HOPD Exam Date: [...] 06/29/2015 ultrasound, and 06/23/2014 ultrasound - [facility]-. Real-time ultrasound of both breasts [...] 09/05/2018 07:11:12Imaging Technologist: Shannan Alfaro , [facility]-letter sent: BIRADS 1-2 Normal Ultrasound BI-RADS: 2 Benign Bedside Glucose 2018-05-13 14:31:00 Test Item Bedside Glucose (test code = 69854-9) 264 70-120 H Meter ID: [id number] Cells [id number] 07:15:00* Test Item Value Reference Range Interpretation Comments Differential Total Cells Counted (test code = Differen tial Total Cells Counted) 100 [facility] (Manual)2018-05-12 07:15:00 * Test Item Value Reference Range Interpretation Comments Neutrophils % (Manual) (test code = 32492-1) 65 40-74 [facility] Neutroph[facility] %2018-05-12 07:15:00* Test Item Value Reference Range Interpretation Comments Band Neutrophils % (test code = 764-1) 2 [facility] % (Manual)2018-05-12 07:15:00 * Test Item Value Reference Range Interpretation Comments Lymphocytes % (Manual) (test code = 737-7) 18 19-48 L [facility] % (Manual)2018-05-12 07:15:00* Test Item Value Reference Range Interpretation Comments Monocytes % (Manual) (test code = 744-3) 12 3.4-9.0 H [facility]amyelocytes %2018-05-12 07:15:00* Test Item Value Reference Range Interpretation Comments Metamyelocytes % (test code = 740-1) 2 0-0 H [facility] %2018-05-12 07:15:00* Test Item Value Reference Range Interpretation Comments Myelocytes % (test code = 749-2) 1 0-0 H [facility]uda[facility]ucleated Red Blood [id number] 07:15:00* Test Item Value Reference Range Interpretation Comments Nucleated Red Blood Cells (test code = 36415-9) 1 [facility]atelet [id number] 07:15:00* Test Item Value Reference Range Interpretation Comments Platelet Estimate (test code = 89546-5) ADEQUATE [facility]uda[facility]ate[facility] Morphology [id number] 07:15:00* Test Item Value Reference Range Interpretation Comments Platelet Morphology Comment (test code = 63025-6) NORMAL [facility]uda[facility] Cell Morphology [id number] 07:15:00* Test Item Value Reference Range Interpretation Comments Red Cell Morphology Comment (test code = 6742-1) NORMAL [facility] [id number] 06:04:00* Test Item Value Reference Range Interpretation Comments Sodium Level (test code = 2951-2) 138 136-145 [facility]assium [id number] 06:04:00* Test Item Value Reference Range Interpretation Comments Potassium Level (test code = 2823-3) 4.4 3.5-5.1 [facility]loride [id number] 06:04:00* Test Item Value Reference Range Interpretation Comments Chloride Level (test code = 2075-0) 101 98-107 [facility]uda[facility]bon Dioxide [id number] 06:04:00* Test Item Value Reference Range Interpretation Comments Carbon Dioxide Level (test code = 2028-9) 28 22-29 [facility]udaAnion [id number] 06:04:00* Test Item Value Reference Range Interpretation Comments Anion Gap (test code = 99177-8) 13.4 8-16 [facility] Urea [id number] 06:04:00* Test Item Value Reference Range Interpretation Comments Blood Urea Nitrogen (test code = 3094-0) 21 7-26 [facility]uda[facility]inine2019-03-17 06:04:00* Test Item Value Reference Range Interpretation Comments Creatinine (test code = 2160-0) 1.08 0.57-1.11 [facility]uda[facility]UN/Creatinine [id number] 06:04:00* Test Item Value Reference Range Interpretation Comments BUN/Creatinine Ratio (test code = 3097-3) 19 6-25 [facility] BudaEstimat Glomerular Filtration Rate 2018-05-12 06:04:00* Test Item Value Reference Range Interpretation Comments Estimat Glomerular Filtration Rate (test code = 803430779) 49 >60 L Ranges were taken from the National Kidney Disease Education Program and the [facility] Foundation literature.Reference ranges:60 or greater: Tmxcim99-35 ( for 3 consecutive months): Chronic kidney disease 15 or less: Kidney failureBaylor Scott & [facility] – BudaGlucose Yidrw1116-29-74 06:04:00* Test Item Value Reference Range Interpretation Comments Glucose Level (test code = YLA6006) 173 74-118 H [facility] BudaCalcium Jwnof6845-04-61 06:04:00* Test Item Value Reference Range Interpretation Comments Calcium Level (test code = 47457-6) 8.6 8.4-10.2 [facility] BudaWhite Blood Jxorj6091-20-23 05:44:00* Test Item Value Reference Range Interpretation Comments White Blood Count (test code = 6690-2) 12.41 4.8-10.8 H [facility] BudaRed Blood Ayigh2643-10-59 05:44:00* Test Item Value Reference Range Interpretation Comments Red Blood Count (test code = 789-8) 3.48 3.6-5.1 L [facility] BudaHemoglobin2019-03-17 05:44:00* Test Item Value Reference Range Interpretation Comments Hemoglobin (test code = 53081-6) 9.9 12.0-16.0 L [facility] BudaHematocrit2019-03-17 05:44:00* Test Item Value Reference Range Interpretation Comments Hematocrit (test code = 4544-3) 30.9 34.2-44.1 L [facility] BudaMean Corpuscular Ldsncg1240-33-05 05:44:00* Test Item Value Reference Range Interpretation Comments Mean Corpuscular Volume (test code = 787-2) 88.8 81-99 [facility] BudaMean Corpuscular Bqdykhhumg9427-74-63 05:44:00* Test Item Value Reference Range Interpretation Comments Mean Corpuscular Hemoglobin (test code = 785-6) 28.4 28-32 [facility] BudaMean Corpuscular Hemoglobin Concent 2018-05-12 05:44:00* Test Item Value Reference Range Interpretation Comments Mean Corpuscular Hemoglobin Concent (test code = 786-4) 32.0 31-35 [facility] BudaRed Cell Distribution Abxbg5062-33-27 05:44:00* Test Item Value Reference Range Interpretation Comments Red Cell Distribution Width (test code = 50210-0) 17.9 11.7 -14.4 H [facility] BudaPlatelet Gycuh2294-82-03 05:44:00* Test Item Value Reference Range Interpretation Comments Platelet Count (test code = 777-3) 298 140-360 [facility] BudaNeutrophils (%) (Auto)2018-05-12 05:44:00 * Test Item Value Reference Range Interpretation Comments Neutrophils (%) (Auto) (test code = 97390-9) 61.3 38.7-80.0 [facility] BudaLymphocytes (%) (Auto)2018-05-12 05:44:00 * Test Item Value Reference Range Interpretation Comments Lymphocytes (%) (Auto) (test code = 736-9) 10.8 18.0-39.1 L [facility] BudaMonocytes (%) (Auto)2018-05-12 05:44:00* Test Item Value Reference Range Interpretation Comments Monocytes (%) (Auto) (test code = 5905-5) 14.6 4.4-11.3 H [facility] BudaEosinophils (%) (Auto)2018-05-12 05:44:00 * Test Item Value Reference Range Interpretation Comments Eosinophils (%) (Auto) (test code = 713-8) 0.2 0.0-6.0 [facility] BudaBasophils (%) (Auto)2018-05-12 05:44:00* Test Item Value Reference Range Interpretation Comments Basophils (%) (Auto) (test code = 706-2) 1.2 0.0-1.0 H [facility] BudaIM GRANULOCYTES %2018-05-12 05:44:00* Test Item Value Reference Range Interpretation Comments IM GRANULOCYTES % (test code = IM GRANULOCYTES %) 11.9 0.0- 1.0 H [facility] BudaNeutrophils # (Auto)2018-05-12 05:44:00* Test Item Value Reference Range Interpretation Comments Neutrophils # (Auto) (test code = 751-8) 7.6 2.1-6.9 H [facility] BudaLymphocytes # (Auto)2018-05-12 05:44:00* Test Item Value Reference Range Interpretation Comments Lymphocytes # (Auto) (test code = 55760-8) 1.3 1.0-3.2 [facility] BudaMonocytes # (Auto)2018-05-12 05:44:00* Test Item Value Reference Range Interpretation Comments Monocytes # (Auto) (test code = 742-7) 1.8 0.2-0.8 H [facility] BudaEosinophils # (Auto)2018-05-12 05:44:00* Test Item Value Reference Range Interpretation Comments Eosinophils # (Auto) (test code = 711-2) 0.0 0.0-0.4 [facility] BudaBasophils # (Auto)2018-05-12 05:44:00* Test Item Value Reference Range Interpretation Comments Basophils # (Auto) (test code = 704-7) 0.2 0.0-0.1 H [facility] BudaAbsolute Immature Granulocyte (auto 2018-05-12 05:44:00* Test Item Value Reference Range Interpretation Comments Absolute Immature Granulocyte (auto (domonique t code = Absolute Immature Granulocyte (auto) 1.48 0-0.1 H [facility] BudaEosinophils % (Manual)2018-05-08 09:39:00 * Test Item Value Reference Range Interpretation Comments Eosinophils % (Manual) (test code = 714-6) 1 0-7 [facility] BudaReactive Cggtadepghk8120-81-71 09:39:00* Test Item Value Reference Range Interpretation Comments Reactive Lymphocytes (test code = 46656-8) 7 [facility] BudaHypochromasia2019-03-13 09:39:00* Test Item Value Reference Range Interpretation Comments Hypochromasia (test code = 728-6) SLIGHT [facility] BudaAnisocytosis2019-03-13 09:39:00* Test Item Value Reference Range Interpretation Comments Anisocytosis (test code = 702-1) SLIGHT [facility] BudaMagnesium Rhilv0753-66-34 07:04:00* Test Item Value Reference Range Interpretation Comments Magnesium Level (test code = 25208-7) 1.6 1.3-2.1 [facility] BudaTotal Qnjxzytmd2846-82-96 06:18:00* Test Item Value Reference Range Interpretation Comments Total Bilirubin (test code = 1975-2) 0.5 0.2-1.2 [facility] BudaAspartate Amino Transf (AST/SGOT) 2018-05-08 06:18:00* Test Item Value Reference Range Interpretation Comments Aspartate Amino Transf (AST/SGOT) (test code = Aspartate Amino Transf (AST/SGOT)) 48 5-34 H [facility] BudaAlanine Aminotransferase (ALT/SGPT) 2018-05-08 06:18:00* Test Item Value Reference Range Interpretation Comments Alanine Aminotransferase (ALT/SGPT) (test code = 1742-6) 52 0-55 [facility] BudaTotal Qmapihg3166-49-36 06:18:00* Test Item Value Reference Range Interpretation Comments Total Protein (test code = 2885-2) 5.9 6.5-8.1 L [facility] BudaAlbumin2019-03-13 06:18:00* Test Item Value Reference Range Interpretation Comments Albumin (test code = 1751-7) 2.6 3.5-5.0 L [facility] BudaGlobulin2019-03-13 06:18:00* Test Item Value Reference Range Interpretation Comments Globulin (test code = 19115-8) 3.3 2.3-3.5 [facility] BudaAlbumin/Globulin Wrljo9243-72-85 06:18:00 * Test Item Value Reference Range Interpretation Comments Albumin/Globulin Ratio (test code = 1759-0) 0.8 0.8-2.0 [facility] BudaAlkaline Lldwochthwm0529-62-02 06:18:00* Test Item Value Reference Range Interpretation Comments Alkaline Phosphatase (test code = 6768-6) 102 40-150 [facility] BudaClostridium Difficile Toxin A & B 2018-05-07 10:40:00* Test Item Value Reference Range Interpretation Comments Clostridium Difficile Toxin A & B (test code = 493535914) NEGATIVE NEGATIVE Testing on stool aspirate specimens is outside veterinary virologist claims since specime n type not validated on this assay.[facility] Promyelocytes %2018-05-04 15:16:00* Test Item Value Reference Range Interpretation Comments Promyelocytes % (test code = 52507-3) 3 0-0 H [facility] BudaBlast Cells %2018-05-04 15:16:00* Test Item Value Reference Range Interpretation Comments Blast Cells % (test code = 50692-9) 3 [facility] BudaPoikilocytosis2019-03-09 15:16:00* Test Item Value Reference Range Interpretation Comments Poikilocytosis (test code = 779-9) MODERATE [facility] BudaBurr Jvzfz9358-72-75 15:16:00* Test Item Value Reference Range Interpretation Comments [place] Cells (test code = 7790-9) SLIGHT [facility] BudaBlood Kvxtmja8555-64-33 14:43:00* Test Item Value Reference Range Interpretation Comments Blood Culture (test code = 60750945) NO GROWTH AFTER 5 DAYS, FINAL REPORT [facility] BudaBasophils % (Manual)2018-05-03 11:16:00* Test Item Value Reference Range Interpretation Comments Basophils % (Manual) (test code = 06544-8) 1 0-1.5 [facility] BudaVancomycin Level Vkoedq1412-89-90 20:48:00* Test Item Value Reference Range Interpretation Comments Vancomycin Level Trough (test code = 4092-3) 9.7 5.0-10.0 [facility] BudaCT HIP LEFT H0042-63-41 15:23:00 [facility] [address] [place] [address] Patient Name: ANTONIO MAE MR #: [id number] : 1940 Age/Sex: 77/F Req #: [id number] Adm Physician: JOHNNA MIX MD Ordered by: JOHNNA MIX MD Report #: [id number] Location: MED/SURG Room/Bed: [facility] Procedure: [id number] CT/CT HIP LEFT W Exam Date: 05/02/18 [...] 3:35 PM Dictated By: ARCADIO DURAN DO 0280 Transcribe d By: OWEN on 05/02/18 3750 COPY TO: JOHNNA MIX MD Urine Vyoth6755-62-69 21:53:00* Test Item Value Reference Range Interpretation Comments Urine Color (test code = 5778-6) YELLOW YELLOW [facility] BudaUrine Hbzzuue8983-09-67 21:53:00* Test Item Value Reference Range Interpretation Comments Urine Clarity (test code = 16154-6) HAZY CLEAR [facility] BudaUrine Specific Svjsngj1943-40-00 21:53:00 * Test Item Value Reference Range Interpretation Comments Urine Specific Qulin (test code = 5811-5) 1.025 1.010-1.02 5 [facility] BudaUrine gV6609-46-65 21:53:00* Test Item Value Reference Range Interpretation Comments Urine pH (test code = 81176-1) 6 5-7 [facility] BudaUrine Leukocyte Afrdwrfq9804-01-79 21:53:00* Test Item Value Reference Range Interpretation Comments Urine Leukocyte Esterase (test code = 5799-2) TRACE NEGATIVE H [facility] Vmjmzmv6854-05-97 21:53:00* Test Item Value Reference Range Interpretation Comments Urine Nitrite (test code = 98185-5) NEGATIVE NEGATIVE [facility] Eejfuzn5758-06-36 21:53:00* Test Item Value Reference Range Interpretation Comments Urine Protein (test code = 5804-0) 2+ NEGATIVE H [facility] Glucose (UA)2018-04-29 21:53:00* Test Item Value Reference Range Interpretation Comments Urine Glucose (UA) (test code = 2349-9) 1+ NEGATIVE H [facility] Cidybzx8386-17-70 21:53:00* Test Item Value Reference Range Interpretation Comments Urine Ketones (test code = 24575-7) NEGATIVE NEGATIVE [facility] Ylaxcegbathh4644-28-36 21:53:00* Test Item Value Reference Range Interpretation Comments Urine Urobilinogen (test code = 09856-8) 0.2 0.2-1 [facility] BudaUrine Iphdewjfp4287-69-03 21:53:00* Test Item Value Reference Range Interpretation Comments Urine Bilirubin (test code = 1978-6) NEGATIVE NEGATIVE [facility] Rloki5112-35-11 21:53:00* Test Item Value Reference Range Interpretation Comments Urine Blood (test code = 97070-4) TRACE NEGATIVE H [facility] BudaUrine MDP9301-61-89 21:53:00* Test Item Value Reference Range Interpretation Comments Urine WBC (test code = 5821-4) 0-5 0-5 [facility] BudaUrine DUD9885-88-02 21:53:00* Test Item Value Reference Range Interpretation Comments Urine RBC (test code = 71315-7) 0-5 0-5 [facility] BudaUrine Ohuoeejt3346-96-88 21:53:00* Test Item Value Reference Range Interpretation Comments Urine Bacteria (test code = 02561-1) FEW NONE [facility] BudaUrine Epithelial Fohef1366-16-75 21:53:00 * Test Item Value Reference Range Interpretation Comments Urine Epithelial Cells (test code = 14568-4) FEW NONE [facility] BudaInfluenza Virus Types A,B Antigen 2018-04-29 14:50:00* Test Item Value Reference Range Interpretation Comments Influenza Virus Types A,B Antigen (test code = 27349-2) NEGATIVE NEGATIVE [facility] BudaAmylase Czefd4594-27-10 14:47:00* Test Item Value Reference Range Interpretation Comments Amylase Level (test code = 1798-8) 208 25-125 H [facility] BudaLipase2019-03-04 14:47:00* Test Item Value Reference Range Interpretation Comments Lipase (test code = 3040-3) 5 8-78 L [facility] BudaLactic Acid Obarw5814-98-92 14:42:00* Test Item Value Reference Range Interpretation Comments Lactic Acid Level (test code = Lactic Acid Level) 13.8 4.5- 19.8 [facility] BudaGroup A Streptococcus Pzhjnh4574-50-32 14:41:00* Test Item Value Reference Range Interpretation Comments Group A Streptococcus Screen (test code = 16820-4) NEGATIVE NEG ATIVE [facility] BudaProthrombin Ciij0871-28-50 14:37:00* Test Item Value Reference Range Interpretation Comments Prothrombin Time (test code = 5902-2) 14.6 11.9-14.5 H [facility] BudaProthromb Time International Ratio 2018-04-29 14:37:00* Test Item Value Reference Range Interpretation Comments Prothromb Time International Ratio (test code = 6301-6) 1.09 Oral Anticoagulant Therapy INR Values:1. Low Intensity Therapy 1.5 - 2.02 . Moderate Intensity Therapy 2.0 - 3.03. High Intensity Therapy(1) 2.5 - 3. 54. High Intensity Therapy(2) 3.0 - 4.05. Panic Value INR > 5.0 [facility] BudaActivated Partial Thromboplast Time 2018-04-29 14:37:00* Test Item Value Reference Range Interpretation Comments Activated Partial Thromboplast Time (test code = 57408-3) 35.8 23.8-35.5 H [facility] BudaCHEST SINGLE (PORTABLE)2018-04-29 13:44:00 [facility] [address] [address] Patient Name: ANTONIO MAE MR #: [id number] : 1940 Age/Sex: 77/F Req #: [id number] Adm Physician: Ordered by: ETHEL ABDALLA [employer]LECTR[employer] SWITCH MAINTAINER Report #: [id number] Location: ER Room/Bed: Procedure: [id number] DX/CHEST SINGLE (PORTABLE) Exam Date: 04/29/18 Exam [...] 1:46 PM Dictated By: RAFAEL SORTO MD [id number] Transcribed By: OWEN on 04/29/18 1552 COPY TO: ETHEL ABDALLA [employer]LECT[employer] SWITCH MAINTAINER CHEM ZSLXI9279-79-20 13:36:002.3 [facility] MNZMO6614-76-71 13:36:00* Test Item Value Reference Range Interpretation Comments UA pH (test code = UA pH) 7.0 1 5.0-8.0 [facility] NDNZU6408-68-19 13:36:00Small *ABN*(02/04/18 7:36 AM) [facility] YJQBC3372-74-83 13:36:00Negative *NA*(02/04/18 7:36 AM)[facility] APVXI4842-27-63 13:36:00Negative *NA*(02/04/18 7:36 AM)[facility] HZSKS4915-17-26 13:36:003[facility] HEGOR3040-54-62 13:36:00Negative (02/04/18 7:36 AM)[facility] YOKYE1682-38-69 13:36:00Negative (02/04/18 7:36 AM)[facility] PMSGB5904-84-76 13:36:004[facility] VREFA4884-25-70 13:36:00Clear (02/04/18 7:36 AM)[facility] HRWGY8816-39-30 13:36:00* Test Item Value Reference Range Interpretation Comments UA Spec Grav (test code = UA Spec Grav) 1.011 1 [facility]annCARDIAC ZFHVEJM7570-77-16 11:23:0037[facility]annCARDIAC VDSXGHF3311-81-48 11:23:00<0.02[facility]annCARDIAC XWXRUHL8983-91-18 11:23:18628Iaqiikgu HermannCHEM FETWZ2480-32-63 11:23:003.1[facility] HermannCHEM NSLUS9454-57-39 11:23:002.1[facility]annCHEM VBCOL7953-69-06 11:23:002.3 [facility]annCHEM SFPJC9075-57-50 11:23:008.9[facility]annCHEM PANEL 2018-02-04 11:23:003.8[facility]annCHEM PFXIE3474-28-08 11:23:007.3[facility]annCHEM HQMCV2172-22-81 11:23:0067[facility] HermannCHEM AAPMO7510-41-16 11:23:0020[facility] HermannCHEM FJZYM7440-47-71 11:23:000.5[facility]annCHEM MYWZI5093-52-89 11:23:0042[facility] HermannCHEM UQCWL4358-85-80 11:23:0026 [facility]annCHEM QUYUD7479-32-19 11:23:73740Ghlabchx HermannCHEM PANEL 2018-02-04 11:23:21085Gzljhstt HermannCHEM BYXGW5342-94-30 11:23:003.9[facility] HermannCHEM QROLR8966-93-15 11:23:000.95[facility]annCHEM SVZNE3462-69-28 11:23:0021[facility] HermannCHEM XATAT1295-85-75 11:23:11580Fyiebuqa HermannCHEM IHKJI7197-96-99 11:23:0057[facility]annCHEM VHNMJ9246-88-73 11:23:003.5 [facility]annCHEM UGDOW8923-34-71 11:23:00* Test Item Value Reference Range Interpretation Comments B/C Ratio (test code = B/C Ratio) 22 1 6-25 [facility] HermannCHEM NEFOC4734-61-26 11:23:00* Test Item Value Reference Range Interpretation Comments A/G Ratio (test code = A/G Ratio) 1.1 1 0.7-1.6 [facility]annCHEM DPVXO5749-44-67 11:23:0014.9[facility]annHEMATOLOGY 2018-02-04 11:23:000.7[facility] PesgvjsVYORGTWTAI4177-71-09 11:23:000.1[facility] MtmtsyrODSBBZSVBB5776-48-48 11:23:000.5[facility] GmldvanMTQIBSPOKX2281-08-56 11:23:008.2[facility] MvkitrlGCBTYSPOPL4736-43-38 11:23:0087.0[facility] Luis ZTPTDZWQFN0933-65-08 11:23:000.6[facility] FbtiomiUNKRLXRIPK4465-22-86 11:23:000.3 Memorial IkcqcztMSTCKQZNTH0077-64-43 11:23:00Normal (02/04/18 5:23 AM)[facility] TabglosOVKCONZTON0445-62-78 11:23:00Normal (02/04/18 5:23 AM)[facility] OHQICWDRRF6858-94-37 11:23:007.2[facility] WrmaqewVLCMJNRPHB6972-63-52 11:23:004.9 Memorial TctdvuzAJYOSAMWTA2437-86-69 11:23:00* Test Item Value Reference Range Interpretation Comments INR (test code = INR) 1.01 1 0.85-1.17 Memorial VgjyqvfVQQVXBFHCY7449-45-80 11:23:00* Test Item Value Reference Range Interpretation Comments PT (test code = PT) 13.1 s 12.0-14.7 Memorial KdvfhwsRYZSCBLLFA9471-14-59 11:23:009.4[facility] HermannHEMATOLOGY 2018-02-04 11:23:0015.8[facility]orial XfenuhoPJJFNORFWQ5063-99-49 11:23:008.3[facility] AwkyqnkRVITOLVQUK1189-21-55 11:23:0034.4[facility]orial EefxcigOGNYUVYWKL0308-74-96 11:23:14652Ulukagsk MiruxfdHFPSGHBDZA3015-44-41 11:23:004.05[facility] BBEESWQKMR3976-76-00 11:23:0013.1[facility] AmixjhiMYMTBRPESU9565-92-30 11:23:00 38.0Memorial LtuwnhjDMYGBFNGXE9077-16-26 11:23:0093.9[facility] HermannHEMATOLOGY 2018-02-04 11:23:00* Test Item Value Reference Range Interpretation Comments MCH (test code = MCH) 32.3 pg 27.0-31.0 [facility] CenterPOCT-GLUCOSE DRVIE8838-79-30 10:43:00* Test Item Value Reference Range Interpretation Comments POC-GLUCOSE METER (BEAKER) (test code = 1538) 109 mg/dL 70-110 [address] [facility] [address]
[2019-12-05] MEDS ORDERED: DILTIAZEM ONE (01:14)
--- NOTE | 2019-12-05 01:15 | NUR ---
VERBAL ORDER TO HOLD CARDIZAM GTT FOR HR OF 96 READ BACK/ VERIFIED BY DR RUSSELL
--- OUTSIDE RECORDS SUMMARY | 2019-12-05 01:23 | XMS REPORT | Clinical Summary ---
Author Author PORTIA MeroArteIdaho Falls Community HospitaleSilicon [facility] Organization [facility] Address Unknown Phone Unavailable Care Team Providers Care Spindle Carver Name Role Phone NikoJunior PCP Allergies Comments [...] ID Type Phone Address Plan / Group [facility] xxxxxxxxx MEDICARE MGD CARE MEDICARE HMO [phone] Advance Directives For more information, please contact: [facility] [address] [place] [address] Date Inactivated Comments Code Status Date Activated 02/23/2016 12:21 PM Full Code 02/22/2016 4:11 PM This code status was determined by: Patient 02/22/2016 4:11 PM Full Code 02/22/2016 5:40 AM This code status was determined by: Patient
--- OUTSIDE RECORDS SUMMARY | 2019-12-05 01:23 | XMS REPORT | Continuity of Care Document ---
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 Name Role Phone [employer] Unavailable Un available Problems Problem Status Onset Date Classification Date Reported Comments Source XRAY Active 07/03/2019 [facility] M25.562/M25.561 Active 03/21/2019 [facility] Periprosthetic fracture around internal prosthetic left hip joint, initial encounter 02/12/2018 08/24/2018 [facility] FALL Active 02/04/2018 [facility] Pain in left hand 03/29/2017 07/02/2017 [facility] M79.642 M79.641 M25.562 Acti ve 02/26/2017 [facility] Pain in right hand 07/02/2017 [facility] Pain in left knee 07/02/2017 [facility] Primary osteoarthritis, left hand 07/02/2017 [facility] Crushing injury of right ring finger, initial encounte r 08/24/2018 [facility] Unspecified open wound of right ring fin [place] with damage to nail, initial encounter 08/24/2018 [facility] Presence of left artificial hip joint 08/24/2018 [facility] Fall on same level from slipping, trippi ng and stumbling without subsequent striking against object, initial encounter 08/24/2018 [facility] Caught, crushed, jammed, or pinched betw een moving objects, initial encounter 08/24/2018 [facility] Essential (primary) hypertension 08/24/2018 [facility] Personal history of malignant neoplasm of breast 08/24/2018 [facility] Medications Medication Details Route Status Patient Instructions Ordering Provider Order Date Source Clindamycin 600 mg, 50 mL, Rou te: IVPB, Drug form: INJ, ONCE, Dosing Weight 77.273, kg, Priority: STAT, Start date: 02/04/18 9:39:00 DETECTIVE SUPERVISOR, Stop date: 02/04/18 9:39:00 DETECTIVE SUPERVISOR, ABX Indication: Surgical Prophylaxis Inactive 02/04/2018 [facility] Morphine 4 mg, Route: IVP, ONC E, Dosing Weight 77.273, kg, Priority: STAT, Start date: 02/04/18 7:49:00 DETECTIVE SUPERVISOR, Stop date: 02/04/18 7:49:00 DETECTIVE SUPERVISOR Inactive 02/04/2018 [facility] Ondansetron 4 mg, Route: IVP, Drug form: INJ, ONCE, Dosing Weight 77.273, kg, Priority: STAT, Start date: 02/04/18 5:14:00 DETECTIVE SUPERVISOR, Stop date: 02/04/18 5:14:00 DETECTIVE SUPERVISOR Inactive 02/04/2018 [facility] Morphine 2 mg, Route: IVP, ONC E, Dosing Weight 77.273, kg, Priority: STAT, Start date: 02/04/18 5:14:00 DETECTIVE SUPERVISOR, Stop date: 02/04/18 5:14:00 DETECTIVE SUPERVISOR Inactive 02/04/2018 [facility] Allergies, Adverse Reactions, Alerts Substance Category Reaction Severity Reaction type Status Date Reported Comments Source codeine Assertion Drug allergy Active [facility] penicillin Assertion Drug allergy Active [facility] Immunizations No Data Provided for This Section Results Order Name Results Value Reference Range Date Interpretation Comments Source CHEM PANEL Lactic Acid Lvl 2.3 0.5 - 2.2 02/04/2018 [facility] URINE AND STOOL UA pH 7.0 5.0 - 8.0 02/04/2018 [facility] URINE AND STOOL UA Urobilinogen <=1.0 mg/dL 0.1 - 1.0 02/04/2018 [facility] URINE AND STOOL UA Blood Small *ABN* (02/04/18 7:36 AM) Negative 02/04/2018 [facility] URINE AND STOOL UA Bili Negative *NA* (02/04/18 7:36 AM) Negative 02/04/2018 [facility] URINE AND STOOL UA Ketones Negative *NA* (02/04/18 7:36 AM) Negative 02/04/2018 [facility] URINE AND STOOL UA Protein 30 mg/dL Negative mg/dL 02/04/2018 [facility] URINE AND STOOL UA Glucose 50 mg/dL Negative mg/dL 02/04/2018 [facility] URINE AND STOOL UA WBC 3 0 - 5 02/04/2018 [facility] URINE AND STOOL UA Sq Epi Occasional /LPF Few /LPF 02/04/2018 [facility] URINE AND STOOL UA Nitrite Negative (02/04/18 7:36 AM) Negative 02/04/2018 [facility] URINE AND STOOL UA Leuk Est Negative (02/04/18 7:36 AM) Negative 02/04/2018 [facility] URINE AND STOOL UA Bacteria Occasional /HPF None Seen /HPF 02/04/2018 [facility] URINE AND STOOL UA RBC 4 0 - 2 02/04/2018 [facility] URINE AND STOOL UA Turbidity Clear (02/04/18 7:36 AM) Clear 02/04/2018 [facility] URINE AND STOOL UA Spec Grav 1.011 <=1.030 02/04/2018 [facility] URINE AND STOOL UA Color Ltyellow 02/04/2018 [facility] CARDIAC ENZYMES BNP 37 <=100 pg/mL 02/04/2018 [facility] CARDIAC ENZYMES Troponin-I <0.02 0.00 - 0.40 02/04/2018 [facility] CARDIAC ENZYMES Total CK 144 12 - 191 02/04/2018 [facility] CHEM PANEL Phosphorus 3.1 2.5 - 4.5 02/04/2018 [facility] CHEM PANEL Magnesium Lvl 2.1 1.8 - 2.4 02/04/2018 [facility] CHEM PANEL Lactic Acid Lvl 2.3 0.5 - 2.2 02/04/2018 [facility] CHEM PANEL Calcium Lvl 8.9 8.5 - 10.5 02/04/2018 [facility] CHEM PANEL Albumin Lvl 3.8 3.5 - 5.0 02/04/2018 [facility] CHEM PANEL Total Protein 7.3 6.4 - 8.4 02/04/2018 [facility] CHEM PANEL Alk Phos 67 39 - 136 02/04/2018 [facility] CHEM PANEL AST 20 0 - 37 02/04/2018 [facility] CHEM PANEL Bili Total 0.5 0.2 - 1.3 02/04/2018 [facility] CHEM PANEL ALT 42 0 - 65 02/04/2018 [facility] CHEM PANEL CO2 26 24 - 32 02/04/2018 [facility] CHEM PANEL Chloride Lvl 105 95 - 109 02/04/2018 [facility] CHEM PANEL Glucose Lvl 103 70 - 99 02/04/2018 [facility] CHEM PANEL Potassium Lvl 3.9 3.5 - 5.1 02/04/2018 [facility] CHEM PANEL Creatinine Lvl 0.95 0.50 - 1.40 02/04/2018 [facility] CHEM PANEL BUN 21 7 - 22 02/04/2018 [facility] CHEM PANEL Sodium Lvl 142 135 - 145 02/04/2018 [facility] CHEM PANEL eGFR 57 02/04/2018 Result [...] should be multiplied by the estimated BMI. [facility] CHEM PANEL Globulin 3.5 2.7 - 4.2 02/04/2018 [facility] CHEM PANEL B/C Ratio 22 6 - 25 02/04/2018 [facility] CHEM PANEL A/G Ratio 1.1 0.7 - 1.6 02/04/2018 [facility] CHEM PANEL AGAP 14.9 10.0 - 20.0 02/04/2018 [facility] [place] Monocytes # 0.7 0.0 - 0.8 02/04/2018 [facility] HEMATOLOGY Basophils # 0.1 0.0 - 0.2 02/04/2018 [facility] [place] Lymphocytes # 0.5 1.0 - 5.5 02/04/2018 [facility] [place] Neutrophils # 8.2 1.5 - 8.1 02/04/2018 [facility] [place] Segs 87.0 45.0 - 75.0 02/04/2018 [facility] HEMATOLOGY Basophils 0.6 0.0 - 1.0 02/04/2018 [facility] [place] Eosinophils 0.3 0.0 - 4.0 02/04/2018 [facility] [place] Plt Morph Karla l (02/04/18 5:23 AM) 02/04/2018 [facility] [place] RBC Morph Karla l (02/04/18 5:23 AM) 02/04/2018 [facility] [place] Monocytes 7.2 2.0 - 12.0 02/04/2018 [facility] [place] Lymphocytes 4.9 20.0 - 40.0 02/04/2018 [facility] [place] INR 1.01 0.85 - 1.17 02/04/2018 [facility] [place] PT 13.1 12.0 - 14.7 02/04/2018 [facility] [place] WBC 9.4 3.7 - 10.4 02/04/2018 [facility] [place] RDW 15.8 11.5 - 14.5 02/04/2018 [facility] [place] MPV 8.3 7.4 - 10.4 02/04/2018 [facility] [place] MCHC 34.4 32.0 - 36.0 02/04/2018 [facility] [place] Platelet 188 133 - 450 02/04/2018 [facility] [place] RBC 4.05 4.20 - 5.40 02/04/2018 [facility] [place] Hgb 13.1 12.0 - 16.0 02/04/2018 [facility] [place] Hct 38.0 36.0 - 48.0 02/04/2018 [facility] [place] MCV 93.9 80.0 - 98.0 02/04/2018 [facility] [place] MCH 32.3 27.0 - 31.0 02/04/2018 [facility] Pathology Reports No Data Provided for [...] the PIP joint of the ring finger. Coxy-cd-nmghsbai degenerative changes noted in the PIP joints [...] mildly displaced ulnar styloid process fracture noted. Ydzx-rk-thpddhoo degenerative changes noted in the DIP joints [...] DX, LEFT 03/26/2017 2:10 PM FINDINGS: Bones/joints: Fold-so-vvsldphf medial tibiofemoral joint space narrowing and osteophytosis [...] osteoarthritis. Seamus Landaverde MD On 03/22/2019 22:15:01; [id number] 03/21/2019 [facility] Femur series DX Exam: Left [...] assessment. IMPRESSION: Proximal femoral periprosthetic fracture SL: [id number] 02/04/2018 [facility] Hip 2/3 views uni w pelvis [...] left hip arthroplasty with periprosthetic fracture SL: [id number] 02/04/2018 [facility] Spine cervical wo contrast CT Patient Name: ANTONIO CHO. : 1940; Age: 77 years y/o; Female. MR: [id number]. Ordering Physician: Toni Acevedo MD. CT CERVICAL [...] 3, C5-6 through C7-T1. Varying degrees of lvty-hy-felbehbh neural foraminal stenosis also noted throughout cervical spine. The prevertebral soft tissue is unremarkable. The C1-C2 articulation is within normal limits. IMPRESSION: 1. No evidence of cervical spine fractur e. 2. Diffuse degenerative changes noted. SL: [id number] 02/04/2018 [facility] Chest 1view DX Clinical Indica tion: [...] of the cardiac silhouette without edema. SL: [id number] 02/04/2018 [facility] Hand 2 views DX Exam: Right [...] digit. Chronic changes of inflammatory arthropathy SL: [id number] 02/04/2018 [facility] Brain wo contrast CT Clinical Indication: [...] to patient size -Use of iterative reconstruction WHATT ue CT Radiation Dose DLP 982.82 mGy-cm [...] erosive osteoarthritis versus superimposed inflammatory arthropathy. SL: [id number] 03/26/2017 [facility] Knee 3 views DX EXAM: [...] rthritic changes of the left knee. SL: [id number] 03/26/2017 [facility] Consultation Notes No Data Provided for This Section Discharge Summaries No Data Provided for This Section History and Physicals No Data Provided for This Section Vital Signs Vital Sign Value Date Comments Source Systolic (mm Hg) 145 02/04/2018 [facility] Diastolic (mm Hg) 74 02/04/2018 [facility] Respitory Rate 16 02/04/2018 [facility] Systolic (mm Hg) 158 02/04/2018 [facility] Diastolic (mm Hg) 69 02/04/2018 [facility] Respitory Rate 19 02/04/2018 [facility] Respitory Rate 16 02/04/2018 [facility] Systolic (mm Hg) 173 02/04/2018 [facility] Diastolic (mm Hg) 62 02/04/2018 [facility] Heart Rate 86 02/04/2018 [facility] Weight 77.273 02/04/2018 [facility] Temperature Oral (F) 98.1 F 02/04/2018 [facility] Height 162.56 cm 02/04/2018 [facility] BMI Calculated 29.24 02/04/2018 [facility] Encounters Location Location Details Encounter Type Encounter Number Reason For Visit Attending Provider ADM Date DC Date Status Source [facility] Outpatient [id number] Ambar Lam 03/26/2017 03/27/[address] [facility] Emergency [id number] Toni Acevedo 02/04/2018 02/04/[address] [facility] Outpatient [id number] Ambar Fritz 03/21/2019 03/22/[address] [facility] [id number] [facility] Procedures No Data Provided for This Section Assessment and Plan No Data Provided for This Section Plan of Care No Data Provided for This Section Social History Social History Date Source Social History TypeResponse Smoking Status Never smoker; Exposure to Tobacco Smoke None; Cigarette Smoking Last 365 Days No; Reg Smoking Cessation Counseling No entered on: 02/04/18 02/04/2018 [facility] Family History No Data Provided for This Section Advance Directives No Data Provided for This Section Functional Status No Data Provided for This Section
--- OUTSIDE RECORDS SUMMARY | 2019-12-05 01:23 | XMS REPORT | Clinical Summary ---
Author Author [facility] Organization [facility] Address Unknown Phone Unavailable Care Team Providers Care Echocardiograph Tech Name Role Phone Junior Pope MD PCP [...] 9 by mouth daily. 12/31/2018 Discontinued (Formulary [facility]) atenolol (TENORMIN) 25 MG Take 25 [...] Added automatically from request for stern walter [id number] Encounters Care Team Description Date Type Specialty [...] laterality; Essential hypertension; PAD (peripheral artery disease) ([facility]) 12/31/2018 Office Visit Cardiology after 12/04/2018 Surgical [...] INDICATED PROCEDURES; Surgeon: Yvan Bryant MD; Location: [facility] 19 OR; Serv ice: Orthopedics; Laterality: Left; Medical devices from this surgery are i n the Implants section. AMPUTATION, DIGIT, HAND 03/01/2018 Fingers/Right Proced ure: RIGHT RING FINGER I AND D COMPLETION AMPUTATION; Surgeon: Elsie Gresham MD; Location: [facility] 19 OR; Service: Orth opedics; Laterality: Right; Medical devices from this surgery are i n the Implants section. [place] CARDIOVASCULAR 02/26/2017 - PROCEDURE UNLISTED 02/25/2018 APPENDECTOMY 02/26/1959 - 02/26/1960 HYSTERECTOMY 02/26/1969 - 02/25/1970 TONSILLECTOMY 02/26/1967 - 02/26/1968 Medical History Medical History Date Comments Diabetes mellitus (HCC) Cancer (HCC) 12/28/1997 right breast Visual impairment Stroke ([facility]) 01/2001 stroke left eye Type 2 diabetes mellitus (HCC) Hypertension Disease of thyroid gland Hypothyroidism GERD (gastroesophageal reflux disease) PAD (peripheral artery disease) ([facility]) 11/19/2018 Aortic valve disorder 11/19/2018 Carotid artery disease ([facility]) 12/31/2018 Family History Medical History Relation Name [...] Comments Vital Sign 180/76 12/31/2018 1:53 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 Blood Pressure 70 12/31/2018 1:53 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 Pulse - - Temperature - - Respiratory Rate - - Oxygen Saturation - - Inhaled Oxygen Concentration 62.6 kg (138 lb) 02/12/2019 2:16 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 Weight 162.6 cm (5' 4") 02/12/2019 2:16 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 Height 23.69 02/12/2019 2:16 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 Body Mass Index Plan of Treatment Health Maintenance Due Date Last Done Comments SHINGLES VACCINES (#1) 09/26/1989 65+ PNEUMOCOCCAL VACCINE 09/26/2004 (1 of 1 - PPSV23) INFLUENZA VACCINE 2019 Implants Device Identifier Shelf Expiration Date Model / Serial / L ot Implanted Type Area Manufactur er 10/04/2027 [id number] / / [id number] Instrument Repair Technician Troch 8 Cbl Sm 185mm Accord - Hip Joint Left: Hip GUTIERREZ AND [id number] Implants NEPHEW Implanted: Qty: 1 on 02/05/2018 by ORTHOPEDIC Yvan Bryant MD at [facility] 08/16/2027 [id number] / / [id number] Cable Co-Cr 2mm Accord - [id number] Hip Joint Left: Hip GUTIERREZ AND Implanted: Qty: 1 on 02/05/2018 by Implants Yvan Resendiz MD at [facility] 08/16/2027 [id number] / / [id number] Cable Co-Cr 2mm Accord - [id number] Hip Joint Left: Hip GUTIERREZ AND Implanted: Qty: 1 on 02/05/2018 by Yvan Galarza MD at [facility] 09/16/2027 [id number] / / [id number] Cable Co-Cr 2mm Accord - [id number] Hip Joint Left: Hip GUTIERREZ AND Implanted: Qty: 1 on 02/05/2018 by Implants Yvan Resendiz MD at [facility] 09/16/2027 [id number] / / [id number] Cable Co-Cr 2mm Accord - [id number] Hip Joint Left: Hip GUTIERREZ AND Implanted: Qty: 1 on 02/05/2018 by Implants Yvan Reesndiz MD at [facility] 11/24/2027 [id number] / / [id number] Head Fml 02/08 Tprd 36mm -3mm Hip Joint Left: Hip GUTIERREZ AND Oxinium - [id number] Implants NEPHEW Implanted: 02/05/2018 at [facility] (Quantity not on file) 10/07/2026 [id number] / / [id number] Redapt Slvls Stem 240mm 17so - IPM Left: Hip GUTIERREZ & [id number] IMPLANT NEPHEW Implanted: Qty: 1 on 02/05/2018 by DEVICES Yvan Murphy MD at [facility] 05/24/2027 [id number] / / [id number] Cable W/ Clmp Co-Cr 2mm Accord - Orthopedic Left: Hip GUTIERREZ AND [id number] Trauma NEPHEW Implanted: Qty: 1 on 02/05/2018 by Implants Yvan Og MD at [facility] 07/06/2027 [id number] / / [id number] Cable W/ Clmp Co-Cr 2mm Accord - Orthopedic Left: Hip GUTIERREZ AND [id number] Trauma NEPHEW Implanted: Qty: 1 on 02/05/2018 by Implants Yvan Og MD at [facility] 11/20/2027 [id number] / / [id number] Cable W/ Clmp Co-Cr 2mm Accord - Orthopedic Left: Hip GUTIERREZ AND [id number] Trauma NEPHEW Implanted: Qty: 1 on 02/05/2018 by Implants Yvan Og MD at [facility] 09/26/2020 [id number] / / [id number] Tourni-Cot Large Tourniquet MAR-MED Implanted: Qty: 1 on 03/01/2018 by Elsie Oneal MD at [facility] Procedures Comments Procedure Name Priority Date/Time Associated Diag nosis US CAROTID DUPLEX Routine 07/01/2019 Carotid esperanza ry disease, BILATERAL 12:15 PM CDT unspecified lateral ity, unspecified type (HCC) Carotid bruit, unspecified laterality XR HIP 2-3 VIEWS LEFT Routine 02/12/2019 Left hip pain 2:25 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 US CAROTID DUPLEX Routine 12/24/2018 PAD (periphe ral artery BILATERAL 2:51 PM CDT disease) ([facility]) Bilateral carotid bruits Aortic valve disorder NM MYOCARDIAL PERFUSION Routine 12/11/2018 PAD (p eripheral artery REST STRESS 1 DAY 2:28 PM CDT disease) ([facility]) Bilateral carotid bruits Aortic valve disorder CV STRESS TEST NUCLEAR Routine 12/11/2018 PAD (pe ripheral artery CARDIO 2:28 PM CDT disease) ([facility]) Bilateral carotid bruits Aortic valve disorder TTE COMPLETE, WO Routine 12/09/2018 PAD (peripher al artery CONTRAST, W DOPPLER 1:35 PM CDT disease) ([facility]) ([address]708) Bilateral carotid bruits Aortic valve disorder after 12/04/2018 Results * Us carotid duplex (07/01/2019 12:15 PM CDT) Only the most recent of 2 results within the time period is included. Specimen Narrative Performed At [facility] Carotid Esperanza ry Ultrasound Report Pat.Name: DEBORAH MAE Renny at.ID: [id number] St.Date: 07/01/2019 Refer.MD: HUNG LONG MD Exam Time: 11:13:00 AM Study Type:Carotid Age: 8 1940,78Y Sex: FEMALE Sonogrphr: Naya Villarreal RVT Pat. Stat.:Outpatient Room: [facility] Vol: SD, CPT - 4: 35968 Echo Event ID:[id number] Order ID: [id number] Reason for Study:Follow up study, Hx of [...] Results In - 07/02/2019 10:22 PM CDT [facility] Carotid Artery Ultrasound Report Pat.Name: DEBORAH MAE Pat.ID: [id number] .Date: 07/01/2019 Refer.MD: HUNG LONG MD Exam Time: 11:13:00 AM Study Type:Carotid Age: 8 1940,78Y Sex: FEMALE Sonogrphr: Naya Villarreal RVT Pat. Stat.:Outpatient Room: [facility] Vol: SD, CPT - 4: [id number] Echo Event ID:[id number] Order ID: [id number] Reason for Study:Follow up study, Hx of [...] PM Hung Long MD Performing Organization Address [facility] Code P phyllis Number [facility] [id number] [place] [address] * XR Hip 2-3 View Left (02/12/2019 2:25 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) Specimen Narrative Performed At [facility] Hip radiographs demonstrate a complex r evision hip arthroplasty. There is broken cerclage wire proximally. All im plant components are stable. Performing Organization Address [facility] P phyllis Number [facility] [address] [place] [address] * Cv stress test (12/11/2018 2:28 PM CDT) Resting HR 59 [facility] Resting BP 148 [facility] Peak MET 1.0 [facility] Achieved Protocol Name LexiScan [facility] MUSE Time in 00:01:00 [facility] MUSE Exercise [...] Interp [facility] During Ex Ex Summary [facility] MUSE Comment Chest Pain none [facility] M[facility] Statement Overall HR [facility] M[facility] Response to Exercise Overall BP [facility] M[facility] Response To Exercise Reason for As per Lexiscan protocol [facility] MUSE Termination Stress Test Waveform interpreted in report [facility] MU SE Impression associated with image study . No interpretation is provided as part of this Stress ECG report.--Electronically Signed By Rosibel AWAD, Junior ([id number]), book or script editor Solo Duong ([id number]) on 12/12/2018 3:23:30 PM Specimen Narrative Performed At This result has an attachment that is n ot available. Performing Organization Address [facility] Code P phyllis Number [facility] MUSE [address] [place] [address] * Nm myocardial perfusion (12/11/2018 2:28 PM CDT) Target HR 141.00 bpm [facility] Specimen Narrative Performed At H M [facility] Nuclear Cardi ology and Cardiac CT [address] [address] Myocardial Pe rfusion Imaging Report Stress ECG tracings are availab le in MUSE, [employer] and [employer] All ECG interpretations a re included in this report Pat.Name: DEBORAH MAE at.ID: [id number] .Date: 12/10/2018 Refer.MD: HUNG LONG MD Exam Time: 7:46:00 AM Study Type:Myocardial Perfusion Imaging Height: 64in Weight: 141.7lb BSA: 1.69 m2 Age: 8 1940,78Y Sex: FEMALE Nuclear Tech:MARIEL Glass Nuclear Event ID:[id number] Order ID: [id number] Reason for Study:Aortic valve disorders Procedures: Single [...] AM CDT Nuclear Cardiology and Cardiac CT [address] [place] [address] Myocardial Perfusion Imaging Report Stress ECG tracings are available in [employer], [employer] and [employer] All ECG interpretations are included in this report Pat.Name: DEBORAH MAE Pat.ID: [id number] .Date: 12/10/2018 Refer.MD: HUNG LONG MD Exam Time: 7:46:00 AM Study Type:Myocardial Perfusion Imaging Height: 64in Weight: 141.7lb BSA: 1.69 m2 Age: 8 1940,78Y Sex: FEMALE Nuclear Tech:MARIEL Glass Nuclear Event ID:[id number] Order ID: [id number] Reason for Study:Aortic valve disorders Procedures: Single [...] City/State/ZIP Code P phyllis Number [facility] [address] [place] [address] * Echocardiogram complete w contrast and 3D if needed (12/09/2018 1:35 PM CDT) Specimen Narrative Performed At [facility] Echo cardiography Report Pat.Name: DEBORAH MAE at.ID: [id number] .Date: 12/09/2018 Refer.MD: HUNG LONG MD Exam Time: 11:11:00 AM Study Type:Routine Echo Height: 64in Weight: 142lb BSA: 1.69 m2 Age: 8 1940,78Y Sex: FEMALE BP: 172/72 HR: 73 bpm Sonogrphr: TIAN Lee FASE Pat. Stat.:Outpatient Room: [facility] Study Status:Final Echo Event ID:[id number] Order ID: [id number] Reason for Study:Aortic valve disorder Procedures: 2D [...] of 5-10 mmHg. MEASUREMENTS: 2D Parasternal Long [employer] Ao Rtd 3 cm Index 1.8 cm/m2 [...] Associates Echocardiography Report Pat.Name: DEBORAH MAE Pat.ID: [id number] St.Date: 12/09/2018 Refer.MD: HUNG LONG MD Exam Time: 11:11:00 AM Study Type:Routine Echo Height: 64in Weight: 142lb BSA: 1.69 m2 Age: 8 1940,78Y Sex: FEMALE BP: 172/72 HR: 73 bpm Sonogrphr: TIAN Lee FASE Pat. Stat.:Outpatient Room: [facility] Study Status:Final Echo Event ID:[id number] Order ID: [id number] Reason for Study:Aortic valve disorder Procedures: 2D [...] of 5-10 mmHg. MEASUREMENTS: 2D Parasternal Long [employer] Ao Rtd 3 cm Index 1.8 cm/m2 [...] Correia M.D. Performing Organization Address City/State/ZIP Code [facility] Number HM [facility] [address] [place] [address] after 12/04/2018 Insurance Type Payer Benefit Subscriber ID Effective Phone Address Plan / Dates Group PPO [facility] [id number] [id number] MEDICARE resent PPO Surgery Advance Directives For more information, please contact: [phone] Patient Athletic Training Internship Explanation Type Date Recorded Advance Directives, 11/15/2015 10:25 AM Living Will and Medical Power of Distribution Systems Serviceperson
--- OUTSIDE RECORDS SUMMARY | 2019-12-05 01:24 | XMS REPORT | Continuity of Care Document ---
Author Author [facility] t Organization [facility] Address 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 NA 2019 00:00:00 [facility] Problems Condition Name Condition Details Condition Category Status Onset Date Resolution Date Last Treatment Date Treating Clinician Comments Source XRAY XRAY Active 07/03/2019 [facility] Active 2019-07-03 10:21:00 2019-07-03 10:22:00 Danelle Smith M25.562/M25.561 M25. 562/M25.561 Active 03/21/2019 [facility] Diagnosis Active 2019-03-21 00:00:00 2019-03-21 11:33:00 Danelle [...] Overview: Added automatically from request for surgery [id number] Leo Dee FALL FALL Active 02/04/2018 [facility] Diagnosis Active 2018-02-04 00:00:00 2018-02-04 05:32:00 Danelle Smith M79.642 M79.641 M25.562 M79. 642 M79.641 M25.562 Active 02/26/2017 [facility] Diagnosis Active 2017-02-26 00:00:00 2017-03-26 13:28:00 Danelle Smith Lumbar radiculopathy Lumbar radiculopathy Disease Active 00:00:00 [facility] Lumbar stenosis with neurogenic claudication Lumbar st enosis with neurogenic claudication Disease Active 2016-02-22 00:00:00 [facility]itis Mucositis Problem Active [facility] Pancytopenia Pancytopenia Problem Active [facility] Cellulitis Problem Active [facility] Abrasion Problem Active [facility] Anemia Problem Active [facility] Pain in right hand Pain in right hand 07/02/2017 [facility] Problem 2017-07-02 16:45:51 Me blake Mauricioann Pain in left knee Pain in left knee 07/02/2017 [facility] Problem 2017-07-02 16:45:51 Me blake Luis Primary osteoarthritis, left hand Primary osteoarthritis, left hand 07/02/2017 [facility] Problem 2017-07-02 16:45:51 Danelle Luis Crushing injury of right ring finger, initial encounte r Crushing injury of right ring finger, initial encounter 08/24/2018 [facility] Problem 2018-08-24 11:25:58 Danelle Smith Unspecified open wound of right ring fin mich with damage to nail, initial encounter Unspecified open wound of right ring finger with damage to nail, initial encounter 08/24/2018 [facility] Problem 2018-08-24 11:25:58 Danelle Smith 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 08/24/2018 [facility] Problem 2018-08-24 11:25:58 Danelle Savage Fall on same level from slipping, trippi ng and stumbling without subsequent striking against object, initial encounter Fall on same level from slipping, tripping and stumbling without subsequent striking against object, initial encounter 08/24/2018 [facility] Problem 2018-08-24 11:25:58 Danelle Smith Caught, crushed, jammed, or pinched between moving obj ects, initial encounter Caught, crushed, jammed, or pinched between moving objects, initial encounter 08/24/2018 [facility] Problem 08-24 11:25:58 Danelle Smith Essential (primary) hypertension Essential (primary) hypertension 08/24/2018 [facility] Problem 2018-08-24 11:25:58 Danelle Smith Personal history of malignant neoplasm of breast Personal history of malignant neoplasm of breast 08/24/2018 [facility] Problem 2018-08-24 11:25:58 Danelle Smith Periprosthetic fracture around internal prosthetic left hip joint, initial encounter Periprosthetic f racture around internal prosthetic left hip joint, initial encounter 02/12/2018 08/24/2018 [facility] Problem 2018-02-12 04:35:54 2018-08-24 11:25:58 2018-08-24 11:25:58 Danelle Smith Pain in left hand Pain in left hand 03/29/2017 07/02/2017 [facility] Problem 2017-03-29 04:24:47 2017-07-02 16:45:51 2 16:45:51 Danelle Smith Allergies, Adverse Reactions, Alerts Allergy Name Allergy Type Status Severity Reaction(s) Onset Date Inacti ve Date Treating Clinician Comments Source Methotrexate Propensity to adverse reactions to drug Active Anaphylaxis 2018-11-08 00:00:00 [facility] Lisinopril Allergy to substance Active Mild 2018-04-30 00:00:00 [facility] Penicillins Propensity to adverse reactions to drug Active Other (See Comments) 2016-02-11 00:00:00 [facility] Allergy Active Other (See Comments) 2016-02-11 00:00:00 Vaginal itching [facility] Codeine Propensity to adverse reactions to drug Active Other (See Comments) 2015-11-15 00:00:00 nausea [facility] Levofloxacin Propensity to adverse reactions to drug Active Other (See Comments) 2015-11-15 00:00:00 Severe nausea [facility] Lisinopril Propensity to adverse reactions to drug Active Hives 2015-11-15 00:00:00 [facility] Lactate Propensity to adverse reactions to drug Active Other (See Comments) 2015-11-15 00:00:00 Severe nausea [facility] Codeine Drug Intolerance Active Other (See Comments) 2015-11-15 00:00:00 nauseaUpset stomach [facility] Levofloxacin Drug Intolerance Active Other (See Comments) 2015-11-15 00:00:00 Severe nauseaUpset stomach [facility] Lisinopril Drug Allergy Active Itching, Hives 2015-11-15 00:00: 00 Itching everywhere [facility] Pentazocine Lactate Propensity to adverse reactions Active 2015-11-15 00:00:00 Other reaction(s): Other (See Co mments)Severe nausea [facility] Pentazocine Allergy to substance Active Mild N/V 2010-01-12 00:00:00 [facility] Levofloxacin Allergy to substance Active Mild N/V 2010-01-12 00:00:0 0 [facility] codeine codeine Active [facility] penicillin penicillin Active [facility] Family History Family Member Diagnosis Comments Start Date Stop Date Source Natural father Heart attack Leo Dee Natural father Heart disease Leo Dee Natural mother Cancer [facility] thodist Social History Social Habit Start Date Stop Date Quantity Comments Source Sex Assigned At [facility] Tobacco use and exposure 2019-02-12 00:00:00 2019-02-12 00:00:00 Neve r used Leo Dee Alcohol intake 2019-02-12 00:00:00 2019-02-12 00:00:00 Ex-drinker (fi nding) Leo Dee Alcohol Comment 2016-02-11 00:00:00 2016-02-11 00:00:00 rarely [facility] Smoking Status Start Date Stop Date Source Never smoker [facility] Medications Ordered Medication Name Filled Medication Name Start Date Stop Da te Current Medication? Ordering Clinician Indication Dosage Frequency Signature (SIG) Comments Components Source Ciprofloxacin Hcl (Cipro) 500 Mg TABLET Ciprofloxacin Hcl (C ipro) 500 Mg TABLET 2019-07-20 12:31:00 Yes 500 Every 12 Hours [facility] Doxycycline Hyclate Doxycycline Hyclate 2019-07-20 12:31:00 Yes 100 Every 12 Hours [facility] atenolol (TENORMIN) 25 MG tablet 2018-12-31 [...] 10mg Take 10 mg by mouth. Leo eDe loperamide (IMODIUM A-D) 2 mg tablet 2018-12-31 13:55:48 Ye s 2mg Take 2 mg by mouth. Leo Dee rosuvastatin (CRESTOR) 10 MG tablet 2018-12-31 00:00:0 0 2019-12-31 23:59:00 No 10mg QD Take 1 tablet (10 mg total) by mouth reyes ly. [facility] atenolol (TENORMIN) 50 MG tablet 2018-12-31 00:00:00 [...] kg, Priority: STAT, Start date: 02/04/18 9:39:00 GUARD ENTRANCE REGISTRAR, Stop date: 02/04/18 9:39:00 GUARD ENTRANCE REGISTRAR, ABX Indication: Surgical Prophylaxis [facility] Morphine 2018-02-04 13:49:00 No 4 mg, Route: IVP, ONCE, Dosing Weight 77.273, kg, Priority: STAT, Start date: 02/04/18 7:49:00 GUARD ENTRANCE REGISTRAR, Stop date: 02/04/18 7:49:00 GUARD ENTRANCE REGISTRAR [facility] Ondansetron 2018-02-04 11:14:00 No 4 mg, Route: IVP, Drug form: INJ, ONCE, Dosing Weight 77.273, kg, Priority: STAT, Start date: 02/04/18 5:14:00 GUARD ENTRANCE REGISTRAR, Stop date: 02/04/18 5:14:00 [facility] 2018-02-04 11:14:00 No 2 mg, Route: IVP, ONCE, Dosing Weight 77.273, kg, Priority: STAT, Start date: 02/04/18 5:14:00 GUARD ENTRANCE REGISTRAR, Stop date: 02/04/18 5:14:00 GUARD ENTRANCE REGISTRAR [facility] tobramycin-dexamethasone (TOBRADEX) 0.3-0.1 % ophthalmic renae ution 2017-09-19 13:38:12 Yes 1[drp] 1 drop every 4 (four) hours w hile awake. [facility] ezetimibe (ZETIA) 10 mg tablet 2017-09-19 12:30:46 Yes 10mg QD Take 10 mg by mouth daily. [facility] insulin lispro (HUMALOG) 100 unit/mL injection 2017-09-19 12:30: 46 Yes Inject subcutaneously 3 (three) times daily before gemma ls. [facility] methotrexate 2.5 MG tablet 2017-09-19 12:30:46 Yes Q7D Take by mouth once a week. [facility] folic acid (FOLVITE) 1 MG tablet 2017-09-19 12:30:46 Yes 1mg QD Take 1 mg by mouth daily. [facility] predniSONE (DELTASONE) 5 MG tablet 2017-09-19 12:30:46 Yes 5mg QD Take 5 mg by mouth daily. [facility] thyroid, pork, (ARMOUR THYROID) 120 mg Tab 2017-09-19 12:30:45 Yes QD Take by mouth daily. [facility] terbutaline (BRETHINE) 5 mg tablet 2017-09-19 12:30:45 Yes 5mg Take 5 mg by mouth every 6 (six) hours. [facility] glimepiride (AMARYL) 4 MG tablet 2016-02-11 10:21:47 Yes 4mg Q.5D Take 4 mg by mouth 2 (two) times daily. [facility] amLODIPine (NORVASC) 5 MG tablet 2016-02-11 10:21:47 Yes 5mg QD Take 5 mg by mouth daily. [facility] terbinafine HCl (LAMISIL) 250 mg tablet 2016-02-11 10:21:47 Yes 250mg QD Take 250 mg by mouth daily. [facility] zolpidem (AMBIEN) 5 MG tablet 2016-02-11 10:21:47 Yes 5mg Take 5 mg by mouth every night as needed for Insomnia. [facility] celecoxib (CELEBREX) 100 MG capsule 2016-02-11 10:21:47 Yes 100mg Take 100 mg by mouth every 12 (twelve) hours as needed for Pain. [facility] insulin detemir (LEVEMIR) 100 unit/mL injection 2016-02-11 10:21 :47 Yes 14U QD Inject 14 Units subcutaneously nightly. [facility] ascorbic acid (VITAMIN C) 1000 MG tablet 2016-02-11 10:21:47 Yes 1000mg QD Take 1,000 mg by mouth daily 2,000 - 3,000 daily . [facility] vitamin E 1000 UNIT capsule 2016-02-11 10:21:47 Yes 1000U QD Take 1,000 Units by mouth daily. [facility] cholecalciferol, vitamin D3, 2,000 unit Cap 2016-02-11 10:21:47 Yes Take by mouth. [facility] multivitamin per tablet 2016-02-11 10:21:47 Yes 1{tbl} QD Take 1 tablet by mouth daily. [facility] calcium carbonate (OS-CARLY) 600 mg (1,500 mg) Tab 2016-02-11 10:21:47 Yes 1200mg QD Take 1,200 mg by mouth daily. [facility] HYDROcodone-acetaminophen (VICODIN) 7.5-500 mg per tablet 2016-02-11 10:21:47 Yes 1{tbl} Take 1 tablet by mouth every 6 (six) hours as needed for Pain. [facility] acetaminophen (TYLENOL) 500 MG tablet 2016-02-11 10:21:47 Y es 500mg Take 500 mg by mouth every 6 (six) hours as needed for Pain. [facility] naproxen (ALEVE,ANAPROX,MIDOL) 220 MG tablet 2016-02-11 10:21:47 Yes 220mg Take 220 mg by mouth as needed. [facility] loratadine (CLARITIN) 10 mg tablet 2016-02-11 10:21:47 Yes 10mg Take 10 mg by mouth as needed for Allergies. [facility] loperamide (IMODIUM A-D) 2 mg tablet 2016-02-11 10:21:47 Ye s 2mg Take 2 mg by mouth as needed for Diarrhea. I [facility] atenolol (TENORMIN) 25 MG tablet 2016-02-11 10:21:46 Yes 25mg Q.5D Take 25 mg by mouth 2 (two) times daily. [facility] omeprazole (PRILOSEC) 20 MG capsule 2016-02-11 10:21:46 Yes 20mg Take 20 mg by mouth as needed. [facility] ranitidine (ZANTAC) 75 MG tablet 2016-02-11 10:21:46 Yes 75mg Take 75 mg by mouth as needed for Heartburn. [facility] metFORMIN (GLUCOPHAGE) 1000 MG tablet 2016-02-11 10:21:46 Y es 1000mg Take 1,000 mg by mouth 2 (two) times daily with breakfast and dinner. [facility] Amlodipine Besylate Amlodipine Besylate Yes 10 Daily [facility] Ascorbic Acid (Vitamin C) 1,000 Mg TABLET.ER Ascorbic Acid (Vitamin C) 1,000 Mg TABLET.ER Yes 2000 Twice A Day [facility] Atenolol (Tenormin) 25 Mg TABLET Atenolol (Tenormin) 25 Mg TABLET Yes 25 Daily [facility] Calcium Carbonate (Calcium) 600 Mg TABLET Calcium Carb carmen (Calcium) 600 Mg TABLET Yes 1200 Twice A Day [facility] Celecoxib (Celebrex*) 100 Mg CAPSULE Celecoxib (Celebrex*) 100 Mg C APSULE Yes 100 Daily as needed for Pain [facility] Cholecalciferol (Vitamin D3) (Vitamin D3) 1,000 Unit T ABLET Cholecalciferol (Vitamin D3) (Vitamin D3) 1,000 Unit TABLET Yes 5000 Twice A Day [facility] Ezetimibe (Zetia) 10 Mg TABLET Ezetimibe (Zetia) 10 Mg TABLET Yes 10 Daily [facility] Insulin Detemir (Levemir) 100 Unit/1 Ml VIAL Insulin D etemir (Levemir) 100 Unit/1 Ml VIAL Yes 9 Daily [facility] Loperamide Hcl (Imodium*) 2 Mg CAP Loperamide Hcl (Imodium*) 2 Mg CAP Yes 2 As Needed [facility] Loratadine (Claritin) 10 Mg TABLET Loratadine (Claritin) 10 Mg TABLET Yes 10 As Needed [facility] Metformin Hcl (Glucophage) 1,000 Mg TABLET Metformin H cl (Glucophage) 1,000 Mg TABLET Yes 1000 Twice A Day [facility] Multivitamin (Daily Francisca) 1 Each TABLET Multivitamin (Daily Francisca) 1 Each TABLET Yes 1 Daily [facility] Naproxen Sodium (Aleve) 220 Mg CAPSULE Naproxen Sodium (Aleve) 2 20 Mg CAPSULE Yes 1 As Needed [facility] Omeprazole Omeprazole Yes [address] [facility] Prednisone Prednisone Yes 5 .every Other Day [facility] Promethazine Hcl Promethazine Hcl Yes 12.5 Twice A Day as needed for Nausea [facility] Terbinafine Hcl (Lamisil) 250 Mg TABLET Terbinafine Hcl (Coronado isil) 250 Mg TABLET Yes 250 Daily [facility] Thyroid,Pork (Issue Thyroid) 120 Mg TABLET Thyroid,Po rk (Issue Thyroid) 120 Mg TABLET Yes [address] [facility] Amlodipine 5 Mg Amlodipine 5 Mg 2018-04-29 00:00:00 No [facility] Glimepiride (Amaryl) 4 Mg TABLET Glimepiride (Amaryl) 4 Mg TABLE T 2018-04-29 00:00:00 No 4 [facility] Insulin Aspart (Novolog) 100 Unit/1 Ml CARTRIDGE Insul in Aspart (Novolog) 100 Unit/1 Ml CARTRIDGE 2018-04-29 00:00:00 No [facility] Insulin Detemir (Levemir 10ML Vial) 100 Unit/1 Ml VIAL Insulin Detemir (Levemir 10ML Vial) 100 Unit/1 Ml VIAL 2018-04-29 00:00:00 No As Needed [facility] Levothyroxine Sodium (Unithroid) 200 Mcg TABLET Levoth yroxine Sodium (Unithroid) 200 Mcg TABLET 2018-04-29 00:00:00 No 200 Daily [facility] Liothyronine Sodium (Cytomel) 25 Mcg TABLET Liothyroni ne Sodium (Cytomel) 25 Mcg TABLET 2018-04-29 00:00:00 No 25 [facility] Zolpidem Tartrate (Ambien Angel) 10 Mg TABLET Zolpidem T artrate (Ambien Angel) 10 Mg TABLET 2018-04-29 00:00:00 No 10 Qhs [facility] Vital Signs Vital Name Observation Time Observation Value Comments Source Body Temperature 2019-07-20 12:50:00 98.3 [degF] [facility] Weight 2019-07-20 10:29:00 136 [lb_av] [facility] BMI (Body Mass Index) 2019-07-20 10:29:00 23.3 kg/m2 [facility] Body height 2019-02-12 14:16:00 162.6 cm [facility] Body weight 2019-02-12 14:16:00 62.596 kg [facility] BMI 2019-02-12 14:16:00 23.69 kg/m2 [facility] Systolic blood pressure 2018-12-31 13:53:00 180 mm[Hg] [facility] Diastolic blood pressure 2018-12-31 13:53:00 76 mm[Hg] [facility] Heart rate 2018-12-31 13:53:00 70 /min [facility] Systolic (mm Hg) 2018-02-04 16:01:00 Ulices riabrittani Luis Diastolic (mm Hg) 2018-02-04 16:01:00 Mem orial Savage Respitory Rate 2018-02-04 16:01:00 Georgette Zimmerman Systolic (mm Hg) 2018-02-04 13:38:00 Ulices rial Luis Diastolic (mm Hg) 2018-02-04 13:38:00 Mem orial [place] Respitory Rate 2018-02-04 13:38:00 Memori al Luis Respitory Rate 2018-02-04 12:43:00 Rasheedori al Luis Systolic (mm Hg) 2018-02-04 12:43:00 Ulices phillips [place] Diastolic (mm Hg) 2018-02-04 12:43:00 Mem orial [facility] Heart Rate 2018-02-04 10:33:00 [facility] Weight 2018-02-04 10:33:00 [facility] Temperature Oral (F) 2018-02-04 10:33:00 98.1 F [facility] Height 2018-02-04 10:33:00 162.56 cm [facility] BMI Calculated 2018-02-04 10:33:00 Rasheedori al Luis Procedures Procedure Date / Time Performed Performing Clinician [facility] e US CAROTID DUPLEX BILATERAL 2019-07-01 12:15:00 Hung Chapa XR HIP 2-3 VIEWS LEFT 2019-02-12 14:25:32 Yvan Bryant US CAROTID DUPLEX BILATERAL 2018-12-24 14:51:29 Hung Chapa CV STRESS TEST NUCLEAR CARDIO 2018-12-11 14:28:20 Hung Chapa NM MYOCARDIAL PERFUSION REST STRESS 1 DAY 2018-12-11 14:28:20 Sh Hung meza TTE COMPLETE, WO CONTRAST, W DOPPLER ([id number]) 2018-12-09 13:3 5:39 Hung Chapa Plan of [...] VACCINES (#1)] Leo Dee Instructions Abrasion [facility] Instructions Anemia [facility] Instructions Cellulitis [facility] Encounters Start Date/Time End Date/Time Encounter Type Admission Type Attendi [facility] Care Department Encounter ID Source 2019-07-20 10:12:00 2019-07-20 13:25:00 Departed Emergency Room 1 CASSANDRA BEAR [facility] [id number] [facility] 2019-07-03 10:21:00 2019-07-03 23:59:00 Outpatient Ambar Fritz [place] [id number] 2019-07-03 10:21:00 2019-07-03 10:21:00 Outpatient MHSE [facility] [id number] [facility] 2019-07-01 00:00:00 2019-07-01 00:00:00 Outpatient ETHAN HUNG [facility] [id number] Leo Gnosticism 2019-03-21 11:33:00 2019-03-21 23:59:00 Outpatient Ambar Fritz [place] [id number] 2019-03-21 11:33:00 2019-03-21 11:33:00 Outpatient MHSE MHSE [id number] [facility] 2018-04-29 17:34:00 2018-05-13 15:15:00 Discharged Inpatient 1 JOHNNA MIX [facility] [id number] [facility] 2018-02-04 04:32:00 2018-02-04 10:07:00 Outpatient Akanksha Acevedo [facility] [place] [id number] 2017-03-26 13:20:00 2017-03-26 23:59:00 Outpatient Ambar Fritz [place] [id number] Results Test Description Test Time Test Comments Results Result Comments Source BREAST ULTRASOUND BILATERAL 2019-11-25 14:36:23 - BREAST ULTRASOUND BILATERALULTRASOUND OF BOTH BREASTS AND BOTH AXILLA: 11/25/2019CLINICAL: Followup to previous exam. Comparison is made to exams dated 09/02/2018 ultrasound, 07/17/2017 ultrasound, and 07/10/2016 ultrasound - [facility]-. Real-time ultrasound and clinical exam [...] 11/25/2019 15:49:22Imaging Technologist: Kenia LEMUS, [facility]-FWletter sent: BIRADS 1-2 Normal Ultrasound BI-RADS: 1 Negative FOOT 2VIEW RT - HOPD 2019-07-20 11:45:00 [place] [address] Patient Name: ANTONIO MAE MR #: [id number] : 1940 Age/Sex: 78/F Req #: [id number] Adm Physician: Ordered by: CASSANDRA BEAR Report #: [id number] Location: [facility] Room/Bed: Procedure: [id number] HOPD/FOOT 2VIEW RT - HOPD Exam Date: [...] ultrasound, and 06/23/2014 ultrasound - [facility]-. Real-time ultrasound of both breasts [...] 07:11:12Imaging Technologist: Shannan Alfaro , [facility]-letter sent: BIRADS 1-2 Normal Ultrasound BI-RADS: 2 Benign Bedside Glucose 2018-05-13 14:31:00 Test Item Bedside Glucose (test code = 12791-0) 264 70-120 H Meter ID: [id number] Total Cells [id number] 07:15:00* Test Item Value Reference Range Interpretation Comments Differential Total Cells Counted (test code = Differen tial Total Cells Counted) 100 [facility] (Manual)2018-05-12 07:15:00 * Test Item Value Reference Range Interpretation Comments Neutrophils % (Manual) (test code = 34670-7) 65 40-74 [facility] Neutrophils %2018-05-12 07:15:00* Test Item Value Reference Range Interpretation Comments Band Neutrophils % (test code = 764-1) 2 [facility]ymph[facility] % (Manual)2018-05-12 07:15:00 * Test Item Value Reference Range Interpretation Comments Lymphocytes % (Manual) (test code = 737-7) 18 19-48 L [facility] % (Manual)2018-05-12 07:15:00* Test Item Value Reference Range Interpretation Comments Monocytes % (Manual) (test code = 744-3) 12 3.4-9.0 H [facility]amyelocytes %2018-05-12 07:15:00* Test Item Value Reference Range Interpretation Comments Metamyelocytes % (test code = 740-1) 2 0-0 H [facility]elocytes %2018-05-12 07:15:00* Test Item Value Reference Range Interpretation Comments Myelocytes % (test code = 749-2) 1 0-0 H [facility] Station[facility]ucleated Red Blood [id number] 07:15:00* Test Item Value Reference Range Interpretation Comments Nucleated Red Blood Cells (test code = 14637-6) 1 [facility] StationPlatelet [id number] 07:15:00* Test Item Value Reference Range Interpretation Comments Platelet Estimate (test code = 11586-9) ADEQUATE [facility] Station[facility]atelet Morphology [id number] 07:15:00* Test Item Value Reference Range Interpretation Comments Platelet Morphology Comment (test code = 23666-4) NORMAL [facility] StationRed Cell Morphology [id number] 07:15:00* Test Item Value Reference Range Interpretation Comments Red Cell Morphology Comment (test code = 6742-1) NORMAL [facility] [id number] 06:04:00* Test Item Value Reference Range Interpretation Comments Sodium Level (test code = 2951-2) 138 136-145 [facility] Station[facility]assium [id number] 06:04:00* Test Item Value Reference Range Interpretation Comments Potassium Level (test code = 2823-3) 4.4 3.5-5.1 [facility] Station[facility]loride [id number] 06:04:00* Test Item Value Reference Range Interpretation Comments Chloride Level (test code = 2075-0) 101 98-107 [facility] StationCarbon Dioxide [id number] 06:04:00* Test Item Value Reference Range Interpretation Comments Carbon Dioxide Level (test code = 2028-9) 28 22-29 [facility] StationAnion Qdh1578-75-58 06:04:00* Test Item Value Reference Range Interpretation Comments Anion Gap (test code = 13477-5) 13.4 8-16 [facility] StationBlood Urea Nnfxdkcz6466-47-23 06:04:00* Test Item Value Reference Range Interpretation Comments Blood Urea Nitrogen (test code = 3094-0) 21 7-26 [facility] StationCreatinine2019-03-17 06:04:00* Test Item Value Reference Range Interpretation Comments Creatinine (test code = 2160-0) 1.08 0.57-1.11 [facility] StationBUN/Creatinine Lvmsx8262-53-78 06:04:00* Test Item Value Reference Range Interpretation Comments BUN/Creatinine Ratio (test code = 3097-3) 19 6-25 [facility] StationEstimat Glomerular Filtration Rate 2018-05-12 06:04:00* Test Item Value Reference Range Interpretation Comments Estimat Glomerular Filtration Rate (test code = 678604507) 49 >60 L Ranges were taken from the National Kidney Disease Education Program and the [facility] Kid[facility] Foundation literature.Reference ranges:60 or greater: Hwmoax15-42 ( for 3 consecutive months): Chronic kidney disease 15 or less: Kidney failureBaylor Scott & [facility] StationGlucose Cilqn3439-61-75 06:04:00* Test Item Value Reference Range Interpretation Comments Glucose Level (test code = QHK9179) 173 74-118 H [facility] StationCalcium Tgjdb7462-53-30 06:04:00* Test Item Value Reference Range Interpretation Comments Calcium Level (test code = 57396-5) 8.6 8.4-10.2 [facility] StationWhite Blood Jkasu4220-81-91 05:44:00* Test Item Value Reference Range Interpretation Comments White Blood Count (test code = 6690-2) 12.41 4.8-10.8 H [facility] StationRed Blood Ikqae6082-91-11 05:44:00* Test Item Value Reference Range Interpretation Comments Red Blood Count (test code = 789-8) 3.48 3.6-5.1 L [facility] StationHemoglobin2019-03-17 05:44:00* Test Item Value Reference Range Interpretation Comments Hemoglobin (test code = 06073-2) 9.9 12.0-16.0 L [facility] StationHematocrit2019-03-17 05:44:00* Test Item Value Reference Range Interpretation Comments Hematocrit (test code = 4544-3) 30.9 34.2-44.1 L [facility] StationMean Corpuscular Czwvpb4483-77-06 05:44:00* Test Item Value Reference Range Interpretation Comments Mean Corpuscular Volume (test code = 787-2) 88.8 81-99 [facility] StationMean Corpuscular Qjqyxtsjyd1908-95-77 05:44:00* Test Item Value Reference Range Interpretation Comments Mean Corpuscular Hemoglobin (test code = 785-6) 28.4 28-32 [facility] StationMean Corpuscular Hemoglobin Concent 2018-05-12 05:44:00* Test Item Value Reference Range Interpretation Comments Mean Corpuscular Hemoglobin Concent (test code = 786-4) 32.0 31-35 [facility] StationRed Cell Distribution Bqprj3737-64-39 05:44:00* Test Item Value Reference Range Interpretation Comments Red Cell Distribution Width (test code = 89735-2) 17.9 11.7 -14.4 H [facility] StationPlatelet Elmew5034-56-54 05:44:00* Test Item Value Reference Range Interpretation Comments Platelet Count (test code = 777-3) 298 140-360 [facility] StationNeutrophils (%) (Auto)2018-05-12 05:44:00 * Test Item Value Reference Range Interpretation Comments Neutrophils (%) (Auto) (test code = 13258-5) 61.3 38.7-80.0 [facility] StationLymphocytes (%) (Auto)2018-05-12 05:44:00 * Test Item Value Reference Range Interpretation Comments Lymphocytes (%) (Auto) (test code = 736-9) 10.8 18.0-39.1 L [facility] StationMonocytes (%) (Auto)2018-05-12 05:44:00* Test Item Value Reference Range Interpretation Comments Monocytes (%) (Auto) (test code = 5905-5) 14.6 4.4-11.3 H [facility] StationEosinophils (%) (Auto)2018-05-12 05:44:00 * Test Item Value Reference Range Interpretation Comments Eosinophils (%) (Auto) (test code = 713-8) 0.2 0.0-6.0 [facility] StationBasophils (%) (Auto)2018-05-12 05:44:00* Test Item Value Reference Range Interpretation Comments Basophils (%) (Auto) (test code = 706-2) 1.2 0.0-1.0 H [facility] StationIM GRANULOCYTES %2018-05-12 05:44:00* Test Item Value Reference Range Interpretation Comments IM GRANULOCYTES % (test code = IM GRANULOCYTES %) 11.9 0.0- 1.0 H [facility] StationNeutrophils # (Auto)2018-05-12 05:44:00* Test Item Value Reference Range Interpretation Comments Neutrophils # (Auto) (test code = 751-8) 7.6 2.1-6.9 H [facility] StationLymphocytes # (Auto)2018-05-12 05:44:00* Test Item Value Reference Range Interpretation Comments Lymphocytes # (Auto) (test code = 29627-4) 1.3 1.0-3.2 [facility] StationMonocytes # (Auto)2018-05-12 05:44:00* Test Item Value Reference Range Interpretation Comments Monocytes # (Auto) (test code = 742-7) 1.8 0.2-0.8 H [facility] StationEosinophils # (Auto)2018-05-12 05:44:00* Test Item Value Reference Range Interpretation Comments Eosinophils # (Auto) (test code = 711-2) 0.0 0.0-0.4 [facility] StationBasophils # (Auto)2018-05-12 05:44:00* Test Item Value Reference Range Interpretation Comments Basophils # (Auto) (test code = 704-7) 0.2 0.0-0.1 H [facility] StationAbsolute Immature Granulocyte (auto 2018-05-12 05:44:00* Test Item Value Reference Range Interpretation Comments Absolute Immature Granulocyte (auto (domonique t code = Absolute Immature Granulocyte (auto) 1.48 0-0.1 H [facility] StationEosinophils % (Manual)2018-05-08 09:39:00 * Test Item Value Reference Range Interpretation Comments Eosinophils % (Manual) (test code = 714-6) 1 0-7 [facility] StationReactive Fzqhcdhking8249-95-56 09:39:00* Test Item Value Reference Range Interpretation Comments Reactive Lymphocytes (test code = 76080-0) 7 [facility] StationHypochromasia2019-03-13 09:39:00* Test Item Value Reference Range Interpretation Comments Hypochromasia (test code = 728-6) SLIGHT [facility] StationAnisocytosis2019-03-13 09:39:00* Test Item Value Reference Range Interpretation Comments Anisocytosis (test code = 702-1) SLIGHT [facility] StationMagnesium Uehei0414-98-98 07:04:00* Test Item Value Reference Range Interpretation Comments Magnesium Level (test code = 92360-2) 1.6 1.3-2.1 [facility] StationTotal Opxslggvn3947-22-31 06:18:00* Test Item Value Reference Range Interpretation Comments Total Bilirubin (test code = 1975-2) 0.5 0.2-1.2 [facility] StationAspartate Amino Transf (AST/SGOT) 2018-05-08 06:18:00* Test Item Value Reference Range Interpretation Comments Aspartate Amino Transf (AST/SGOT) (test code = Aspartate Amino Transf (AST/SGOT)) 48 5-34 H [facility] StationAlanine Aminotransferase (ALT/SGPT) 2018-05-08 06:18:00* Test Item Value Reference Range Interpretation Comments Alanine Aminotransferase (ALT/SGPT) (test code = 1742-6) 52 0-55 [facility] StationTotal Ujzpjvg8115-62-27 06:18:00* Test Item Value Reference Range Interpretation Comments Total Protein (test code = 2885-2) 5.9 6.5-8.1 L [facility] StationAlbumin2019-03-13 06:18:00* Test Item Value Reference Range Interpretation Comments Albumin (test code = 1751-7) 2.6 3.5-5.0 L [facility] StationGlobulin2019-03-13 06:18:00* Test Item Value Reference Range Interpretation Comments Globulin (test code = 61177-6) 3.3 2.3-3.5 [facility] StationAlbumin/Globulin Bmyhp1844-94-56 06:18:00 * Test Item Value Reference Range Interpretation Comments Albumin/Globulin Ratio (test code = 1759-0) 0.8 0.8-2.0 [facility] StationAlkaline Gjbjuthstzl8825-63-80 06:18:00* Test Item Value Reference Range Interpretation Comments Alkaline Phosphatase (test code = 6768-6) 102 40-150 [facility] StationClostridium Difficile Toxin A & B 2018-05-07 10:40:00* Test Item Value Reference Range Interpretation Comments Clostridium Difficile Toxin A & B (test code = 690660480) NEGATIVE NEGATIVE Testing on stool aspirate specimens is outside paper products printer claims since specime n type not validated on this assay.[facility] Promyelocytes %2018-05-04 15:16:00* Test Item Value Reference Range Interpretation Comments Promyelocytes % (test code = 90310-0) 3 0-0 H [facility] StationBlast Cells %2018-05-04 15:16:00* Test Item Value Reference Range Interpretation Comments Blast Cells % (test code = 71689-5) 3 [facility] StationPoikilocytosis2019-03-09 15:16:00* Test Item Value Reference Range Interpretation Comments Poikilocytosis (test code = 779-9) MODERATE [facility] StationBurr Sfavi9835-85-93 15:16:00* Test Item Value Reference Range Interpretation Comments Kohler Cells (test code = 7790-9) SLIGHT [facility] StationBlood Zgghkbs6781-27-30 14:43:00* Test Item Value Reference Range Interpretation Comments Blood Culture (test code = 98164754) NO GROWTH AFTER 5 DAYS, FINAL REPORT [facility] StationBasophils % (Manual)2018-05-03 11:16:00* Test Item Value Reference Range Interpretation Comments Basophils % (Manual) (test code = 86632-6) 1 0-1.5 [facility] StationVancomycin Level Webgkk3638-89-88 20:48:00* Test Item Value Reference Range Interpretation Comments Vancomycin Level Trough (test code = 4092-3) 9.7 5.0-10.0 [facility] StationCT HIP LEFT F2461-42-75 15:23:00 [facility] [address] [place] [address] Patient Name: ANTONIO MAE MR #: [id number] : 1940 Age/Sex: 77/F Req #: [id number] Adm Physician: JOHNNA MIX MD Ordered by: JOHNNA MIX MD Report #: [id number] Location: MED/SURG Room/Bed: [facility] Procedure: [id number] CT/CT HIP LEFT W Exam Date: 05/02/18 [...] 3:35 PM Dictated By: ARCADIO DURAN DO 7334 Transcribe d By: OWEN on 05/02/18 7855 COPY TO: JOHNNA MIX MD Urine Hyviz6106-16-46 21:53:00* Test Item Value Reference Range Interpretation Comments Urine Color (test code = 5778-6) YELLOW YELLOW [facility] StationUrine Jpqkxkk2488-53-51 21:53:00* Test Item Value Reference Range Interpretation Comments Urine Clarity (test code = 60990-7) HAZY CLEAR [facility] StationUrine Specific Ykxciav1197-40-61 21:53:00 * Test Item Value Reference Range Interpretation Comments Urine Specific Baker (test code = 5811-5) 1.025 1.010-1.02 5 [facility] StationUrine gF4866-15-11 21:53:00* Test Item Value Reference Range Interpretation Comments Urine pH (test code = 72542-7) 6 5-7 [facility] StationUrine Leukocyte Zqxjezsn3742-99-33 21:53:00* Test Item Value Reference Range Interpretation Comments Urine Leukocyte Esterase (test code = 5799-2) TRACE NEGATIVE H [facility] Ouxfdrk9303-59-24 21:53:00* Test Item Value Reference Range Interpretation Comments Urine Nitrite (test code = 07096-8) NEGATIVE NEGATIVE [facility] Vggjhtz5554-31-48 21:53:00* Test Item Value Reference Range Interpretation Comments Urine Protein (test code = 5804-0) 2+ NEGATIVE H [facility] Glucose (UA)2018-04-29 21:53:00* Test Item Value Reference Range Interpretation Comments Urine Glucose (UA) (test code = 2349-9) 1+ NEGATIVE H [facility] Innxoni6361-52-33 21:53:00* Test Item Value Reference Range Interpretation Comments Urine Ketones (test code = 49316-6) NEGATIVE NEGATIVE [facility] Ioyvzelmexvr2785-70-80 21:53:00* Test Item Value Reference Range Interpretation Comments Urine Urobilinogen (test code = 44532-7) 0.2 0.2-1 [facility] StationUrine Lwrqtbmat7142-63-78 21:53:00* Test Item Value Reference Range Interpretation Comments Urine Bilirubin (test code = 1978-6) NEGATIVE NEGATIVE [facility] Egeev1910-84-79 21:53:00* Test Item Value Reference Range Interpretation Comments Urine Blood (test code = 90347-1) TRACE NEGATIVE H [facility] StationUrine PTV2137-25-90 21:53:00* Test Item Value Reference Range Interpretation Comments Urine WBC (test code = 5821-4) 0-5 0-5 [facility] StationUrine AQF2691-39-54 21:53:00* Test Item Value Reference Range Interpretation Comments Urine RBC (test code = 14329-8) 0-5 0-5 [facility] StationUrine Ckqsnwvh4380-73-69 21:53:00* Test Item Value Reference Range Interpretation Comments Urine Bacteria (test code = 87599-1) FEW NONE [facility] StationUrine Epithelial Rjpvb9940-44-35 21:53:00 * Test Item Value Reference Range Interpretation Comments Urine Epithelial Cells (test code = 85846-2) FEW NONE [facility] StationInfluenza Virus Types A,B Antigen 2018-04-29 14:50:00* Test Item Value Reference Range Interpretation Comments Influenza Virus Types A,B Antigen (test code = 77847-1) NEGATIVE NEGATIVE [facility] StationAmylase Mkvip2627-40-92 14:47:00* Test Item Value Reference Range Interpretation Comments Amylase Level (test code = 1798-8) 208 25-125 H [facility] StationLipase2019-03-04 14:47:00* Test Item Value Reference Range Interpretation Comments Lipase (test code = 3040-3) 5 8-78 L [facility] StationLactic Acid Lyjnl2680-12-80 14:42:00* Test Item Value Reference Range Interpretation Comments Lactic Acid Level (test code = Lactic Acid Level) 13.8 4.5- 19.8 [facility] StationGroup A Streptococcus Hzyuxj7944-69-20 14:41:00* Test Item Value Reference Range Interpretation Comments Group A Streptococcus Screen (test code = 93591-3) NEGATIVE NEG ATIVE [facility] StationProthrombin Lxhz8935-20-53 14:37:00* Test Item Value Reference Range Interpretation Comments Prothrombin Time (test code = 5902-2) 14.6 11.9-14.5 H [facility] StationProthromb Time International Ratio 2018-04-29 14:37:00* Test Item [...] [facility] StationActivated Partial Thromboplast Time 2018-04-29 14:37:00* Test Item Value Reference Range Interpretation Comments Activated Partial Thromboplast Time (test code = 47940-2) 35.8 23.8-35.5 H [facility] StationCHEST SINGLE (PORTABLE)2018-04-29 13:44:00 [facility] [address] [address] Patient Name: ANTONIO MAE MR #: [id number] : 1940 Age/Sex: 77/F Req #: [id number] Adm Physician: Ordered by: ETHEL ABDALLA REFRACTORY SPECIALIST Report #: [id number] Location: ER Room/Bed: Procedure: [id number] DX/CHEST SINGLE (PORTABLE) Exam Date: 04/29/18 Exam [...] 1:46 PM Dictated By: RAFAEL SORTO MD [id number] Transcribed By: OWEN on 04/29/18 0767 COPY TO: ETHEL ABDALLA REFRACTORY SPECIALIST CHEM QNOCP4995-06-11 13:36:002.3 [facility] DJPUK4673-47-28 13:36:00* Test Item Value Reference Range Interpretation Comments UA pH (test code = UA pH) 7.0 1 5.0-8.0 [facility] YIYEG0474-61-48 13:36:00Small *ABN*(02/04/18 7:36 AM) [facility] OHREQ3216-47-23 13:36:00Negative *NA*(02/04/18 7:36 AM)[facility] QVWLL5321-56-20 13:36:00Negative *NA*(02/04/18 7:36 AM)[facility] MCDAN8845-70-83 13:36:003[facility] EFAXP8169-85-22 13:36:00Negative (02/04/18 7:36 AM)[facility] WYHVD4121-88-59 13:36:00Negative (02/04/18 7:36 AM)[facility] JXMUG5482-93-03 13:36:004[facility] EBLJC8679-35-65 13:36:00Clear (02/04/18 7:36 AM)[facility] RZKQD2487-33-50 13:36:00* Test Item Value Reference Range Interpretation Comments UA Spec Grav (test code = UA Spec Grav) 1.011 1 [facility]annCARDIAC GOLIDQS4467-91-97 11:23:0037[facility]annCARDIAC AELQDWS2325-48-95 11:23:00<0.02[facility]annCARDIAC ZOJCXYY8344-04-19 11:23:31429Xaqhugtf HermannCHEM MKMJB1450-30-32 11:23:003.1[facility]annCHEM LMKJA0895-21-33 11:23:002.1[facility]annCHEM GZIAG2818-76-17 11:23:002.3 [facility]annCHEM XYJSR6331-53-90 11:23:008.9[facility]annCHEM PANEL 2018-02-04 11:23:003.8[facility] HermannCHEM KGMIK2019-29-21 11:23:007.3[facility]annCHEM CNSFR0565-31-38 11:23:0067[facility] HermannCHEM RUPFZ1116-66-72 11:23:0020[facility]annCHEM PSPZA3311-04-86 11:23:000.5[facility]annCHEM WFMXS8477-38-54 11:23:0042[facility] HermannCHEM YGUTN2987-99-37 11:23:0026 [facility]annCHEM FUFYB8111-96-58 11:23:78707Ygdbavyo HermannCHEM PANEL 2018-02-04 11:23:12674Ayknvoda HermannCHEM QDCDU4231-66-86 11:23:003.9[facility] HermannCHEM LICLZ6329-08-23 11:23:000.95[facility] HermannCHEM RFGMY7471-36-53 11:23:0021[facility] HermannCHEM AFXAT1936-45-05 11:23:36940Hcebrufa HermannCHEM IGTXE8126-22-35 11:23:0057[facility] HermannCHEM KWVAS3960-99-64 11:23:003.5 [facility]annCHEM QZUZV8988-08-75 11:23:00* Test Item Value Reference Range Interpretation Comments B/C Ratio (test code = B/C Ratio) 22 1 6-25 [facility] HermannCHEM KNNSX0583-75-75 11:23:00* Test Item Value Reference Range Interpretation Comments A/G Ratio (test code = A/G Ratio) 1.1 1 0.7-1.6 [facility]annCHEM ULKAI2149-28-31 11:23:0014.9[facility] HermannHEMATOLOGY 2018-02-04 11:23:000.7Memorial IbxgogxTWDQGXRSQV7823-07-40 11:23:000.1[facility]orial LtbgecrURGIFENMDW5625-18-43 11:23:000.5[facility] SizfnkaFDQNPVNPVD8729-82-23 11:23:008.2[facility]orial OdwzxwvNTYNDIDJEX2600-65-07 11:23:0087.0[facility] Luis OBIUFTNQCJ0573-79-16 11:23:000.6[facility] ExktjybBKJZDXDKTL4460-76-49 11:23:000.3 Memorial WqqmzjcLRNCWWBBLD8014-94-29 11:23:00Normal (02/04/18 5:23 AM)[facility] HghjhqcYGGIKINAJZ1082-08-54 11:23:00Normal (02/04/18 5:23 AM)[facility] MVNOBAXICC5916-03-97 11:23:007.2[facility] ManxnwnPMPTRHKMOR2380-00-47 11:23:004.9 Memorial LzdufnkQYTPJISZBO5839-07-05 11:23:00* Test Item Value Reference Range Interpretation Comments INR (test code = INR) 1.01 1 0.85-1.17 Memorial RekyywoYWVHFQCZBF2103-44-13 11:23:00* Test Item Value Reference Range Interpretation Comments PT (test code = PT) 13.1 s 12.0-14.7 Memorial EkjctknGNIHLWWITD1897-38-98 11:23:009.4[facility] HermannHEMATOLOGY 2018-02-04 11:23:0015.8Memorial AqldzysQCVXOMPZWY1857-19-43 11:23:008.3[facility] QukwfgnSYUWTBSBHP4032-84-59 11:23:0034.4[facility]orial YdrihxjKYUSYIFKJW1673-51-91 11:23:05342Hymouxab QmyonhhKIRQDWNAKZ7464-01-06 11:23:004.05[facility] MBKPTIZTWY9431-66-80 11:23:0013.1[facility]orial XmvdhrmBKGYWNGSOI3950-17-74 11:23:00 38.0Memorial KstitcmNWIKZJUAYE7658-49-97 11:23:0093.9[facility] HermannHEMATOLOGY 2018-02-04 11:23:00* Test Item Value Reference Range Interpretation Comments MCH (test code = MCH) 32.3 pg 27.0-31.0 [facility]POCT-GLUCOSE LUAON5516-48-51 10:43:00* Test Item Value Reference Range Interpretation Comments POC-GLUCOSE METER (BEAKER) (test code = 1538) 109 mg/dL 70-110 [address] [facility] [address]
--- OUTSIDE RECORDS SUMMARY | 2019-12-05 01:26 | XMS REPORT | Clinical Summary ---
Author Author PORTIA LoveThisNorth Canyon Medical CenterMEARS Technologies [facility] Organization [facility] Address Unknown Phone Unavailable Care Team Providers Care Hardboard Panel Printer Name Role Phone NikoJunior PCP Allergies Comments [...] ID Type Phone Address Plan / Group [facility] xxxxxxxxx MEDICARE MGD CARE MEDICARE HMO [phone] Advance Directives For more information, please contact: [facility] [address] [place] [address] Date Inactivated Comments Code Status Date Activated 02/23/2016 12:21 PM Full Code 02/22/2016 4:11 PM This code status was determined by: Patient 02/22/2016 4:11 PM Full Code 02/22/2016 5:40 AM This code status was determined by: Patient
--- OUTSIDE RECORDS SUMMARY | 2019-12-05 01:26 | XMS REPORT | Continuity of Care Document ---
Author Author [facility] t Organization [facility] Address 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 562/M25.561 Active 03/21/2019 [facility] Diagnosis Active 2019-03-21 00:00:00 2019-03-21 11:33:00 [...] Overview: Added automatically from request for surgery [id number] Leo Dee FALL FALL Active 02/04/2018 [facility] Diagnosis Active 2018-02-04 00:00:00 2018-02-04 05:32:00 Danelle Smith M79.642 M79.641 M25.562 M79. 642 M79.641 M25.562 Active 02/26/2017 [facility] Diagnosis Active 2017-02-26 00:00:00 2017-03-26 13:28:00 Danelle Smith Lumbar radiculopathy Lumbar radiculopathy Disease Active 00:00:00 [facility] Lumbar stenosis with neurogenic claudication Lumbar st enosis with neurogenic claudication Disease Active 2016-02-22 00:00:00 [facility] Fever Fever Problem Active [facility] Muc[facility] Problem Active [facility] Pancytopenia Pancytopenia Problem Active [facility] Cellulitis Problem Active [facility] Abrasion Problem Active [facility] Anemia Problem Active [facility] Pain in right hand Pain in right hand 07/02/2017 [facility] Problem 2017-07-02 16:45:51 Me blake Mauricioann Pain in left knee Pain in left knee 07/02/2017 [facility] Problem 2017-07-02 16:45:51 Me blake Luis Primary osteoarthritis, left hand Primary osteoarthritis, left hand 07/02/2017 [facility] Problem 2017-07-02 16:45:51 Danelle Luis Crushing injury of right ring finger, initial encounte r Crushing injury of right ring finger, initial encounter 08/24/2018 [facility] Problem 2018-08-24 11:25:58 Danelle Smith Unspecified open wound of right ring fin mich with damage to nail, initial encounter Unspecified open wound of right ring finger with damage to nail, initial encounter 08/24/2018 [facility] Problem 2018-08-24 11:25:58 Danelle Smith 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 08/24/2018 [facility] Problem 2018-08-24 11:25:58 Danelle Randolph Fall on same level from slipping, trippi ng and stumbling without subsequent striking against object, initial encounter Fall on same level from slipping, tripping and stumbling without subsequent striking against object, initial encounter 08/24/2018 [facility] Problem 2018-08-24 11:25:58 Danelle Smith Caught, crushed, jammed, or pinched between moving obj ects, initial encounter Caught, crushed, jammed, or pinched between moving objects, initial encounter 08/24/2018 [facility] Problem 08-24 11:25:58 Danelle Smith Essential (primary) hypertension Essential (primary) hypertension 08/24/2018 [facility] Problem 2018-08-24 11:25:58 Danelle Smith Personal history of malignant neoplasm of breast Personal history of malignant neoplasm of breast 08/24/2018 [facility] Problem 2018-08-24 11:25:58 Danelle Smith Periprosthetic fracture around internal prosthetic left hip joint, initial encounter Periprosthetic f racture around internal prosthetic left hip joint, initial encounter 02/12/2018 08/24/2018 [facility] Problem 2018-02-12 04:35:54 2018-08-24 11:25:58 2018-08-24 11:25:58 Danelle Smith Pain in left hand Pain in left hand 03/29/2017 07/02/2017 [facility] Problem 2017-03-29 04:24:47 2017-07-02 16:45:51 2 16:45:51 Danelle Smith Allergies, Adverse Reactions, Alerts Allergy Name Allergy Type Status Severity Reaction(s) Onset Date Inacti ve Date Treating Clinician Comments Source Methotrexate Propensity to adverse reactions to drug Active Anaphylaxis 2018-11-08 00:00:00 [facility] Lisinopril Allergy to substance Active Mild 2018-04-30 00:00:00 [facility] Penicillins Propensity to adverse reactions to drug Active Other (See Comments) 2016-02-11 00:00:00 [facility] Allergy Active Other (See Comments) 2016-02-11 00:00:[address] [facility] Codeine Propensity to adverse reactions to drug Active Other (See Comments) 2015-11-15 00:00:00 nausea [facility] Levofloxacin Propensity to adverse reactions to drug Active Other (See Comments) 2015-11-15 00:00:00 Severe nausea [facility] Lisinopril Propensity to adverse reactions to drug Active Hives 2015-11-15 00:00:00 [facility] Lactate Propensity to adverse reactions to drug Active Other (See Comments) 2015-11-15 00:00:00 Severe nausea [facility] Codeine Drug Intolerance Active Other (See Comments) 2015-11-15 00:00:[address] [facility] Levofloxacin Drug Intolerance Active Other (See Comments) 2015-11-15 00:00:[address] [facility] Lisinopril Drug Allergy Active Itching, Hives 2015-11-15 00:00: [address] [facility] Pentazocine Lactate Propensity to adverse reactions Active 2015-11-15 00:00:00 Other reaction(s): Other (See Co mments)Severe nausea [facility] Pentazocine Allergy to substance Active Mild N/V 2010-01-12 00:00:00 [facility] Levofloxacin Allergy to substance Active Mild N/V 2010-01-12 00:00:0 0 [facility] codeine codeine Active [facility] penicillin penicillin Active [facility] [place] Family History Family Member Diagnosis Comments Start Date Stop Date Source Natural father Heart attack Leo Dee Natural father Heart disease Leo Dee Natural mother Cancer [facility] thodist Social History Social Habit Start Date Stop Date Quantity Comments Source Sex Assigned At [facility] Tobacco use and exposure 2019-02-12 00:00:00 2019-02-12 00:00:00 Neve r used Leo Dee Alcohol intake 2019-02-12 00:00:00 2019-02-12 00:00:00 Ex-drinker (fi nding) Leo Dee Alcohol Comment 2016-02-11 00:00:00 2016-02-11 00:00:[address] [facility] Smoking Status Start Date Stop Date Source Never smoker [facility] Medications Ordered Medication Name Filled Medication Name Start Date Stop Da te Current Medication? Ordering Clinician Indication Dosage Frequency Signature (SIG) Comments Components Source Ciprofloxacin Hcl (Cipro) 500 Mg TABLET Ciprofloxacin Hcl (C ipro) 500 Mg TABLET 2019-07-20 12:31:00 Yes 500 Every 12 Hours [facility] Doxycycline Hyclate Doxycycline Hyclate 2019-07-20 12:31:00 Yes 100 Every 12 Hours [facility] atenolol (TENORMIN) 25 MG tablet 2018-12-31 [...] mg total) by mouth reyes ly. [facility] atenolol (TENORMIN) 50 MG tablet 2018-12-31 00:00:00 [...] kg, Priority: STAT, Start date: 02/04/18 9:39:00 SUPERVISING PRODUCER, Stop date: 02/04/18 9:39:00 SUPERVISING PRODUCER, ABX Indication: Surgical Prophylaxis [facility] Morphine 2018-02-04 13:49:00 No 4 mg, Route: IVP, ONCE, Dosing Weight 77.273, kg, Priority: STAT, Start date: 02/04/18 7:49:00 SUPERVISING PRODUCER, Stop date: 02/04/18 7:49:00 SUPERVISING PRODUCER [facility] Ondansetron 2018-02-04 11:14:00 No 4 mg, Route: IVP, Drug form: INJ, ONCE, Dosing Weight 77.273, kg, Priority: STAT, Start date: 02/04/18 5:14:00 SUPERVISING PRODUCER, Stop date: 02/04/18 5:14:00 [facility]PERVISING PRODUCER [facility] [place] [facility] 2018-02-04 11:14:00 No 2 mg, Route: IVP, ONCE, Dosing Weight 77.273, kg, Priority: STAT, Start date: 02/04/18 5:14:00 SUPERVISING PRODUCER, Stop date: 02/04/18 5:14:00 SUPERVISING PRODUCER [facility] tobramycin-dexamethasone (TOBRADEX) 0.3-0.1 % ophthalmic renae ution 2017-09-19 13:38:12 Yes 1[drp] 1 drop every 4 (four) hours w hile awake. [facility] ezetimibe (ZETIA) 10 mg tablet 2017-09-19 12:30:46 Yes 10mg QD Take 10 mg by mouth daily. [facility] insulin lispro (HUMALOG) 100 unit/mL injection 2017-09-19 12:30: 46 Yes Inject subcutaneously 3 (three) times daily before gemma ls. [facility] methotrexate 2.5 MG tablet 2017-09-19 12:30:46 Yes Q7D Take by mouth once a week. [facility] folic acid (FOLVITE) 1 MG tablet 2017-09-19 12:30:46 Yes 1mg QD Take 1 mg by mouth daily. [facility] predniSONE (DELTASONE) 5 MG tablet 2017-09-19 12:30:46 Yes 5mg QD Take 5 mg by mouth daily. [facility] thyroid, pork, (ARMOUR THYROID) 120 mg Tab 2017-09-19 12:30:45 Yes QD Take by mouth daily. [facility] terbutaline (BRETHINE) 5 mg tablet 2017-09-19 12:30:45 Yes 5mg Take 5 mg by mouth every 6 (six) hours. [facility] glimepiride (AMARYL) 4 MG tablet 2016-02-11 10:21:47 Yes 4mg Q.5D Take 4 mg by mouth 2 (two) times daily. [facility] amLODIPine (NORVASC) 5 MG tablet 2016-02-11 10:21:47 Yes 5mg QD Take 5 mg by mouth daily. [facility] terbinafine HCl (LAMISIL) 250 mg tablet 2016-02-11 10:21:47 Yes 250mg QD Take 250 mg by mouth daily. [facility] zolpidem (AMBIEN) 5 MG tablet 2016-02-11 10:21:47 Yes 5mg Take 5 mg by mouth every night as needed for Insomnia. [facility] celecoxib (CELEBREX) 100 MG capsule 2016-02-11 10:21:47 Yes 100mg Take 100 mg by mouth every 12 (twelve) hours as needed for Pain. [facility] insulin detemir (LEVEMIR) 100 unit/mL injection 2016-02-11 10:21 :47 Yes 14U QD Inject [address] Units [address] [facility] ascorbic acid (VITAMIN C) 1000 MG tablet 2016-02-11 10:21:47 Yes 1000mg QD Take 1,000 mg by mouth daily 2,000 - 3,[address] [facility] vitamin E 1000 UNIT capsule 2016-02-11 10:21:47 Yes 1000U QD Take 1,000 Units by mouth daily. [facility] cholecalciferol, vitamin D3, 2,000 unit Cap 2016-02-11 10:21:47 Yes Take by mouth. [facility] multivitamin per tablet 2016-02-11 10:21:47 Yes 1{tbl} QD Take 1 tablet by mouth daily. [facility] calcium carbonate (OS-CARLY) 600 mg (1,500 mg) Tab 2016-02-11 10:21:47 Yes 1200mg QD Take 1,200 mg by mouth daily. [facility] HYDROcodone-acetaminophen (VICODIN) 7.5-500 mg per tablet 2016-02-11 10:21:47 Yes 1{tbl} Take 1 tablet by mouth every 6 (six) hours as needed for Pain. [facility] acetaminophen (TYLENOL) 500 MG tablet 2016-02-11 10:21:47 Y es 500mg Take 500 mg by mouth every 6 (six) hours as needed for Pain. [facility] naproxen (ALEVE,ANAPROX,MIDOL) 220 MG tablet 2016-02-11 10:21:47 Yes 220mg Take 220 mg by mouth as needed. [facility] loratadine (CLARITIN) 10 mg tablet 2016-02-11 10:21:47 Yes 10mg Take 10 mg by mouth as needed for Allergies. [facility] loperamide (IMODIUM A-D) 2 mg tablet 2016-02-11 10:21:47 Ye s 2mg Take 2 mg by mouth as needed for Diarrhea. I [facility] atenolol (TENORMIN) 25 MG tablet 2016-02-11 10:21:46 Yes 25mg Q.5D Take 25 mg by mouth 2 (two) times daily. [facility] omeprazole (PRILOSEC) 20 MG capsule 2016-02-11 10:21:46 Yes 20mg Take 20 mg by mouth as needed. [facility] ranitidine (ZANTAC) 75 MG tablet 2016-02-11 10:21:46 Yes 75mg Take 75 mg by mouth as needed for Heartburn. [facility] metFORMIN (GLUCOPHAGE) 1000 MG tablet 2016-02-11 10:21:46 Y es 1000mg Take 1,000 mg by mouth 2 (two) times daily with breakfast and dinner. [facility] Amlodipine Besylate Amlodipine Besylate Yes 10 Daily [facility] Ascorbic Acid (Vitamin C) 1,000 Mg TABLET.ER Ascorbic Acid (Vitamin C) 1,000 Mg TABLET.ER Yes 2000 Twice A Day [facility] Atenolol (Tenormin) 25 Mg TABLET Atenolol (Tenormin) 25 Mg TABLET Yes 25 Daily [facility] Calcium Carbonate (Calcium) 600 Mg TABLET Calcium Carb carmen (Calcium) 600 Mg TABLET Yes 1200 Twice A Day [facility] Celecoxib (Celebrex*) 100 Mg CAPSULE Celecoxib (Celebrex*) 100 Mg C APSULE Yes 100 Daily as needed for Pain [facility] Cholecalciferol (Vitamin D3) (Vitamin D3) 1,000 Unit T ABLET Cholecalciferol (Vitamin D3) (Vitamin D3) 1,000 Unit TABLET Yes 5000 Twice A Day [facility] Ezetimibe (Zetia) 10 Mg TABLET Ezetimibe (Zetia) 10 Mg TABLET Yes 10 Daily [facility] Insulin Detemir (Levemir) 100 Unit/1 Ml VIAL Insulin D etemir (Levemir) 100 Unit/1 Ml VIAL Yes 9 Daily [facility] Loperamide Hcl (Imodium*) 2 Mg CAP Loperamide Hcl (Imodium*) 2 Mg CAP Yes 2 As Needed [facility] Loratadine (Claritin) 10 Mg TABLET Loratadine (Claritin) 10 Mg TABLET Yes 10 As Needed [facility] Metformin Hcl (Glucophage) 1,000 Mg TABLET Metformin H cl (Glucophage) 1,000 Mg TABLET Yes 1000 Twice A Day [facility] Multivitamin (Daily Francisca) 1 Each TABLET Multivitamin (Daily Francisca) 1 Each TABLET Yes 1 Daily [facility] Naproxen Sodium (Aleve) 220 Mg CAPSULE Naproxen Sodium (Aleve) 2 20 Mg CAPSULE Yes 1 As Needed [facility] Omeprazole Omeprazole Yes 20 Daily [facility] Prednisone Prednisone Yes 5 .every Other Day [facility] Promethazine Hcl Promethazine Hcl Yes 12.5 Twice A Day as needed for Nausea [facility] Terbinafine Hcl (Lamisil) 250 Mg TABLET Terbinafine Hcl ([place] isil) 250 Mg TABLET Yes 250 Daily [facility] Thyroid,Pork ([place] Thyroid) 120 Mg TABLET Thyroid,Po rk ([place] Thyroid) 120 Mg TABLET Yes 120 Daily [facility] Amlodipine 5 Mg Amlodipine 5 Mg 2018-04-29 00:00:00 No [facility] Glimepiride (Amaryl) 4 Mg TABLET Glimepiride (Amaryl) 4 Mg TABLE T 2018-04-29 00:00:00 No 4 [facility] Insulin Aspart (Novolog) 100 Unit/1 Ml CARTRIDGE Insul in Aspart (Novolog) 100 Unit/1 Ml CARTRIDGE 2018-04-29 00:00:00 No [facility] Insulin Detemir (Levemir 10ML Vial) 100 Unit/1 Ml VIAL Insulin Detemir (Levemir 10ML Vial) 100 Unit/1 Ml VIAL 2018-04-29 00:00:00 No As Needed [facility] Levothyroxine Sodium (Unithroid) 200 Mcg TABLET Levoth yroxine Sodium (Unithroid) 200 Mcg TABLET 2018-04-29 00:00:00 No 200 Daily [facility] Liothyronine Sodium (Cytomel) 25 Mcg TABLET Liothyroni ne Sodium (Cytomel) 25 Mcg TABLET 2018-04-29 00:00:00 No 25 [facility] Zolpidem Tartrate (Ambien Angel) 10 Mg TABLET Zolpidem T artrate (Ambien Angel) 10 Mg TABLET 2018-04-29 00:00:00 No 10 Qhs [facility] Vital Signs Vital Name Observation Time Observation Value Comments Source Body Temperature 2019-07-20 12:50:00 98.3 [degF] [facility] Weight 2019-07-20 10:29:00 136 [lb_av] [facility] BMI (Body Mass Index) 2019-07-20 10:29:00 23.3 kg/m2 [facility] Body height 2019-02-12 14:16:00 162.6 cm [facility] Body weight 2019-02-12 14:16:00 62.596 kg [facility] BMI 2019-02-12 14:16:00 23.69 kg/m2 [facility] Systolic blood pressure 2018-12-31 13:53:00 180 mm[Hg] [facility] Diastolic blood pressure 2018-12-31 13:53:00 76 mm[Hg] [facility] Heart rate 2018-12-31 13:53:00 70 [facility] 2018-02-04 16:01:00 Ulices riabrittani Luis Diastolic (mm Hg) 2018-02-04 16:01:00 Mem orial [place] Respitory Rate 2018-02-04 16:01:00 Georgette Zimmerman Systolic (mm Hg) 2018-02-04 13:38:00 Ulices rial Luis Diastolic (mm Hg) 2018-02-04 13:38:00 Mem orial [place] Respitory Rate 2018-02-04 13:38:00 Memori al Luis Respitory Rate 2018-02-04 12:43:00 Rasheedori al Luis Systolic (mm Hg) 2018-02-04 12:43:00 Ulices phillips [place] Diastolic (mm Hg) 2018-02-04 12:43:00 Mem orial [place] Heart Rate 2018-02-04 10:33:00 [facility] Weight 2018-02-04 10:33:00 [facility] Temperature Oral (F) 2018-02-04 10:33:00 98.1 F [facility] Height 2018-02-04 10:33:00 162.56 cm [facility] BMI Calculated 2018-02-04 10:33:00 Rasheedori al Luis Procedures Procedure Date / Time Performed Performing Clinician [facility] e US CAROTID DUPLEX BILATERAL 2019-07-01 12:15:00 Hung Chapa XR HIP 2-3 VIEWS LEFT 2019-02-12 14:25:32 Yvan Bryant US CAROTID DUPLEX BILATERAL 2018-12-24 14:51:29 Hung Chapa CV STRESS TEST NUCLEAR CARDIO 2018-12-11 14:28:20 Hung Chapa NM MYOCARDIAL PERFUSION REST STRESS 1 DAY 2018-12-11 14:28:20 Sh Hung meza TTE COMPLETE, WO CONTRAST, W DOPPLER (90380) 2018-12-09 13:3 5:39 Hung Chapa Plan of [...] VACCINES (#1)] Leo Dee Instructions Abrasion [facility] Instructions Anemia [facility] Instructions Cellulitis [facility] Encounters Start Date/Time End Date/Time Encounter Type Admission Type Attendi [facility] Care Department Encounter ID Source 2019-07-20 10:12:00 2019-07-20 13:25:00 Departed Emergency Room 1 CASSANDRA BEAR [facility] [id number] [facility] 2019-07-03 10:21:00 2019-07-03 23:59:00 Outpatient Ambar Fritz [place] [id number] 2019-07-03 10:21:00 2019-07-03 10:21:00 Outpatient MHSE [facility] [id number] [facility] 2019-07-01 00:00:00 2019-07-01 00:00:00 Outpatient ETHAN HUNG [facility] [id number] [facility] 2019-03-21 11:33:00 2019-03-21 23:59:00 Outpatient Ambar Fritz [place] [id number] 2019-03-21 11:33:00 2019-03-21 11:33:00 Outpatient [facility]SE [facility]SE [id number] [facility] 2018-04-29 17:34:00 2018-05-13 15:15:00 Discharged Inpatient 1 JOHNNA MIX [facility] [id number] [facility] 2018-02-04 04:32:00 2018-02-04 10:07:00 Outpatient Akanksha Acevedo [facility] [place] [id number] 2017-03-26 13:20:00 2017-03-26 23:59:00 Outpatient Ambar Fritz [place] [id number] Results Test Description Test Time Test Comments Results Result Comments Source BREAST ULTRASOUND BILATERAL 2019-11-25 14:36:23 - BREAST ULTRASOUND BILATERALULTRASOUND OF BOTH BREASTS AND BOTH AXILLA: 11/25/2019CLINICAL: Followup to previous exam. Comparison is made to exams dated 09/02/2018 ultrasound, 07/17/2017 ultrasound, and 07/10/2016 ultrasound - [facility]-. Real-time ultrasound and clinical exam [...] - 11/25/2019 15:49:22Imaging Technologist: Kenia LEMUS, [facility]-FWletter sent: BIRADS 1-2 Normal Ultrasound BI-RADS: 1 Negative FOOT 2VIEW RT - HOPD 2019-07-20 11:45:00 [place] [address] Patient Name: ANTONIO MAE MR #: [id number] : 1940 Age/Sex: 78/F Req #: [id number] Adm Physician: Ordered by: CASSANDRA BEAR Report #: [id number] Location: [facility] Room/Bed: Procedure: [id number] HOPD/FOOT 2VIEW RT - HOPD Exam Date: [...] 06/29/2015 ultrasound, and 06/23/2014 ultrasound - [facility]-. Real-time ultrasound of both breasts [...] 09/05/2018 07:11:12Imaging Technologist: Shannan Alfaro , [facility]-letter sent: BIRADS 1-2 Normal Ultrasound BI-RADS: 2 Benign Bedside Glucose 2018-05-13 14:31:00 Test Item Bedside Glucose (test code = 97374-2) 264 70-120 H Meter ID: [id number] [facility] Cells [id number] 07:15:00* Test Item Value Reference Range Interpretation Comments Differential Total Cells Counted (test code = Differen tial Total Cells Counted) 100 [facility] (Manual)2018-05-12 07:15:00 * Test Item Value Reference Range Interpretation Comments Neutrophils % (Manual) (test code = 81840-1) 65 40-74 [facility] Neutrophils %2018-05-12 07:15:00* Test Item Value Reference Range Interpretation Comments Band Neutrophils % (test code = 764-1) 2 [facility]ymphocytes % (Manual)2018-05-12 07:15:00 * Test Item Value Reference Range Interpretation Comments Lymphocytes % (Manual) (test code = 737-7) 18 19-48 L [facility] % (Manual)2018-05-12 07:15:00* Test Item Value Reference Range Interpretation Comments Monocytes % (Manual) (test code = 744-3) 12 3.4-9.0 H [facility] CenterMetamyelocytes %2018-05-12 07:15:00* Test Item Value Reference Range Interpretation Comments Metamyelocytes % (test code = 740-1) 2 0-0 H [facility] CenterMyelocytes %2018-05-12 07:15:00* Test Item Value Reference Range Interpretation Comments Myelocytes % (test code = 749-2) 1 0-0 H [facility] CenterNucleated Red Blood [id number] 07:15:00* Test Item Value Reference Range Interpretation Comments Nucleated Red Blood Cells (test code = 33227-6) 1 [facility] CenterPlatelet [id number] 07:15:00* Test Item Value Reference Range Interpretation Comments Platelet Estimate (test code = 01040-2) ADEQUATE [facility] CenterPlatelet Morphology [id number] 07:15:00* Test Item Value Reference Range Interpretation Comments Platelet Morphology Comment (test code = 58507-3) NORMAL [facility] CenterRed Cell Morphology [id number] 07:15:00* Test Item Value Reference Range Interpretation Comments Red Cell Morphology Comment (test code = 6742-1) [facility] [id number] 06:04:00* Test Item Value Reference Range Interpretation Comments Sodium Level (test code = 2951-2) 138 136-145 [facility]Potassium [id number] 06:04:00* Test Item Value Reference Range Interpretation Comments Potassium Level (test code = 2823-3) 4.4 3.5-5.1 [facility] CenterChloride [id number] 06:04:00* Test Item Value Reference Range Interpretation Comments Chloride Level (test code = 2075-0) 101 98-107 [facility] CenterCarbon Dioxide [id number] 06:04:00* Test Item Value Reference Range Interpretation Comments Carbon Dioxide Level (test code = 2028-9) 28 22-29 [facility] CenterAnion [id number] 06:04:00* Test Item Value Reference Range Interpretation Comments Anion Gap (test code = 69706-4) 13.4 8-16 [facility] CenterBlood Urea [id number] 06:04:00* Test Item Value Reference Range Interpretation Comments Blood Urea Nitrogen (test code = 3094-0) 21 7-26 [facility] CenterCreatinine2019-03-17 06:04:00* Test Item Value Reference Range Interpretation Comments Creatinine (test code = 2160-0) 1.08 0.57-1.11 [facility] CenterBUN/Creatinine [id number] 06:04:00* Test Item Value Reference Range Interpretation Comments BUN/Creatinine Ratio (test code = 3097-3) 19 6-25 [facility] CenterEstimat Glomerular Filtration Rate 2018-05-12 06:04:00* Test Item Value Reference Range Interpretation Comments Estimat Glomerular Filtration Rate (test code = 325936999) 49 >60 L Ranges were taken from the National Kidney Disease Education Program and the [facility] Foundation literature.Reference ranges:60 or greater: Ynomab28-87 ( for 3 consecutive months): Chronic kidney disease 15 or less: Kidney failureMethodist Dallas Medical CenterGlucose [id number] 06:04:00* Test Item Value Reference Range Interpretation Comments Glucose Level (test code = GBS8561) 173 74-118 [facility] CenterCalcium Ouect3532-74-14 06:04:00* Test Item Value Reference Range Interpretation Comments Calcium Level (test code = 12383-5) 8.6 8.4-10.2 [facility] CenterWhite Blood Egxla2273-40-23 05:44:00* Test Item Value Reference Range Interpretation Comments White Blood Count (test code = 6690-2) 12.41 4.8-10.8 H [facility] CenterRed Blood Qnomi3188-33-44 05:44:00* Test Item Value Reference Range Interpretation Comments Red Blood Count (test code = 789-8) 3.48 3.6-5.1 L [facility] CenterHemoglobin2019-03-17 05:44:00* Test Item Value Reference Range Interpretation Comments Hemoglobin (test code = 36882-0) 9.9 12.0-16.0 L [facility] CenterHematocrit2019-03-17 05:44:00* Test Item Value Reference Range Interpretation Comments Hematocrit (test code = 4544-3) 30.9 34.2-44.1 L [facility] CenterMean Corpuscular Cbdacb6048-12-70 05:44:00* Test Item Value Reference Range Interpretation Comments Mean Corpuscular Volume (test code = 787-2) 88.8 81-99 [facility] CenterMean Corpuscular Gsclkarqff2498-45-41 05:44:00* Test Item Value Reference Range Interpretation Comments Mean Corpuscular Hemoglobin (test code = 785-6) 28.4 28-32 [facility] CenterMean Corpuscular Hemoglobin Concent 2018-05-12 05:44:00* Test Item Value Reference Range Interpretation Comments Mean Corpuscular Hemoglobin Concent (test code = 786-4) 32.0 31-35 [facility] CenterRed Cell Distribution Nxyjb3576-42-17 05:44:00* Test Item Value Reference Range Interpretation Comments Red Cell Distribution Width (test code = 79685-3) 17.9 11.7 -14.4 H [facility] CenterPlatelet Axfng0628-59-86 05:44:00* Test Item Value Reference Range Interpretation Comments Platelet Count (test code = 777-3) 298 140-360 [facility] CenterNeutrophils (%) (Auto)2018-05-12 05:44:00 * Test Item Value Reference Range Interpretation Comments Neutrophils (%) (Auto) (test code = 55465-3) 61.3 38.7-80.0 [facility] CenterLymphocytes (%) (Auto)2018-05-12 05:44:00 * Test Item Value Reference Range Interpretation Comments Lymphocytes (%) (Auto) (test code = 736-9) 10.8 18.0-39.1 L [facility] CenterMonocytes (%) (Auto)2018-05-12 05:44:00* Test Item Value Reference Range Interpretation Comments Monocytes (%) (Auto) (test code = 5905-5) 14.6 4.4-11.3 [facility] CenterEosinophils (%) (Auto)2018-05-12 05:44:00 * Test Item Value Reference Range Interpretation Comments Eosinophils (%) (Auto) (test code = 713-8) 0.2 0.0-6.0 [facility] CenterBasophils (%) (Auto)2018-05-12 05:44:00* Test Item Value Reference Range Interpretation Comments Basophils (%) (Auto) (test code = 706-2) 1.2 0.0-1.0 H [facility] CenterIM GRANULOCYTES %2018-05-12 05:44:00* Test Item Value Reference Range Interpretation Comments IM GRANULOCYTES % (test code = IM GRANULOCYTES %) 11.9 0.0- 1.0 H [facility] CenterNeutrophils # (Auto)2018-05-12 05:44:00* Test Item Value Reference Range Interpretation Comments Neutrophils # (Auto) (test code = 751-8) 7.6 2.1-6.9 [facility] CenterLymphocytes # (Auto)2018-05-12 05:44:00* Test Item Value Reference Range Interpretation Comments Lymphocytes # (Auto) (test code = 22125-4) 1.3 1.0-3.2 [facility] CenterMonocytes # (Auto)2018-05-12 05:44:00* Test Item Value Reference Range Interpretation Comments Monocytes # (Auto) (test code = 742-7) 1.8 0.2-0.8 [facility] CenterEosinophils # (Auto)2018-05-12 05:44:00* Test Item Value Reference Range Interpretation Comments Eosinophils # (Auto) (test code = 711-2) 0.0 0.0-0.4 [facility] CenterBasophils # (Auto)2018-05-12 05:44:00* Test Item Value Reference Range Interpretation Comments Basophils # (Auto) (test code = 704-7) 0.2 0.0-0.1 H [facility] CenterAbsolute Immature Granulocyte (auto 2018-05-12 05:44:00* Test Item Value Reference Range Interpretation Comments Absolute Immature Granulocyte (auto (domonique t code = Absolute Immature Granulocyte (auto) 1.48 0-0.1 [facility] CenterEosinophils % (Manual)2018-05-08 09:39:00 * Test Item Value Reference Range Interpretation Comments Eosinophils % (Manual) (test code = 714-6) 1 0-7 [facility] CenterReactive Mplfpfnstdw2496-04-21 09:39:00* Test Item Value Reference Range Interpretation Comments Reactive Lymphocytes (test code = 24079-4) 7 [facility] CenterHypochromasia2019-03-13 09:39:00* Test Item Value Reference Range Interpretation Comments Hypochromasia (test code = 728-6) SLIGHT [facility] CenterAnisocytosis2019-03-13 09:39:00* Test Item Value Reference Range Interpretation Comments Anisocytosis (test code = 702-1) SLIGHT [facility] CenterMagnesium Vssjy7260-83-97 07:04:00* Test Item Value Reference Range Interpretation Comments Magnesium Level (test code = 52668-9) 1.6 1.3-2.1 [facility] CenterTotal Bmzhqqrqo6480-66-04 06:18:00* Test Item Value Reference Range Interpretation Comments Total Bilirubin (test code = 1975-2) 0.5 0.2-1.2 [facility] CenterAspartate Amino Transf (AST/SGOT) 2018-05-08 06:18:00* Test Item Value Reference Range Interpretation Comments Aspartate Amino Transf (AST/SGOT) (test code = Aspartate Amino Transf (AST/SGOT)) 48 5-34 H [facility] CenterAlanine Aminotransferase (ALT/SGPT) 2018-05-08 06:18:00* Test Item Value Reference Range Interpretation Comments Alanine Aminotransferase (ALT/SGPT) (test code = 1742-6) 52 0-55 [facility] CenterTotal Vwoxojy3349-14-48 06:18:00* Test Item Value Reference Range Interpretation Comments Total Protein (test code = 2885-2) 5.9 6.5-8.1 L [facility] CenterAlbumin2019-03-13 06:18:00* Test Item Value Reference Range Interpretation Comments Albumin (test code = 1751-7) 2.6 3.5-5.0 L [facility] CenterGlobulin2019-03-13 06:18:00* Test Item Value Reference Range Interpretation Comments Globulin (test code = 56510-4) 3.3 2.3-3.5 [facility] CenterAlbumin/Globulin Bjybi6559-17-37 06:18:00 * Test Item Value Reference Range Interpretation Comments Albumin/Globulin Ratio (test code = 1759-0) 0.8 0.8-2.0 [facility] CenterAlkaline Jpuwrxkgxhi3416-98-52 06:18:00* Test Item Value Reference Range Interpretation Comments Alkaline Phosphatase (test code = 6768-6) 102 40-150 [facility] CenterClostridium Difficile Toxin A & B 2018-05-07 10:40:00* Test Item Value Reference Range Interpretation Comments Clostridium Difficile Toxin A & B (test code = 387595469) NEGATIVE NEGATIVE Testing on stool aspirate specimens is outside program architect claims since specime n type not validated on this assay.[facility] Promyelocytes %2018-05-04 15:16:00* Test Item Value Reference Range Interpretation Comments Promyelocytes % (test code = 04908-1) 3 0-0 H [facility] CenterBlast Cells %2018-05-04 15:16:00* Test Item Value Reference Range Interpretation Comments Blast Cells % (test code = 15145-6) 3 [facility] CenterPoikilocytosis2019-03-09 15:16:00* Test Item Value Reference Range Interpretation Comments Poikilocytosis (test code = 779-9) MODERATE [facility] CenterBurr Slmvb6635-64-76 15:16:00* Test Item Value Reference Range Interpretation Comments [place] Cells (test code = 7790-9) SLIGHT [facility] CenterBlood Yobrmzp7564-64-55 14:43:00* Test Item Value Reference Range Interpretation Comments Blood Culture (test code = 77032696) NO GROWTH AFTER 5 DAYS, FINAL REPORT [facility] CenterBasophils % (Manual)2018-05-03 11:16:00* Test Item Value Reference Range Interpretation Comments Basophils % (Manual) (test code = 30580-5) 1 0-1.5 [facility] CenterVancomycin Level Qclpgu4749-03-45 20:48:00* Test Item Value Reference Range Interpretation Comments Vancomycin Level Trough (test code = 4092-3) 9.7 5.0-10.0 [facility] CenterCT HIP LEFT I7516-19-12 15:23:00 [facility] [address] [place] [address] Patient Name: ANTONIO MAE MR #: [id number] : 1940 Age/Sex: 77/F Req #: [id number] Adm Physician: JOHNNA MIX MD Ordered by: JOHNNA MIX MD Report #: [id number] Location: MED/SURG Room/Bed: [facility] Procedure: [id number] CT/CT HIP LEFT W Exam Date: 05/02/18 [...] 3:35 PM Dictated By: ARCADIO DURAN DO 8127 Transcribe d By: OWEN on 05/02/18 7057 COPY TO: JOHNNA MIX MD Urine Gwxts9238-78-82 21:53:00* Test Item Value Reference Range Interpretation Comments Urine Color (test code = 5778-6) YELLOW YELLOW [facility] CenterUrine Fvrloay4256-97-28 21:53:00* Test Item Value Reference Range Interpretation Comments Urine Clarity (test code = 89640-1) HAZY CLEAR [facility] CenterUrine Specific Djofbbg4497-30-97 21:53:00 * Test Item Value Reference Range Interpretation Comments Urine Specific Addis (test code = 5811-5) 1.025 1.010-1.02 5 [facility] CenterUrine wE8584-50-91 21:53:00* Test Item Value Reference Range Interpretation Comments Urine pH (test code = 10217-8) 6 5-7 [facility] CenterUrine Leukocyte Provvkvq1520-51-90 21:53:00* Test Item Value Reference Range Interpretation Comments Urine Leukocyte Esterase (test code = 5799-2) TRACE NEGATIVE H [facility] Crqsyhq1170-46-30 21:53:00* Test Item Value Reference Range Interpretation Comments Urine Nitrite (test code = 68911-5) NEGATIVE NEGATIVE [facility] Tehugnt1979-64-53 21:53:00* Test Item Value Reference Range Interpretation Comments Urine Protein (test code = 5804-0) 2+ NEGATIVE H [facility] Glucose (UA)2018-04-29 21:53:00* Test Item Value Reference Range Interpretation Comments Urine Glucose (UA) (test code = 2349-9) 1+ NEGATIVE H [facility] Olrxoxp9518-38-21 21:53:00* Test Item Value Reference Range Interpretation Comments Urine Ketones (test code = 16037-2) NEGATIVE NEGATIVE [facility] Sdnxwtbvtlwz3435-71-87 21:53:00* Test Item Value Reference Range Interpretation Comments Urine Urobilinogen (test code = 78706-8) 0.2 0.2-1 [facility] CenterUrine Rpedgdwva4681-32-94 21:53:00* Test Item Value Reference Range Interpretation Comments Urine Bilirubin (test code = 1978-6) NEGATIVE NEGATIVE [facility] Xvjin0490-54-01 21:53:00* Test Item Value Reference Range Interpretation Comments Urine Blood (test code = 05364-9) TRACE NEGATIVE H [facility] CenterUrine VDK6832-83-56 21:53:00* Test Item Value Reference Range Interpretation Comments Urine WBC (test code = 5821-4) 0-5 0-5 [facility] CenterUrine UAC0352-75-70 21:53:00* Test Item Value Reference Range Interpretation Comments Urine RBC (test code = 71675-5) 0-5 0-5 [facility] CenterUrine Cpbgcmgk3826-62-06 21:53:00* Test Item Value Reference Range Interpretation Comments Urine Bacteria (test code = 14019-1) FEW NONE [facility] CenterUrine Epithelial Tlpci0768-54-65 21:53:00 * Test Item Value Reference Range Interpretation Comments Urine Epithelial Cells (test code = 60398-1) FEW NONE [facility] CenterInfluenza Virus Types A,B Antigen 2018-04-29 14:50:00* Test Item Value Reference Range Interpretation Comments Influenza Virus Types A,B Antigen (test code = 63549-1) NEGATIVE NEGATIVE [facility] CenterAmylase Qrvqx1583-64-19 14:47:00* Test Item Value Reference Range Interpretation Comments Amylase Level (test code = 1798-8) 208 25-125 H [facility] CenterLipase2019-03-04 14:47:00* Test Item Value Reference Range Interpretation Comments Lipase (test code = 3040-3) 5 8-78 L [facility] CenterLactic Acid Zyjes1963-17-31 14:42:00* Test Item Value Reference Range Interpretation Comments Lactic Acid Level (test code = Lactic Acid Level) 13.8 4.5- 19.8 [facility] CenterGroup A Streptococcus Jmzrff5073-29-84 14:41:00* Test Item Value Reference Range Interpretation Comments Group A Streptococcus Screen (test code = 92695-9) NEGATIVE NEG ATIVE [facility] CenterProthrombin Qbvd6938-39-38 14:37:00* Test Item Value Reference Range Interpretation Comments Prothrombin Time (test code = 5902-2) 14.6 11.9-14.5 H [facility] CenterProthromb Time International Ratio 2018-04-29 14:37:00* Test Item Value Reference Range Interpretation Comments Prothromb Time International Ratio (test code = 6301-6) 1.09 Oral Anticoagulant Therapy INR Values:1. Low Intensity Therapy 1.5 - 2.02 . Moderate Intensity Therapy 2.0 - 3.03. High Intensity Therapy(1) 2.5 - 3. 54. High Intensity Therapy(2) 3.0 - 4.05. Panic Value INR > 5.0 [facility] CenterActivated Partial Thromboplast Time 2018-04-29 14:37:00* Test Item Value Reference Range Interpretation Comments Activated Partial Thromboplast Time (test code = 04274-8) 35.8 23.8-35.5 H [facility] CenterCHEST SINGLE (PORTABLE)2018-04-29 13:44:00 [facility] [address] [address] Patient Name: ANTONIO MAE MR #: [id number] : 1940 Age/Sex: 77/F Req #: [id number] Adm Physician: Ordered by: ETHEL ABDALLA ADMIN PROG COORD Report #: [id number] Location: ER Room/Bed: Procedure: [id number] DX/CHEST SINGLE (PORTABLE) Exam Date: 04/29/18 Exam [...] 1:46 PM Dictated By: RAFAEL SORTO MD 9526 Transcribed By: OWEN on 04/29/18 5518 COPY TO: ETHEL ABDALLA ADMIN PROG COORD CHEM JDDLK9637-83-23 13:36:002.3 [facility] QQKVL7841-12-83 13:36:00* Test Item Value Reference Range Interpretation Comments UA pH (test code = UA pH) 7.0 1 5.0-8.0 [facility] SVGET4347-67-08 13:36:00Small *ABN*(02/04/18 7:36 AM) [facility] PAIPT1465-11-81 13:36:00Negative *NA*(02/04/18 7:36 AM)[facility] GXBQK7694-98-06 13:36:00Negative *NA*(02/04/18 7:36 AM)[facility] PAQZQ9987-23-77 13:36:003[facility] QFUCZ6662-27-16 13:36:00Negative (02/04/18 7:36 AM)[facility] RVUSB3490-96-43 13:36:00Negative (02/04/18 7:36 AM)[facility] IOKVQ2952-42-43 13:36:004[facility] BCMJU8050-43-74 13:36:00Clear (02/04/18 7:36 AM)[facility] YRHLB3092-44-59 13:36:00* Test Item Value Reference Range Interpretation Comments UA Spec Grav (test code = UA Spec Grav) 1.011 1 [facility]annCARDIAC LFJKVQG3767-65-43 11:23:0037[facility]annCARDIAC GKJTQTV2446-69-71 11:23:00<0.02[facility]annCARDIAC YOTKZFE7506-63-56 11:23:92242Zenhrqpo HermannCHEM YFBOZ1844-95-06 11:23:003.1[facility]annCHEM KDMIC2643-96-32 11:23:002.1[facility]annCHEM PMXLK2577-17-17 11:23:002.3 [facility]annCHEM QFAIL9497-22-30 11:23:008.9[facility]annCHEM PANEL 2018-02-04 11:23:003.8[facility]annCHEM WPXLF0408-10-71 11:23:007.3[facility]annCHEM TGNHR9432-40-10 11:23:0067[facility]annCHEM XRDBF7835-79-19 11:23:0020[facility]annCHEM BGWMA1717-91-14 11:23:000.5[facility]annCHEM DGRPU5522-02-89 11:23:0042[facility]annCHEM WLYEP9242-29-07 11:23:0026 [facility]annCHEM QYJUT6968-77-59 11:23:52660Kuheybte HermannCHEM PANEL 2018-02-04 11:23:34909Qtlupbum HermannCHEM SQPRS0960-60-87 11:23:003.9[facility]annCHEM YPSKJ8679-13-86 11:23:000.95[facility]annCHEM WMPZA0580-89-05 11:23:0021[facility]annCHEM TNNHC3791-94-49 11:23:54354Cdhkgmlp HermannCHEM LFQFQ9583-26-87 11:23:0057[facility]annCHEM DNZDG3601-10-96 11:23:003.5 [facility]annCHEM IYUGX5599-65-10 11:23:00* Test Item Value Reference Range Interpretation Comments B/C Ratio (test code = B/C Ratio) 22 1 6-25 [facility] HermannCHEM XMNSJ7855-65-78 11:23:00* Test Item Value Reference Range Interpretation Comments A/G Ratio (test code = A/G Ratio) 1.1 1 0.7-1.6 [facility]annCHEM FJKKY7342-89-92 11:23:0014.9[facility]annHEMATOLOGY 2018-02-04 11:23:000.7[facility] NsszshdEXAQCWZONN9414-25-26 11:23:000.1[facility]orial XcwgjfyNIQIJZYKZK9868-82-42 11:23:000.5[facility]orial BxwovkpCPBHKJVKHZ8845-80-32 11:23:008.2[facility] AvpofnrYXXIFOZWFW4598-68-63 11:23:0087.0[facility] APZCYVYUCT1755-95-69 11:23:000.6[facility] DjvgmwvVUPCUPPRTV5975-51-12 11:23:000.3 [facility] SheetzcRWSTJEOBST3907-43-00 11:23:00Normal (02/04/18 5:23 AM)[facility] JnjduknYXNMVBDIWF3220-01-45 11:23:00Normal (02/04/18 5:23 AM)[facility] YSUNBQABPF8681-41-51 11:23:007.2[facility] EwezgxdKTCCNPUIDY2709-02-38 11:23:004.9 Memorial KctxatlAKYXUNXIJH8565-36-84 11:23:00* Test Item Value Reference Range Interpretation Comments INR (test code = INR) 1.01 1 0.85-1.17 Memorial TxqhaiqOKORCUSOOE9539-32-07 11:23:00* Test Item Value Reference Range Interpretation Comments PT (test code = PT) 13.1 s 12.0-14.7 Memorial SkodbteUMUVVFBJQJ8131-44-01 11:23:009.4[facility]annHEMATOLOGY 2018-02-04 11:23:0015.8[facility] YqjzzoaLIEHXSOCAT8629-47-48 11:23:008.3[facility] MbgbxklSZCRTILPYP4495-05-16 11:23:0034.4[facility] UqoaevnPVYYEMWDMI1199-29-19 11:23:64784Oekhekas UgevvlmDFFRMXGIGN9270-21-85 11:23:004.05[facility] SSPEYHZNVE5907-33-79 11:23:0013.1[facility] BhjfnqsZDPTDIEMGH9459-80-45 11:23:00 38.0[facility]orial XjwybbdGYOFSJCVDC3102-49-97 11:23:0093.9[facility] HermannHEMATOLOGY 2018-02-04 11:23:00* Test Item Value Reference Range Interpretation Comments MCH (test code = MCH) 32.3 pg 27.0-31.0 [facility] ROJZO2219-65-18 10:43:00* Test Item Value Reference Range Interpretation Comments POC-GLUCOSE METER (BEAKER) (test code = 1538) 109 mg/dL 70-110 [address] [facility] [address]
--- OUTSIDE RECORDS SUMMARY | 2019-12-05 01:26 | XMS REPORT | Continuity of Care Document ---
Author Author Danelle Luis [employer] ANTONIO Alston [employer] Address Unknown Phone Unavailable Care Team Providers [employer] Ax Consultant Name Role Phone [employer] Unavailable Un available Problems Problem Status Onset Date Classification Date Reported Comments Source XRAY Active 07/03/2019 [facility] M25.562/M25.561 Active 03/21/2019 [facility] Periprosthetic fracture around internal prosthetic left hip joint, initial encounter 02/12/2018 08/24/2018 [facility] FALL Active 02/04/2018 [facility] Pain in left hand 03/29/2017 07/02/2017 [facility] M79.642 M79.641 M25.562 Acti ve 02/26/2017 [facility] Pain in right hand 07/02/2017 [facility] Pain in left knee 07/02/2017 [facility] Primary osteoarthritis, left hand 07/02/2017 [facility] Crushing injury of right ring finger, initial encounte r 08/24/2018 [facility] Unspecified open wound of right ring fin mich with damage to nail, initial encounter 08/24/2018 [facility] Presence of left artificial hip joint 08/24/2018 [facility] Fall on same level from slipping, trippi ng and stumbling without subsequent striking against object, initial encounter 08/24/2018 [facility] Caught, crushed, jammed, or pinched betw een moving objects, initial encounter 08/24/2018 [facility] Essential (primary) hypertension 08/24/2018 [facility] Personal history of malignant neoplasm of breast 08/24/2018 [facility] Medications Medication Details Route Status Patient Instructions Ordering Provider Order Date Source Clindamycin 600 mg, 50 mL, Rou te: IVPB, Drug form: INJ, ONCE, Dosing Weight 77.273, kg, Priority: STAT, Start date: 02/04/18 9:39:00 [employer], Stop date: 02/04/18 9:39:00 [employer]ST[employer], ABX Indication: Surgical Prophylaxis Inactive 02/04/2018 [facility] Morphine 4 mg, Route: IVP, ONC E, Dosing Weight 77.273, kg, Priority: STAT, Start date: 02/04/18 7:49:00 [employer]ST[employer], Stop date: 02/04/18 7:49:00 [employer]ARM INST[employer]ER Inactive 02/04/2018 [facility] Ondansetron 4 mg, Route: IVP, Drug form: INJ, ONCE, Dosing Weight 77.273, kg, Priority: STAT, Start date: 02/04/18 5:14:00 [employer]ARM INST[employer], Stop date: 02/04/18 5:14:00 [employer] ALARM INST[employer]ER Inactive 02/04/2018 [facility] Morphine 2 mg, Route: IVP, ONC E, Dosing Weight 77.273, kg, Priority: STAT, Start date: 02/04/18 5:14:00 [employer]ARM INST[employer], Stop date: 02/04/18 5:14:00 [employer]ARM INST[employer]ER Inactive 02/04/2018 [facility] Allergies, Adverse Reactions, Alerts Substance Category Reaction Severity Reaction type Status Date Reported Comments Source codeine Assertion Drug allergy Active [facility] penicillin Assertion Drug allergy Active [facility] Immunizations No Data Provided for This Section Results Order Name Results Value Reference Range Date Interpretation Comments Source CHEM PANEL Lactic Acid Lvl 2.3 0.5 - 2.2 02/04/2018 [facility] URINE AND STOOL UA pH 7.0 5.0 - 8.0 02/04/2018 [facility] URINE AND STOOL UA Urobilinogen <=1.0 mg/dL 0.1 - 1.0 02/04/2018 [facility] URINE AND STOOL UA Blood Small *ABN* (02/04/18 7:36 AM) Negative 02/04/2018 [facility] URINE AND STOOL UA Bili Negative *NA* (02/04/18 7:36 AM) Negative 02/04/2018 [facility] URINE AND STOOL UA Ketones Negative *NA* (02/04/18 7:36 AM) Negative 02/04/2018 [facility] URINE AND STOOL UA Protein 30 mg/dL Negative mg/dL 02/04/2018 [facility] URINE AND STOOL UA Glucose 50 mg/dL Negative mg/dL 02/04/2018 [facility] URINE AND STOOL UA WBC 3 0 - 5 02/04/2018 [facility] URINE AND STOOL UA Sq Epi Occasional /LPF Few /LPF 02/04/2018 [facility] URINE AND STOOL UA Nitrite Negative (02/04/18 7:36 AM) Negative 02/04/2018 [facility] URINE AND STOOL UA Leuk Est Negative (02/04/18 7:36 AM) Negative 02/04/2018 [facility] URINE AND STOOL UA Bacteria Occasional /HPF None Seen /HPF 02/04/2018 [facility] URINE AND STOOL UA RBC 4 0 - 2 02/04/2018 [facility] URINE AND STOOL UA Turbidity Clear (02/04/18 7:36 AM) Clear 02/04/2018 [facility] URINE AND STOOL UA Spec Grav 1.011 <=1.030 02/04/2018 [facility] URINE AND STOOL UA Color Ltyellow 02/04/2018 [facility] CARDIAC ENZYMES BNP 37 <=100 pg/mL 02/04/2018 [facility] CARDIAC ENZYMES Troponin-I <0.02 0.00 - 0.40 02/04/2018 [facility] CARDIAC ENZYMES Total CK 144 12 - 191 02/04/2018 [facility] CHEM PANEL Phosphorus 3.1 2.5 - 4.5 02/04/2018 [facility] CHEM PANEL Magnesium Lvl 2.1 1.8 - 2.4 02/04/2018 [facility] CHEM PANEL Lactic Acid Lvl 2.3 0.5 - 2.2 02/04/2018 [facility] CHEM PANEL Calcium Lvl 8.9 8.5 - 10.5 02/04/2018 [facility] CHEM PANEL Albumin Lvl 3.8 3.5 - 5.0 02/04/2018 [facility] CHEM PANEL Total Protein 7.3 6.4 - 8.4 02/04/2018 [facility] CHEM PANEL Alk Phos 67 39 - 136 02/04/2018 [facility] CHEM PANEL AST 20 0 - 37 02/04/2018 [facility] CHEM PANEL Bili Total 0.5 0.2 - 1.3 02/04/2018 [facility] CHEM PANEL ALT 42 0 - 65 02/04/2018 [facility] CHEM PANEL CO2 26 24 - 32 02/04/2018 [facility] CHEM PANEL Chloride Lvl 105 95 - 109 02/04/2018 [facility] CHEM PANEL Glucose Lvl 103 70 - 99 02/04/2018 [facility] CHEM PANEL Potassium Lvl 3.9 3.5 - 5.1 02/04/2018 [facility] CHEM PANEL Creatinine Lvl 0.95 0.50 - 1.40 02/04/2018 [facility] CHEM PANEL BUN 21 7 - 22 02/04/2018 [facility] CHEM PANEL Sodium Lvl 142 135 - 145 02/04/2018 [facility] CHEM PANEL eGFR 57 02/04/2018 Result [...] should be multiplied by the estimated BMI. [facility] CHEM PANEL Globulin 3.5 2.7 - 4.2 02/04/2018 [facility] CHEM PANEL B/C Ratio 22 6 - 25 02/04/2018 [facility] CHEM PANEL A/G Ratio 1.1 0.7 - 1.6 02/04/2018 [facility] CHEM PANEL AGAP 14.9 10.0 - 20.0 02/04/2018 [facility] Monocytes # 0.7 0.0 - 0.8 02/04/2018 [facility] HEMATOLOGY Basophils # 0.1 0.0 - 0.2 02/04/2018 [facility] Lymphocytes # 0.5 1.0 - 5.5 02/04/2018 [facility] Neutrophils # 8.2 1.5 - 8.1 02/04/2018 [facility] Segs 87.0 45.0 - 75.0 02/04/2018 [facility] HEMATOLOGY Basophils 0.6 0.0 - 1.0 02/04/2018 [facility] Eosinophils 0.3 0.0 - 4.0 02/04/2018 [facility] Plt Morph Karla l (02/04/18 5:23 AM) 02/04/2018 [facility] RBC Morph Karla l (02/04/18 5:23 AM) 02/04/2018 [facility] Monocytes 7.2 2.0 - 12.0 02/04/2018 [facility] Lymphocytes 4.9 20.0 - 40.0 02/04/2018 [facility] INR 1.01 0.85 - 1.17 02/04/2018 [facility] PT 13.1 12.0 - 14.7 02/04/2018 [facility] WBC 9.4 3.7 - 10.4 02/04/2018 [facility] RDW 15.8 11.5 - 14.5 02/04/2018 [facility] MPV 8.3 7.4 - 10.4 02/04/2018 [facility] MCHC 34.4 32.0 - 36.0 02/04/2018 [facility] Platelet 188 133 - 450 02/04/2018 [facility] RBC 4.05 4.20 - 5.40 02/04/2018 [facility] Hgb 13.1 12.0 - 16.0 02/04/2018 [facility] Hct 38.0 36.0 - 48.0 02/04/2018 [facility] MCV 93.9 80.0 - 98.0 02/04/2018 [facility] MCH 32.3 27.0 - 31.0 02/04/2018 [facility] Pathology Reports No Data Provided for [...] the PIP joint of the ring finger. Uviy-ed-edzgollu degenerative changes noted in the PIP joints [...] mildly displaced ulnar styloid process fracture noted. Itob-ek-sdgmwxlf degenerative changes noted in the DIP joints [...] DX, LEFT 03/26/2017 2:10 PM FINDINGS: Bones/joints: Fjkz-lx-ykltwqfn medial tibiofemoral joint space narrowing and osteophytosis [...] osteoarthritis. Seamus Landaverde MD On 03/22/2019 22:15:01; [id number] 03/21/2019 [facility] Femur series DX Exam: Left [...] assessment. IMPRESSION: Proximal femoral periprosthetic fracture SL: [id number] 02/04/2018 [facility] Hip 2/3 views uni w pelvis [...] left hip arthroplasty with periprosthetic fracture SL: [id number] 02/04/2018 [facility] Spine cervical wo contrast CT Patient Name: ANTONIO CHO. : 1940; Age: 77 years y/o; Female. MR: [id number]. Ordering Physician: Toni Acevedo MD. CT CERVICAL [...] 3, C5-6 through C7-T1. Varying degrees of skho-kh-ymjbcmco neural foraminal stenosis also noted throughout cervical spine. The prevertebral soft tissue is unremarkable. The C1-C2 articulation is within normal limits. IMPRESSION: 1. No evidence of cervical spine fractur e. 2. Diffuse degenerative changes noted. SL: [id number] 02/04/2018 [facility] Chest 1view DX Clinical Indica tion: [...] of the cardiac silhouette without edema. SL: [id number] 02/04/2018 [facility] Hand 2 views DX Exam: Right [...] digit. 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 SL: [id number] 03/26/2017 [facility] Knee 3 views DX EXAM: [...] rthritic changes of the left knee. SL: [id number] 03/26/2017 [facility] Consultation Notes No Data Provided for This Section Discharge Summaries No Data Provided for This Section History and Physicals No Data Provided for This Section Vital Signs Vital Sign Value Date Comments Source Systolic (mm Hg) 145 02/04/2018 [facility] Diastolic (mm Hg) 74 02/04/2018 [facility] Respitory Rate 16 02/04/2018 [facility] Systolic (mm Hg) 158 02/04/2018 [facility] Diastolic (mm Hg) 69 02/04/2018 [facility] Respitory Rate 19 02/04/2018 [facility] Respitory Rate 16 02/04/2018 [facility] Systolic (mm Hg) 173 02/04/2018 [facility] Diastolic (mm Hg) 62 02/04/2018 [facility] Heart Rate 86 02/04/2018 [facility] Weight 77.273 02/04/2018 [facility] Temperature Oral (F) 98.1 F 02/04/2018 [facility] Height 162.56 cm 02/04/2018 [facility] BMI Calculated 29.24 02/04/2018 [facility] Encounters Location Location Details Encounter Type Encounter Number Reason For Visit Attending Provider ADM Date DC Date Status Source [facility] Outpatient [id number] Ambar Lam 03/26/2017 03/27/2017 [facility] Emergency [id number] Toni Acevedo 02/04/2018 02/04/2018 [facility] Outpatient [id number] Ambar Fritz 03/21/2019 03/22/2019 [id number] 07/04/2019 [facility] Procedures No Data Provided for This Section Assessment and Plan No Data Provided for This Section Plan of Care No Data Provided for This Section Social History Social History Date Source Social History TypeResponse Smoking Status Never smoker; Exposure to Tobacco Smoke None; Cigarette Smoking Last 365 Days No; Reg Smoking Cessation Counseling No entered on: 02/04/18 02/04/2018 [facility] Family History No Data Provided for This Section Advance Directives No Data Provided for This Section Functional Status No Data Provided for This Section
--- NOTE | 2019-12-05 02:30 | NUR ---
Patient was transferred from standing ER to IMCU room 187 for Afib RVR and possible Cardizem drip. Patient was given 10mg Cardizem IVP at the ER and brought over to IMCU. Patient is aaox3, very pleasant. Denies pain, Heart Rate in the 80's, Bp 150/80, resp 16, 100% on room air. Cardiology consult.
--- NOTE | 2019-12-05 02:34 | Diagnostic Imaging Report ---
EXAMINATION: CXR 1 [facility] INDICATION: dizzy COMPARISON: X-ray 04/29/2018. FINDINGS: Patient is rotated. LUNGS AND PLEURA: : Hazy left base opacity. No pneumothorax. HEART AND MEDIASTINUM: The cardiomediastinal silhouette is unremarkable. BONES AND SOFT TISSUES: Surgical clips project over the right axilla. IMPRESSION: Hazy left base opacity could represent small layering pleural effusion or atelectasis. Left basilar pneumonia not excluded. Consider dedicated 2 view radiographs if clinically warranted. Signed by: Brigido Sparrow MD on 12/05/2019 2:30 AM
[2019-12-05] MEDS ORDERED: HUMALOG100 UNIT/1 (03:47)
[2019-12-05] MEDS ORDERED: PHENERGAN25 MG/1 ML (03:47)
[2019-12-05] MEDS ORDERED: CALCIUM600 MG (03:47)
[2019-12-05] MEDS ORDERED: VIT C-ROSE HIP500 MG (03:47)
[2019-12-05] MEDS ORDERED: CELEBREX100 MG PO (03:47)
[2019-12-05] MEDS ORDERED: IMODIUM2 MG PO (03:47)
[2019-12-05] MEDS ORDERED: ALEVE220 M1 (03:47)
[2019-12-05] MEDS ORDERED: CLARITIN-D 241 EACH PO ×2 (03:47→12:31)
[2019-12-05] MEDS ORDERED: OSTERA TABLET1 EACH (03:47)
[2019-12-05 04:49] LABS: BASOPHILS % 0.5 % (0.0-1.0); EOSINOPHILS % 0.5 % (0.0-6.0); HEMATOCRIT 32.5 % (34.2-44.1); HEMOGLOBIN 10.8 g/dL (12.0-16.0); LYMPHOCYTES # (AUTO) 0.8 (1.0-3.2); LYMPHOCYTES % 14.4 % (18.0-39.1); MEAN CORPUSCULAR HEMOGLOBIN 29.3 pg (28-32); MEAN CORPUSCULAR HGB CONC 33.2 g/dL (31-35); MEAN CORPUSCULAR VOLUME 88.3 fL (81-99); MONOCYTES # (AUTO) 0.6 (0.2-0.8); MONOCYTES % 11.3 % (4.4-11.3); NEUTROPHILS # (AUTO) 4.1 (2.1-6.9); NEUTROPHILS % 73.1 % (38.7-80.0); PLATELET COUNT 235 x10e3/uL (140-360); RED BLOOD COUNT 3.68 x10e6/uL (3.6-5.1); RED CELL DISTRIBUTION WIDTH 13.4 % (11.7-14.4)
[2019-12-05 05:01] LABS: INR 1.02; PROTHROMBIN TIME 13.9 seconds (11.9-14.5)
[2019-12-05 05:02] LABS: PARTIAL THROMBOPLASTIN TIME 32.7 seconds (23.8-35.5)
[2019-12-05 05:11] LABS: ALBUMIN 3.7 g/dL (3.5-5.0); ALBUMIN/GLOBULIN RATIO 1.1 (0.8-2.0); ANION GAP 16.6 mmol/L (8-16); CALCIUM 9.3 mg/dL (8.4-10.2); CREATININE, SERUM 1.62 mg/dL (0.57-1.11); MAGNESIUM 2.2 MG/DL (1.3-2.1); PHOSPHORUS 3.1 MG/DL (2.3-4.7); POTASSIUM 3.6 mmol/L (3.5-5.1)
[2019-12-05 05:38] LABS: CREATINE KINASE MB 4.8 ng/mL (0-5.0)
[2019-12-05] MEDS: THYROID 60 MG TAB PO SCH (08:12)
[2019-12-05] MEDS: METFORMIN HCL 500 MG TAB CR PO SCH ×2 (08:41→16:53)
--- NOTE | 2019-12-05 08:50 | History and Physical ---
REASON FOR ADMISSION: Atrial fibrillation with rapid ventricular response. HISTORY OF PRESENT ILLNESS: The patient is an 79-year-old lady, who is doing very well and started having palpitations and therefore, came to the emergency room, she was noticed to be in atrial fibrillation with rapid ventricular response, the rate of 140s, which is new for the patient. Currently, she is feeling much better since her rate is under control. PAST MEDICAL HISTORY: Diabetes, hypertension, chronic kidney disease stage 3, and hypothyroidism. MEDICATIONS: See APR. ALLERGIES: LEVAQUIN, CODEINE, LISINOPRIL, AND PENICILLIN. SOCIAL HISTORY: She is a . Nonsmoker, nondrinker. Fairly independent. FAMILY HISTORY: Hypertension. PHYSICAL EXAMINATION: VITAL SIGNS: Temperature is 98.1, pulse 87 and irregular on the monitor. Blood pressure 150/80, sats 100% on room air. GENERAL: In no apparent distress. NECK: Supple. No lymphadenopathy. CARDIOVASCULAR: Irregularly regular. LUNGS: Clear to auscultation bilaterally. ABDOMEN: Good bowel sounds. Soft and nontender. EXTREMITIES: No clubbing or cyanosis. NEUROLOGIC: Nonfocal. ASSESSMENT/PLAN: 1. Atrial fibrillation with rapid ventricular response. Continue with telemetry. Check her laboratory data including TSH and consult Cardiology. Continue with rate control. 2. Hypertension. Continue with current care monitoring. 3. Hypothyroidism. Continue with her thyroid medicine. 4. Diabetes. We will restart her home medicines and monitor sugars. 5. Chronic kidney disease, stage 3. We will check labs. 6. Hypothyroidism. Continue with her medications please see hospital chart for full details. MD LUPE Modi/REINA /[id number]
--- NOTE | 2019-12-05 09:00 | NUR ---
HR noted to be 120's-130's. Cardizem drip started at this time. Patient tolerating well.
[2019-12-05] MEDS: DILTIAZEM HCL ER 120 MG CAP PO SCH ×2 (10:28→16:53)
--- NOTE | 2019-12-05 12:16 | Consultation ---
DATE OF CONSULTATION: 12/05/2019 Cardiology Consultation REQUESTING PHYSICIAN: Junior Pope MD REASON FOR CONSULTATION: Atrial fibrillation. HISTORY OF PRESENT ILLNESS: This is an 79-year-old woman with history of hypertension, hyperlipidemia, diabetes mellitus, chronic kidney disease, stage 3; hypothyroidism, moderate peripheral arterial disease, and paroxysmal atrial fibrillation, who presented with complaints of palpitations. She reports that she had been visiting her friend yesterday evening she began to feel palpitations, which were associated with weakness. She did not initially presented to the ER because her symptoms improved, however, due to persistent palpitations and counseling from her friends, she came to [facility] ER for further evaluation. On evaluation in the ER, she was found to have atrial fibrillation with rapid ventricular response, admitted for further care. She denies any chest pain, shortness of breath, orthopnea, or PND. She does report lower extremity swelling for the last week. REVIEW OF SYSTEMS: Negative except as per HPI. PAST MEDICAL HISTORY: 1. Hypertension. 2. Hyperlipidemia. 3. Diabetes mellitus. 4. Chronic kidney disease, stage 3. 5. Moderate peripheral arterial disease. 6. Hypothyroidism. 7. Paroxysmal atrial fibrillation. PAST SURGICAL HISTORY: 1. Left hip replacement. 2. Carpal tunnel surgery. 3. Bladder suspension. 4. Mastectomy. 5. Appendectomy. 6. Hysterectomy. ALLERGIES: PLEASE SEE EMR. MEDICATIONS: Please see medication list. SOCIAL HISTORY: No tobacco, alcohol, or illicit drugs. FAMILY HISTORY: Brother with valve replacement and father who of a myocardial infarction. PHYSICAL EXAMINATION: VITAL SIGNS: Temperature 97.7 degrees, pulse 80, respiratory rate 24, blood pressure was 170/75, and oxygen saturation 100% on room air. The patient was not examined due to isolation for COVID-19 PUI. Tele visit was performed via phone call. LABORATORY DATA: Sodium 138, potassium 3.6, chloride 102, CO2 of 23, BUN 27, creatinine 1.62. WBC 5.57, hemoglobin 10.8, hematocrit 32.5, and platelets 235. Chest x-ray hazy left base perfusion or atelectasis, left basilar pneumonia not excluded. Consider to get two view radiographs if clinically warranted. Telemetry was personally reviewed and interpreted, revealing atrial fibrillation with rapid ventricular response. IMPRESSION: 1. Paroxysmal atrial fibrillation with rapid ventricular response. 2. Possible left pneumonia. 3. Hypertension. 4. Hyperlipidemia. 5. Diabetes mellitus. 6. Chronic kidney disease, stage 3. 7. Hypothyroidism. 8. Moderate peripheral arterial disease. RECOMMENDATIONS: The patient is currently on diltiazem drip at 5 mg an hour, we will transition to p.o. b.i.d. Start anticoagulation. Her CHADS-VASc score is 4. We will stop Plavix. Continue aspirin for her peripheral arterial disease, she was counseled extensively on the importance of anticoagulation for CVA prophylaxis as well as rate control. Continue to monitor the patient closely on telemetry. Treatment of possible left-sided pneumonia per primary service. Thank you for this consult. We will continue to follow. Radha Hazel MD ABS/JEANL /[id number]
[2019-12-05] MEDS ORDERED: ACETAMINOPHEN 325 MG TAB PO PRN (12:30)
[2019-12-05] MEDS ORDERED: PREDNISONE10 MG PO (12:31)
[2019-12-05] MEDS ORDERED: ALEVE220 M1 PO (12:31)
[2019-12-05] MEDS ORDERED: PROMETHAZINE12.5 M1 PO (12:31)
[2019-12-05] MEDS ORDERED: NIFEDIPINE ER30 M1 PO (12:31)
[2019-12-05] MEDS ORDERED: PLAVIX75 MG PO (12:33)
[2019-12-05] MEDS ORDERED: PANTOPRAZOLE SOD 40 MG TABEC PO SCH (12:45)
[2019-12-05] MEDS ORDERED: PREDNISONE 10 MG TAB PO PRN (12:45)
[2019-12-05] MEDS ORDERED: ENOXAPARIN SODIUM INJ 100 MG/ML SYR SC SCH (16:00)
[2019-12-05] MEDS ORDERED: POTASSIUM CHLORIDE 20 MEQ TAB CR PO NR (16:30)
[2019-12-05] MEDS: ENOXAPARIN SOD INJ 60 MG/0.6 ML SYR SC SCH (16:53)
[2019-12-05] MEDS ORDERED: NIFEDIPINE CR 30 MG TAB PO SCH (17:00)
[2019-12-05] MEDS ORDERED: ENOXAPARIN 30 MG/0.3 ML SYR SC SCH (17:00)
[2019-12-05 19:46] LABS: CREATINE KINASE MB 4.1 ng/mL (0-5.0)
[2019-12-06 00:36] VITALS: BP 137/64
[2019-12-06 04:10] VITALS: BP 147/58
[2019-12-06] MEDS: THYROID 60 MG TAB PO SCH (04:57)
[2019-12-06] MEDS: ENOXAPARIN SOD INJ 60 MG/0.6 ML SYR SC SCH (04:57)
[2019-12-06] MEDS: METFORMIN HCL 500 MG TAB CR PO SCH (08:36)
[2019-12-06] MEDS: DILTIAZEM HCL ER 120 MG CAP PO SCH (08:38)
[2019-12-06 09:00] VITALS: BP 162/82
[2019-12-06] MEDS ORDERED: ASPIRIN 81 MG CHEW TAB PO SCH (09:00)
[2019-12-06] MEDS ORDERED: ATENOLOL 50 MG TAB PO SCH (09:00)
[2019-12-06] MEDS ORDERED: CHOLECALCIFEROL 1,000 UNIT TAB PO SCH (09:00)
[2019-12-06] MEDS ORDERED: CLOPIDOGREL BISULFATE 75 MG TAB PO SCH (09:00)
[2019-12-06 09:37] VITALS: BP_SYST 147; BP_SYST 162; BP_DIAS 58; BP_DIAS 82
[2019-12-06 12:54] VITALS: BP 147/72
[2019-12-06] MEDS ORDERED: DILTIAZEM HCL120 MG PO (16:10)
[2019-12-06] MEDS ORDERED: ELIQUIS5 M1 PO (16:11)
--- NOTE | 2019-12-06 16:22 | Progress Note ---
DATE: Cardiology Progress Note SUBJECTIVE: The patient is feeling better. Denies any chest pain, shortness of breath, or palpitations. OBJECTIVE: VITAL SIGNS: Temperature is 97.4, heart rate is 84, respirations 18, blood pressure is 147/72, and oxygen saturation 100% on room air. GENERAL: Well appearing, in no apparent distress. Alert and oriented x3. CARDIOVASCULAR: Regular rate and rhythm. LUNGS: Clear to auscultation. ABDOMEN: Soft, nontender, and nondistended. EXTREMITIES: No edema. LABORATORY DATA: Reviewed. Telemetry monitoring showed normal sinus rhythm. IMPRESSION: 1. Paroxysmal atrial fibrillation, currently in normal sinus rhythm. 2. Possible pneumonia. 3. Hypertension. 4. Hyperlipidemia. 5. Diabetes mellitus. 6. Peripheral arterial disease. RECOMMENDATIONS: Continue diltiazem ER 120 p.o. b.i.d. Start anticoagulation with Eliquis 5 mg p.o. b.i.d. Otherwise, continue all current cardiovascular medications. The patient is stable for discharge from a cardiovascular standpoint. Snag Velásquez DO BM/MODL /[id number]
--- NOTE | 2019-12-07 01:58 | Discharge Summary ---
DIAGNOSES: 1. Atrial fibrillation with RVR, new onset. 2. Diabetes. 3. Chronic kidney disease stage 3. 4. Hypertension. 5. Hypothyroidism. MEDICATIONS: See discharge medicines. New medications are Cardizem 120 mg b.i.d. and Eliquis 5 mg b.i.d. HISTORY OF PRESENT ILLNESS AND HOSPITAL COURSE: See hospital chart for full details. The patient is a lady, who presented with new onset atrial fibrillation with rapid ventricular response. She was brought in, placed on Cardizem drip as well as anticoagulation as well as her home medications. Her rate improved quickly, and within about 24 hours, she was converted back to normal sinus rhythm. So, she was feeling great, wanted to go home, so she was discharged home with Cardizem 120 mg b.i.d. and Eliquis 5 mg b.i.d. as her new medications. Will follow up in 1 week with me as well as with Cardiology. Please see hospital chart for full details. MD LUPE Modi/REINA /[id number]
== END 2019-12-06 16:51 | disposition home or self-care (01) | DRG 308 ==
LOC: FSED 00:48 → ERHOLD 00:55 → UNDOADMIN 00:55 → ERHOLD 01:19 → IMCU 02:25
PROVIDERS: ADMIT Internal Medicine; ATTEND Internal Medicine
DX: I48.0 Paroxysmal atrial fibrillation (principal); J18.9 Pneumonia, unspecified organism; E11.22 Type 2 diabetes mellitus with diabetic chronic kidney disease; I12.9 Hypertensive chronic kidney disease with stage 1 through stage 4 chronic kidney disease, or unspecified chronic kidney disease; N18.30 Chronic kidney disease, stage 3 unspecified; Z79.899 Other long term (current) drug therapy; E03.9 Hypothyroidism, unspecified; E11.51 Type 2 diabetes mellitus with diabetic peripheral angiopathy without gangrene; Z96.641 Presence of right artificial hip joint; D64.9 Anemia, unspecified; Z11.59 Encounter for screening for other viral diseases
CPT/HCPCS: 36415; 71045; 80053; 82550; 82553; 82948; 83735; 83880; 84100; 84443; 84484; 85025; 85610; 85730; 93005; 93306; 99284; J1650

== ENCOUNTER 2024-01-13 12:31 | Emergency (ER) | payer MEDICARE, OTHER ==
[~2024-01-13] VITALS: Ht 162.6 cm; Wt 62.1 kg
[~2024-01-13 12:31] MED LIST changes: +ALEVE220 M1; +CALCIUM600 MG; +CLARITIN-D 241 EACH PO; +DILTIAZEM HCL120 MG PO; +ELIQUIS5 M1 PO; +HUMALOG100 UNIT/1; +NIFEDIPINE ER30 M1 PO; +OSTERA TABLET1 EACH; +PHENERGAN25 MG/1 ML; +PLAVIX75 MG PO; +PREDNISONE10 MG PO; +VIT C-ROSE HIP500 MG
[2024-01-13 12:35] VITALS: PULSE 86; RESP 18; TEMP 97.9
[2024-01-13] MEDS: ONDANSETRON HCL INJ 2MG/ML 2ML 2 MG/ML VIAL IV ONE (13:28)
[2024-01-13] MEDS ORDERED: ONDANSETRON ODT4 MG PO (14:30)
[2024-01-13] MEDS ORDERED: FLEET ENEMA133 ML PR (14:30)
[2024-01-13] MEDS ORDERED: SENOKOT-S TABL1 EACH PO (14:30)
[2024-01-13] MEDS ORDERED: COLACE100 M1 PO (14:30)
[2024-01-13 15:35] VITALS: BP 171/65; PULSE 72; RESP 18; TEMP 98.3; O2SAT 100
== END 2024-01-13 15:00 | disposition home or self-care (01) ==
LOC: FSED 12:40
DX: R10.31 Right lower quadrant pain (principal); K59.00 Constipation, unspecified; R94.31 Abnormal electrocardiogram [ECG] [EKG]
CPT/HCPCS: 74176; 80048; 80076; 81003; 82553; 84484; 85025; 93005; 99283; J2405

== ENCOUNTER 2024-01-15 11:21 | Inpatient (IN) | payer MEDICARE ==
[~2024-01-15] VITALS: Ht 162.6 cm; Wt 62.1 kg
[~2024-01-15 11:21] MED LIST changes: +COLACE100 M1 PO; +FLEET ENEMA133 ML PR; +ONDANSETRON ODT4 MG PO; +SENOKOT-S TABL1 EACH PO
[2024-01-15 11:52] VITALS: TEMP 97.8
[2024-01-15] MEDS ORDERED: ONDANSETRON HCL INJ 2MG/ML 2ML 2 MG/ML VIAL IV PRN ×2 (12:45→21:30)
[2024-01-15] MEDS ORDERED: Morphine 4mg INJECTION 4 MG/ML INJ IV PRN ×2 (12:45→21:30)
[2024-01-15] MEDS ORDERED: SODIUM CHLORIDE FLUSH 10 ML SYR INJ PRN (12:45)
[2024-01-15 13:02] LABS: BASOPHILS % 0.3 % (0.0-1.0); EOSINOPHILS % 0.3 % (0.0-6.0); HEMATOCRIT 39.2 % (34.2-44.1); HEMOGLOBIN 12.9 g/dL (12.0-16.0); LYMPHOCYTES # (AUTO) 0.9 (1.0-3.2); LYMPHOCYTES % 9.8 % (18.0-39.1); MEAN CORPUSCULAR HEMOGLOBIN 32.3 pg (28-32); MEAN CORPUSCULAR HGB CONC 32.9 g/dL (31-35); MEAN CORPUSCULAR VOLUME 98.2 fL (81-99); MONOCYTES % 10.8 % (4.4-11.3); NEUTROPHILS # (AUTO) 6.9 (2.1-6.9); NEUTROPHILS % 77.8 % (38.7-80.0); PLATELET COUNT 236 x10e3/uL (140-360); RED BLOOD COUNT 3.99 x10e6/uL (3.6-5.1); RED CELL DISTRIBUTION WIDTH 14.2 % (11.7-14.4); WHITE BLOOD COUNT 8.91 x10e3/uL (4.8-10.8)
[2024-01-15 13:20] VITALS: PULSE 72; RESP 17
[2024-01-15 13:21] LABS: ALBUMIN 3.8 g/dL (3.5-5.0); ALBUMIN/GLOBULIN RATIO 1.2 (0.8-2.0); ANION GAP 14.1 mmol/L (8-16); BILIRUBIN,TOTAL 0.5 mg/dL (0.2-1.2); CALCIUM 9.5 mg/dL (8.4-10.2); CREATININE, SERUM 1.64 mg/dL (0.57-1.11); POTASSIUM 4.1 mmol/L (3.5-5.1); TOTAL PROTEIN 6.9 g/dL (6.5-8.1)
[2024-01-15] MEDS ORDERED: HYDROXYCHLOROQ200 MG PO (15:26)
[2024-01-15] MEDS ORDERED: PRAVASTATIN SOD40 MG PO (15:26)
[2024-01-15] MEDS ORDERED: EZETIMIBE10 MG PO (15:26)
[2024-01-15] MEDS ORDERED: JARDIANCE25 MG PO (15:26)
[2024-01-15] MEDS ORDERED: GLIMEPIRIDE4 MG PO (15:26)
[2024-01-15] MEDS ORDERED: METHOCARBAMOL750 MG PO (15:26)
[2024-01-15] MEDS ORDERED: SINGULAIR10 MG PO (15:26)
[2024-01-15] MEDS ORDERED: ASPIRIN81 MG PO (15:26)
[2024-01-15] MEDS ORDERED: LOSARTAN POTASS50 MG PO (15:26)
[2024-01-15] MEDS: SODIUM CHLORIDE 0.9% 1000ML 1,000 ML IV SCH ×2 (15:33→21:30)
[2024-01-15] MEDS: CITRATE OF MAGNESIA 300ML BOTTLE PO ONE ×2 (15:47→18:00)
[2024-01-15 15:53] VITALS: BP 180/88; PULSE 73; RESP 16; TEMP 98.2; O2SAT 100
[2024-01-15 16:00] VITALS: BP 180/88; PULSE 73; RESP 16; TEMP 98.2; O2SAT 100
[2024-01-15] MEDS ORDERED: HYDROCODONE/APAP 10MG-325MG TAB PO PRN (17:00)
[2024-01-15] MEDS ORDERED: HYDRALAZINE HCL 20 MG/ML VIAL ONE (18:31)
[2024-01-15] MEDS: HYDRALAZINE HCL 20 MG/ML VIAL IV PRN (18:54)
[2024-01-15] MEDS ORDERED: METOPROLOL SUCC25 MG PO (18:59)
[2024-01-15 20:00] VITALS: BP 137/63; PULSE 85; RESP 16; TEMP 97.7; O2SAT 100
[2024-01-16] VITALS (7 sets, daily range): BP systolic 125–190; BP diastolic 71–89; PULSE 78–89; RESP 16–19; TEMP 97.8–99.1; O2SAT 97–100
[2024-01-16] MEDS ORDERED: CELECOXIB 100 MG CAP PO SCH (04:15)
[2024-01-16] MEDS: METOCLOPRAMIDE HCL 10 MG/2ML VIAL IV SCH (05:52)
[2024-01-16] MEDS: EZETIMIBE 10 MG TAB PO SCH ×2 (09:00→20:25)
[2024-01-16] MEDS: METOPROLOL SUCCINATE 25 MG TAB XL PO SCH ×2 (09:00→20:24)
[2024-01-16] MEDS: ASPIRIN 81 MG CHEW TAB PO SCH (09:00)
[2024-01-16] MEDS: LOSARTAN POTASSIUM 100 MG TAB PO SCH (09:00)
[2024-01-16] MEDS: HYDROXYCHLOROQUINE SULFATE 200 MG TAB PO SCH ×2 (09:00→20:25)
[2024-01-16] MEDS ORDERED: DEXTROSE 50% SYRINGE 50 ML IV PRN (17:00)
[2024-01-16] MEDS: INSULIN LISPRO 100 UNIT/1 ML 3ML VIAL SQ SCH (18:53)
[2024-01-16] MEDS: MONTELUKAST SODIUM 10 MG TAB PO SCH (20:26)
[2024-01-16] MEDS: PRAVASTATIN 20 MG TAB PO SCH (20:26)
[2024-01-17 00:20] VITALS: BP 197/98; PULSE 80; RESP 16; TEMP 98.6; O2SAT 99
[2024-01-17] MEDS: HYDRALAZINE HCL 20 MG/ML VIAL IV PRN (00:40)
[2024-01-17] MEDS: HYDROCODONE/APAP 10MG-325MG TAB PO PRN (00:41)
[2024-01-17 06:43] LABS: BASOPHILS # (AUTO) 0.1 (0.0-0.1); BASOPHILS % 0.7 % (0.0-1.0); EOSINOPHILS # (AUTO) 0.1 (0.0-0.4); EOSINOPHILS % 0.6 % (0.0-6.0); HEMATOCRIT 39.7 % (34.2-44.1); HEMOGLOBIN 12.9 g/dL (12.0-16.0); LYMPHOCYTES % 11.5 % (18.0-39.1); MEAN CORPUSCULAR HGB CONC 32.5 g/dL (31-35); MEAN CORPUSCULAR VOLUME 98.5 fL (81-99); MONOCYTES % 10.8 % (4.4-11.3); NEUTROPHILS # (AUTO) 6.6 (2.1-6.9); NEUTROPHILS % 75.6 % (38.7-80.0); PLATELET COUNT 206 x10e3/uL (140-360); RED BLOOD COUNT 4.03 x10e6/uL (3.6-5.1); RED CELL DISTRIBUTION WIDTH 14.4 % (11.7-14.4); WHITE BLOOD COUNT 8.77 x10e3/uL (4.8-10.8)
[2024-01-17 07:07] LABS: ALBUMIN 3.4 g/dL (3.5-5.0); ALBUMIN/GLOBULIN RATIO 1.2 (0.8-2.0); BILIRUBIN,TOTAL 0.5 mg/dL (0.2-1.2); CALCIUM 8.8 mg/dL (8.4-10.2); CREATININE, SERUM 1.23 mg/dL (0.57-1.11); MAGNESIUM 2.4 MG/DL (1.3-2.1); TOTAL PROTEIN 6.3 g/dL (6.5-8.1)
[2024-01-17 08:18] VITALS: BP 140/70; PULSE 88; RESP 20; TEMP 97.8
[2024-01-17 08:54] VITALS: BP 140/70; PULSE 88; RESP 20; TEMP 97.8; O2SAT 99
[2024-01-17] MEDS: POLYETHYLENE GLYCOL 3350 17 GM PACK PO SCH (09:25)
[2024-01-17] MEDS: LOSARTAN POTASSIUM 100 MG TAB PO SCH (09:26)
[2024-01-17 16:05] VITALS: BP 175/84; PULSE 81; RESP 18; TEMP 97.9; O2SAT 95
[2024-01-17 20:00] VITALS: BP 164/82; PULSE 73; RESP 17; TEMP 98.2; O2SAT 100
[2024-01-17] MEDS: POLYETHYLENE GLYCOL 3350 17 GM PACK PO ONE (21:34)
[2024-01-18 00:05] VITALS: BP 155/101; PULSE 75; RESP 17; TEMP 98.2; O2SAT 100
[2024-01-18 00:50] VITALS: BP 159/74; PULSE 84; RESP 17; TEMP 98.2; O2SAT 99
[2024-01-18 04:00] VITALS: BP 172/91; PULSE 68; RESP 17; TEMP 98.1; O2SAT 95
[2024-01-18] MEDS: ACETAMINOPHEN 325 MG TAB PO PRN (08:19)
[2024-01-18 10:14] VITALS: BP 173/98; PULSE 95; RESP 20; TEMP 97.8; O2SAT 99
[2024-01-18 14:00] VITALS: BP 148/82; PULSE 87; RESP 17; TEMP 98.1; O2SAT 99
[2024-01-18 20:00] VITALS: BP 169/81; PULSE 91; RESP 18; TEMP 98.1; O2SAT 97
[2024-01-19] VITALS (7 sets, daily range): BP systolic 103–161; BP diastolic 69–87; PULSE 76–88; RESP 18–22; TEMP 97.8–98.4; O2SAT 98–100
[2024-01-19] MEDS: CITRATE OF MAGNESIA 300ML BOTTLE PO ONE (01:10)
[2024-01-19] MEDS: METHYLPREDNISOLONE SOD SUCC 40 MG/ML VIAL 1ML IV ONE (06:45)
[2024-01-19] MEDS: MINERAL OIL 132 ML BTL PR ONE (10:17)
[2024-01-20 01:04] VITALS: BP 149/80; PULSE 72; RESP 18; TEMP 97.8; O2SAT 97
[2024-01-20 05:00] VITALS: BP 150/75; PULSE 81; RESP 20; TEMP 98.1; O2SAT 98
[2024-01-20 08:00] VITALS: BP 152/78; PULSE 81; RESP 20; TEMP 98.1; O2SAT 98
[2024-01-20 09:33] VITALS: BP 152/78; PULSE 85; RESP 18; TEMP 98.3; O2SAT 100
== END 2024-01-20 10:09 | disposition home or self-care (01) | DRG 392 ==
LOC: ER 11:43 → ERHOLD 12:36 → ER 13:25 → MED/SURG 13:53 → OBSVTOIN 01-17 10:14
PROVIDERS: ADMIT Internal Medicine; ATTEND Internal Medicine
DX: K59.03 Drug induced constipation (principal); E03.9 Hypothyroidism, unspecified; T38.3X5A Adverse effect of insulin and oral hypoglycemic [antidiabetic] drugs, initial encounter; I12.9 Hypertensive chronic kidney disease with stage 1 through stage 4 chronic kidney disease, or unspecified chronic kidney disease; E11.22 Type 2 diabetes mellitus with diabetic chronic kidney disease; N18.30 Chronic kidney disease, stage 3 unspecified; I48.91 Unspecified atrial fibrillation; E78.5 Hyperlipidemia, unspecified; M06.9 Rheumatoid arthritis, unspecified; K82.8 Other specified diseases of gallbladder; Z79.4 Long term (current) use of insulin; Z79.01 Long term (current) use of anticoagulants; Z79.02 Long term (current) use of antithrombotics/antiplatelets; Z79.890 Hormone replacement therapy; Z79.84 Long term (current) use of oral hypoglycemic drugs; Z90.13 Acquired absence of bilateral breasts and nipples; Z88.0 Allergy status to penicillin; Z88.5 Allergy status to narcotic agent; Z88.1 Allergy status to other antibiotic agents; Z88.8 Allergy status to other drugs, medicaments and biological substances
CPT/HCPCS: 36415; 76705; 78227; 80053; 82948; 83690; 83735; 85025; 99252; 99284; A9537; G0378; J0360; J2270; J2765; J2919; J7030